=== PATIENT | female | born 1945 | race Caucasian/White ===

== ENCOUNTER → 2020-05-27 | Outpatient (CLI) | payer MEDICARE ==
[2020-05-27 10:54] LABS: Basophils % (A) 1 %; Eosinophils # (A) 0.3 k/uL (0-0.7); Eosinophils % (A) 6 %; HCT 28.7 % (34.0-46.0); HGB 9.1 gm/dL (11.4-16.0); Lymphocytes % (A) 24 %; MCH 31.6 pg (25.0-35.0); MCHC 31.7 g/dL (31.0-37.0); MCV 99.6 fL (80.0-100.0); Mean Platelet Volume 7.6; Monocytes # (A) 0.3 k/uL (0-1.0); Monocytes % (A) 8 %; Neutrophils # (A) 2.5 k/uL (1.3-7.7); Neutrophils % (A) 58 %; Platelet Count 244 k/uL (150-450); RBC 2.88 m/uL (3.80-5.40); RDW 13.1 % (11.5-15.5); WBC 4.3 k/uL (3.8-10.6)
[2020-05-27 11:04] LABS: Potassium 4.7 mmol/L (3.5-5.1)
== END | disposition home or self-care (01) ==
LOC: LABPAT 08:54
PROVIDERS: ATTEND Surgery
DX: Z01.818 Encounter for other preprocedural examination (principal); N18.9 Chronic kidney disease, unspecified
CPT/HCPCS: 36415; 80051; 82565; 84520; 85025

== ENCOUNTER → 2020-07-02 | Day surgery (SDC) | payer MEDICARE ==
[2020-06-30 09:31] VITALS: BMI 26.4
[~2020-07-02] MED LIST: DEXAMETHASONE SOD PHOSPHATE 4 MG/ML 1 ML VIAL IV ONE; DEXAMETHASONE SOD PHOSPHATE 4 MG/ML 1 ML VIAL ONE; GELATIN SPONGE,ABSORB (LARGE) 1 EACH SPONGE TOPICAL ONE; HEPARIN SODIUM,PORCINE 2,000 UNIT in SODIUM CHLORIDE 0.9% 500 ML 500 ML IRRIGATION ONE; HEPARIN SODIUM,PORCINE 5,000 UNIT/ML 1 ML VIAL ONE; HYDROmorphone 0.5 MG/0.5 ML SYRINGE IVP PRN; LACTATED RINGERS 1,000 ML IV SCH; LIDOCAINE 1% (10MG/ML) FOR IV START INTRADERMA ONE; LIDOCAINE 1% INJ 10MG/ML (20 ML MDV) SQ ONE; MIDAZOLAM 2 MG/2 ML VIAL IV ONE; MIDAZOLAM 2 MG/2 ML VIAL IV PRN; MIDAZOLAM 2 MG/2 ML VIAL ONE; ONDANSETRON 4 MG/2 ML VIAL IVP ONE; PROPOFOL 10 MG/ML 20 ML VIAL IV ONE; ROPIVACAINE 5 MG/ML 30 ML VIAL ONE; SODIUM CHLORIDE 0.9% 500 ML 500 ML IV ONE; THROMBIN (BOVINE) 5,000 UNIT VIAL MISCELLANE ONE; WATER FOR INJECTION, STERILE 10 ML VIAL IV ONE; ceFAZolin 2,000 MG in SODIUM CHLORIDE 0.9% 500 ML IRRIGATION ONE; diphenhydrAMINE 50 MG/ML 1 ML VIAL ONE; ePHEDrine SULFATE/0.9% NACL/PF 50 MG/5 ML SYRINGE IV ONE; fentaNYL (PF) 50 MCG/ML 2 ML AMP IV ONE; fentaNYL (PF) 50 MCG/ML 2 ML AMP ONE; hydrALAZINE HCL 20 MG/ML 1 ML VIAL ONE
[2020-07-02 07:33] VITALS: TEMP 98
[2020-07-02 07:52] LABS: Glucose,Whole Blood 176 mg/dL (75-99)
--- NOTE | 2020-07-02 08:37 | P.ANPRN ---
Procedure Note - Anesthesia - Nerve Block Performed Left Supraclavicular Time Out Performed: Yes (08:10) Date of Procedure: 07/02/20 Procedure Start Time: Procedure Stop Time: Location of Patient: PreOp Indication: Acute Post-Operative Pain, Requested by Surgeon (Dr Mart) Sedation Type: Sedate with meaningful contact maintained Preparation: Sterile Prep Position: Supine Catheter: None Needle Types: Pajunk (22g) Ultrasound used to visualize needle placement: Yes Ultrasound used to observe medication spread: Yes Injectate: 0.5% Ropivacaine (see comment for volume) (20cc + Decadron 4mg) Blood Aspirated: No Pain Paresthesia on Injection Noted: No Resistance on Injection: Normal Image Stored and Saved: Yes Events: Uneventful and Well Tolerated
--- NOTE | 2020-07-02 09:48 | P.OP ---
Date of Procedure: 07/02/20 Preoperative Diagnosis: Chronic kidney disease Postoperative Diagnosis: Same Procedure(s) Performed: Left upper extremity radiocephalic Larissa fistula Anesthesia: regional, local Surgeon: Keven Mart Director Of Hotel [employer]: Nora Bansal Estimated Blood Loss (ml): 5 Pathology: none sent Condition: stable Disposition: PACU Indications for Procedure: 75-year-old female with chronic kidney disease presented to the office for planning of fistula creation for possible future dialysis. She presents today for left upper extremity Larissa fistula after ultrasound demonstrated 2.5 mm vein at the wrist. Description of Procedure: After written and informed consent was obtained from the patient the patient was brought to the operative suite and laid in a supine position. The left arm was prepped and draped in the usual sterile fashion after appropriate anesthesia was performed per the anesthesiologist. Utilizing ultrasound the cephalic vein was visualized and marked and shown to be good size. A small vertical incision was then created with a 15 blade scalpel just proximal to the wrist and dissection was carried down to the radial artery which was dissected free in a circumferential manner. Proximal distal control was then obtained with vessel loops. Attention was then placed back to the cephalic vein which was located and dissected free in a circumferential manner distally to the wrist. At the wrist it was ligated with silk suture. Further dissection was carried around the vein and the vein was brought over to the radial artery. Serial dilation was then performed on the vein and good backbleeding was noted. Patient was administered 3000 units of heparin and the radial artery was clamped at the proximal and distal aspect. Utilizing 11 blade scalpel and arteriotomy was created and extended with Pott Zaldivar scissors. There was good brisk backbleeding noted from the radial artery and pulsatile blood flow visualized from the proximal aspect. The vein was then spatulated and an end-to-side anastomosis was created with a 7-0 Prolene suture. Prior to last sutures being placed the control was released from the vein revealing good backbleeding and distal control on the radial artery was released revealing good back flow. The proximal control was then released and good pulsatile blood flow was visualized in the fistula and final sutures were secured. The area was copiously irrigated with antibiotic solution. Hemostasis was assured. The vessels were then interrogated with Doppler which demonstrated good multiphasic signal distal to the anastomosis as well as positive bruit within the vein consistent with good fistula creation. Under ultrasound there was pulsatile flow noted in the cephalic vein. The incision was then closed in a multilayer fashion. The skin was cleansed and dressings were placed. Patient does procedure well and was sent to PACU for recovery. Plan - Discharge Summary Discharge Rx Participant: No New Discharge Prescriptions: No Action Cholecalciferol [Vitamin D3 (25 Mcg = 1000 Iu)] 1,000 unit PO DAILY Ascorbic Acid [Vitamin C] 500 mg PO DAILY Multivitamins, Thera [Multivitamin (formulary)] 1 tab PO DAILY Folic Acid 1 mg PO DAILY Ferrous Sulfate [Feosol] 325 mg PO BID Aspirin [Adult Low Dose Aspirin EC] 81 mg PO DAILY Simvastatin [Zocor] 20 mg PO HS Febuxostat [Uloric] 40 mg PO DAILY hydrALAZINE HCL [Apresoline] 100 mg PO TID Insulin Lispro Protamin/Lispro [humaLOG Mix 75-25 Kwikpen] 26 unit SQ 1530 Insulin Lispro Protamin/Lispro [humaLOG Mix 75-25 Kwikpen] 32 unit SQ AC- BRKFST Furosemide [Lasix] 40 mg PO HS Adalimumab [Humira Pen] 40 mg SQ Q14D cloNIDine HCL [Catapres] 0.1 mg PO TID Furosemide [Lasix] 80 mg PO DAILY Cyanocobalamin [Vitamin B-12 Injection] 1,000 mcg SQ QMONTHLY Calcitriol [Rocaltrol] 0.5 mcg PO DAILY Benazepril HCl 5 mg PO DAILY atenoloL [Atenolol] 25 mg PO BID amLODIPine BESYLATE 5 mg PO DAILY Alendronate Sodium [Fosamax] 70 mg PO FR L.acidoph,Paracasei, B.lactis [Probiotic] 2 each PO DAILY Discharge Medication List Adalimumab [Humira Pen] 40 mg SQ Q14D 06/30/20 [History] Alendronate Sodium [Fosamax] 70 mg PO FR 06/30/20 [History] Ascorbic Acid [Vitamin C] 500 mg PO DAILY 06/30/20 [History] Aspirin [Adult Low Dose Aspirin EC] 81 mg PO DAILY 06/30/20 [History] Benazepril HCl 5 mg PO DAILY 06/30/20 [History] Calcitriol [Rocaltrol] 0.5 mcg PO DAILY 06/30/20 [History] Cholecalciferol [Vitamin D3 (25 Mcg = 1000 Iu)] 1,000 unit PO DAILY 06/30/20 [History] Cyanocobalamin [Vitamin B-12 Injection] 1,000 mcg SQ QMONTHLY 06/30/20 [History] Febuxostat [Uloric] 40 mg PO DAILY 06/30/20 [History] Ferrous Sulfate [Feosol] 325 mg PO BID 06/30/20 [History] Folic Acid 1 mg PO DAILY 06/30/20 [History] Furosemide [Lasix] 40 mg PO HS 06/30/20 [History] Furosemide [Lasix] 80 mg PO DAILY 06/30/20 [History] Insulin Lispro Protamin/Lispro [humaLOG Mix 75-25 Kwikpen] 26 unit SQ 1530 06/30/20 [History] Insulin Lispro Protamin/Lispro [humaLOG Mix 75-25 Kwikpen] 32 unit SQ AC-BRKFST 06/30/20 [History] L.acidoph,Paracasei, B.lactis [Probiotic] 2 each PO DAILY 06/30/20 [History] Multivitamins, Thera [Multivitamin (formulary)] 1 tab PO DAILY 06/30/20 [History] Simvastatin [Zocor] 20 mg PO HS 06/30/20 [History] amLODIPine BESYLATE 5 mg PO DAILY 06/30/20 [History] atenoloL [Atenolol] 25 mg PO BID 06/30/20 [History] cloNIDine HCL [Catapres] 0.1 mg PO TID 06/30/20 [History] hydrALAZINE HCL [Apresoline] 100 mg PO TID 06/30/20 [History] Follow up Appointment(s)/Referral(s): Keven Mart DO [STAFF PHYSICIAN] - 2 Weeks Discharge Disposition: HOME SELF-CARE
[2020-07-02 10:12] LABS: Glucose,Whole Blood 191 mg/dL (75-99)
[2020-07-02 10:37] VITALS: BP 193/82; PULSE 77; RESP 17
== END | disposition home or self-care (01) ==
LOC: OR 06:54
PROVIDERS: ATTEND Surgery
DX: I12.9 Hypertensive chronic kidney disease with stage 1 through stage 4 chronic kidney disease, or unspecified chronic kidney disease (principal); E11.22 Type 2 diabetes mellitus with diabetic chronic kidney disease; N18.4 Chronic kidney disease, stage 4 (severe); D63.1 Anemia in chronic kidney disease; L40.50 Arthropathic psoriasis, unspecified; Z98.51 Tubal ligation status; Z98.890 Other specified postprocedural states; Z97.2 Presence of dental prosthetic device (complete) (partial); Z79.83 Long term (current) use of bisphosphonates; Z79.4 Long term (current) use of insulin; Z79.82 Long term (current) use of aspirin; Z79.899 Other long term (current) drug therapy; Z91.09 Other allergy status, other than to drugs and biological substances
CPT/HCPCS: 64415; 76942; 36830; J2250; J0360; J1200; J1644; J1100; J0690 ×2; J2405; J3010; J2795; J2704

== ENCOUNTER → 2021-03-24 | Outpatient (CLI) | payer MEDICARE ==
[2021-03-24 16:58] LABS: Potassium 4.9 mmol/L (3.5-5.1)
[2021-03-24 17:39] LABS: Anisocytosis Slight; HCT 34.3 % (34.0-46.0); Hypochromasia Slight; MCHC 32.1 g/dL (31.0-37.0); Macrocytosis Slight; Mean Platelet Volume 8.1; Platelet Count 222 k/uL (150-450); RBC 3.43 m/uL (3.80-5.40); WBC 3.5 k/uL (3.8-10.6)
[2021-03-24 18:55] LABS: Band Neutrophils % 1 %; Eosinophils # (M) 0.67 k/uL (0-0.7); Lymphocytes # (M) 0.46 k/uL (1.0-4.8); Monocytes # (M) 0.11 k/uL (0-1.0); Neutrophils % (M) 64 %; Nucleated Red Blood Cells 0 /100 WBC (0-0); Poikilocytosis (M) Present; Total Cells Counted 100
== END | disposition home or self-care (01) ==
LOC: LABPAT 15:27
PROVIDERS: ATTEND Surgery
DX: Z01.812 Encounter for preprocedural laboratory examination (principal); N18.9 Chronic kidney disease, unspecified
CPT/HCPCS: 80051; 82565; 84520; 85025

== ENCOUNTER 2021-03-25 12:31 | Day surgery (SDC) | payer MEDICARE ==
[~2021-03-25 12:31] MED LIST changes: -DEXAMETHASONE SOD PHOSPHATE 4 MG/ML 1 ML VIAL IV ONE; -DEXAMETHASONE SOD PHOSPHATE 4 MG/ML 1 ML VIAL ONE; -GELATIN SPONGE,ABSORB (LARGE) 1 EACH SPONGE TOPICAL ONE; -HEPARIN SODIUM,PORCINE 2,000 UNIT in SODIUM CHLORIDE 0.9% 500 ML 500 ML IRRIGATION ONE; -HEPARIN SODIUM,PORCINE 5,000 UNIT/ML 1 ML VIAL ONE; -HYDROmorphone 0.5 MG/0.5 ML SYRINGE IVP PRN; -LACTATED RINGERS 1,000 ML IV SCH; -LIDOCAINE 1% (10MG/ML) FOR IV START INTRADERMA ONE; -LIDOCAINE 1% INJ 10MG/ML (20 ML MDV) SQ ONE; -MIDAZOLAM 2 MG/2 ML VIAL IV ONE; -MIDAZOLAM 2 MG/2 ML VIAL IV PRN; -MIDAZOLAM 2 MG/2 ML VIAL ONE; -ONDANSETRON 4 MG/2 ML VIAL IVP ONE; -PROPOFOL 10 MG/ML 20 ML VIAL IV ONE; -ROPIVACAINE 5 MG/ML 30 ML VIAL ONE; +SODIUM CHLORIDE 0.9% 1,000 ML IV ONE; -SODIUM CHLORIDE 0.9% 500 ML 500 ML IV ONE; -THROMBIN (BOVINE) 5,000 UNIT VIAL MISCELLANE ONE; -WATER FOR INJECTION, STERILE 10 ML VIAL IV ONE; -ceFAZolin 2,000 MG in SODIUM CHLORIDE 0.9% 500 ML IRRIGATION ONE; -diphenhydrAMINE 50 MG/ML 1 ML VIAL ONE; -ePHEDrine SULFATE/0.9% NACL/PF 50 MG/5 ML SYRINGE IV ONE; -fentaNYL (PF) 50 MCG/ML 2 ML AMP IV ONE; -fentaNYL (PF) 50 MCG/ML 2 ML AMP ONE; -hydrALAZINE HCL 20 MG/ML 1 ML VIAL ONE
[2021-03-25] MEDS ORDERED: SODIUM CHLORIDE 0.9% 500 ML 500 ML IV ONE (14:27)
[2021-03-25 14:47] LABS: Glucose,Whole Blood 110 mg/dL (75-99)
[2021-03-25] MEDS ORDERED: amLODIPine 10 MG TAB PO ONE (15:00)
[2021-03-25] MEDS ORDERED: cloNIDine HCL 0.1 MG TAB PO ONE (15:15)
[2021-03-25] MEDS ORDERED: hydrALAZINE HCL 50 MG TAB PO ONE (15:15)
[2021-03-25] MEDS ORDERED: atenoloL 50 MG TAB PO ONE (15:15)
[2021-03-25 15:16] VITALS: BP 229/105; PULSE 70; RESP 16; TEMP 97.2
[2021-03-25] MEDS ORDERED: LIDOCAINE 1% INJ 10MG/ML (20 ML MDV) ONE (16:31)
[2021-03-25] MEDS ORDERED: HEPARIN SODIUM 1,000 UN/ML (10ML VL) ONE (16:31)
--- NOTE | 2021-03-25 16:37 | P.HPIHPCON ---
History of Present Illness H&P Date: 03/25/21 Belgica is a 76-year-old female who previously underwent a left upper extremity radiocephalic fistula. It has failed to mature. She currently does not require dialysis but last seen at her senior piping designer, they were concerned there was no further thrill or bruit taken here. Given these things are concerned there is issue with the fistula thrombosing. She was seen at our office with an ultrasound showing patency, but there to mature. Given these findings is recommended she undergo a fistulogram. She feels a for this. She denies any fevers, chills, nausea, vomiting or issues otherwise. Again there not currently recommending dialysis per the patient Consent for Procedure: I have explained the operation/procedure to the patient, including the risks, benefits, side effects, alternative therapies (including not receiving the proposed treatment or service), the likelihood of the patient achieving his/her goals, and potential recuperation problems for the procedure/sedation/analgesia, as well as any blood products, if indicated. I also explained to the patient the risks, benefits and side effects of the alternatives, as well as the risks related to not receiving the proposed procedure, care, treatment, or services. Past Medical History Past Medical History: Diabetes Mellitus, Hyperlipidemia, Hypertension, Renal Disease, Skin Disorder Additional Past Medical History / Comment(s): kidney disease stage V. gout ,anemia, psoriatic arthritis,heart murmur History of Any Multi-Drug Resistant Organisms: None Reported Past Surgical History: Orthopedic Surgery, Tubal Ligation Additional Past Surgical History / Comment(s): 1 oophorectomy, 1 partial oophorectomy,fx rt shoulder feng present Past Anesthesia/Blood Transfusion Reactions: Motion Sickness Smoking Status: Never smoker - Past Family History Sister(s) Family Medical History: Cancer Additional Family Medical History / Comment(s): breast cancer Medications and Allergies Home Medications Medication Instructions Recorded Confirmed Type Adalimumab [Humira Pen] 40 mg SQ Q14D 06/30/20 03/25/21 History Alendronate Sodium [Fosamax] 70 mg PO FR 06/30/20 03/25/21 History Ascorbic Acid [Vitamin C] 500 mg PO DAILY 06/30/20 03/25/21 History Aspirin [Adult Low Dose Aspirin EC] 81 mg PO DAILY 06/30/20 03/25/21 History Cholecalciferol [Vitamin D3 (25 1,000 unit PO DAILY 06/30/20 03/25/21 History Mcg = 1000 Iu)] Febuxostat [Uloric] 40 mg PO DAILY 06/30/20 03/25/21 History Ferrous Sulfate [Feosol] 325 mg PO DAILY 06/30/20 03/25/21 History Folic Acid 1 mg PO DAILY 06/30/20 03/25/21 History Furosemide [Lasix] 40 mg PO HS 06/30/20 03/25/21 History Furosemide [Lasix] 80 mg PO DAILY 06/30/20 03/25/21 History Insulin Lispro Protamin/Lispro 26 unit SQ 1530 06/30/20 03/25/21 History [humaLOG Mix 75-25 Kwikpen] Insulin Lispro Protamin/Lispro 32 unit SQ AC-BRKFST 06/30/20 03/25/21 History [humaLOG Mix 75-25 Kwikpen] Multivitamins, Thera [Multivitamin 1 tab PO DAILY 06/30/20 03/25/21 History (formulary)] Simvastatin [Zocor] 20 mg PO HS 06/30/20 03/25/21 History amLODIPine BESYLATE 10 mg PO DAILY 06/30/20 03/25/21 History atenoloL 50 mg PO BID 06/30/20 03/25/21 History calcitrioL [Rocaltrol] 0.5 mcg PO DAILY 06/30/20 03/25/21 History cloNIDine HCL [Catapres] 0.3 mg PO TID 06/30/20 03/25/21 History hydrALAZINE HCL [Apresoline] 100 mg PO TID 06/30/20 03/25/21 History Folic Acid-Vit B Complex-Vit C 0.8 mg PO DAILY 03/25/21 03/25/21 History [Nephrocaps] Furosemide [Lasix] 80 mg PO DAILY 03/25/21 03/25/21 History Pantoprazole [Protonix] 40 mg PO DAILY 03/25/21 03/25/21 History Sevelamer Carbonate 800 mg PO BID 03/25/21 03/25/21 History Allergies Allergy/AdvReac Type Severity Reaction Status Date / Time adhesive tape Allergy Itching Verified 03/25/21 14:34 Surgical - Exam Vital Signs Temp Pulse Resp BP Pulse Ox 97.2 F L 70 16 229/105 99 08/13/21 15:08 03/25/21 15:08 03/25/21 15:08 03/25/21 15:08 03/25/21 15:08 Genitals a pleasant cooperative female in no acute distress. HEENT is normal cephalic, atraumatic, extra ocular motion intact. Heart appears regular in rate and rhythm. Lungs are clear bilaterally. Abdomen is soft, nontender nondistended. Extremity show no clubbing, cyanosis or edema. The left upper extremity has a palpable radial pulse. No palpable thrill Results - Labs Abnormal Lab Results - Last 24 Hours (Table) 03/25/21 Range/Units 14:43 POC Glucose (mg/dL) 110 H (75-99) mg/dL Assessment and Plan Assessment: Non-maturing left upper extremity AV fistula Chronic kidney disease Plan: Plan for left upper extremity fistulagram, possible venoplasty
[2021-03-25] MEDS ORDERED: LIDOCAINE 1% INJ 10MG/ML (20 ML MDV) SQ ONE (16:40)
[2021-03-25] MEDS ORDERED: IOPAMIDOL-250 100ML BTL IV ONE (17:04)
--- NOTE | 2021-03-25 17:10 | P.OP ---
Date of Procedure: 03/25/21 Description of Procedure: Preoperative diagnosis: Non-maturing left upper extremity radiocephalic fistula Postoperative diagnosis: Same, multiple branches Procedure: [#1 ultrasound guided left cephalic vein access #2 fistulogram] Surgeon: Nora Bansal D.O. EBL: [Less than 10 mL] IV fluids: See records Urine output: [Not recorded] Drains: []None Complications: [None immediately apparent] Condition: [Stable to recovery] Operative indication and findings: [Belgica is a 76-year-old female in today for ev aluation of her nonfunctioning left upper extremity radiocephalic fistula. She is not currently on dialysis] Procedure in detail: [Patient was taken to the special suite and placed in supine position. The left upper extremity is prepped and draped in usual sterile fashion. A preprocedure timeout was performed, all parties are in agreement. The ultrasound was utilized and the cephalic vein was identified. The skin overlying was anesthetized 1% lidocaine plain. Using a micropuncture needle the cephalic vein was accessed. Seldinger technique was placed to place the sheath. A venogram was performed. There are multiple areas of decent size branches. Visualized portions of the anastomosis and veins showed no obvious areas of severe stenosis. Wires and catheters were removed. Pressure was held until hemostasis was adequate. The patient will need a branch ligation first to attempt any sort of maturation] Plan - Discharge Summary New Discharge Prescriptions: No Action Cholecalciferol [Vitamin D3 (25 Mcg = 1000 Iu)] 1,000 unit PO DAILY Ascorbic Acid [Vitamin C] 500 mg PO DAILY Multivitamins, Thera [Multivitamin (formulary)] 1 tab PO DAILY Folic Acid 1 mg PO DAILY Ferrous Sulfate [Feosol] 325 mg PO DAILY Aspirin [Adult Low Dose Aspirin EC] 81 mg PO DAILY Simvastatin [Zocor] 20 mg PO HS Febuxostat [Uloric] 40 mg PO DAILY hydrALAZINE HCL [Apresoline] 100 mg PO TID Insulin Lispro Protamin/Lispro [humaLOG Mix 75-25 Kwikpen] 26 unit SQ 1530 Insulin Lispro Protamin/Lispro [humaLOG Mix 75-25 Kwikpen] 32 unit SQ AC- BRKFST Furosemide [Lasix] 40 mg PO HS Adalimumab [Humira Pen] 40 mg SQ Q14D cloNIDine HCL [Catapres] 0.3 mg PO TID Furosemide [Lasix] 80 mg PO DAILY calcitrioL [Rocaltrol] 0.5 mcg PO DAILY atenoloL 50 mg PO BID amLODIPine BESYLATE 10 mg PO DAILY Alendronate Sodium [Fosamax] 70 mg PO FR Furosemide [Lasix] 80 mg PO DAILY Folic Acid-Vit B Complex-Vit C [Nephrocaps] 0.8 mg PO DAILY Pantoprazole [Protonix] 40 mg PO DAILY Sevelamer Carbonate 800 mg PO BID Discharge Medication List Adalimumab [Humira Pen] 40 mg SQ Q14D 06/30/20 [History] Alendronate Sodium [Fosamax] 70 mg PO FR 06/30/20 [History] Ascorbic Acid [Vitamin C] 500 mg PO DAILY 06/30/20 [History] Aspirin [Adult Low Dose Aspirin EC] 81 mg PO DAILY 06/30/20 [History] Cholecalciferol [Vitamin D3 (25 Mcg = 1000 Iu)] 1,000 unit PO DAILY 06/30/20 [History] Febuxostat [Uloric] 40 mg PO DAILY 06/30/20 [History] Ferrous Sulfate [Feosol] 325 mg PO DAILY 06/30/20 [History] Folic Acid 1 mg PO DAILY 06/30/20 [History] Furosemide [Lasix] 40 mg PO HS 06/30/20 [History] Furosemide [Lasix] 80 mg PO DAILY 06/30/20 [History] Insulin Lispro Protamin/Lispro [humaLOG Mix 75-25 Kwikpen] 26 unit SQ 1530 06/30/20 [History] Insulin Lispro Protamin/Lispro [humaLOG Mix 75-25 Kwikpen] 32 unit SQ AC-BRKFST 06/30/20 [History] Multivitamins, Thera [Multivitamin (formulary)] 1 tab PO DAILY 06/30/20 [History] Simvastatin [Zocor] 20 mg PO HS 06/30/20 [History] amLODIPine BESYLATE 10 mg PO DAILY 06/30/20 [History] atenoloL 50 mg PO BID 06/30/20 [History] calcitrioL [Rocaltrol] 0.5 mcg PO DAILY 06/30/20 [History] cloNIDine HCL [Catapres] 0.3 mg PO TID 06/30/20 [History] hydrALAZINE HCL [Apresoline] 100 mg PO TID 06/30/20 [History] Folic Acid-Vit B Complex-Vit C [Nephrocaps] 0.8 mg PO DAILY 03/25/21 [History] Furosemide [Lasix] 80 mg PO DAILY 03/25/21 [History] Pantoprazole [Protonix] 40 mg PO DAILY 03/25/21 [History] Sevelamer Carbonate 800 mg PO BID 03/25/21 [History]
--- NOTE | 2021-03-28 13:58 | IR ---
EXAMINATION TYPE: IR venogram upper ext LT DATE OF EXAM: 03/25/2021 COMPARISON: NONE HISTORY: Fluoroscopy time. Fluoroscopy was provided to the referring clinician.
== END 2021-03-25 17:38 | disposition home or self-care (01) ==
LOC: CATHCVL 12:31
PROVIDERS: ATTEND Surgery
DX: T82.898A Other specified complication of vascular prosthetic devices, implants and grafts, initial encounter (principal); Y83.2 Surgical operation with anastomosis, bypass or graft as the cause of abnormal reaction of the patient, or of later complication, without mention of misadventure at the time of the procedure; I12.0 Hypertensive chronic kidney disease with stage 5 chronic kidney disease or end stage renal disease; E11.22 Type 2 diabetes mellitus with diabetic chronic kidney disease; N18.5 Chronic kidney disease, stage 5; Z99.2 Dependence on renal dialysis; E78.5 Hyperlipidemia, unspecified; D63.1 Anemia in chronic kidney disease; L40.50 Arthropathic psoriasis, unspecified; Z79.899 Other long term (current) drug therapy; Z79.82 Long term (current) use of aspirin; Z79.4 Long term (current) use of insulin
CPT/HCPCS: 76937; 36901; C1769 ×2; J2001; Q9966

== ENCOUNTER → 2022-01-04 | Outpatient (CLI) | payer MEDICARE ==
--- NOTE | 2022-01-04 15:56 | US ---
LOWER EXTREMITY VENOUS INSUFFICIENCY CLINICAL HISTORY: E11.622 TYPE 2 DIABETE MELLITUS W/OTHER SKIN ULCER. pain bilateral legs, worse on t he right for 10 months. wounds bilateral lower legs SIDE PERFORMED: bilateral 1) Color flow is present and patency is documented in the following vessels. No DVT or SVT is noted . Common Femoral Vein Deep Femoral Vein Femoral Vein Popliteal Vein Proximal Calf Veins Greater Saph Vein Upper Small Saph Vein 2) There is venous reflux noted at the following venous levels: right GSV, right CFV, left EIV, lef t GSV, left CFV, left deep femoral vein,left femoral vein upper and mid, left popliteal vein mid and lower, left SSV IMPRESSION: 1. Venous Reflux is present within the right and left lower extremity discussed above.
--- NOTE | 2022-01-10 13:32 | US ---
EXAMINATION TYPE: US arterial LE single level DATE OF EXAM: 01/04/2022 2:36 PM CLINICAL HISTORY: E11.622 TYPE 2 DIABETE MELLITUS W/OTHER SKIN ULCER. History of hyperlipidemia and h ypertension. Bilateral leg wounds worse on the right for 10 months. Doppler Waveforms: Right: Biphasic Left: Monophasic Pulse Volume Recording: Ankle-Brachial Indices: Right: CNO Left: CNO Toe Brachial Indices: Right: 0.9 Left: 0.7 IMPRESSION: Abnormal phasicity with unobtainable ABIs is abnormal study. Advise follow-up.
== END | disposition home or self-care (01) ==
LOC: RADUSWWP 13:18
PROVIDERS: ATTEND Thoracic Surgery (Cardiothoracic Vascular Surgery)
DX: E11.622 Type 2 diabetes mellitus with other skin ulcer (principal); I10 Essential (primary) hypertension; E78.5 Hyperlipidemia, unspecified
CPT/HCPCS: 93922; 93970

== ENCOUNTER → 2022-12-22 | Outpatient (CLI) | payer MEDICARE ==
--- NOTE | 2022-12-22 09:23 | MR ---
EXAMINATION TYPE: MR MRCP DATE OF EXAM: 12/22/2022 COMPARISON: None. HISTORY: Pancreatic cyst. Standard multiplanar, multisequence MRI departmental protocol Multiplanar, multisequence images of the abdomen were acquired without contrast. Diffusion weighted i maging was performed. Thin and thick slice MRCP imaging is performed. FINDINGS: Liver/gallbladder/pancreas/biliary system: Liver is overall normal in size with several small simple- appearing thin-walled cysts. Gallbladder shows a single tiny dependent 4 mm gallstone axial image 18. No surrounding fluid or abnormal gallbladder wall thickening. Pancreas is normal in size with a thin walled cyst in the pancreatic body measuring 1.7 x 2.0 x 2.3 cm coronal image 12 and axial image 17. MRCP images slight prominence of the cystic duct. The common hepatic duct measures up to 8 mm which is upper limits of normal. The common bile duct measures mildly dilated at 11 mm image 45 series 701. There is no filling defect or CBD stone. There is gradual tapering towards the ampulla. The pancreat ic duct is mildly dilated up to 4 mm. There is no definitive communication with the thin-walled cyst or cystic lesion in the pancreatic body. Slightly prominent side branch in the tail has a 4 mm thin-w alled cyst coronal image 15 and MRCP series 701 image 45. Other: Lung bases are grossly clear. Spleen and both adrenal glands appear within normal limits. Ther e is cortical thinning in both kidneys with occasional subcentimeter benign-appearing thin-walled cys t. Findings consistent with products of chronic medical renal disease. No hydronephrosis seen bilater ally. There is no suspicious small and large bowel dilatation. No intra-abdominal ascites. There is S -shaped scoliosis with multilevel spurring in the thoracolumbar spine. No AAA. IMPRESSION: 1. There is 2.0 cm thin-walled cyst in the pancreatic body without direct communication to the main p ancreatic duct. Cystic neoplasm is in differential. No suspicious features identified on noncontrast MRI. Correlate clinically. 2. There is 4 mm thin-walled cyst in the pancreatic tail communicating to side branch of the main felder creatic duct consistent with tiny side branch IPMN.
== END | disposition home or self-care (01) ==
LOC: RADMRIMAIN 07:07
PROVIDERS: ATTEND Internal Medicine Gastroenterology
DX: K86.2 Cyst of pancreas (principal)
CPT/HCPCS: 74181

== ENCOUNTER 2023-05-30 05:39 | Observation (INO) | payer MEDICARE ==
[2023-05-30] MEDS ORDERED: SODIUM CHLORIDE 0.9% 1,000 ML IV STA (06:30)
[2023-05-30 07:13] LABS: HCT 35.3 % (34.0-46.0); HGB 11.7 gm/dL (11.4-16.0); MCH 33.1 pg (25.0-35.0); MCHC 33.1 g/dL (31.0-37.0); MCV 100.2 fL (80.0-100.0); Mean Platelet Volume 7.7; Platelet Count 110 k/uL (150-450); RBC 3.53 m/uL (3.80-5.40); RDW 13.9 % (11.5-15.5); WBC 2.3 k/uL (3.8-10.6)
[2023-05-30 07:30] LABS: ALT 16 U/L (4-34); AST 43 U/L (14-36); African American GFR (CKD) 23 (>60 ml/min/1.73 sqM); Albumin 3.6 g/dL (3.5-5.0); Alkaline Phosphatase 40 U/L (38-126); Anion Gap 9 mmol/L; Blood Urea Nitrogen 30 mg/dL (7-17); Calcium 9.2 mg/dL (8.4-10.2); Carbon Dioxide 29 mmol/L (22-30); Chloride 96 mmol/L (98-107); Glucose 86 mg/dL (74-99); Non-African American GFR(CKD) 20 (>60 ml/min/1.73 sqM); Sodium 134 mmol/L (137-145); Total Bilirubin 0.6 mg/dL (0.2-1.3); Total Protein 6.3 g/dL (6.3-8.2)
[2023-05-30 07:40] LABS: Partial Thromboplastin Time 25.3 sec (22.0-30.0); Prothrombin Time 10.7 sec (10.0-12.5)
[2023-05-30 07:49] LABS: Potassium 3.9 mmol/L (3.5-5.1)
[2023-05-30 08:12] LABS: Eosinophils # (M) 0.12 k/uL (0-0.7); Lymphocytes # (M) 0.55 k/uL (1.0-4.8); Metamyelocytes # (M) 0.02 k/uL (0); Metamyelocytes % 1 %; Monocytes # (M) 0.35 k/uL (0-1.0); Myelocytes # (M) 0.02 k/uL (0); Myelocytes % 1 %; Neutrophils # (M) 1.29 k/uL (1.3-7.7); Neutrophils % (M) 56 %; Nucleated Red Blood Cells 0 /100 WBC (0-0); Total Cells Counted 200
--- NOTE | 2023-05-30 08:17 | ED ---
Recheck HPI - General Chief Complaint: Recheck/Abnormal Lab/Rx Time Seen by Provider: 05/30/23 05:59 Source: patient, EMS, RN notes reviewed Mode of arrival: EMS Limitations: no limitations - History of Present Illness Initial Comments: 78-year-old female presents emergency Department with chief complaint of not feeling well. She states that she just feels weak but has no specific complaints. Patient was seen at [facility] just prior arrival here in which she had a full workup and discharge. Patient states she also has had recent stay at [facility]. She states she's also have "home health care come out today along with physical therapy she denies chest pain shortness breath headache or dizziness no focal weakness. - Related Data Home Medications Medication Instructions Recorded Confirmed Ascorbic Acid [Vitamin C] 500 mg PO DAILY 06/30/20 05/30/23 Aspirin [Adult Low Dose Aspirin EC] 81 mg PO DAILY 06/30/20 05/30/23 Febuxostat [Uloric] 40 mg PO DAILY 06/30/20 05/30/23 Ferrous Sulfate [Feosol] 325 mg PO DAILY 06/30/20 05/30/23 Multivitamins, Thera [Multivitamin 1 tab PO DAILY 06/30/20 05/30/23 (formulary)] Simvastatin [Zocor] 20 mg PO HS 06/30/20 05/30/23 amLODIPine BESYLATE 10 mg PO DAILY 06/30/20 05/30/23 hydrALAZINE HCL [Apresoline] 100 mg PO TID 06/30/20 05/30/23 Calcium Acetate [Phoslo] 1,334 mg PO TID-W/MEALS 09/21/22 05/30/23 Furosemide [Lasix] 60 mg PO TID 09/21/22 05/30/23 Insulin Degludec [Tresiba] 22 units SQ QAM 09/21/22 05/30/23 Nephro-Hilary 1 tab PO DAILY 09/21/22 05/30/23 carvediloL [Coreg] 25 mg PO BID 09/21/22 05/30/23 Cholecalciferol [Vitamin D3 (25 25 mcg PO DAILY 05/30/23 05/30/23 Mcg = 1000 Iu)] Insulin Lispro [humaLOG Kwikpen] 4 units SQ AC-TID 05/30/23 05/30/23 Insulin Lispro [humaLOG Kwikpen] See Protocol SQ AC-TID 05/30/23 05/30/23 Women's Probiotic W/ Cranberry 2 cap PO DAILY 05/30/23 05/30/23 lisinopriL [Prinivil] 10 mg PO DIRECTED 05/30/23 05/30/23 Allergies Allergy/AdvReac Type Severity Reaction Status Date / Time adhesive tape AdvReac Itching Verified 05/30/23 08:38 Review of Systems ROS Statement: Those systems with pertinent positive or pertinent negative responses have been documented in the HPI. ROS Other: All systems not noted in ROS Statement are negative. 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 gout ,anemia, psoriatic arthritis,heart murmur History of Any Multi-Drug Resistant Organisms: None Reported Past Surgical History: Orthopedic Surgery, Tubal Ligation Additional Past Surgical History / Comment(s): 1 oophorectomy, 1 partial oophorectomy,fx rt shoulder feng present, dialysis port right arm, cataracts removed jack eyes, fistula left arm Past Anesthesia/Blood Transfusion Reactions: Motion Sickness Past Psychological History: No Psychological Hx Reported Smoking Status: Never smoker - Past Family History Sister(s) Family Medical History: Cancer Additional Family Medical History / Comment(s): breast cancer General Exam General appearance: alert, in no apparent distress Head exam: Present: atraumatic, normocephalic, normal inspection Eye exam: Present: normal appearance, PERRL, EOMI. Absent: scleral icterus, conjunctival injection, periorbital swelling ENT exam: Present: normal exam, normal oropharynx, mucous membranes moist Neck exam: Present: normal inspection, full ROM. Absent: tenderness, meningismus, lymphadenopathy Respiratory exam: Present: normal lung sounds bilaterally. Absent: respiratory distress, wheezes, rales, rhonchi, stridor Cardiovascular Exam: Present: regular rate, normal rhythm, normal heart sounds. Absent: systolic murmur, diastolic murmur, rubs, gallop, clicks GI/Abdominal exam: Present: soft, normal bowel sounds. Absent: distended, tenderness, guarding, rebound, rigid Back exam: Absent: CVA tenderness (R), CVA tenderness (L) Neurological exam: Present: alert, oriented X3, CN II-XII intact, reflexes normal. Absent: motor sensory deficit Skin exam: Present: warm, dry, intact, normal color. Absent: rash Course Vital Signs 05/30/23 05/30/23 05/30/23 05:41 06:58 08:00 Temperature 99.1 F Pulse Rate 75 74 72 Respiratory 18 18 16 Rate Blood Pressure 193/66 193/66 172/68 O2 Sat by Pulse 97 97 97 Oximetry 05/30/23 05/30/23 05/30/23 09:00 10:00 12:00 Temperature Pulse Rate 68 66 66 Respiratory 16 16 16 Rate Blood Pressure 171/74 164/63 170/83 O2 Sat by Pulse 96 96 98 Oximetry 05/30/23 13:00 Temperature Pulse Rate 69 Respiratory 16 Rate Blood Pressure 163/70 O2 Sat by Pulse 98 Oximetry Medical Decision Making - Medical Decision Making Was pt. sent in by a medical professional or institution (, PA, DIRECTOR OF DIGITAL MARKETING, urgent care, hospital, or group home...) When possible be specific @ -No Did you speak to anyone other than the patient for history (EMS, parent, family, police, friend...)? What history was obtained from this source @ -No Did you review nursing and triage notes (agree or disagree)? Why? @ -I reviewed and agree with nursing and triage notes Were old charts reviewed (outside hosp., previous admission, EMS record, old EKG, old radiological studies, urgent care reports/EKG's, group home records)? Report findings @ -No old charts were reviewed Differential Diagnosis (chest pain, altered mental status, abdominal pain women, abdominal pain men, vaginal bleeding, weakness, fever, dyspnea, syncope, headache, dizziness, GI bleed, back pain, seizure, CVA, palpatations, mental health, musculoskeletal)? @ -[Differential Weakness: Hypoglycemia, shock, sepsis, hyponatremia, anemia, infection, VA, ETOH, adverse medicine reaction, overdose, stroke, this is not meant to be an all-inclusive list.s EKG interpreted by me (3pts min.). @ -As above X-rays interpreted by me (1pt min.). @ -None done CT interpreted by me (1pt min.). @ -None done U/S interpreted by me (1pt. min.). @ -None done What testing was considered but not performed or refused? (CT, X-rays, U/S, labs)? Why? @ -None What meds were considered but not given or refused? Why? @ -None Did you discuss the management of the patient with other professionals (professionals i.e. , PA, DIRECTOR OF DIGITAL MARKETING, lab, RT, psych nurse, social media manager, dehydrator tender, teacher, global chief creative officer, corrections caseworker)? Give summary @ -Dr. Rebolledo for admission secondary ongoing weakness and UTI Was smoking cessation discussed for >3mins.? @ -No Was critical care preformed (if so, how long)? @ -No Were there social determinants of health that impacted care today? How? (Homelessness, low income, unemployed, alcoholism, drug addiction, transportation, low edu. Level, literacy, decrease access to med. care, residential, rehab)? @ -No Was there de-escalation of care discussed even if they declined (Discuss DNR or withdrawal of care, Hospice)? DNR status @ -No What co-morbidities impacted this encounter? (DM, HTN, Smoking, COPD, CAD, Cancer, CVA, ARF, Chemo, Hep., AIDS, mental health diagnosis, sleep apnea, morbid obesity)? @ -Renal failure Was patient admitted / discharged? Hospital course, mention meds given and route, prescriptions, significant lab abnormalities, going to OR and other pertinent info. @ -Admitted patient has an UTI, increased weakness unable to ambulate unable to get off her couch at home. Patient be admitted for possible placement come UTI treatment Undiagnosed new problem with uncertain prognosis? @ -No Drug Therapy requiring intensive monitoring for toxicity (Heparin, Nitro, Insulin, Cardizem)? @ -No Were any procedures done? @ -No Diagnosis/symptom? @ -UTI, weakness Acute, or Chronic, or Acute on Chronic? @ -Acute Uncomplicated (without systemic symptoms) or Complicated (systemic symptoms)? @ -[complicated Side effects of treatment? @ -No Exacerbation, Progression, or Severe Exacerbation? @ -No Poses a threat to life or bodily function? How? (Chest pain, USA, VA, pneumonia, PE, COPD, DKA, ARF, appy, cholecystitis, CVA, Diverticulitis, Homicidal, Suicidal, threat to staff... and all critical care pts) @ -No - Lab Data Result diagrams: 05/30/23 06:56 05/30/23 07:05 Lab Results 05/30/23 05/30/23 05/30/23 Range/Units 06:56 07:05 07:05 WBC 2.3 L (3.8-10.6) k/uL RBC 3.53 L (3.80-5.40) m/uL Hgb 11.7 (11.4-16.0) gm/dL Hct 35.3 (34.0-46.0) % MCV 100.2 H (80.0-100.0) fL MCH 33.1 (25.0-35.0) pg MCHC 33.1 (31.0-37.0) g/dL RDW 13.9 (11.5-15.5) % Plt Count 110 L (150-450) k/uL MPV 7.7 Neutrophils % (Manual) 56 % Lymphocytes % (Manual) 24 % Monocytes % (Manual) 15 % Eosinophils % (Manual) 5 % Metamyelocytes % 1 % Myelocytes % 1 % Neutrophils # (Manual) 1.29 L (1.3-7.7) k/uL Lymphocytes # (Manual) 0.55 L (1.0-4.8) k/uL Monocytes # (Manual) 0.35 (0-1.0) k/uL Eosinophils # (Manual) 0.12 (0-0.7) k/uL Metamyelocytes # (Man) 0.02 H (0) k/uL Myelocytes # (Manual) 0.02 H (0) k/uL Nucleated RBCs 0 (0-0) /100 WBC Manual Slide Review Performed PT 10.7 (10.0-12.5) sec INR 1.0 (<1.2) APTT 25.3 (22.0-30.0) sec Sodium 134 L (137-145) mmol/L Potassium 3.9 (3.5-5.1) mmol/L Chloride 96 L (98-107) mmol/L Carbon Dioxide 29 (22-30) mmol/L Anion Gap 9 mmol/L BUN 30 H (7-17) mg/dL Creatinine 2.29 H (0.52-1.04) mg/dL Est GFR (CKD-EPI)AfAm 23 (>60 ml/min/1.73 sqM) Est GFR (CKD-EPI)NonAf 20 (>60 ml/min/1.73 sqM) Glucose 86 (74-99) mg/dL POC Glucose (mg/dL) (70-110) mg/dL POC Glu Broker Associate ID Plasma Lactic Acid [place] (0.7-2.0) mmol/L Calcium 9.2 (8.4-10.2) mg/dL Magnesium 2.0 (1.6-2.3) mg/dL Total Bilirubin 0.6 (0.2-1.3) mg/dL AST 43 H (14-36) U/L ALT 16 (4-34) U/L Alkaline Phosphatase 40 (38-126) U/L Troponin I (0.000-0.034) ng/mL Total Protein 6.3 (6.3-8.2) g/dL Albumin 3.6 (3.5-5.0) g/dL TSH 1.090 (0.465-4.680) mIU/L Urine Color Urine Appearance (Clear) Urine pH (5.0-8.0) Ur Specific [place] (1.001-1.035) Urine Protein (Negative) Urine Glucose (UA) (Negative) Urine Ketones (Negative) Urine Blood (Negative) Urine Nitrite (Negative) Urine Bilirubin (Negative) Urine Urobilinogen (<2.0) mg/dL Ur Leukocyte Esterase (Negative) Urine RBC (0-5) /hpf Urine WBC (0-5) /hpf Ur Squamous Epith Cells (0-4) /hpf Urine Bacteria (None) /hpf Influenza Type A (PCR) (Not Detectd) Influenza Type B (PCR) (Not Detectd) RSV (PCR) (Not Detectd) SARS-CoV-2 (PCR) (Not Detectd) 05/30/23 05/30/23 05/30/23 Range/Units 07:05 07:05 07:05 WBC (3.8-10.6) k/uL RBC (3.80-5.40) m/uL Hgb (11.4-16.0) gm/dL Hct (34.0-46.0) % MCV (80.0-100.0) fL MCH (25.0-35.0) pg MCHC (31.0-37.0) g/dL RDW (11.5-15.5) % Plt Count (150-450) k/uL MPV Neutrophils % (Manual) % Lymphocytes % (Manual) % Monocytes % (Manual) % Eosinophils % (Manual) % Metamyelocytes % % Myelocytes % % Neutrophils # (Manual) (1.3-7.7) k/uL Lymphocytes # (Manual) (1.0-4.8) k/uL Monocytes # (Manual) (0-1.0) k/uL Eosinophils # (Manual) (0-0.7) k/uL Metamyelocytes # (Man) (0) k/uL Myelocytes # (Manual) (0) k/uL Nucleated RBCs (0-0) /100 WBC Manual Slide Review PT (10.0-12.5) sec INR (<1.2) APTT (22.0-30.0) sec Sodium (137-145) mmol/L Potassium (3.5-5.1) mmol/L Chloride (98-107) mmol/L Carbon Dioxide (22-30) mmol/L Anion Gap mmol/L BUN (7-17) mg/dL Creatinine (0.52-1.04) mg/dL Est GFR (CKD-EPI)AfAm (>60 ml/min/1.73 sqM) Est GFR (CKD-EPI)NonAf (>60 ml/min/1.73 sqM) Glucose (74-99) mg/dL POC Glucose (mg/dL) (70-110) mg/dL POC Glu Broker Associate ID Plasma Lactic Acid [place] 0.8 (0.7-2.0) mmol/L Calcium (8.4-10.2) mg/dL Magnesium (1.6-2.3) mg/dL Total Bilirubin (0.2-1.3) mg/dL AST (14-36) U/L ALT (4-34) U/L Alkaline Phosphatase (38-126) U/L Troponin I 0.014 (0.000-0.034) ng/mL Total Protein (6.3-8.2) g/dL Albumin (3.5-5.0) g/dL TSH (0.465-4.680) mIU/L Urine Color Urine Appearance (Clear) Urine pH (5.0-8.0) Ur Specific [place] (1.001-1.035) Urine Protein (Negative) Urine Glucose (UA) (Negative) Urine Ketones (Negative) Urine Blood (Negative) Urine Nitrite (Negative) Urine Bilirubin (Negative) Urine Urobilinogen (<2.0) mg/dL Ur Leukocyte Esterase (Negative) Urine RBC (0-5) /hpf Urine WBC (0-5) /hpf Ur Squamous Epith Cells (0-4) /hpf Urine Bacteria (None) /hpf Influenza Type A (PCR) Not Detected (Not Detectd) Influenza Type B (PCR) Not Detected (Not Detectd) RSV (PCR) Not Detected (Not Detectd) SARS-CoV-2 (PCR) Not Detected (Not Detectd) 05/30/23 05/30/23 Range/Units 09:45 11:57 WBC (3.8-10.6) k/uL RBC (3.80-5.40) m/uL Hgb (11.4-16.0) gm/dL Hct (34.0-46.0) % MCV (80.0-100.0) fL MCH (25.0-35.0) pg MCHC (31.0-37.0) g/dL RDW (11.5-15.5) % Plt Count (150-450) k/uL MPV Neutrophils % (Manual) % Lymphocytes % (Manual) % Monocytes % (Manual) % Eosinophils % (Manual) % Metamyelocytes % % Myelocytes % % Neutrophils # (Manual) (1.3-7.7) k/uL Lymphocytes # (Manual) (1.0-4.8) k/uL Monocytes # (Manual) (0-1.0) k/uL Eosinophils # (Manual) (0-0.7) k/uL Metamyelocytes # (Man) (0) k/uL Myelocytes # (Manual) (0) k/uL Nucleated RBCs (0-0) /100 WBC Manual Slide Review PT (10.0-12.5) sec INR (<1.2) APTT (22.0-30.0) sec Sodium (137-145) mmol/L Potassium (3.5-5.1) mmol/L Chloride (98-107) mmol/L Carbon Dioxide (22-30) mmol/L Anion Gap mmol/L BUN (7-17) mg/dL Creatinine (0.52-1.04) mg/dL Est GFR (CKD-EPI)AfAm (>60 ml/min/1.73 sqM) Est GFR (CKD-EPI)NonAf (>60 ml/min/1.73 sqM) Glucose (74-99) mg/dL POC Glucose (mg/dL) 82 (70-110) mg/dL POC Glu Broker Associate ID November Plasma Lactic Acid [place] (0.7-2.0) mmol/L Calcium (8.4-10.2) mg/dL Magnesium (1.6-2.3) mg/dL Total Bilirubin (0.2-1.3) mg/dL AST (14-36) U/L ALT (4-34) U/L Alkaline Phosphatase (38-126) U/L Troponin I (0.000-0.034) ng/mL Total Protein (6.3-8.2) g/dL Albumin (3.5-5.0) g/dL TSH (0.465-4.680) mIU/L Urine Color Colorless Urine Appearance Cloudy H (Clear) Urine pH 7.0 (5.0-8.0) Ur Specific [place] 1.007 (1.001-1.035) Urine Protein 2+ H (Negative) Urine Glucose (UA) Negative (Negative) Urine Ketones Negative (Negative) Urine Blood Negative (Negative) Urine Nitrite Negative (Negative) Urine Bilirubin Negative (Negative) Urine Urobilinogen <2.0 (<2.0) mg/dL Ur Leukocyte Esterase Large H (Negative) Urine RBC 2 (0-5) /hpf Urine WBC >182 H (0-5) /hpf Ur Squamous Epith Cells 5 H (0-4) /hpf Urine Bacteria Moderate H (None) /hpf Influenza Type A (PCR) (Not Detectd) Influenza Type B (PCR) (Not Detectd) RSV (PCR) (Not Detectd) SARS-CoV-2 (PCR) (Not Detectd) - EKG Data -: EKG Interpreted by Me EKG Comments: EKG/6:50 sinus rhythm rate of 74 DC 173 QRS 90 QT/QTC4 424/452 Disposition Clinical Impression: Weakness, UTI (urinary tract infection), Difficulty in walking Disposition: ADMITTED IP TO THIS HOSP Condition: Fair Time of Disposition: 10:57
--- NOTE | 2023-05-30 08:23 | XR ---
EXAMINATION TYPE: XR chest 2V DATE OF EXAM: 05/30/2023 COMPARISON: NONE TECHNIQUE: PA and lateral views submitted. HISTORY: This FINDINGS: The lungs are clear and there is no pneumothorax, pleural effusion, or focal pneumonia. Heart is enl arged and no overt failure. Osseous structures demonstrate hypertrophic and degenerative changes of t he spine. Postsurgical change right shoulder bilateral AC joint arthropathy. Use osteopenia. Correlat e for COPD IMPRESSION: 1. No acute process.
[2023-05-30 10:10] LABS: Appearance,Urine Cloudy (Clear); Bacteria,Urine Moderate /hpf; Bilirubin,Urine Negative (Negative); Blood,Urine Negative (Negative); Color,Urine Colorless; Glucose,Urine (UA) Negative (Negative); Ketones,Urine Negative (Negative); Leukocyte Esterase,Urine Large (Negative); Nitrite,Urine Negative (Negative); Protein,Urine 2+ (Negative); RBC,Urine 2 /hpf (0-5); Specific Gravity,Urine 1.007 (1.001-1.035); Squamous Epithelial Cell,Urine 5 /hpf (0-4); Urobilinogen,Urine <2.0 mg/dL (<2.0); WBC,Urine >182 /hpf (0-5)
[2023-05-30] MEDS ORDERED: NALOXONE 0.4 MG/ML 1 ML VIAL IV PRN (11:13)
--- NOTE | 2023-05-30 11:27 | P.HPIM ---
History of Present Illness 78-year-old pleasant female came in with compensative generalized weakness after hemanalysis this happens to her often patient was recently discharged from the hospital and the home healthcare cannot take care of her. Patient denied any symptoms of UTI patient doesn't have any fever doesn't have a leukocytosis denied any dysuria or increased urinary urgency or frequency of super pubic pain. Patient urinates very minimal patient is more dialysis dependent. REVIEW OF SYSTEMS: CONSTITUTIONAL: No fever HEENT: No recent visual problems or hearing problems. Denied any sore throat. CARDIOVASCULAR: No chest pain, orthopnea, PND, no palpitations, no syncope. PULMONARY: No shortness of breath, no cough, no hemoptysis. GASTROINTESTINAL: No diarrhea, no nausea, no vomiting, no abdominal pain. NEUROLOGICAL: No headaches, no weakness, no numbness. HEMATOLOGICAL: Denies any bleeding or petechiae. GENITOURINARY: Denies any burning micturition, frequency, or urgency. MUSCULOSKELETAL/RHEUMATOLOGICAL: Denies any joint pain, swelling, or any muscle pain. ENDOCRINE: Denies any polyuria or polydipsia. The rest of the 14-point review of systems is negative. PHYSICAL EXAMINATION: GENERAL: The patient is alert and oriented x3, not in any acute distress. Well developed, well nourished. HEENT: Pupils are round and equally reacting to light. EOMI. No scleral icterus. No conjunctival pallor. Normocephalic, atraumatic. No pharyngeal erythema. No thyromegaly. CARDIOVASCULAR: S1 and S2 present. No murmurs, rubs, or gallops. PULMONARY: Chest is clear to auscultation, no wheezing or crackles. ABDOMEN: Soft, nontender, nondistended, normoactive bowel sounds. No palpable organomegaly. MUSCULOSKELETAL: No joint swelling or deformity. EXTREMITIES: No cyanosis, clubbing, or pedal edema. NEUROLOGICAL: Significant generalized weakness without any focal weakness SKIN: No rashes. Assessment and plan -Generalized weakness post hemodialysis which is common for her. Her symptoms are not consistent with stroke. Patient may need subacute rehabilitation placement or even long-term snf placement. Physical lipid outpatient therapy will be consulted -Abnormal urine patient only lately makes him minimal urine this is a bacteriuria highly unlikely that patient has urinary tract infection patient was given antibiotics which will be discontinued if pro-calcitonin is negative -End-stage renal disease and dialysis dependent, nephrology will be consulted Hypertension -Hyperlipidemia -Type 2 diabetes mellitus with diabetic nephropathy: Patient will be resumed on home regimen DVT prophylaxis: Subcutaneous heparin Past Medical History Past Medical History: Diabetes Mellitus, Hyperlipidemia, Hypertension, Renal Disease, Skin Disorder Additional Past Medical History / Comment(s): dialysis Lho-Nlug-Wix., cyst on brain-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 gout ,anemia, psoriatic arthritis,heart murmur History of Any Multi-Drug Resistant Organisms: None Reported Past Surgical History: Orthopedic Surgery, Tubal Ligation Additional Past Surgical History / Comment(s): 1 oophorectomy, 1 partial oophorectomy,fx rt shoulder feng present, dialysis port right arm, cataracts removed jack eyes, fistula left arm Past Anesthesia/Blood Transfusion Reactions: Motion Sickness Past Psychological History: No Psychological Hx Reported Smoking Status: Never smoker - Past Family History Sister(s) Family Medical History: Cancer Additional Family Medical History / Comment(s): breast cancer Medications and Allergies Home Medications Medication Instructions Recorded Confirmed Type Ascorbic Acid [Vitamin C] 500 mg PO DAILY 06/30/20 05/30/23 History Aspirin [Adult Low Dose Aspirin EC] 81 mg PO DAILY 06/30/20 05/30/23 History Febuxostat [Uloric] 40 mg PO DAILY 06/30/20 05/30/23 History Ferrous Sulfate [Feosol] 325 mg PO DAILY 06/30/20 05/30/23 History Multivitamins, Thera [Multivitamin 1 tab PO DAILY 06/30/20 05/30/23 History (formulary)] Simvastatin [Zocor] 20 mg PO HS 06/30/20 05/30/23 History amLODIPine BESYLATE 10 mg PO DAILY 06/30/20 05/30/23 History hydrALAZINE HCL [Apresoline] 100 mg PO TID 06/30/20 05/30/23 History Calcium Acetate [Phoslo] 1,334 mg PO TID-W/MEALS 09/21/22 05/30/23 History Furosemide [Lasix] 60 mg PO TID 09/21/22 05/30/23 History Insulin Degludec [Tresiba] 22 units SQ QAM 09/21/22 05/30/23 History Nephro-Hilary 1 tab PO DAILY 09/21/22 05/30/23 History carvediloL [Coreg] 25 mg PO BID 09/21/22 05/30/23 History Cholecalciferol [Vitamin D3 (25 25 mcg PO DAILY 05/30/23 05/30/23 History Mcg = 1000 Iu)] Insulin Lispro [humaLOG Kwikpen] 4 units SQ AC-TID 05/30/23 05/30/23 History Insulin Lispro [humaLOG Kwikpen] See Protocol SQ AC-TID 05/30/23 05/30/23 History Women's Probiotic W/ Cranberry 2 cap PO DAILY 05/30/23 05/30/23 History lisinopriL [Prinivil] 10 mg PO DIRECTED 05/30/23 05/30/23 History Allergies Allergy/AdvReac Type Severity Reaction Status Date / Time adhesive tape AdvReac Itching Verified 05/30/23 08:38 Physical Exam Vitals: Vital Signs Temp Pulse Resp BP Pulse Ox 05/30/23 09:00 68 16 171/74 96 05/30/23 08:00 72 16 172/68 97 05/30/23 06:58 74 18 193/66 97 05/30/23 05:41 99.1 F 75 18 193/66 97 Intake and Output 05/29/23 05/30/23 05/30/23 22:59 06:59 14:59 Other: Weight 68.039 kg Results CBC & Chem 7: 05/30/23 06:56 05/30/23 07:05 Labs: Abnormal Lab Results - Last 24 Hours (Table) 05/30/23 05/30/23 05/30/23 Range/Units 06:56 07:05 09:45 WBC 2.3 L (3.8-10.6) k/uL RBC 3.53 L (3.80-5.40) m/uL MCV 100.2 H (80.0-100.0) fL Plt Count 110 L (150-450) k/uL Neutrophils # (Manual) 1.29 L (1.3-7.7) k/uL Lymphocytes # (Manual) 0.55 L (1.0-4.8) k/uL Metamyelocytes # (Man) 0.02 H (0) k/uL Myelocytes # (Manual) 0.02 H (0) k/uL Sodium 134 L (137-145) mmol/L Chloride 96 L (98-107) mmol/L BUN 30 H (7-17) mg/dL Creatinine 2.29 H (0.52-1.04) mg/dL AST 43 H (14-36) U/L Urine Appearance Cloudy H (Clear) Urine Protein 2+ H (Negative) Ur Leukocyte Esterase Large H (Negative) Urine WBC >182 H (0-5) /hpf Ur Squamous Epith Cells 5 H (0-4) /hpf Urine Bacteria Moderate H (None) /hpf
[2023-05-30 12:00] LABS: Glucose,Whole Blood 82 mg/dL (70-110)
[2023-05-30] MEDS: INSULIN ASPART (NovoLOG) 100 UNIT/ML VIAL SQ SCH ×4 (12:18→17:41)
[2023-05-30] MEDS: CALCIUM ACETATE 667 MG TAB PO SCH ×2 (12:26→20:09)
--- NOTE | 2023-05-30 12:26 | P.NPCON ---
History of Present Illness - Reason for Consult end stage renal disease - History of Present Illness Reason for consultation: End-stage liver disease History of present illness: Patient is a 78-year-old female seen in renal consultation for end-stage renal disease. Patient was seen and examined in the emergency room. She is maintained on hemodialysis on Sunday schedule via left upper extremity AV fistula. Patient underwent hemodialysis and tolerated the treatment well. Patient says when she went home she couldn't get off the couch. She went to [facility] but was subsequently discharged home. Patient states this morning she can quit get off the couch and came to this facility. She is currently resting in bed. Patient states her blood pressure has been on the higher side. She denies any syncopal episodes. No vomiting or diarrhea. No chest pain or shortness of breath. No edema. Hemoglobin 11.7. Patient does have history of diabetes. She denies history of heart disease. Denies use of nonsteroidals. Vital signs are stable. General: No acute distress. HEENT: Head exam is unremarkable. LUNGS: No audible rhonchi or wheezes. HEART: Rate and Rhythm are regular. ABDOMEN: Nontender. EXTREMITITES: No edema. 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 gout ,anemia, psoriatic arthri tis,heart murmur History of Any Multi-Drug Resistant Organisms: None Reported Past Surgical History: Orthopedic Surgery, Tubal Ligation Additional Past Surgical History / Comment(s): 1 oophorectomy, 1 partial oophorectomy,fx rt shoulder feng present, dialysis port right arm, cataracts removed jack eyes, fistula left arm Past Anesthesia/Blood Transfusion Reactions: Motion Sickness Past Psychological History: No Psychological Hx Reported Smoking Status: Never smoker - Past Family History Sister(s) Family Medical History: Cancer Additional Family Medical History / Comment(s): breast cancer Medications and Allergies Home Medications Medication Instructions Recorded Confirmed Type Ascorbic Acid [Vitamin C] 500 mg PO DAILY 06/30/20 05/30/23 History Aspirin [Adult Low Dose Aspirin EC] 81 mg PO DAILY 06/30/20 05/30/23 History Febuxostat [Uloric] 40 mg PO DAILY 06/30/20 05/30/23 History Ferrous Sulfate [Feosol] 325 mg PO DAILY 06/30/20 05/30/23 History Multivitamins, Thera [Multivitamin 1 tab PO DAILY 06/30/20 05/30/23 History (formulary)] Simvastatin [Zocor] 20 mg PO HS 06/30/20 05/30/23 History amLODIPine BESYLATE 10 mg PO DAILY 06/30/20 05/30/23 History hydrALAZINE HCL [Apresoline] 100 mg PO TID 06/30/20 05/30/23 History Calcium Acetate [Phoslo] 1,334 mg PO TID-W/MEALS 09/21/22 05/30/23 History Furosemide [Lasix] 60 mg PO TID 09/21/22 05/30/23 History Insulin Degludec [Tresiba] 22 units SQ QAM 09/21/22 05/30/23 History Nephro-Hilary 1 tab PO DAILY 09/21/22 05/30/23 History carvediloL [Coreg] 25 mg PO BID 09/21/22 05/30/23 History Cholecalciferol [Vitamin D3 (25 25 mcg PO DAILY 05/30/23 05/30/23 History Mcg = 1000 Iu)] Insulin Lispro [humaLOG Kwikpen] 4 units SQ AC-TID 05/30/23 05/30/23 History Insulin Lispro [humaLOG Kwikpen] See Protocol SQ AC-TID 05/30/23 05/30/23 History Women's Probiotic W/ Cranberry 2 cap PO DAILY 05/30/23 05/30/23 History lisinopriL [Prinivil] 10 mg PO DIRECTED 05/30/23 05/30/23 History Allergies Allergy/AdvReac Type Severity Reaction Status Date / Time adhesive tape AdvReac Itching Verified 05/30/23 08:38 Physical Exam Vitals: Vital Signs Temp Pulse Resp BP Pulse Ox 05/30/23 09:00 68 16 171/74 96 05/30/23 08:00 72 16 172/68 97 05/30/23 06:58 74 18 193/66 97 05/30/23 05:41 99.1 F 75 18 193/66 97 Intake and Output 10/05/30/23 05/30/23 22:59 06:59 14:59 Other: Weight 68.039 kg Results - Lab Results Most recent lab results Calcium 9.2 mg/dL (8.4-10.2) 05/30/23 07:05 Magnesium 2.0 mg/dL (1.6-2.3) 05/30/23 07:05 05/30/23 06:56 05/30/23 07:05 Assessment and Plan Plan: Assessment: 1. End-stage renal disease maintained on hemodialysis on Sunday schedule via left upper extremity fistula. 2. Generalized weakness. 3. Hypertension with chronic kidney disease. 4. Diabetes mellitus. 5. Chronic kidney disease mineral bone disease maintained on PhosLo. Plan: Hemodialysis tomorrow been ultrafiltration. Check orthostatic vital signs. Home antihypertensive resume. Will need to be held if standing blood pressure less than 120. Possible rehab upon discharge. Thank you for the consultation. I will continue to follow the patient with you during her hospital stay.
[2023-05-30] MEDS: FUROSEMIDE 20 MG TAB PO SCH ×2 (16:26→20:10)
[2023-05-30] MEDS: hydrALAZINE HCL 50 MG TAB PO SCH ×2 (16:27→20:09)
[2023-05-30] MEDS ORDERED: DEXTROSE 50% SYRINGE 50 ML IVP PRN ×2 (17:38)
[2023-05-30 17:39] LABS: Glucose,Whole Blood 105 mg/dL (70-110)
[2023-05-30] MEDS: carvediloL 12.5 MG TAB PO SCH (17:44)
[2023-05-30] MEDS: ATORVASTATIN 10 MG TAB PO SCH (20:10)
[2023-05-30 20:46] LABS: Glucose,Whole Blood 300 mg/dL (70-110)
[2023-05-31 06:15] LABS: Glucose,Whole Blood 118 mg/dL (70-110)
[2023-05-31] MEDS: CALCIUM ACETATE 667 MG TAB PO SCH ×3 (06:34→17:40)
[2023-05-31] MEDS: carvediloL 12.5 MG TAB PO SCH ×2 (06:34→17:40)
[2023-05-31] MEDS: MULTIVITAMINS, THERA 1 EACH TAB PO SCH (08:41)
[2023-05-31] MEDS: FERROUS SULFATE 325 MG TAB PO SCH (08:41)
[2023-05-31] MEDS: lisinopriL 10 MG TAB PO SCH (08:41)
[2023-05-31] MEDS: CHOLECALCIFEROL 25 MCG (1000 IU) TABLET PO SCH (08:41)
[2023-05-31] MEDS: amLODIPine 10 MG TAB PO SCH (08:41)
[2023-05-31] MEDS: FUROSEMIDE 20 MG TAB PO SCH ×3 (08:41→20:46)
[2023-05-31] MEDS: ASCORBIC ACID 500 MG TAB PO SCH (08:41)
[2023-05-31] MEDS: ASPIRIN 81 MG PO SCH (08:41)
[2023-05-31] MEDS: hydrALAZINE HCL 50 MG TAB PO SCH ×3 (08:42→20:46)
[2023-05-31] MEDS: FOLIC ACID-VIT B COMPLEX-VIT C 1 CAP PO SCH (08:42)
[2023-05-31] MEDS: INSULIN ASPART (NovoLOG) 100 UNIT/ML VIAL SQ SCH ×7 (08:44→22:45)
[2023-05-31] MEDS: INSULIN DETEMIR (LEVEMIR) 100 UNIT/ML SYR SQ SCH (08:45)
--- NOTE | 2023-05-31 08:54 | P.PN ---
Subjective Progress Note Date: 05/31/23 Principal diagnosis: Weakness, end-stage renal disease This a 78-year-old female who presented to the emergency department with complaints of weakness. She has a history of end-stage renal disease and is on hemodialysis, a Sunday schedule. She was recently admitted to [facility]. Patient reports she was unable to get off of her couch so she came to the ER. Nephrology has been consulted. Plan is for dialysis today. We'll work with case management on best plan for patient's discharge and safety. There is concern for placement because patient does have cats at home and no one to care for them. She is seen this morning sitting up in bed. Denies any current complaints. Objective - Vital Signs Vital signs: Vital Signs Temp 98.4 F 05/31/23 07:00 Pulse 73 05/31/23 07:00 Resp 16 05/31/23 07:00 BP 218/76 05/31/23 07:00 Pulse Ox 96 05/31/23 07:00 FiO2 Intake & Output 05/30/23 05/31/23 05/31/23 18:59 06:59 18:59 Intake Total 118 Output Total 0 Balance 118 0 Weight 68.039 kg Intake: Oral 118 Output: Emesis 0 Other: # Voids 1 # Bowel Movements 1 2 - Constitutional General appearance: Present: cooperative, no acute distress - EENT Eyes: Present: PERRLA - Neck Neck: Present: normal ROM. Absent: lymphadenopathy, rigidity - Respiratory Respiratory: bilateral: CTA - Cardiovascular Rhythm: regular Heart sounds: normal: S1, S2 - Gastrointestinal General gastrointestinal: Present: soft. Absent: tenderness - Integumentary Integumentary: Present: normal, normal turgor - Musculoskeletal Musculoskeletal: Present: generalized weakness - Psychiatric Psychiatric: Present: A&O x's 3, appropriate affect, intact judgment & insight - Labs CBC & Chem 7: 05/30/23 06:56 05/30/23 07:05 Labs: Abnormal Lab Results - Last 24 Hours (Table) 05/30/23 05/30/23 05/30/23 Range/Units 07:05 09:45 20:45 POC Glucose (mg/dL) 300 H (70-110) mg/dL Procalcitonin 0.30 H (0.02-0.09) ng/mL Urine Appearance Cloudy H (Clear) Urine Protein 2+ H (Negative) Ur Leukocyte Esterase Large H (Negative) Urine WBC >182 H (0-5) /hpf Ur Squamous Epith Cells 5 H (0-4) /hpf Urine Bacteria Moderate H (None) /hpf 05/31/23 Range/Units 06:14 POC Glucose (mg/dL) 118 H (70-110) mg/dL Procalcitonin (0.02-0.09) ng/mL Urine Appearance (Clear) Urine Protein (Negative) Ur Leukocyte Esterase (Negative) Urine WBC (0-5) /hpf Ur Squamous Epith Cells (0-4) /hpf Urine Bacteria (None) /hpf Assessment and Plan (1) End stage renal disease on dialysis Current Visit: Yes Status: Acute Code(s): N18.6 - END STAGE RENAL DISEASE; Z99.2 - DEPENDENCE ON RENAL DIALYSIS SNOMED Code(s): 197133568 (2) Hypertension Current Visit: Yes Status: Acute Code(s): I10 - ESSENTIAL (PRIMARY) HYPERTENSION SNOMED Code(s): 78418753 (3) Hyperlipidemia Current Visit: Yes Status: Acute Code(s): E78.5 - HYPERLIPIDEMIA, UNSPECIFIED SNOMED Code(s): 06784333 (4) Weakness Current Visit: Yes Status: Acute Code(s): R53.1 - WEAKNESS SNOMED Code(s): 93082033 (5) Type 2 diabetes mellitus with diabetic nephropathy Current Visit: Yes Status: Acute Code(s): E11.21 - TYPE 2 DIABETES MELLITUS WITH DIABETIC NEPHROPATHY SNOMED Code(s): 37155056 Plan: Work with discharge planning to find best plan for patient at discharge. Check CBC and CMP in the morning. Patient seen and evaluated by nurse practitioner, physician in agreement with plan
[2023-05-31] MEDS ORDERED: CRANBERRY PO SCH (09:00)
[2023-05-31] MEDS ORDERED: WOMEN S PROBIOTIC PO SCH (09:00)
[2023-05-31 12:24] LABS: Glucose,Whole Blood 107 mg/dL (70-110)
--- NOTE | 2023-05-31 12:34 | P.PN ---
Subjective Patient is seen in follow-up for end-stage renal disease. She is maintained on hemodialysis on Sunday schedule. Tolerating dialysis well. Blood pressure currently in the systolic 130s. Denies chest pain or shortness of breath. No active complaints. Vital signs are stable. General: No acute distress. HEENT: Head exam is unremarkable. LUNGS: No audible rhonchi or wheezes. HEART: Rate and Rhythm are regular. ABDOMEN: Nontender. EXTREMITITES: No edema. Objective - Vital Signs Vital signs: Vital Signs Temp 98.4 F 05/31/23 07:00 Pulse 73 05/31/23 07:00 Resp 16 05/31/23 08:00 BP 163/64 05/31/23 08:30 Pulse Ox 96 05/31/23 07:00 FiO2 Intake & Output 05/30/23 05/31/23 05/31/23 18:59 06:59 18:59 Intake Total 118 Output Total 0 Balance 118 0 Weight 68.039 kg Intake: Oral 118 Output: Emesis 0 Other: Voiding Method Bedside Commode # Voids 1 # Bowel Movements 1 2 - Labs CBC & Chem 7: 05/30/23 06:56 05/30/23 07:05 Labs: Abnormal Lab Results - Last 24 Hours (Table) 05/30/23 05/30/23 05/31/23 Range/Units 07:05 20:45 06:14 POC Glucose (mg/dL) 300 H 118 H (70-110) mg/dL Procalcitonin 0.30 H (0.02-0.09) ng/mL Assessment and Plan Plan: Assessment: 1. End-stage renal disease maintained on hemodialysis on Sunday schedule via left upper extremity fistula. 2. Generalized weakness. 3. Hypertension with chronic kidney disease. Orthostatics negative. Blood pressure in the systolic 130s when seen on dialysis. 4. Diabetes mellitus. 5. Chronic kidney disease mineral bone disease maintained on PhosLo. Plan: Currently saline while undergoing hemodialysis. Next treatment on Sunday. Possible rehab upon discharge.
[2023-05-31] MEDS ORDERED: DEXTROSE 50% SYRINGE 50 ML IVP PRN ×2 (15:37)
[2023-05-31] MEDS ORDERED: ACETAMINOPHEN TAB 325 MG TAB PO PRN (16:42)
[2023-05-31 17:18] LABS: Glucose,Whole Blood 100 mg/dL (70-110)
[2023-05-31] MEDS: ATORVASTATIN 10 MG TAB PO SCH (20:46)
[2023-05-31 21:04] VITALS: RESP 16
[2023-05-31 21:25] LABS: Glucose,Whole Blood 177 mg/dL (70-110)
[2023-06-01] MEDS: INSULIN ASPART (NovoLOG) 100 UNIT/ML VIAL SQ SCH ×4 (05:49→12:55)
[2023-06-01 05:50] LABS: Glucose,Whole Blood 80 mg/dL (70-110)
[2023-06-01] MEDS: carvediloL 12.5 MG TAB PO SCH (05:50)
[2023-06-01 08:37] LABS: Glucose,Whole Blood 128 mg/dL (70-110)
[2023-06-01] MEDS: CALCIUM ACETATE 667 MG TAB PO SCH ×2 (08:50→12:51)
[2023-06-01] MEDS: hydrALAZINE HCL 50 MG TAB PO SCH ×2 (08:50→15:39)
[2023-06-01] MEDS: amLODIPine 10 MG TAB PO SCH (08:50)
[2023-06-01] MEDS: INSULIN DETEMIR (LEVEMIR) 100 UNIT/ML SYR SQ SCH (08:50)
[2023-06-01] MEDS: ASPIRIN 81 MG PO SCH (08:51)
[2023-06-01] MEDS: ASCORBIC ACID 500 MG TAB PO SCH (08:51)
[2023-06-01] MEDS: FOLIC ACID-VIT B COMPLEX-VIT C 1 CAP PO SCH (08:51)
--- NOTE | 2023-06-01 08:51 | P.PN ---
Subjective Principal diagnosis: UTI with weakness The patient is 78-year-old white female with known history of poor mobility issues with end-stage renal disease. The patient has significant issues because she cannot take care of her household properly. Appreciate PT/OT input. She is agreeable to placement for rehab. Objective - Vital Signs Vital signs: Vital Signs Temp 98.2 F 06/01/23 04:31 Pulse 69 06/01/23 04:31 Resp 16 06/01/23 04:31 BP 176/64 06/01/23 04:31 Pulse Ox 95 06/01/23 04:31 FiO2 Intake & Output 05/31/23 06/01/23 06/01/23 18:59 06:59 18:59 Intake Total 1288 Output Total 1050 Balance 238 Intake: Oral 238 Hemodialysis 1050 Output: Hemodialysis 1050 Other: Voiding Method Bedside Commode Bedside Commode # Voids 3 - Constitutional General appearance: Present: no acute distress - EENT Eyes: Absent: abnormal pupil - Neck Neck: Absent: lymphadenopathy - Respiratory Respiratory: bilateral: diminished - Cardiovascular Rhythm: regular Heart sounds: normal: S1, S2 Abnormal Heart Sounds: Absent: S3 Gallop - Gastrointestinal General gastrointestinal: Absent: tenderness - Labs CBC & Chem 7: 05/30/23 06:56 05/30/23 07:05 Labs: Abnormal Lab Results - Last 24 Hours (Table) 05/31/23 06/01/23 Range/Units 21:24 08:34 POC Glucose (mg/dL) 177 H 128 H (70-110) mg/dL Microbiology - Last 24 Hours (Table) 05/30/23 12:00 Blood Culture - Preliminary Blood 05/30/23 11:48 Blood Culture - Preliminary Blood Assessment and Plan (1) Difficulty in walking Current Visit: Yes Status: Acute Code(s): R26.2 - DIFFICULTY IN WALKING, NOT ELSEWHERE CLASSIFIED SNOMED Code(s): 809752301 (2) End stage renal disease on dialysis Current Visit: Yes Status: Acute Code(s): N18.6 - END STAGE RENAL DISEASE; Z99.2 - DEPENDENCE ON RENAL DIALYSIS SNOMED Code(s): 140608071 (3) Hyperlipidemia Current Visit: Yes Status: Acute Code(s): E78.5 - HYPERLIPIDEMIA, UNSPECIFIED SNOMED Code(s): 25983837 (4) Hypertension Current Visit: Yes Status: Acute Code(s): I10 - ESSENTIAL (PRIMARY) HYPERTENSION SNOMED Code(s): 39889344 (5) Type 2 diabetes mellitus with diabetic nephropathy Current Visit: Yes Status: Acute Code(s): E11.21 - TYPE 2 DIABETES MELLITUS WITH DIABETIC NEPHROPATHY SNOMED Code(s): 50489177 Plan: Continue current regimen or treatment. Blood sugar is stable. Check CBC and CMP in a.m. Continue dialysis. Placement pending.
[2023-06-01 08:52] LABS: HCT 33.6 % (37.2-46.3); HGB 10.8 d/dL (12.0-15.0); MCHC 32.1 d/dL (32.0-37.0); MCV 99.7 FL (80.0-97.0); NRBC Per 100 WBC 0 X 10*3/uL (0.00-0.01); Platelet Count 102 X 10*3/uL (140-440); RBC 3.37 X 10*6/uL (4.10-5.20); RDW 13.5 % (11.5-14.5); WBC 2.41 X 10*3/uL (4.50-10.00)
[2023-06-01] MEDS: FERROUS SULFATE 325 MG TAB PO SCH (08:52)
[2023-06-01] MEDS: lisinopriL 10 MG TAB PO SCH (08:52)
[2023-06-01] MEDS: CHOLECALCIFEROL 25 MCG (1000 IU) TABLET PO SCH (08:52)
[2023-06-01] MEDS: MULTIVITAMINS, THERA 1 EACH TAB PO SCH (08:52)
[2023-06-01] MEDS: FUROSEMIDE 20 MG TAB PO SCH (08:52)
[2023-06-01 09:17] LABS: ALT 12 U/L (8-44); AST 23 U/L (13-35); Albumin 3.5 d/dL (3.8-4.9); Albumin/Globulin Ratio 1.75 Ratio (1.60-3.17); Alkaline Phosphatase 40 U/L (41-126); BUN/Creat Ratio 9.82 Ratio (12.00-20.00); Blood Urea Nitrogen 27.5 mg/dL (9.0-27.0); Calcium 9.1 mg/dL (8.7-10.3); Carbon Dioxide 27.2 mmol/L (21.6-31.8); Chloride 101 mmol/L (96-109); Glucose 78 mg/dL (70-110); Potassium 3.7 mmol/L (3.5-5.5); Sodium 140 mmol/L (135-145); Total Bilirubin 0.2 mg/dL (0.3-1.2); Total Protein 5.5 d/dL (6.2-8.2)
[2023-06-01 12:08] LABS: Glucose,Whole Blood 102 mg/dL (70-110)
[2023-06-01 14:23] VITALS: BP 159/55; PULSE 80; TEMP 98.9
--- NOTE | 2023-06-01 14:57 | P.DS ---
Providers Date of admission: 05/30/23 11:58 Attending physician: Eric Coronado Consults: 05/30/23 11:15 Consult Physician Routine Consulting Provider: Augusto Reddy Consult Reason/Comments: Dialysis Do you want consulting provider notified?: Yes Primary care physician: Eric Coronado - Discharge Diagnosis(es) (1) Difficulty in walking Current Visit: Yes Status: Acute (2) End stage renal disease on dialysis Current Visit: Yes Status: Acute (3) Hyperlipidemia Current Visit: Yes Status: Acute (4) Hypertension Current Visit: Yes Status: Acute (5) Type 2 diabetes mellitus with diabetic nephropathy Current Visit: Yes Status: Acute Hospital Course: The patient was admitted for weakness and recurrent UTI with DM ESRD. SHe is stabilized with hydration but has considerable weakness and mobility challenges. Due to her living situation and safety protocols, she was evaluated by PT/OT and will be transferred to rehab facility. she is tolerating diet and has not voiding issues. Continuation of hemodialysis as an outpatient with inpt rehab will continue. Patient Condition at Discharge: Fair Plan - Discharge Summary New Discharge Prescriptions: Continue Ascorbic Acid [Vitamin C] 500 mg PO DAILY Multivitamins, Thera [Multivitamin (formulary)] 1 tab PO DAILY Ferrous Sulfate [Iron (65 MG Elemental)] 325 mg PO DAILY Aspirin [Adult Low Dose Aspirin EC] 81 mg PO DAILY Simvastatin [Zocor] 20 mg PO HS Febuxostat [Uloric] 40 mg PO DAILY hydrALAZINE HCL [Apresoline] 100 mg PO TID amLODIPine BESYLATE 10 mg PO DAILY Calcium Acetate [PhosLo] 1,334 mg PO TID-W/MEALS Furosemide [Lasix] 60 mg PO TID Women's Probiotic W/ Cranberry 2 cap PO DAILY Cholecalciferol [Vitamin D3 (25 Mcg = 1000 Iu)] 25 mcg PO DAILY Insulin Lispro [humaLOG Kwikpen] See Protocol SQ AC-TID Insulin Lispro [humaLOG Kwikpen] 4 units SQ AC-TID lisinopriL [Prinivil] 10 mg PO DIRECTED carvediloL [Coreg] 25 mg PO BID Nephro-Hilary 1 tab PO DAILY Insulin Degludec [Tresiba] 22 units SQ QAM Discharge Medication List Ascorbic Acid [Vitamin C] 500 mg PO DAILY 06/30/20 [History] Aspirin [Adult Low Dose Aspirin EC] 81 mg PO DAILY 06/30/20 [History] Febuxostat [Uloric] 40 mg PO DAILY 06/30/20 [History] Ferrous Sulfate [Iron (65 MG Elemental)] 325 mg PO DAILY 06/30/20 [History] Multivitamins, Thera [Multivitamin (formulary)] 1 tab PO DAILY 06/30/20 [History] Simvastatin [Zocor] 20 mg PO HS 06/30/20 [History] amLODIPine BESYLATE 10 mg PO DAILY 06/30/20 [History] hydrALAZINE HCL [Apresoline] 100 mg PO TID 06/30/20 [History] Calcium Acetate [PhosLo] 1,334 mg PO TID-W/MEALS 09/21/22 [History] Furosemide [Lasix] 60 mg PO TID 09/21/22 [History] Insulin Degludec [Tresiba] 22 units SQ QAM 09/21/22 [History] Nephro-Hilary 1 tab PO DAILY 09/21/22 [History] carvediloL [Coreg] 25 mg PO BID 09/21/22 [History] Cholecalciferol [Vitamin D3 (25 Mcg = 1000 Iu)] 25 mcg PO DAILY 05/30/23 [History] Insulin Lispro [humaLOG Kwikpen] 4 units SQ AC-TID 05/30/23 [History] Insulin Lispro [humaLOG Kwikpen] See Protocol SQ AC-TID 05/30/23 [History] Women's Probiotic W/ Cranberry 2 cap PO DAILY 05/30/23 [History] lisinopriL [Prinivil] 10 mg PO DIRECTED 05/30/23 [History] Follow up Appointment(s)/Referral(s): Eric Coronado MD [Primary Care Provider] - 1-2 days
--- NOTE | 2023-06-01 18:28 | P.PN ---
Subjective Patient is seen for f/u for ESRD Scheduled for HD in am No complaints today. S/p HD yesterday with UF 1.0L Objective - Vital Signs Vital signs: Vital Signs Temp 98.9 F 06/01/23 14:19 Pulse 80 06/01/23 14:19 Resp 16 06/01/23 14:19 BP 159/55 06/01/23 14:19 Pulse Ox 98 06/01/23 14:19 FiO2 Intake & Output 05/31/23 06/01/23 06/01/23 18:59 06:59 18:59 Intake Total 1288 236 Output Total 1050 Balance 238 236 Intake: Oral 238 236 Hemodialysis 1050 Output: Hemodialysis 1050 Other: Voiding Method Bedside Commode Bedside Commode Bedside Commode # Voids 3 3 # Bowel Movements 3 - Exam Vital signs are stable. General: No acute distress. HEENT: Head exam is unremarkable. LUNGS: No audible rhonchi or wheezes. HEART: Rate and Rhythm are regular. ABDOMEN: Nontender. EXTREMITITES: No edema - Labs CBC & Chem 7: 06/01/23 05:50 06/01/23 05:50 Labs: Abnormal Lab Results - Last 24 Hours (Table) 05/31/23 06/01/23 06/01/23 Range/Units 21:24 05:50 05:50 WBC 2.41 L (4.50-10.00) X 10*3/uL RBC 3.37 L (4.10-5.20) X 10*6/uL Hgb 10.8 L (12.0-15.0) d/dL Hct 33.6 L (37.2-46.3) % MCV 99.7 H (80.0-97.0) FL Plt Count 102 L (140-440) X 10*3/uL BUN 27.5 H (9.0-27.0) mg/dL Creatinine 2.8 H (0.6-1.5) mg/dL Est GFR (CKD-EPI) 17 L (>=60) BUN/Creatinine Ratio 9.82 L (12.00-20.00) Ratio POC Glucose (mg/dL) 177 H (70-110) mg/dL Total Bilirubin 0.2 L (0.3-1.2) mg/dL Alkaline Phosphatase 40 L (41-126) U/L Total Protein 5.5 L (6.2-8.2) d/dL Albumin 3.5 L (3.8-4.9) d/dL 06/01/23 Range/Units 08:34 WBC (4.50-10.00) X 10*3/uL RBC (4.10-5.20) X 10*6/uL Hgb (12.0-15.0) d/dL Hct (37.2-46.3) % MCV (80.0-97.0) FL Plt Count (140-440) X 10*3/uL BUN (9.0-27.0) mg/dL Creatinine (0.6-1.5) mg/dL Est GFR (CKD-EPI) (>=60) BUN/Creatinine Ratio (12.00-20.00) Ratio POC Glucose (mg/dL) 128 H (70-110) mg/dL Total Bilirubin (0.3-1.2) mg/dL Alkaline Phosphatase (41-126) U/L Total Protein (6.2-8.2) d/dL Albumin (3.8-4.9) d/dL Microbiology - Last 24 Hours (Table) 05/30/23 12:00 Blood Culture - Preliminary Blood 05/30/23 11:48 Blood Culture - Preliminary Blood Assessment and Plan Assessment: 1. End-stage renal disease maintained on hemodialysis on Sunday schedule via left upper extremity fistula. 2. Generalized weakness. 3. Hypertension with chronic kidney disease. 4. Diabetes mellitus. 5. Chronic kidney disease mineral bone disease maintained on PhosLo. Plan: HD in am. No UF with HD.
== END 2023-06-01 16:28 ==
LOC: EC 05:39 → 6NMEDSUR 11:58
PROVIDERS: ADMIT Family Medicine; ATTEND Family Medicine
DX: N39.0 Urinary tract infection, site not specified (principal); R26.2 Difficulty in walking, not elsewhere classified; R53.1 Weakness; I12.0 Hypertensive chronic kidney disease with stage 5 chronic kidney disease or end stage renal disease; N18.6 End stage renal disease; E11.22 Type 2 diabetes mellitus with diabetic chronic kidney disease; D63.1 Anemia in chronic kidney disease; N25.0 Renal osteodystrophy; E78.5 Hyperlipidemia, unspecified; Z20.822 Contact with and (suspected) exposure to COVID-19; Z87.440 Personal history of urinary (tract) infections; Z99.2 Dependence on renal dialysis; Z79.4 Long term (current) use of insulin; Z79.82 Long term (current) use of aspirin; Z79.899 Other long term (current) drug therapy
CPT/HCPCS: 96372 ×2; 99285; 36415; 93005; 97162; 97166; 80053 ×2; 84443; 83605; 83735; 84484; 85025; 85027; 85610; 85730; 81001; 87040; 83036 ×2; 84145; 87636; 71046; G0378 ×3; J0696; 90935

== ENCOUNTER 2023-08-28 14:37 | Observation (INO) | payer MEDICARE ==
--- NOTE | 2023-08-28 16:26 | ED ---
Recheck HPI - General Chief Complaint: Recheck/Abnormal Lab/Rx Stated Complaint: Blood loss-after dialysis Source: patient, RN notes reviewed Mode of arrival: EMS Limitations: no limitations - History of Present Illness Initial Comments: This is a pleasant female bleeding from her left dialysis fistula about an hour into dialysis and she has slight. An attempt was made to stop with direct pressure. Patient states she always dialysis. Patient has no other complaints. Bleeding is stopped at this time. no shortness of breath. No fevers. No nausea vomiting. No change in urination. No bleeding sites. No chest pain or shortness of breath. He does state that she feels weak. States she feels like her blood sugars because she is not having since this morning. - Related Data Home Medications Medication Instructions Recorded Confirmed Ascorbic Acid [Vitamin C] 500 mg PO DAILY 06/30/20 08/28/23 Aspirin [Adult Low Dose Aspirin EC] 81 mg PO DAILY 06/30/20 08/28/23 Febuxostat [Uloric] 40 mg PO DAILY 06/30/20 08/28/23 Multivitamins, Thera [Multivitamin 1 tab PO DAILY 06/30/20 08/28/23 (formulary)] Simvastatin [Zocor] 20 mg PO HS 06/30/20 08/28/23 amLODIPine BESYLATE 10 mg PO DAILY 06/30/20 08/28/23 hydrALAZINE HCL [Apresoline] 100 mg PO TID 06/30/20 08/28/23 Furosemide [Lasix] 60 mg PO TID 09/21/22 08/28/23 Insulin Degludec [Tresiba] 22 units SQ DAILY 09/21/22 08/28/23 Nephro-Hilary 1 tab PO DAILY 09/21/22 08/28/23 carvediloL [Coreg] 25 mg PO BID 09/21/22 08/28/23 Cholecalciferol [Vitamin D3 (25 25 mcg PO DAILY 05/30/23 08/28/23 Mcg = 1000 Iu)] Insulin Lispro [humaLOG Kwikpen] 4 units SQ AC-TID 05/30/23 08/28/23 Insulin Lispro [humaLOG Kwikpen] See Protocol SQ AC-TID 05/30/23 08/28/23 lisinopriL [Prinivil] 10 mg PO DAILY 05/30/23 08/28/23 Acetaminophen Tab [Tylenol] 650 mg PO Q4H PRN 08/28/23 08/28/23 L.acidoph,Paracasei, B.lactis 1 cap PO BID 08/28/23 08/28/23 [Probiotic] Allergies Allergy/AdvReac Type Severity Reaction Status Date / Time adhesive tape AdvReac Itching Verified 08/28/23 22:23 Review of Systems ROS Statement: Those systems with pertinent positive or pertinent negative responses have been documented in the HPI. ROS Other: All systems not noted in ROS Statement are negative. 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 gout ,anemia, psoriatic arthritis,heart murmur History of Any Multi-Drug Resistant Organisms: None Reported Past Surgical History: Orthopedic Surgery, Tubal Ligation Additional Past Surgical History / Comment(s): 1 oophorectomy, 1 partial oophorectomy,fx rt shoulder feng present, dialysis port right arm, cataracts removed jack eyes, fistula left arm Past Anesthesia/Blood Transfusion Reactions: Motion Sickness Past Psychological History: No Psychological Hx Reported Smoking Status: Never smoker Past Alcohol Use History: None Reported Past Drug Use History: None Reported - Past Family History Sister(s) Family Medical History: Cancer Additional Family Medical History / Comment(s): breast cancer General Exam - General Exam Comments Initial Comments: Nontoxic appearing female, vital signs stable, patient afebrile. Limitations: no limitations General appearance: alert, in no apparent distress Head exam: Present: atraumatic, normocephalic, normal inspection Eye exam: Present: normal appearance, PERRL, EOMI. Absent: scleral icterus, conjunctival injection, periorbital swelling ENT exam: Present: normal exam, mucous membranes moist Neck exam: Present: normal inspection. Absent: tenderness, meningismus, lymphadenopathy Respiratory exam: Present: normal lung sounds bilaterally. Absent: respiratory distress, wheezes, rales, rhonchi, stridor Cardiovascular Exam: Present: regular rate, normal rhythm, normal heart sounds. Absent: systolic murmur, diastolic murmur, rubs, gallop, clicks GI/Abdominal exam: Present: soft, normal bowel sounds. Absent: distended, tenderness, guarding, rebound, rigid Extremities exam: Present: normal inspection, full ROM, normal capillary refill, other (Patient has a bandage over her left arm fistula. No current bleeding. No evidence of secondary infection.). Absent: tenderness, pedal edema, joint swelling, calf tenderness Back exam: Present: normal inspection Neurological exam: Present: alert, oriented X3, CN II-XII intact, normal gait. Absent: altered, motor sensory deficit Psychiatric exam: Present: normal affect, normal mood Skin exam: Present: warm, dry, intact, normal color. Absent: rash Course Vital Signs 08/28/23 08/28/23 08/29/23 14:46 22:37 00:02 Temperature 97.7 F Pulse Rate 60 60 64 Respiratory 16 16 16 Rate Blood Pressure 124/52 116/64 141/60 O2 Sat by Pulse 100 98 98 Oximetry 08/29/23 08/29/23 01:20 04:50 Temperature 98.1 F Pulse Rate 68 67 Respiratory 14 17 Rate Blood Pressure 130/52 151/63 O2 Sat by Pulse 97 98 Oximetry - Reevaluation(s) Reevaluation #1: 08/28/23 18:57 Patient's hemoglobin essentially stable, 9.0 with a hematocrit of 26.2. Platelets are normal. Potassium 3.2. However, patient just had dialysis. We will consider minimal supplementation as the patient will be scheduled again on . Glucose was 39. Patient was given dextrose 50. Patient was rechecked, patient had no bleeding from the fistula site. Dressing dry and intact. No distress otherwise. Patient able to take fluids and food. Reevaluation #2: 08/28/23 19:34 Patient reevaluated, no distress, non-both fluids and food. Asymptomatic glucose ordered Reevaluation #3: 08/28/23 20:11 Patient reevaluated, glucose stable at 23. Patient asymptomatic. The case was discussed in detail with ED attending physician. Presentation, findings, treatment plan discussed in detail. Reevaluation #4: 08/28/23 21:39 Attempt was made to discharge this patient. However discharge, patient could not safely stand or ambulate on her own. Patient lives alone, after a long discussion with EMS as well as EMS, it was deemed that this patient was not nsafe to be discharged. Medical Decision Making - Medical Decision Making This patient presents to the emergency department after bleeding from her dialysis fistula after having dialysis. She states that he did not finish chichi lysis because she was having quite a bit of bleeding. Left arm, bleeding ceased. Visual Physical Exam Vital signs reviewed General: Well-appearing, nontoxic, no acute distress. Head: Normocephalic, atraumatic Eyes: PERRLA, EOMI ENT: Airway patent Chest: Nonlabored breathing Skin: No visual rash, normal skin tone Neuro: Alert and oriented 3 Musculoskeletal: No gross abnormalities Enrique Ornelas PA-C Was pt. sent in by a medical professional or institution? @ -Dialysis Center Did you speak to anyone other than the patient for history? @ -no Did you review nursing and triage notes? @ -agree Were old charts reviewed? @ -[Reviewed previous admissions, reviewed previous laboratory investigations] Differential Diagnosis? @ -Differential diagnosis includes but is not limited to: Bleeding AV fistula, anemia/worsening anemia. Does not appear to be consistent with systemic infectious process or other abnormality. Hemostasis was obtained prior to the patient being seen. At no point did the patient have any bleeding here in the emergency department. Dressing remained dry and intact. EKG interpreted by me (3pts min.)? @ -[none] X-rays interpreted by me (1pt min.)? @ -[none] CT interpreted by me (1pt min.)? @ -[none] U/S interpreted by me (1pt. min.)? @ -[none] What testing was considered but not performed? (CT, X-rays, U/S, labs)? Why? @ none What meds were considered but not given? Why? @ -[none] Did you discuss the management of the patient with other professionals? @ discussed with the patient's primary care physician, Dr. Coronado who accepts admission. Did you reconcile home meds? @ -[none] Was smoking cessation discussed for >3mins.? @ -[none] Was critical care preformed (if so, how long)? @ -[none] Were there social determinants of health that impacted care today? How? (Homelessness, low income, unemployed, alcoholism, drug addiction, transportation, low edu. Level, literacy, decrease access to med. care, usp, rehab)? @ -Patient lives alone, patient has poor mobility. Was there de-escalation of care discussed even if they declined? (Discuss DNR or withdrawal of care, Hospice)? @ -[Discuss DNR or withdrawal of care, Hospice?] What co-morbidities impacted this encounter? (DM, HTN, Smoking, COPD, CAD, Cancer, CVA, Hep., AIDS, mental health diagnosis, sleep apnea, morbid obesity)? @ -Hypertension, end-stage renal disease, chronic anemia Was patient admitted / discharged? @ -Patient did have a hypoglycemic episode that was essentially asymptomatic the entire time. Further directed. No distress. Vital signs stable, patient afebrile. Patient discharged, stable Undiagnosed new problem with uncertain prognosis? @ -[none] Drug Therapy requiring intensive monitoring for toxicity (Heparin, Nitro, Insulin, Cardizem)? @ -[none] Were any procedures done? @ -[none] Diagnosis/symptom? @ -Bleeding AV fistula, left arm, resolved. 2 hypoglycemia 3 hypokalemia Acute, or Chronic, or Acute on Chronic? @ -Acute Uncomplicated (without systemic symptoms) or Complicated (systemic symptoms)? @ -Complicated by the patient's comorbidities, unlikely to postventilatory bodily function. Side effects of treatment? @ -[none] Exacerbation, Progression, or Severe Exacerbation] @ -[no] Poses a threat to life or bodily function? @ -[no] Attempt was made to discharge the patient. However upon discharge patient was noted to have poor ambulation, general weakness, was unsafe to be discharged. Case was discussed in detail with the patient's primary care physician, Dr. Savi waite with septated admission of the patient. Patient will likely need rehabilitation placement. In the hospital several times over the past few months. - Lab Data Result diagrams: 08/28/23 17:59 08/28/23 21:50 Lab Results 08/28/23 08/28/23 08/28/23 Range/Units 17:55 17:59 17:59 WBC 3.6 L (3.8-10.6) k/uL RBC 2.69 L (3.80-5.40) m/uL Hgb 9.0 L (11.4-16.0) gm/dL Hct 26.2 L (34.0-46.0) % MCV 97.2 (80.0-100.0) fL MCH 33.5 (25.0-35.0) pg MCHC 34.4 (31.0-37.0) g/dL RDW 14.4 (11.5-15.5) % Plt Count 194 (150-450) k/uL MPV 8.5 Neutrophils % (Manual) 75 % Lymphocytes % (Manual) 11 % Monocytes % (Manual) 14 % Neutrophils # (Manual) 2.70 (1.3-7.7) k/uL Lymphocytes # (Manual) 0.40 L (1.0-4.8) k/uL Monocytes # (Manual) 0.50 (0-1.0) k/uL Nucleated RBCs 0 (0-0) /100 WBC Manual Slide Review Performed PT 11.0 (10.0-12.5) sec INR 1.0 (<1.2) APTT 22.9 (22.0-30.0) sec Sodium (137-145) mmol/L Potassium (3.5-5.1) mmol/L Chloride (98-107) mmol/L Carbon Dioxide (22-30) mmol/L Anion Gap mmol/L BUN (7-17) mg/dL Creatinine (0.52-1.04) mg/dL Est GFR (CKD-EPI)AfAm (>60 ml/min/1.73 sqM) Est GFR (CKD-EPI)NonAf (>60 ml/min/1.73 sqM) Glucose (74-99) mg/dL POC Glucose (mg/dL) (70-110) mg/dL POC Glu Gold Tooler ID Estimated Ave Glu mg/dL 114 mg/dL Hemoglobin A1c 5.6 (<=6.0) % Calcium (8.4-10.2) mg/dL Magnesium (1.6-2.3) mg/dL Total Bilirubin (0.2-1.3) mg/dL AST (14-36) U/L ALT (4-34) U/L Alkaline Phosphatase (38-126) U/L Total Protein (6.3-8.2) g/dL Albumin (3.5-5.0) g/dL Influenza Type A (PCR) (Not Detectd) Influenza Type B (PCR) (Not Detectd) RSV (PCR) (Not Detectd) SARS-CoV-2 (PCR) (Not Detectd) 08/28/23 08/28/23 08/28/23 Range/Units 17:59 19:30 21:12 WBC (3.8-10.6) k/uL RBC (3.80-5.40) m/uL Hgb (11.4-16.0) gm/dL Hct (34.0-46.0) % MCV (80.0-100.0) fL MCH (25.0-35.0) pg MCHC (31.0-37.0) g/dL RDW (11.5-15.5) % Plt Count (150-450) k/uL MPV Neutrophils % (Manual) % Lymphocytes % (Manual) % Monocytes % (Manual) % Neutrophils # (Manual) (1.3-7.7) k/uL Lymphocytes # (Manual) (1.0-4.8) k/uL Monocytes # (Manual) (0-1.0) k/uL Nucleated RBCs (0-0) /100 WBC Manual Slide Review PT (10.0-12.5) sec INR (<1.2) APTT (22.0-30.0) sec Sodium 136 L (137-145) mmol/L Potassium 3.2 L (3.5-5.1) mmol/L Chloride 100 (98-107) mmol/L Carbon Dioxide 34 H (22-30) mmol/L Anion Gap 2 mmol/L BUN 22 H (7-17) mg/dL Creatinine 2.46 H (0.52-1.04) mg/dL Est GFR (CKD-EPI)AfAm 21 (>60 ml/min/1.73 sqM) Est GFR (CKD-EPI)NonAf 19 (>60 ml/min/1.73 sqM) Glucose 39 L* (74-99) mg/dL POC Glucose (mg/dL) 223 H 218 H (70-110) mg/dL POC Glu Gold Tooler [place] [address] Amy [address] Glu mg/dL mg/dL Hemoglobin A1c (<=6.0) % Calcium 9.8 (8.4-10.2) mg/dL Magnesium (1.6-2.3) mg/dL Total Bilirubin 0.5 (0.2-1.3) mg/dL AST 30 (14-36) U/L ALT 13 (4-34) U/L Alkaline Phosphatase 61 (38-126) U/L Total Protein 5.6 L (6.3-8.2) g/dL Albumin 3.2 L (3.5-5.0) g/dL Influenza Type A (PCR) (Not Detectd) Influenza Type B (PCR) (Not Detectd) RSV (PCR) (Not Detectd) SARS-CoV-2 (PCR) (Not Detectd) 08/28/23 08/28/23 Range/Units 21:50 21:50 WBC (3.8-10.6) k/uL RBC (3.80-5.40) m/uL Hgb (11.4-16.0) gm/dL Hct (34.0-46.0) % MCV (80.0-100.0) fL MCH (25.0-35.0) pg MCHC (31.0-37.0) g/dL RDW (11.5-15.5) % Plt Count (150-450) k/uL MPV Neutrophils % (Manual) % Lymphocytes % (Manual) % Monocytes % (Manual) % Neutrophils # (Manual) (1.3-7.7) k/uL Lymphocytes # (Manual) (1.0-4.8) k/uL Monocytes # (Manual) (0-1.0) k/uL Nucleated RBCs (0-0) /100 WBC Manual Slide Review PT (10.0-12.5) sec INR (<1.2) APTT (22.0-30.0) sec Sodium (137-145) mmol/L Potassium (3.5-5.1) mmol/L Chloride (98-107) mmol/L Carbon Dioxide (22-30) mmol/L Anion Gap mmol/L BUN (7-17) mg/dL Creatinine (0.52-1.04) mg/dL Est GFR (CKD-EPI)AfAm (>60 ml/min/1.73 sqM) Est GFR (CKD-EPI)NonAf (>60 ml/min/1.73 sqM) Glucose 361 H (74-99) mg/dL POC Glucose (mg/dL) (70-110) mg/dL POC Glu Gold Tooler ID Estimated Ave Glu mg/dL mg/dL Hemoglobin A1c (<=6.0) % Calcium (8.4-10.2) mg/dL Magnesium 2.1 (1.6-2.3) mg/dL Total Bilirubin (0.2-1.3) mg/dL AST (14-36) U/L ALT (4-34) U/L Alkaline Phosphatase (38-126) U/L Total Protein (6.3-8.2) g/dL Albumin (3.5-5.0) g/dL Influenza Type A (PCR) Not Detected (Not Detectd) Influenza Type B (PCR) Not Detected (Not Detectd) RSV (PCR) Not Detected (Not Detectd) SARS-CoV-2 (PCR) Not Detected (Not Detectd) - EKG Data -: EKG Interpreted by Me (EKG interpreted by me independently at 2255 revealed sinus bradycardia) EKG shows normal: sinus rhythm, intervals, QRS complexes Rate: bradycardia EKG Comments: Bradycardic rate of 59, normal intervals otherwise, minimal T-wave flattening seen in V2 and V3 Disposition Clinical Impression: Hypokalemia, Encounter for wound re-check, Hypoglycemia, Chronic anemia, Bleeding Narrative: Bleeding resolved prior to the patient being seen. No bleeding seen throughout the stay here in the ER, mild hypokalemia. Patient scheduled for dialysis again on . Urge. Glucose 223. Disposition: ADMITTED IP TO THIS HOSP Condition: Stable Is patient prescribed a controlled substance at d/c from ED?: No When asked, does pt state using other controlled substances?: No Time of Disposition: 20:14
[2023-08-28 18:24] LABS: HCT 26.2 % (34.0-46.0); MCH 33.5 pg (25.0-35.0); MCHC 34.4 g/dL (31.0-37.0); MCV 97.2 fL (80.0-100.0); Mean Platelet Volume 8.5; Partial Thromboplastin Time 22.9 sec (22.0-30.0); Platelet Count 194 k/uL (150-450); RBC 2.69 m/uL (3.80-5.40); RDW 14.4 % (11.5-15.5); WBC 3.6 k/uL (3.8-10.6)
[2023-08-28 18:26] LABS: ALT 13 U/L (4-34); AST 30 U/L (14-36); African American GFR (CKD) 21 (>60 ml/min/1.73 sqM); Albumin 3.2 g/dL (3.5-5.0); Alkaline Phosphatase 61 U/L (38-126); Anion Gap 2 mmol/L; Blood Urea Nitrogen 22 mg/dL (7-17); Calcium 9.8 mg/dL (8.4-10.2); Carbon Dioxide 34 mmol/L (22-30); Chloride 100 mmol/L (98-107); Non-African American GFR(CKD) 19 (>60 ml/min/1.73 sqM); Potassium 3.2 mmol/L (3.5-5.1); Sodium 136 mmol/L (137-145); Total Bilirubin 0.5 mg/dL (0.2-1.3); Total Protein 5.6 g/dL (6.3-8.2)
[2023-08-28 18:47] LABS: Glucose 39 mg/dL (74-99)
[2023-08-28] MEDS ORDERED: DEXTROSE 50% SYRINGE 50 ML IVP STA (18:55)
[2023-08-28] MEDS ORDERED: POTASSIUM CHLORIDE ER 10 MEQ TAB.ER.PRT PO STA (18:59)
[2023-08-28 19:33] LABS: Glucose,Whole Blood 223 mg/dL (70-110)
[2023-08-28 19:44] LABS: Neutrophils % (M) 75 %; Nucleated Red Blood Cells 0 /100 WBC (0-0); Total Cells Counted 100
[2023-08-28 21:13] LABS: Glucose,Whole Blood 218 mg/dL (70-110)
[2023-08-28 22:36] LABS: Magnesium 2.1 mg/dL (1.6-2.3)
[2023-08-28] MEDS ORDERED: NALOXONE 0.4 MG/ML 1 ML VIAL IV PRN (23:30)
[2023-08-28] MEDS ORDERED: DEXTROSE 50% SYRINGE 50 ML IVP PRN ×2 (23:35)
[2023-08-29 00:06] LABS: Glucose,Whole Blood 167 mg/dL (70-110)
[2023-08-29 08:29] LABS: Glucose,Whole Blood 51 mg/dL (70-110)
[2023-08-29] MEDS ORDERED: DEXTROSE 50% SYRINGE 50 ML IVP PRN ×2 (08:30)
[2023-08-29] MEDS: ASPIRIN 81 MG PO SCH (08:44)
[2023-08-29] MEDS: LACTOBACILLUS ACIDOPHILUS/PECT 1 EACH CAPSULE PO SCH ×2 (08:44→21:43)
[2023-08-29] MEDS: lisinopriL 10 MG TAB PO SCH (08:44)
[2023-08-29] MEDS: ASCORBIC ACID 500 MG TAB PO SCH (08:44)
[2023-08-29] MEDS: FUROSEMIDE 20 MG TAB PO SCH ×3 (08:44→21:43)
[2023-08-29] MEDS: CHOLECALCIFEROL 25 MCG (1000 IU) TABLET PO SCH (08:44)
[2023-08-29] MEDS: amLODIPine 10 MG TAB PO SCH (08:44)
[2023-08-29] MEDS: carvediloL 12.5 MG TAB PO SCH ×2 (08:45→18:13)
[2023-08-29] MEDS: ACETAMINOPHEN TAB 325 MG TAB PO PRN (08:45)
[2023-08-29] MEDS: MULTIVITAMINS, THERA 1 EACH TAB PO SCH (08:45)
[2023-08-29] MEDS: allopurinoL 100 MG TAB PO SCH (08:45)
[2023-08-29 08:48] LABS: Glucose,Whole Blood 62 mg/dL (70-110)
[2023-08-29] MEDS ORDERED: INSULIN DETEMIR (LEVEMIR) 100 UNIT/ML SYR SQ SCH (09:00)
[2023-08-29 09:07] LABS: Glucose,Whole Blood 84 mg/dL (70-110)
[2023-08-29] MEDS: hydrALAZINE HCL 50 MG TAB PO SCH ×3 (11:15→21:45)
[2023-08-29] MEDS: FOLIC ACID-VIT B COMPLEX-VIT C 1 CAP PO SCH (11:16)
[2023-08-29] MEDS: INSULIN DETEMIR (LEVEMIR) 100 UNIT/ML SYR SQ SCH (11:16)
[2023-08-29] MEDS: INSULIN ASPART (NovoLOG) 100 UNIT/ML VIAL SQ SCH ×5 (11:16→21:07)
--- NOTE | 2023-08-29 11:50 | P.NPCON ---
History of Present Illness - Reason for Consult end stage renal disease - History of Present Illness Reason for consultation: End-stage renal disease History of present illness: Patient is a 78-year-old female seen in consultation for end-stage renal disease. She is maintained on hemodialysis on Sunday schedule. Patient has a AV fistula. Patient states the treatment was cut short by about an hour due to bleeding from the fistula site. Currently the fistula has a good thrill and there is no signs of bleeding. She denies fever or chills. No vomiting or diarrhea. No chest pain or shortness of breath. No dizziness or syncopal episodes. No abdominal pain. Patient does have history of diabetes. Denies history of coronary artery disease. I don't see any blood thinners on her home medication list. Vital signs are stable. General: No acute distress. HEENT: Head exam is unremarkable. LUNGS: No audible rhonchi or wheezes. HEART: Rate and Rhythm are regular. ABDOMEN: Nontender. EXTREMITITES: No edema. 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 gout ,anemia, psoriatic arthritis,heart murmur History of Any Multi-Drug Resistant Organisms: None Reported Past Surgical History: Orthopedic Surgery, Tubal Ligation Additional Past Surgical History / Comment(s): 1 oophorectomy, 1 partial oophorectomy,fx rt shoulder feng present, dialysis port right arm, cataracts removed jack eyes, fistula left arm Past Anesthesia/Blood Transfusion Reactions: Motion Sickness Past Psychological History: No Psychological Hx Reported Smoking Status: Never smoker Past Alcohol Use History: None Reported Past Drug Use History: None Reported - Past Family History Sister(s) Family Medical History: Cancer Additional Family Medical History / Comment(s): breast cancer Medications and Allergies Home Medications Medication Instructions Recorded Confirmed Type Ascorbic Acid [Vitamin C] 500 mg PO DAILY 06/30/20 08/28/23 History Aspirin [Adult Low Dose Aspirin EC] 81 mg PO DAILY 06/30/20 08/28/23 History Febuxostat [Uloric] 40 mg PO DAILY 06/30/20 08/28/23 History Multivitamins, Thera [Multivitamin 1 tab PO DAILY 06/30/20 08/28/23 History (formulary)] Simvastatin [Zocor] 20 mg PO HS 06/30/20 08/28/23 History amLODIPine BESYLATE 10 mg PO DAILY 06/30/20 08/28/23 History hydrALAZINE HCL [Apresoline] 100 mg PO TID 06/30/20 08/28/23 History Furosemide [Lasix] 60 mg PO TID 09/21/22 08/28/23 History Insulin Degludec [Tresiba] 22 units SQ DAILY 09/21/22 08/28/23 History Nephro-Hilary 1 tab PO DAILY 09/21/22 08/28/23 History carvediloL [Coreg] 25 mg PO BID 09/21/22 08/28/23 History Cholecalciferol [Vitamin D3 (25 25 mcg PO DAILY 05/30/23 08/28/23 History Mcg = 1000 Iu)] Insulin Lispro [humaLOG Kwikpen] 4 units SQ AC-TID 05/30/23 08/28/23 History Insulin Lispro [humaLOG Kwikpen] See Protocol SQ AC-TID 05/30/23 08/28/23 History lisinopriL [Prinivil] 10 mg PO DAILY 05/30/23 08/28/23 History Acetaminophen Tab [Tylenol] 650 mg PO Q4H PRN 08/28/23 08/28/23 History L.acidoph,Paracasei, B.lactis 1 cap PO BID 08/28/23 08/28/23 History [Probiotic] Allergies Allergy/AdvReac Type Severity Reaction Status Date / Time adhesive tape AdvReac Itching Verified 08/28/23 22:23 Physical Exam Vitals: Vital Signs Temp Pulse Pulse Resp BP BP Pulse Ox 08/29/23 07:30 98.2 F 65 16 174/65 97 08/29/23 04:50 98.1 F 67 17 151/63 98 08/29/23 01:20 68 14 130/52 97 08/29/23 00:02 64 16 141/60 98 08/28/23 22:37 60 16 116/64 98 08/28/23 14:46 97.7 F 60 16 124/52 100 Intake and Output 08/28/23 08/29/23 08/29/23 22:59 06:59 14:59 Intake Total 236 Balance 236 Intake: Oral 236 Results - Lab Results Most recent lab results Calcium 9.8 mg/dL (8.4-10.2) 08/28/23 17:59 Magnesium 2.1 mg/dL (1.6-2.3) 08/28/23 21:50 08/28/23 17:59 08/28/23 21:50 Assessment and Plan Plan: Assessment: 1. End-stage renal disease maintained on hemodialysis on Sunday schedule. 2. Bleeding from AV fistula site. 3. Anemia of chronic kidney disease. 4. Hypertension with chronic disease. Patient has history of orthostatic hypotension. 5. Hypokalemia. This was checked postdialysis yesterday. I will order another potassium level for today. Plan: Hemodialysis tomorrow. Consult vascular surgery to evaluate AV fistula. Check potassium level today. Check iron studies. Check phosphorus level. Thank you for the consultation. I will continue to follow the patient with you during her hospital stay.
--- NOTE | 2023-08-29 12:10 | P.HPIM ---
History of Present Illness H&P Date: 08/29/23 Chief Complaint: Weakness bleeding at the fistula site This is 78-year-old white female essentially admitted after having dialysis yesterday. She had significant bleeding at her fistula site. This was corrected with pressure but she had difficulty with ambulation. She is having difficulty with mobility and lives alone at home. She is admitted for generalized weakness and end-stage renal disease. I have discussed with her that she might need to go back to rehab. Her body actually might be weakening to the point worse her independence is threatened. 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 gout ,anemia, psoriatic arthritis,heart murmur History of Any Multi-Drug Resistant Organisms: None Reported Past Surgical History: Orthopedic Surgery, Tubal Ligation Additional Past Surgical History / Comment(s): 1 oophorectomy, 1 partial oophorectomy,fx rt shoulder feng present, dialysis port right arm, cataracts removed jack eyes, fistula left arm Past Anesthesia/Blood Transfusion Reactions: Motion Sickness Past Psychological History: No Psychological Hx Reported Smoking Status: Never smoker Past Alcohol Use History: None Reported Past Drug Use History: None Reported - Past Family History Sister(s) Family Medical History: Cancer Additional Family Medical History / Comment(s): breast cancer Medications and Allergies Home Medications Medication Instructions Recorded Confirmed Type Ascorbic Acid [Vitamin C] 500 mg PO DAILY 06/30/20 08/28/23 History Aspirin [Adult Low Dose Aspirin EC] 81 mg PO DAILY 06/30/20 08/28/23 History Febuxostat [Uloric] 40 mg PO DAILY 06/30/20 08/28/23 History Multivitamins, Thera [Multivitamin 1 tab PO DAILY 06/30/20 08/28/23 History (formulary)] Simvastatin [Zocor] 20 mg PO HS 06/30/20 08/28/23 History amLODIPine BESYLATE 10 mg PO DAILY 06/30/20 08/28/23 History hydrALAZINE HCL [Apresoline] 100 mg PO TID 06/30/20 08/28/23 History Furosemide [Lasix] 60 mg PO TID 09/21/22 08/28/23 History Insulin Degludec [Tresiba] 22 units SQ DAILY 09/21/22 08/28/23 History Nephro-Hilary 1 tab PO DAILY 09/21/22 08/28/23 History carvediloL [Coreg] 25 mg PO BID 09/21/22 08/28/23 History Cholecalciferol [Vitamin D3 (25 25 mcg PO DAILY 05/30/23 08/28/23 History Mcg = 1000 Iu)] Insulin Lispro [humaLOG Kwikpen] 4 units SQ AC-TID 05/30/23 08/28/23 History Insulin Lispro [humaLOG Kwikpen] See Protocol SQ AC-TID 05/30/23 08/28/23 H istory lisinopriL [Prinivil] 10 mg PO DAILY 05/30/23 08/28/23 History Acetaminophen Tab [Tylenol] 650 mg PO Q4H PRN 08/28/23 08/28/23 History L.acidoph,Paracasei, B.lactis 1 cap PO BID 08/28/23 08/28/23 History [Probiotic] Allergies Allergy/AdvReac Type Severity Reaction Status Date / Time adhesive tape AdvReac Itching Verified 08/28/23 22:23 Physical Exam Vitals: Vital Signs Temp Pulse Pulse Resp BP BP Pulse Ox 08/29/23 07:30 98.2 F 65 16 174/65 97 08/29/23 04:50 98.1 F 67 17 151/63 98 08/29/23 01:20 68 14 130/52 97 08/29/23 00:02 64 16 141/60 98 08/28/23 22:37 60 16 116/64 98 08/28/23 14:46 97.7 F 60 16 124/52 100 Intake and Output 08/28/23 08/29/23 08/29/23 22:59 06:59 14:59 Intake Total 236 Balance 236 Intake: Oral 236 - Constitutional General appearance: cooperative, no no acute distress - EENT ENT: no hard of hearing - Respiratory Respiratory: bilateral: diminished - Cardiovascular Rhythm: regular Heart sounds: normal: S1, S2 Abnormal Heart Sounds: no S3 Gallop - Gastrointestinal General gastrointestinal: soft, no tenderness - Musculoskeletal Musculoskeletal: generalized weakness - Psychiatric Psychiatric: A&O x's 3 Results CBC & Chem 7: 08/28/23 17:59 08/28/23 21:50 Labs: Abnormal Lab Results - Last 24 Hours (Table) 08/28/23 08/28/23 08/28/23 Range/Units 17:59 17:59 19:30 WBC 3.6 L (3.8-10.6) k/uL RBC 2.69 L (3.80-5.40) m/uL Hgb 9.0 L (11.4-16.0) gm/dL Hct 26.2 L (34.0-46.0) % Lymphocytes # (Manual) 0.40 L (1.0-4.8) k/uL Sodium 136 L (137-145) mmol/L Potassium 3.2 L (3.5-5.1) mmol/L Carbon Dioxide 34 H (22-30) mmol/L BUN 22 H (7-17) mg/dL Creatinine 2.46 H (0.52-1.04) mg/dL Glucose 39 L* (74-99) mg/dL POC Glucose (mg/dL) 223 H (70-110) mg/dL Total Protein 5.6 L (6.3-8.2) g/dL Albumin 3.2 L (3.5-5.0) g/dL 08/28/23 08/28/23 08/29/23 Range/Units 21:12 21:50 00:04 WBC (3.8-10.6) k/uL RBC (3.80-5.40) m/uL Hgb (11.4-16.0) gm/dL Hct (34.0-46.0) % Lymphocytes # (Manual) (1.0-4.8) k/uL Sodium (137-145) mmol/L Potassium (3.5-5.1) mmol/L Carbon Dioxide (22-30) mmol/L BUN (7-17) mg/dL Creatinine (0.52-1.04) mg/dL Glucose 361 H (74-99) mg/dL POC Glucose (mg/dL) 218 H 167 H (70-110) mg/dL Total Protein (6.3-8.2) g/dL Albumin (3.5-5.0) g/dL 08/29/23 08/29/23 Range/Units 08:28 08:47 WBC (3.8-10.6) k/uL RBC (3.80-5.40) m/uL Hgb (11.4-16.0) gm/dL Hct (34.0-46.0) % Lymphocytes # (Manual) (1.0-4.8) k/uL Sodium (137-145) mmol/L Potassium (3.5-5.1) mmol/L Carbon Dioxide (22-30) mmol/L BUN (7-17) mg/dL Creatinine (0.52-1.04) mg/dL Glucose (74-99) mg/dL POC Glucose (mg/dL) 51 L 62 L (70-110) mg/dL Total Protein (6.3-8.2) g/dL Albumin (3.5-5.0) g/dL Assessment and Plan (1) Chronic anemia Current Visit: Yes Status: Acute Code(s): D64.9 - ANEMIA, UNSPECIFIED SNOMED Code(s): 889997104 (2) Difficulty in walking Current Visit: No Status: Acute Code(s): R26.2 - DIFFICULTY IN WALKING, NOT ELSEWHERE CLASSIFIED SNOMED Code(s): 147754765 (3) End stage renal disease on dialysis Current Visit: No Status: Acute Code(s): N18.6 - END STAGE RENAL DISEASE; Z99.2 - DEPENDENCE ON RENAL DIALYSIS SNOMED Code(s): 368535491 (4) Type 2 diabetes mellitus with diabetic nephropathy Current Visit: No Status: Acute Code(s): E11.21 - TYPE 2 DIABETES MELLITUS WITH DIABETIC NEPHROPATHY SNOMED Code(s): 06912688 Plan: Go ahead and consult nephrology for continued dialysis. Check CBC and CMP in a.m. I am concerned again, all of her overall weakness. Reconcile home medications with sliding scale insulin. Increase by mouth intake. discharge planning?. Prognosis is guarded. Time with Patient: Greater than 30
[2023-08-29 12:33] LABS: Glucose,Whole Blood 235 mg/dL (70-110)
--- NOTE | 2023-08-29 12:54 | P.GSCN ---
History of Present Illness Consult date: 08/29/23 Reason for Consult: Bleeding fistula site Requesting physician: Eric Coronado History of present illness: This is a pleasant 78-year-old female with a history of end-stage renal disease on hemodialysis. She has seen Dr. Mart from vascular surgery. She has a left upper extremity fistula and had undergone fistulogram with balloon angioplasty back in September 2022. She gets dialysis on a Sunday, , Sunday. States that it has bled some in the past, however yesterday after her dialysis and had significant bleeding and she was sent to the emergency department for further evaluation. She does not take any anticoagulation other than daily, baby aspirin 81 mg.. Pressure was applied to the access site. When she arrived to the emergency department bleeding had stopped. She was admitted to observation with vascular surgery on consult. Patient is seen and examined today without any bleeding, no pain at the site. Hemoglobin stable for patient at 9.0. There is no redness or swelling at this site. No bleeding or drainage. Review of Systems A 14 point review systems was completed all pertinent positives and negatives as stated in the HPI. 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 gout ,anemia, psoriatic arthritis,heart murmur History of Any Multi-Drug Resistant Organisms: None Reported Past Surgical History: Orthopedic Surgery, Tubal Ligation Additional Past Surgical History / Comment(s): 1 oophorectomy, 1 partial oophorectomy,fx rt shoulder feng present, dialysis port right arm, cataracts removed jack eyes, fistula left arm Past Anesthesia/Blood Transfusion Reactions: Motion Sickness Past Psychological History: No Psychological Hx Reported Smoking Status: Never smoker Past Alcohol Use History: None Reported Past Drug Use History: None Reported - Past Family History Sister(s) Family Medical History: Cancer Additional Family Medical History / Comment(s): breast cancer Medications and Allergies Home Medications Medication Instructions Recorded Confirmed Type Ascorbic Acid [Vitamin C] 500 mg PO DAILY 06/30/20 08/28/23 History Aspirin [Adult Low Dose Aspirin EC] 81 mg PO DAILY 06/30/20 08/28/23 History Febuxostat [Uloric] 40 mg PO DAILY 06/30/20 08/28/23 History Multivitamins, Thera [Multivitamin 1 tab PO DAILY 06/30/20 08/28/23 History (formulary)] Simvastatin [Zocor] 20 mg PO HS 06/30/20 08/28/23 History amLODIPine BESYLATE 10 mg PO DAILY 06/30/20 08/28/23 History hydrALAZINE HCL [Apresoline] 100 mg PO TID 06/30/20 08/28/23 History Furosemide [Lasix] 60 mg PO TID 09/21/22 08/28/23 History Insulin Degludec [Tresiba] 22 units SQ DAILY 09/21/22 08/28/23 History Nephro-Hilary 1 tab PO DAILY 09/21/22 08/28/23 History carvediloL [Coreg] 25 mg PO BID 09/21/22 08/28/23 History Cholecalciferol [Vitamin D3 (25 25 mcg PO DAILY 05/30/23 08/28/23 History Mcg = 1000 Iu)] Insulin Lispro [humaLOG Kwikpen] 4 units SQ AC-TID 05/30/23 08/28/23 History Insulin Lispro [humaLOG Kwikpen] See Protocol SQ AC-TID 05/30/23 08/28/23 History lisinopriL [Prinivil] 10 mg PO DAILY 05/30/23 08/28/23 History Acetaminophen Tab [Tylenol] 650 mg PO Q4H PRN 08/28/23 08/28/23 History L.acidoph,Paracasei, B.lactis 1 cap PO BID 08/28/23 08/28/23 History [Probiotic] Allergies Allergy/AdvReac Type Severity Reaction Status Date / Time adhesive tape AdvReac Itching Verified 08/28/23 22:23 Surgical - Exam Vital Signs Temp Pulse Resp BP Pulse Ox 97.7 F 60 16 124/52 100 08/28/23 14:46 08/28/23 14:46 08/28/23 14:46 08/28/23 14:46 08/28/23 14:46 General appearance: The patient is alert, oriented, appears in no acute distress. HET: Head is normocephalic and atraumatic. Pupils are equal and reactive. Neck: Supple. Heart: Regular. Lungs: Equal expansion, normal respiratory effort. Abdomen: Soft, nontender, nondistended. Extremities: Normal skin color and turgor. Left upper extremity fistula with palpable thrill and audible bruit. Small scab noted, but no ulcer. No active bleeding. Neurological: No focal deficits. Results - Labs 08/28/23 17:59 08/28/23 21:50 Abnormal Lab Results - Last 24 Hours (Table) 08/28/23 08/28/23 08/28/23 Range/Units 17:59 17:59 19:30 WBC 3.6 L (3.8-10.6) k/uL RBC 2.69 L (3.80-5.40) m/uL Hgb 9.0 L (11.4-16.0) gm/dL Hct 26.2 L (34.0-46.0) % Lymphocytes # (Manual) 0.40 L (1.0-4.8) k/uL Sodium 136 L (137-145) mmol/L Potassium 3.2 L (3.5-5.1) mmol/L Carbon Dioxide 34 H (22-30) mmol/L BUN 22 H (7-17) mg/dL Creatinine 2.46 H (0.52-1.04) mg/dL Glucose 39 L* (74-99) mg/dL POC Glucose (mg/dL) 223 H (70-110) mg/dL Total Protein 5.6 L (6.3-8.2) g/dL Albumin 3.2 L (3.5-5.0) g/dL 08/28/23 08/28/23 08/29/23 Range/Units 21:12 21:50 00:04 WBC (3.8-10.6) k/uL RBC (3.80-5.40) m/uL Hgb (11.4-16.0) gm/dL Hct (34.0-46.0) % Lymphocytes # (Manual) (1.0-4.8) k/uL Sodium (137-145) mmol/L Potassium (3.5-5.1) mmol/L Carbon Dioxide (22-30) mmol/L BUN (7-17) mg/dL Creatinine (0.52-1.04) mg/dL Glucose 361 H (74-99) mg/dL POC Glucose (mg/dL) 218 H 167 H (70-110) mg/dL Total Protein (6.3-8.2) g/dL Albumin (3.5-5.0) g/dL 08/29/23 08/29/23 08/29/23 Range/Units 08:28 08:47 12:31 WBC (3.8-10.6) k/uL RBC (3.80-5.40) m/uL Hgb (11.4-16.0) gm/dL Hct (34.0-46.0) % Lymphocytes # (Manual) (1.0-4.8) k/uL Sodium (137-145) mmol/L Potassium (3.5-5.1) mmol/L Carbon Dioxide (22-30) mmol/L BUN (7-17) mg/dL Creatinine (0.52-1.04) mg/dL Glucose (74-99) mg/dL POC Glucose (mg/dL) 51 L 62 L 235 H (70-110) mg/dL Total Protein (6.3-8.2) g/dL Albumin (3.5-5.0) g/dL Diabetes panel 08/28/23 08/28/23 08/28/23 Range/Units 17:55 17:59 21:50 Sodium 136 L (137-145) mmol/L Potassium 3.2 L (3.5-5.1) mmol/L Chloride 100 (98-107) mmol/L Carbon Dioxide 34 H (22-30) mmol/L BUN 22 H (7-17) mg/dL Creatinine 2.46 H (0.52-1.04) mg/dL Glucose 39 L* 361 H (74-99) mg/dL Hemoglobin A1c 5.6 (<=6.0) % Calcium 9.8 (8.4-10.2) mg/dL AST 30 (14-36) U/L ALT 13 (4-34) U/L Alkaline Phosphatase 61 (38-126) U/L Total Protein 5.6 L (6.3-8.2) g/dL Albumin 3.2 L (3.5-5.0) g/dL Calcium panel 08/28/23 Range/Units 17:59 Calcium 9.8 (8.4-10.2) mg/dL Albumin 3.2 L (3.5-5.0) g/dL Pituitary panel 08/28/23 08/28/23 Range/Units 17:59 21:50 Sodium 136 L (137-145) mmol/L Potassium 3.2 L (3.5-5.1) mmol/L Chloride 100 (98-107) mmol/L Carbon Dioxide 34 H (22-30) mmol/L BUN 22 H (7-17) mg/dL Creatinine 2.46 H (0.52-1.04) mg/dL Glucose 39 L* 361 H (74-99) mg/dL Calcium 9.8 (8.4-10.2) mg/dL Adrenal panel 08/28/23 08/28/23 Range/Units 17:59 21:50 Sodium 136 L (137-145) mmol/L Potassium 3.2 L (3.5-5.1) mmol/L Chloride 100 (98-107) mmol/L Carbon Dioxide 34 H (22-30) mmol/L BUN 22 H (7-17) mg/dL Creatinine 2.46 H (0.52-1.04) mg/dL Glucose 39 L* 361 H (74-99) mg/dL Calcium 9.8 (8.4-10.2) mg/dL Total Bilirubin 0.5 (0.2-1.3) mg/dL AST 30 (14-36) U/L ALT 13 (4-34) U/L Alkaline Phosphatase 61 (38-126) U/L Total Protein 5.6 L (6.3-8.2) g/dL Albumin 3.2 L (3.5-5.0) g/dL Assessment and Plan Assessment: 1. Bleeding from fistula site following dialysis, now resolved 2. End-stage renal disease requiring hemodialysis 3. Chronic anemia Plan: Patient was evaluated with no active bleeding. A fistula with palpable thrill and audible bruit. There is no indication for any vascular surgical intervention. Follow-up with Dr. Mart in 1-2 weeks. May access fistula for dialysis. Thank you for this consultation, patient is clear from vascular surgery for discharge. We will sign off at this time. The impression and plan of care has been dictated as directed. Dr. Bansal I performed a history and examination of this patient, discussed the same with the dictator. I agree with the dictator's note ,documented as a scribe. Any additional findings or plans will be noted.
[2023-08-29 15:20] LABS: % Iron Saturation 46.8 (12.00-45.00); Phosphorus 3.7 mg/dL (2.4-5.1)
[2023-08-29 17:35] LABS: Glucose,Whole Blood 100 mg/dL (70-110)
[2023-08-29 20:55] LABS: Glucose,Whole Blood 150 mg/dL (70-110)
[2023-08-29] MEDS: ATORVASTATIN 10 MG TAB PO SCH (21:43)
[2023-08-30 06:05] LABS: Glucose,Whole Blood 220 mg/dL (70-110)
[2023-08-30] MEDS: carvediloL 12.5 MG TAB PO SCH ×2 (06:39→17:44)
[2023-08-30] MEDS: INSULIN ASPART (NovoLOG) 100 UNIT/ML VIAL SQ SCH ×4 (06:39→21:10)
[2023-08-30] MEDS: INSULIN DETEMIR (LEVEMIR) 100 UNIT/ML SYR SQ SCH (06:39)
--- NOTE | 2023-08-30 08:29 | P.PN ---
Subjective Progress Note Date: 08/30/23 Principal diagnosis: Bleeding fistula Patient is seen and examined today as a follow-up. She was admitted after she had dialysis and had bleeding from the fistula site that took some time to stop. Yesterday she had a short dialysis treatment without any difficulty and no bleeding following. She denies any pain at the left upper extremity. Objective - Vital Signs Vital signs: Vital Signs Temp 98 F 08/30/23 07:00 Pulse 67 08/30/23 07:00 Resp 21 08/30/23 07:00 BP 171/65 08/30/23 07:00 Pulse Ox 97 08/30/23 07:00 FiO2 Intake & Output 08/29/23 08/30/23 08/30/23 18:59 06:59 18:59 Intake Total 874 Output Total 1200 Balance -326 Weight 60.781 kg Intake: Oral 474 Hemodialysis 400 Output: Hemodialysis 1200 Other: Voiding Method Toilet Toilet # Voids 1 1 # Bowel Movements 1 - Exam General appearance: The patient is alert, oriented, appears in no acute distress. HET: Head is normocephalic and atraumatic. Pupils are equal and reactive. Neck: Supple. Abdomen: Soft, nondistended. Extremities: Normal skin color and turgor. Palpable left radial pulse. Fistula with palpable thrill, and audible bruit. No bleeding noted. No hematoma Neurological: No focal deficits. - Labs CBC & Chem 7: 08/28/23 17:59 08/29/23 12:15 Labs: Abnormal Lab Results - Last 24 Hours (Table) 08/29/23 08/29/23 08/29/23 Range/Units 08:28 08:47 12:15 POC Glucose (mg/dL) 51 L 62 L (70-110) mg/dL TIBC 203 L (228-460) UG/DL % Saturation 46.80 H (12.00-45.00) Transferrin 145.0 L (204.0-354.0) mg/dL Ferritin 1149.0 H (10.0-291.0) ng/mL 08/29/23 08/29/23 08/30/23 Range/Units 12:31 20:54 06:03 POC Glucose (mg/dL) 235 H 150 H 220 H (70-110) mg/dL TIBC (228-460) UG/DL % Saturation (12.00-45.00) Transferrin (204.0-354.0) mg/dL Ferritin (10.0-291.0) ng/mL Assessment and Plan Assessment: 1. Bleeding from fistula site following dialysis, now resolved 2. End-stage renal disease requiring hemodialysis 3. Chronic anemia Plan: Patient was evaluated with no active bleeding. A fistula with palpable thrill and audible bruit. There is no indication for any vascular surgical intervention. Follow-up with Dr. Mart in 3-4 weeks. May access fistula for dialysis. Thank you for this consultation, patient is cleared from vascular surgery for discharge. We will sign off at this time. The impression and plan of care has been dictated as directed. Dr. Bansal I performed a history and examination of this patient, discussed the same with the dictator. I agree with the dictator's note ,documented as a scribe. Any additional findings or plans will be noted.
[2023-08-30] MEDS: allopurinoL 100 MG TAB PO SCH (08:33)
[2023-08-30] MEDS: FUROSEMIDE 20 MG TAB PO SCH ×3 (08:33→21:10)
[2023-08-30] MEDS: MULTIVITAMINS, THERA 1 EACH TAB PO SCH (08:33)
[2023-08-30] MEDS: ASPIRIN 81 MG PO SCH (08:33)
[2023-08-30] MEDS: FOLIC ACID-VIT B COMPLEX-VIT C 1 CAP PO SCH (08:33)
[2023-08-30] MEDS: hydrALAZINE HCL 50 MG TAB PO SCH ×3 (08:33→21:10)
[2023-08-30] MEDS: CHOLECALCIFEROL 25 MCG (1000 IU) TABLET PO SCH (08:33)
[2023-08-30] MEDS: ASCORBIC ACID 500 MG TAB PO SCH (08:34)
[2023-08-30] MEDS: LACTOBACILLUS ACIDOPHILUS/PECT 1 EACH CAPSULE PO SCH ×2 (08:34→21:10)
[2023-08-30] MEDS: amLODIPine 10 MG TAB PO SCH (08:34)
[2023-08-30] MEDS: lisinopriL 10 MG TAB PO SCH (08:34)
--- NOTE | 2023-08-30 08:40 | P.DS ---
Providers Date of admission: 08/28/23 23:20 Attending physician: Eric Coronado Consults: 08/29/23 08:30 Consult Physician Routine Consulting Provider: Augusto Reddy Consult Reason/Comments: dialysis, renal failure Do you want consulting provider notified?: Yes 08/29/23 09:36 Consult Physician Urgent Consulting Provider: Keven Mart Consult Reason/Comments: bleeding fistula access site Do you want consulting provider notified?: Yes Primary care physician: Eric Coronado - Discharge Diagnosis(es) (1) Chronic anemia Current Visit: Yes Status: Acute (2) Difficulty in walking Current Visit: No Status: Acute (3) End stage renal disease on dialysis Current Visit: No Status: Acute (4) Type 2 diabetes mellitus with diabetic nephropathy Current Visit: No Status: Acute Hospital Course: This is a 78-year-old female who was admitted after having bleeding at fistula site during dialysis. While in the ER patient was also found to have some weakness and difficulty with ambulation. She does live alone at home. She was seen and evaluated by vascular surgery who has cleared her. She will be getting dialysis today. She reports she is feeling better today. She may be discharged home after dialysis today if cleared by nephrology. Patient seen and evaluated by nurse practitioner, physician in agreement with plan Patient Condition at Discharge: Stable Plan - Discharge Summary New Discharge Prescriptions: Continue Ascorbic Acid [Vitamin C] 500 mg PO DAILY Multivitamins, Thera [Multivitamin (formulary)] 1 tab PO DAILY Aspirin [Adult Low Dose Aspirin EC] 81 mg PO DAILY Simvastatin [Zocor] 20 mg PO HS Febuxostat [Uloric] 40 mg PO DAILY hydrALAZINE HCL [Apresoline] 100 mg PO TID amLODIPine BESYLATE 10 mg PO DAILY Furosemide [Lasix] 60 mg PO TID Cholecalciferol [Vitamin D3 (25 Mcg = 1000 Iu)] 25 mcg PO DAILY Insulin Lispro [humaLOG Kwikpen] See Protocol SQ AC-TID Insulin Lispro [humaLOG Kwikpen] 4 units SQ AC-TID lisinopriL [Prinivil] 10 mg PO DAILY L.acidoph,Paracasei, B.lactis [Probiotic] 1 cap PO BID Acetaminophen Tab [Tylenol] 650 mg PO Q4H PRN PRN Reason: Fever And/ Or Pain carvediloL [Coreg] 25 mg PO BID Nephro-Hilary 1 tab PO DAILY Insulin Degludec [Tresiba] 22 units SQ DAILY Discharge Medication List Ascorbic Acid [Vitamin C] 500 mg PO DAILY 06/30/20 [History] Aspirin [Adult Low Dose Aspirin EC] 81 mg PO DAILY 06/30/20 [History] Febuxostat [Uloric] 40 mg PO DAILY 06/30/20 [History] Multivitamins, Thera [Multivitamin (formulary)] 1 tab PO DAILY 06/30/20 [History] Simvastatin [Zocor] 20 mg PO HS 06/30/20 [History] amLODIPine BESYLATE 10 mg PO DAILY 06/30/20 [History] hydrALAZINE HCL [Apresoline] 100 mg PO TID 06/30/20 [History] Furosemide [Lasix] 60 mg PO TID 09/21/22 [History] Insulin Degludec [Tresiba] 22 units SQ DAILY 09/21/22 [History] Nephro-Hilary 1 tab PO DAILY 09/21/22 [History] carvediloL [Coreg] 25 mg PO BID 09/21/22 [History] Cholecalciferol [Vitamin D3 (25 Mcg = 1000 Iu)] 25 mcg PO DAILY 05/30/23 [History] Insulin Lispro [humaLOG Kwikpen] 4 units SQ AC-TID 05/30/23 [History] Insulin Lispro [humaLOG Kwikpen] See Protocol SQ AC-TID 05/30/23 [History] lisinopriL [Prinivil] 10 mg PO DAILY 05/30/23 [History] Acetaminophen Tab [Tylenol] 650 mg PO Q4H PRN 08/28/23 [History] L.acidoph,Paracasei, B.lactis [Probiotic] 1 cap PO BID 08/28/23 [History] Follow up Appointment(s)/Referral(s): Eric Coronado MD [Primary Care Provider] - 1 Week Patient Instructions/Handouts: Hypokalemia (ED), Hypoglycemia in a Person with Diabetes (ED) Activity/Diet/Wound Care/Special Instructions: The bandage in place and try not to manipulate the wound until next dialysis on . Continue home medications as directed by your prescribing physician. Follow-up with your regular physician as directed. Return to the ER immediately if any symptoms worsen, new symptoms arise, or any other problems develop. Discharge Disposition: HOME SELF-CARE
[2023-08-30 09:14] LABS: HCT 24.3 % (37.2-46.3); HGB 7.8 g/dL (12.0-15.0); MCH 32.2 pg (27.0-32.0); MCHC 32.1 g/dL (32.0-37.0); MCV 100.4 FL (80.0-97.0); Mean Platelet Volume 10.4 FL (9.5-12.2); NRBC Per 100 WBC 0 X 10*3/uL (0.00-0.01); Platelet Count 163 X 10*3/uL (140-440); RBC 2.42 X 10*6/uL (4.10-5.20); RDW 13.7 % (11.5-14.5); WBC 2.83 X 10*3/uL (4.50-10.00)
[2023-08-30 09:46] LABS: ALT 11 U/L (8-44); AST 23 U/L (13-35); Albumin 3.2 g/dL (3.8-4.9); Albumin/Globulin Ratio 1.78 Ratio (1.60-3.17); Alkaline Phosphatase 50 U/L (41-126); BUN/Creat Ratio 7.61 Ratio (12.00-20.00); Blood Urea Nitrogen 21.3 mg/dL (9.0-27.0); Calcium 9.4 mg/dL (8.7-10.3); Carbon Dioxide 27.7 mmol/L (21.6-31.8); Chloride 99 mmol/L (96-109); Globulin 1.8 g/dL (1.6-3.3); Glucose 113 mg/dL (70-110); Potassium 3.6 mmol/L (3.5-5.5); Sodium 136 mmol/L (135-145); Total Bilirubin 0.3 mg/dL (0.3-1.2)
[2023-08-30] MEDS: ACETAMINOPHEN TAB 325 MG TAB PO PRN (10:42)
[2023-08-30 12:22] LABS: Glucose,Whole Blood 121 mg/dL (70-110)
--- NOTE | 2023-08-30 13:13 | P.PN ---
Subjective Patient is seen in follow-up for end-stage renal disease. She is making on hemodialysis on Sunday schedule. Scheduled for dialysis today. No problems with dialysis yesterday. No bleeding from the access. Vital signs are stable. General: No acute distress. HEENT: Head exam is unremarkable. LUNGS: No audible rhonchi or wheezes. HEART: Rate and Rhythm are regular. ABDOMEN: Nontender. EXTREMITITES: No edema. Objective - Vital Signs Vital signs: Vital Signs Temp 98 F 08/30/23 07:00 Pulse 67 08/30/23 07:00 Resp 21 08/30/23 07:00 BP 171/65 08/30/23 07:00 Pulse Ox 97 08/30/23 07:00 FiO2 Intake & Output 08/29/23 08/30/23 08/30/23 18:59 06:59 18:59 Intake Total 874 118 Output Total 1200 Balance -326 118 Weight 60.781 kg Intake: Oral 474 118 Hemodialysis 400 Output: Hemodialysis 1200 Other: Voiding Method Toilet Toilet # Voids 1 1 1 # Bowel Movements 1 1 - Labs CBC & Chem 7: 08/30/23 05:16 08/30/23 05:16 Labs: Abnormal Lab Results - Last 24 Hours (Table) 08/29/23 08/29/23 08/30/23 Range/Units 12:15 20:54 05:16 WBC 2.83 L (4.50-10.00) X 10*3/uL RBC 2.42 L (4.10-5.20) X 10*6/uL Hgb 7.8 L (12.0-15.0) g/dL Hct 24.3 L (37.2-46.3) % MCV 100.4 H (80.0-97.0) FL MCH 32.2 H (27.0-32.0) pg Creatinine (0.6-1.5) mg/dL Est GFR (CKD-EPI) (>=60) BUN/Creatinine Ratio (12.00-20.00) Ratio Glucose (70-110) mg/dL POC Glucose (mg/dL) 150 H (70-110) mg/dL TIBC 203 L (228-460) UG/DL % Saturation 46.80 H (12.00-45.00) Transferrin 145.0 L (204.0-354.0) mg/dL Ferritin 1149.0 H (10.0-291.0) ng/mL Total Protein (6.2-8.2) g/dL Albumin (3.8-4.9) g/dL 08/30/23 08/30/23 08/30/23 Range/Units 05:16 06:03 12:21 WBC (4.50-10.00) X 10*3/uL RBC (4.10-5.20) X 10*6/uL Hgb (12.0-15.0) g/dL Hct (37.2-46.3) % MCV (80.0-97.0) FL MCH (27.0-32.0) pg Creatinine 2.8 H (0.6-1.5) mg/dL Est GFR (CKD-EPI) 17 L (>=60) BUN/Creatinine Ratio 7.61 L (12.00-20.00) Ratio Glucose 113 H (70-110) mg/dL POC Glucose (mg/dL) 220 H 121 H (70-110) mg/dL TIBC (228-460) UG/DL % Saturation (12.00-45.00) Transferrin (204.0-354.0) mg/dL Ferritin (10.0-291.0) ng/mL Total Protein 5.0 L (6.2-8.2) g/dL Albumin 3.2 L (3.8-4.9) g/dL Assessment and Plan Plan: Assessment: 1. End-stage renal disease maintained on hemodialysis on Sunday schedule. 2. Bleeding from AV fistula site. Seems to have resolved. 3. Anemia of chronic kidney disease. Iron replete. 4. Hypertension with chronic disease. Patient has history of orthostatic hypotension. 5. Hypokalemia. Replaced. Better. Plan: Hemodialysis today. Add Ced. Phosphorus level 3.7 dated 08/29/2023.
[2023-08-30] MEDS ORDERED: DARBEPOETIN ALFA 40 MCG/0.4 ML SYRINGE SQ SCH (15:00)
[2023-08-30 16:41] LABS: Hepatitis B Surface AB- Quant 3.5 mIU/mL; Hepatitis B Surface Antigen Nonreactive
[2023-08-30 17:19] LABS: Glucose,Whole Blood 121 mg/dL (70-110)
[2023-08-30 20:49] LABS: Glucose,Whole Blood 209 mg/dL (70-110)
[2023-08-30] MEDS: ATORVASTATIN 10 MG TAB PO SCH (21:10)
[2023-08-31 05:55] LABS: Glucose,Whole Blood 122 mg/dL (70-110)
[2023-08-31] MEDS: INSULIN ASPART (NovoLOG) 100 UNIT/ML VIAL SQ SCH (06:08)
[2023-08-31] MEDS: carvediloL 12.5 MG TAB PO SCH (06:18)
[2023-08-31] MEDS: INSULIN DETEMIR (LEVEMIR) 100 UNIT/ML SYR SQ SCH (06:18)
[2023-08-31 08:01] VITALS: BP 163/64; PULSE 68; RESP 17; TEMP 98.1
[2023-08-31] MEDS: ASCORBIC ACID 500 MG TAB PO SCH (09:30)
[2023-08-31] MEDS: FUROSEMIDE 20 MG TAB PO SCH (09:30)
[2023-08-31] MEDS: ASPIRIN 81 MG PO SCH (09:30)
[2023-08-31] MEDS: amLODIPine 10 MG TAB PO SCH (09:30)
[2023-08-31] MEDS: LACTOBACILLUS ACIDOPHILUS/PECT 1 EACH CAPSULE PO SCH (09:30)
[2023-08-31] MEDS: lisinopriL 10 MG TAB PO SCH (09:30)
[2023-08-31] MEDS: CHOLECALCIFEROL 25 MCG (1000 IU) TABLET PO SCH (09:30)
[2023-08-31] MEDS: MULTIVITAMINS, THERA 1 EACH TAB PO SCH (09:30)
[2023-08-31] MEDS: FOLIC ACID-VIT B COMPLEX-VIT C 1 CAP PO SCH (09:31)
[2023-08-31] MEDS: hydrALAZINE HCL 50 MG TAB PO SCH (09:31)
[2023-08-31] MEDS: allopurinoL 100 MG TAB PO SCH (09:32)
--- NOTE | 2023-08-31 12:25 | P.PN ---
Subjective Patient is seen in follow-up for end-stage renal disease. She is making on hemodialysis on Sunday schedule. No problems with dialysis yesterday. No active complaints. Vital signs are stable. General: No acute distress. HEENT: Head exam is unremarkable. LUNGS: No audible rhonchi or wheezes. HEART: Rate and Rhythm are regular. ABDOMEN: Nontender. EXTREMITITES: No edema. Objective - Vital Signs Vital signs: Vital Signs Temp 98.1 F 08/31/23 07:25 Pulse 68 08/31/23 07:25 Resp 17 08/31/23 07:25 BP 163/64 08/31/23 07:25 Pulse Ox 98 08/31/23 07:25 FiO2 Intake & Output 08/30/23 08/31/23 08/31/23 18:59 06:59 18:59 Intake Total 754 590 Output Total 1999 Balance -1246 590 Intake: Oral 354 590 Hemodialysis 400 Output: Hemodialysis 1999 Other: Voiding Method Toilet Toilet Bedside Commode Bedside Commode # Voids 1 1 # Bowel Movements 1 - Labs CBC & Chem 7: 08/30/23 05:16 08/30/23 05:16 Labs: Abnormal Lab Results - Last 24 Hours (Table) 08/30/23 08/30/23 08/31/23 Range/Units 17:18 20:47 05:53 POC Glucose (mg/dL) 121 H 209 H 122 H (70-110) mg/dL Assessment and Plan Plan: Assessment: 1. End-stage renal disease maintained on hemodialysis on Sunday schedule. 2. Bleeding from AV fistula site. Seems to have resolved. 3. Anemia of chronic kidney disease. Iron replete. On Aranesp. 4. Hypertension with chronic disease. Patient has history of orthostatic hypotension. 5. Hypokalemia. Replaced. Better. Plan: Hemodialysis tomorrow. Phosphorus level 3.7 dated 08/29/2023. Possible discharge home today.
== END 2023-08-31 11:00 ==
LOC: EC 14:37 → 6NMEDSUR 23:20
PROVIDERS: ADMIT Family Medicine; ATTEND Family Medicine
DX: T82.838A Hemorrhage due to vascular prosthetic devices, implants and grafts, initial encounter (principal); Y82.8 Other medical devices associated with adverse incidents; Y83.2 Surgical operation with anastomosis, bypass or graft as the cause of abnormal reaction of the patient, or of later complication, without mention of misadventure at the time of the procedure; I12.0 Hypertensive chronic kidney disease with stage 5 chronic kidney disease or end stage renal disease; N18.6 End stage renal disease; E11.22 Type 2 diabetes mellitus with diabetic chronic kidney disease; E11.649 Type 2 diabetes mellitus with hypoglycemia without coma; D63.1 Anemia in chronic kidney disease; E87.6 Hypokalemia; E78.5 Hyperlipidemia, unspecified; R26.2 Difficulty in walking, not elsewhere classified; R53.1 Weakness; Z20.822 Contact with and (suspected) exposure to COVID-19; Z99.2 Dependence on renal dialysis; Z79.4 Long term (current) use of insulin; Z79.82 Long term (current) use of aspirin; Z79.899 Other long term (current) drug therapy
CPT/HCPCS: 96372 ×3; 99285; 36415; 93005; 97162; 97166; 80053 ×2; 82728; 83540; 83550; 83735; 84100; 84132; 82947; 85025; 85027; 85610; 85730; 86706; 87340; 83036 ×2; 87636; G0378 ×4; J0881; 90935

== ENCOUNTER 2023-10-01 01:26 | Observation (INO) | payer MEDICARE ==
--- NOTE | 2023-10-01 01:40 | ED ---
General Adult HPI - General Chief complaint: Back Pain/Injury Stated complaint: back pain,fall Time Seen by Provider: 10/01/23 01:28 Source: patient, EMS Mode of arrival: EMS - History of Present Illness Initial comments: Dictation was produced using [employer] dictation software. please excuse any grammatical, word or spelling errors. Chief Complaint: 78-year-old female presents emergency department with tailbone pain History of Present Illness: Patient 78-year-old female presents with tailbone pain she does not take anticoagulation medications. Patient states she lost her balance trying to catch some apples that fell out of her ureter. She fell landing on her bottom. She complains of tailbone pain. She called EMS and was brought to the emergency department. Patient denies any numbness ting or paresthesias to the lower extremities. She states that she has significant pain over her sacral area. Denies any head trauma. No neck pain or headache. No loss of consciousness. The ROS documented in this emergency department record has been reviewed and confirmed by me. Those systems with pertinent positive or negative responses have been documented in the HPI. All other systems are other negative and/or noncontributory. - Related Data Home Medications Medication Instructions Recorded Confirmed Ascorbic Acid [Vitamin C] 500 mg PO DAILY 06/30/20 08/28/23 Aspirin [Adult Low Dose Aspirin EC] 81 mg PO DAILY 06/30/20 08/28/23 Febuxostat [Uloric] 40 mg PO DAILY 06/30/20 08/28/23 Multivitamins, Thera [Multivitamin 1 tab PO DAILY 06/30/20 08/28/23 (formulary)] Simvastatin [Zocor] 20 mg PO HS 06/30/20 08/28/23 amLODIPine BESYLATE 10 mg PO DAILY 06/30/20 08/28/23 hydrALAZINE HCL [Apresoline] 100 mg PO TID 06/30/20 08/28/23 Furosemide [Lasix] 60 mg PO TID 09/21/22 08/28/23 Insulin Degludec [Tresiba] 22 units SQ DAILY 09/21/22 08/28/23 Nephro-Hilary 1 tab PO DAILY 09/21/22 08/28/23 carvediloL [Coreg] 25 mg PO BID 09/21/22 08/28/23 Cholecalciferol [Vitamin D3 (25 25 mcg PO DAILY 05/30/23 08/28/23 Mcg = 1000 Iu)] Insulin Lispro [humaLOG Kwikpen] 4 units SQ AC-TID 05/30/23 08/28/23 Insulin Lispro [humaLOG Kwikpen] See Protocol SQ AC-TID 05/30/23 08/28/23 lisinopriL [Prinivil] 10 mg PO DAILY 05/30/23 08/28/23 Acetaminophen Tab [Tylenol] 650 mg PO Q4H PRN 08/28/23 08/28/23 L.acidoph,Paracasei, B.lactis 1 cap PO BID 08/28/23 08/28/23 [Probiotic] Previous Rx's Medication Instructions Recorded Darbepoetin Matthew [Aranesp] 40 mcg SQ Q7D #4 each 08/31/23 Allergies Allergy/AdvReac Type Severity Reaction Status Date / Time adhesive tape AdvReac Itching Verified 08/28/23 22:23 Review of Systems ROS Statement: Those systems with pertinent positive or pertinent negative responses have been documented in the HPI. ROS Other: All systems not noted in ROS Statement are negative. Past Medical History Past Medical History: Diabetes Mellitus, Dialysis, Hyperlipidemia, Hypertension, Renal Disease, Skin Disorder Additional Past Medical History / Comment(s): dialysis [id number]-[id number]., cyst on brain-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 gout ,anemia, psoriatic ar thritis,heart murmur History of Any Multi-Drug Resistant Organisms: None Reported Past Surgical History: Orthopedic Surgery, Tubal Ligation Additional Past Surgical History / Comment(s): 1 oophorectomy, 1 partial oophorectomy,fx rt shoulder feng present, dialysis port right arm, cataracts removed jack eyes, fistula left arm Past Anesthesia/Blood Transfusion Reactions: Motion Sickness Past Psychological History: No Psychological Hx Reported Smoking Status: Never smoker Past Alcohol Use History: None Reported Past Drug Use History: None Reported - Past Family History Sister(s) Family Medical History: Cancer Additional Family Medical History / Comment(s): breast cancer General Exam - General Exam Comments Initial Comments: PHYSICAL EXAM: General Impression: Alert and oriented x3, acute distress secondary to pain HEENT: Normocephalic atraumatic, extra-ocular movements intact, pupils equal and reactive to light bilaterally, mucous membranes moist. Cardiovascular: Heart regular rate and rhythm Chest: Able to complete full sentences, no retractions, no tachypnea Abdomen: abdomen soft, non-tender, non-distended, no organomegaly Musculoskeletal: Pulses present and equal in all extremities, no peripheral edema, palpatory tenderness over the lower sacrum Motor: no focal deficits noted Neurological: CN II-XII grossly intact, no focal motor or sensory deficits noted Skin: Intact with no visualized rashes Psych: Normal affect and mood Course Vital Signs 10/01/23 10/01/23 10/01/23 01:26 01:48 02:16 Temperature 98.0 F Pulse Rate 74 77 70 Respiratory 19 17 17 Rate Blood Pressure 183/73 166/64 150/60 O2 Sat by Pulse 99 99 94 L Oximetry 10/01/23 03:05 Temperature Pulse Rate 69 Respiratory 17 Rate Blood Pressure 145/56 O2 Sat by Pulse 93 L Oximetry Medical Decision Making - Medical Decision Making Was pt. sent in by a medical professional or institution (, PA, [employer], urgent care, hospital, or [place] health care facility...) When possible be specific @ -No Did you speak to anyone other than the patient for history (EMS, parent, family, police, friend...)? What history was obtained from this source @ -No Did you review nursing and triage notes (agree or disagree)? Why? @ -I reviewed and agree with nursing and triage notes Were old charts reviewed (outside hosp., previous admission, EMS record, old EKG, old radiological studies, urgent care reports/EKG's, [place] health care facility records)? Report findings @ -No old charts were reviewed Differential Diagnosis (chest pain, altered mental status, abdominal pain women, abdominal pain men, vaginal bleeding, musculoskeletal, weakness, fever, dyspnea, syncope, headache, dizziness, GI bleed, back pain, seizure, CVA, palpatations, mental health)? @ -Not applicable EKG interpreted by me (3pts min.). @ -My EKG interpretation: Ventricular rate 73, sinus rhythm,. 189, QRS 85, QTc 434. No IA prolongation, no QTC prolongation, no ST or T-wave changes noted. Overall, this EKG is unremarkable X-rays interpreted by me (1pt min.). @ -None done CT interpreted by me (1pt min.). @ -CT scan of the pelvis shows S4 sacral and coccyx fracture U/S interpreted by me (1pt. min.). @ -None done What testing was considered but not performed or refused? (CT, X-rays, U/S, labs)? Why? @ -None What meds were considered but not given or refused? Why? @ -None Did you discuss the management of the patient with other professionals (professionals i.e. [employer], PA, [employer]GER, lab, RT, psych nurse, social problems specialist, criminal lawyer, teacher, medical officer psychiatry, medical case manager)? Give summary @ -Case discussed with hospitalist for admission for pain control Was smoking cessation discussed for >3mins.? @ -No Was critical care preformed (if so, how long)? @ -No Were there social determinants of health that impacted care today? How? (Homelessness, low income, unemployed, alcoholism, drug addiction, transportation, low edu. Level, literacy, decrease access to med. care, assisted, rehab)? @ -No Was there de-escalation of care discussed even if they declined (Discuss DNR or withdrawal of care, Hospice)? DNR status @ -No What co-morbidities impacted this encounter? (DM, HTN, Smoking, COPD, CAD, Cancer, CVA, ARF, Chemo, Hep., AIDS, mental health diagnosis, sleep apnea, morbid obesity)? @ -None Was patient admitted / discharged? Hospital course, mention meds given and route, prescriptions, significant lab abnormalities, going to OR and other pertinent info. @ -78-year-old female presents to the emergency department with tailbone pain after mechanical fall. Vital signs stable. Patient no acute distress secondary to pain. Patient has reproducible tailbone pain with palpation. CT shows sacral fracture. Disposition options were discussed. Patient significantly tender having difficulty ambulating. She would prefer hospital observation admission for pain control orthopedic surgery consult. Undiagnosed new problem with uncertain prognosis? @ -No Drug Therapy requiring intensive monitoring for toxicity (Heparin, Nitro, Insulin, Cardizem)? @ -No Were any procedures done? @ -No Diagnosis/symptom? Acute, or Chronic, or Acute on Chronic? Uncomplicated (without systemic symptoms) or Complicated (systemic symptoms)? @ -Sacral fracture Side effects of treatment? @ -No Exacerbation, Progression, or Severe Exacerbation? @ -No Poses a threat to life or bodily function? How? (Chest pain, USA, OR, pneumonia, PE, COPD, DKA, ARF, appy, cholecystitis, CVA, Diverticulitis, Homicidal, Suicidal, threat to staff... and all critical care pts) @ -yes Disposition Clinical Impression: Sacral fracture Disposition: ADMITTED IP TO THIS HOSP Condition: Fair Referrals: Eric Coronado MD [Primary Care Provider] - 1-2 days Decision Time: 03:22
[2023-10-01] MEDS: MORPHINE SULFATE 4 MG/ML SYRINGE IV STA (01:50)
--- NOTE | 2023-10-01 02:23 | CT ---
EXAM: CT Pelvis Without Intravenous Contrast CLINICAL HISTORY: ITS.REASON CT Reason: pelvic pain after fall TECHNIQUE: Axial computed tomography images of the pelvis without intravenous contrast. CTDI is 7.8 mGy and DLP is 346.9 mGy-cm. This CT exam was performed using one or more of the following dose reduction techniques: automated exposure control, adjustment of the mA and/or kV according to patient size, and/or use of iterative reconstruction technique. COMPARISON: No relevant prior studies available. FINDINGS: Age indeterminate anterior cortical deformity at S4 and coccyx seen on the sagittal image. Series 204 image 65 and 68. Consider MRI of the pelvis for better characterization. Right buttock soft tissue swelling IMPRESSION: Age indeterminate anterior cortical deformity at S4 and coccyx seen on the sagittal image. Consider MRI of the pelvis for better characterization. Right buttock soft tissue swelling
[2023-10-01] MEDS ORDERED: NALOXONE 0.4 MG/ML 1 ML VIAL IV PRN (03:17)
[2023-10-01] MEDS: SODIUM CHLORIDE 0.9% 1,000 ML IV SCH (03:29)
[2023-10-01 03:48] LABS: HCT 32.4 % (34.0-46.0); HGB 10.9 gm/dL (11.4-16.0); MCH 32.9 pg (25.0-35.0); MCHC 33.6 g/dL (31.0-37.0); MCV 97.9 fL (80.0-100.0); Platelet Count 182 k/uL (150-450); RBC 3.31 m/uL (3.80-5.40); RDW 14.5 % (11.5-15.5); WBC 4.6 k/uL (3.8-10.6)
[2023-10-01 03:58] LABS: African American GFR (CKD) 12 (>60 ml/min/1.73 sqM); Anion Gap 4 mmol/L; Blood Urea Nitrogen 58 mg/dL (7-17); Calcium 9.9 mg/dL (8.4-10.2); Carbon Dioxide 32 mmol/L (22-30); Chloride 103 mmol/L (98-107); Glucose 81 mg/dL (74-99); Non-African American GFR(CKD) 10 (>60 ml/min/1.73 sqM); Potassium 3.8 mmol/L (3.5-5.1); Sodium 139 mmol/L (137-145)
[2023-10-01 04:08] LABS: Eosinophils # (M) 0.37 k/uL (0-0.7); Lymphocytes # (M) 1.01 k/uL (1.0-4.8); Neutrophils # (M) 2.62 k/uL (1.3-7.7); Neutrophils % (M) 57 %; Nucleated Red Blood Cells 0 /100 WBC (0-0); Total Cells Counted 100
[2023-10-01] MEDS ORDERED: DOCUSATE 100 MG CAP PO PRN (08:12)
[2023-10-01 08:25] LABS: Glucose,Whole Blood 106 mg/dL (70-110)
--- NOTE | 2023-10-01 08:26 | P.HPIM ---
History of Present Illness H&P Date: 10/01/23 Chief Complaint: fall This is a 78-year-old female who was brought into the emergency department via EMS with complaints of tailbone pain. Patient reports she lost her balance trying to catch some apples that were falling off of the counter and she landed on her bottom. Ever since fall she has had tailbone pain. She denies any numbness or tingling to the lower extremities. Reports significant pain over the sacral area. Denies any loss of consciousness. CT of the pelvis shows age- indeterminate anterior cortical deformity at S4 and coccyx along with right buttock soft tissue swelling. The patient does live alone at home. She is currently on dialysis Sunday. Further medical history as noted below. Review of Systems Constitutional: Denies chills, Denies fever Cardiovascular: Denies chest pain, Denies dyspnea on exertion Respiratory: Denies cough, Denies dyspnea Gastrointestinal: Denies abdominal pain, Denies nausea, Denies vomiting Musculoskeletal: Reports as per HPI, Reports limitation of motion, Reports low back pain, Denies arm numbness/tingling, Denies leg numbness/tingling Neurological: Reports weakness, Denies headaches Past Medical History Past Medical History: Diabetes Mellitus, Dialysis, Hyperlipidemia, Hypertension, Renal Disease, Skin Disorder Additional Past Medical History / Comment(s): dialysis [id number]-Krmo-[id number]., cyst on brain-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 gout ,anemia, psoriatic arthritis,heart murmur History of Any Multi-Drug Resistant Organisms: None Reported Past Surgical History: Orthopedic Surgery, Tubal Ligation Additional Past Surgical History / Comment(s): 1 oophorectomy, 1 partial oophorectomy,fx rt shoulder feng present, dialysis port right arm, cataracts removed jack eyes, fistula left arm Past Anesthesia/Blood Transfusion Reactions: Motion Sickness Past Psychological History: No Psychological Hx Reported Smoking Status: Never smoker Past Alcohol Use History: None Reported Past Drug Use History: None Reported - Past Family History Sister(s) Family Medical History: Cancer Additional Family Medical History / Comment(s): breast cancer Medications and Allergies Home Medications Medication Instructions Recorded Confirmed Type Ascorbic Acid [Vitamin C] 500 mg PO DAILY 06/30/20 10/01/23 History Aspirin [Adult Low Dose Aspirin EC] 81 mg PO DAILY 06/30/20 10/01/23 History Febuxostat [Uloric] 40 mg PO DAILY 06/30/20 10/01/23 History Multivitamins, Thera [Multivitamin 1 tab PO DAILY 06/30/20 10/01/23 History (formulary)] Simvastatin [Zocor] 20 mg PO HS 06/30/20 10/01/23 History amLODIPine BESYLATE 10 mg PO DAILY 06/30/20 10/01/23 History hydrALAZINE HCL [Apresoline] 100 mg PO TID 06/30/20 10/01/23 History Furosemide [Lasix] 60 mg PO TID 09/21/22 10/01/23 History Insulin Degludec [Tresiba] 22 units SQ DAILY 09/21/22 10/01/23 History Nephro-Hilary 1 tab PO DAILY 09/21/22 10/01/23 History carvediloL [Coreg] 25 mg PO BID 09/21/22 10/01/23 History Cholecalciferol [Vitamin D3 (25 25 mcg PO DAILY 05/30/23 10/01/23 History Mcg = 1000 Iu)] Insulin Lispro [humaLOG Kwikpen] 4 units SQ AC-TID 05/30/23 10/01/23 History Insulin Lispro [humaLOG Kwikpen] See Protocol SQ AC-TID 05/30/23 10/01/23 History lisinopriL [Prinivil] 10 mg PO DAILY 05/30/23 10/01/23 History Acetaminophen Tab [Tylenol] 650 mg PO Q4H PRN 08/28/23 10/01/23 History L.acidoph,Paracasei, B.lactis 1 cap PO BID 08/28/23 10/01/23 History [Probiotic] Darbepoetin Matthew [Aranesp] 40 mcg SQ Q7D #4 each 08/31/23 10/01/23 Rx HYDROcodone/APAP 5-325MG [[place] 1 tab PO TID PRN 10/01/23 10/01/23 History 5-325] Allergies Allergy/AdvReac Type Severity Reaction Status Date / Time adhesive tape Allergy Itching Verified 10/01/23 07:41 levofloxacin [From Levaquin] Allergy Unknown Verified 10/01/23 07:41 Physical Exam Vitals: Vital Signs Temp Pulse Resp BP Pulse Ox 10/01/23 06:00 64 17 141/54 98 10/01/23 05:00 65 17 126/52 98 10/01/23 03:05 69 17 145/56 93 L 10/01/23 02:16 70 17 150/60 94 L 10/01/23 01:48 77 17 166/64 99 10/01/23 01:26 98.0 F 74 19 183/73 99 Intake and Output 09/30/23 10/01/23 10/01/23 22:59 06:59 14:59 Other: Weight 58.967 kg - Constitutional General appearance: cooperative, no acute distress - EENT Eyes: PERRLA - Neck Neck: no lymphadenopathy, normal ROM, no rigidity - Respiratory Respiratory: bilateral: diminished - Cardiovascular Rhythm: regular Heart sounds: normal: S1, S2 - Gastrointestinal General gastrointestinal: soft, no tenderness - Integumentary Integumentary: normal, normal turgor - Musculoskeletal tenderness over sacral area Musculoskeletal: generalized weakness - Psychiatric Psychiatric: A&O x's 3 Results CBC & Chem 7: 10/01/23 03:35 10/01/23 03:35 Labs: Abnormal Lab Results - Last 24 Hours (Table) 10/01/23 10/01/23 Range/Units 03:35 03:35 RBC 3.31 L (3.80-5.40) m/uL Hgb 10.9 L (11.4-16.0) gm/dL Hct 32.4 L (34.0-46.0) % Carbon Dioxide 32 H (22-30) mmol/L BUN 58 H (7-17) mg/dL Creatinine 3.97 H (0.52-1.04) mg/dL Assessment and Plan (1) Sacral fracture Current Visit: Yes Status: Acute Code(s): S32.10XA - UNSP FRACTURE OF SACRUM, INIT ENCNTR FOR CLOSED FRACTURE SNOMED Code(s): 432724767 (2) End stage renal disease on dialysis Current Visit: No Status: Acute Code(s): N18.6 - END STAGE RENAL DISEASE; Z99.2 - DEPENDENCE ON RENAL DIALYSIS SNOMED Code(s): 787264743 (3) Hyperlipidemia Current Visit: No Status: Acute Code(s): E78.5 - HYPERLIPIDEMIA, UNSPECIFIED SNOMED Code(s): 61132968 (4) Hypertension Current Visit: No Status: Acute Code(s): I10 - ESSENTIAL (PRIMARY) HYPERTENSION SNOMED Code(s): 91802248 (5) Type 2 diabetes mellitus with diabetic nephropathy Current Visit: No Status: Acute Code(s): E11.21 - TYPE 2 DIABETES MELLITUS WITH DIABETIC NEPHROPATHY SNOMED Code(s): 51324043 (6) Weakness Current Visit: No Status: Acute Code(s): R53.1 - WEAKNESS SNOMED Code(s): 06811675 Plan: Will reorder home medications. Order Accu-Cheks and sliding scale insulin. Consult nephrology for dialysis. Work with discharge planning for possible placement at discharge. Await recommendations from orthopedics. Patient seen and evaluated by nurse practitioner, physician in agreement with leon whiteside
[2023-10-01] MEDS: HYDROcodone/APAP 5-325MG 1 EACH TAB PO PRN (08:57)
[2023-10-01] MEDS: FUROSEMIDE 20 MG TAB PO SCH (08:59)
[2023-10-01] MEDS: CHOLECALCIFEROL 25 MCG (1000 IU) TABLET PO SCH (09:00)
[2023-10-01] MEDS: LACTOBACILLUS ACIDOPHILUS/PECT 1 EACH CAPSULE PO SCH (09:00)
[2023-10-01] MEDS: MULTIVITAMINS, THERA 1 EACH TAB PO SCH (09:00)
[2023-10-01] MEDS: carvediloL 12.5 MG TAB PO SCH (09:00)
[2023-10-01] MEDS: hydrALAZINE HCL 50 MG TAB PO SCH (09:00)
[2023-10-01] MEDS: amLODIPine 10 MG TAB PO SCH (09:00)
[2023-10-01] MEDS: allopurinoL 100 MG TAB PO SCH (09:01)
[2023-10-01] MEDS: ASPIRIN 81 MG PO SCH (09:01)
[2023-10-01] MEDS: ASCORBIC ACID 500 MG TAB PO SCH (09:01)
[2023-10-01] MEDS: lisinopriL 10 MG TAB PO SCH (09:01)
[2023-10-01] MEDS: FOLIC ACID-VIT B COMPLEX-VIT C 1 CAP PO SCH (09:01)
[2023-10-01] MEDS: INSULIN DETEMIR (LEVEMIR) 100 UNIT/ML SYR SQ SCH (09:09)
--- NOTE | 2023-10-01 09:16 | P.CNOR ---
History of Present Illness - [facility] Consult date: 10/01/23 Consult reason: fracture (Sacral fracture) History of present illness: This is a 78-year-old female brought to the emergency department last night by EMS after a fall in her kitchen. The patient states that she was putting a bag of apples back and her friends which was quite heavy when she fell directly onto her buttock. She had immediate and severe pain. She called for an ambulance. She states that she was able to move her extremities but had severe pain in her low back. She is complaining of no numbness or tingling. She is complaining of no bowel or bladder dysfunction at this time. Past Medical History Past Medical History: Diabetes Mellitus, Dialysis, Hyperlipidemia, Hypertension, Renal Disease, Skin Disorder Additional Past Medical History / Comment(s): dialysis Sop-Fliv-Mzq., cyst on brain-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 gout ,anemia, psoriatic arthritis,heart murmur History of Any Multi-Drug Resistant Organisms: None Reported Past Surgical History: Orthopedic Surgery, Tubal Ligation Additional Past Surgical History / Comment(s): 1 oophorectomy, 1 partial oophorectomy,fx rt shoulder feng present, dialysis port right arm, cataracts removed jack eyes, fistula left arm Past Anesthesia/Blood Transfusion Reactions: Motion Sickness Past Psychological History: No Psychological Hx Reported Smoking Status: Never smoker Past Alcohol Use History: None Reported Past Drug Use History: None Reported - Past Family History Sister(s) Family Medical History: Cancer Additional Family Medical History / Comment(s): breast cancer Medications and Allergies Home Medications Medication Instructions Recorded Confirmed Type Ascorbic Acid [Vitamin C] 500 mg PO DAILY 06/30/20 10/01/23 History Aspirin [Adult Low Dose Aspirin EC] 81 mg PO DAILY 06/30/20 10/01/23 History Febuxostat [Uloric] 40 mg PO DAILY 06/30/20 10/01/23 History Multivitamins, Thera [Multivitamin 1 tab PO DAILY 06/30/20 10/01/23 History (formulary)] Simvastatin [Zocor] 20 mg PO HS 06/30/20 10/01/23 History amLODIPine BESYLATE 10 mg PO DAILY 06/30/20 10/01/23 History hydrALAZINE HCL [Apresoline] 100 mg PO TID 06/30/20 10/01/23 History Furosemide [Lasix] 60 mg PO TID 09/21/22 10/01/23 History Insulin Degludec [Tresiba] 22 units SQ DAILY 09/21/22 10/01/23 History Nephro-Hilary 1 tab PO DAILY 09/21/22 10/01/23 History carvediloL [Coreg] 25 mg PO BID 09/21/22 10/01/23 History Cholecalciferol [Vitamin D3 (25 25 mcg PO DAILY 05/30/23 10/01/23 History Mcg = 1000 Iu)] Insulin Lispro [humaLOG Kwikpen] 4 units SQ AC-TID 05/30/23 10/01/23 History Insulin Lispro [humaLOG Kwikpen] See Protocol SQ AC-TID 05/30/23 10/01/23 History lisinopriL [Prinivil] 10 mg PO DAILY 05/30/23 10/01/23 History Acetaminophen Tab [Tylenol] 650 mg PO Q4H PRN 08/28/23 10/01/23 History L.acidoph,Paracasei, B.lactis 1 cap PO BID 08/28/23 10/01/23 History [Probiotic] Darbepoetin Matthew [Aranesp] 40 mcg SQ Q7D #4 each 08/31/23 10/01/23 Rx HYDROcodone/APAP 5-325MG [[place] 1 tab PO TID PRN 10/01/23 10/01/23 History 5-325] Allergies Allergy/AdvReac Type Severity Reaction Status Date / Time adhesive tape Allergy Itching Verified 10/01/23 07:41 levofloxacin [From Levaquin] Allergy Unknown Verified 10/01/23 07:41 Physical Examination This is a pleasant 78-year-old female in no acute distress. She is alert and oriented 3. Exam of the thoracic and lumbar spine reveal no obvious deformity. She is nontender over the thoracic and lumbar spinous processes or paraspinal musculature. There is tenderness to palpation about the sacral and coccyx region. Examination lower extremities reveals full foot ankle motion without difficulty or pain. She is able to raise each leg off the bed independently. She is able to flex at the hips and knees without difficulty. No hip irritability with internal/external rotation. Neurovascular status to the lower extremities is intact. Exam of the upper and lower extremities is unremarkable. Results CT scan of the pelvis reveals mild degenerative changes to the lower lumbar and sacral spine. There is a cortical irregularity at S4 consistent with a nondisplaced fracture. There is soft tissue swelling noted in the buttock. No other acute fractures noted. - Labs Labs: Abnormal Lab Results - Last 24 Hours (Table) 10/01/23 10/01/23 Range/Units 03:35 03:35 RBC 3.31 L (3.80-5.40) m/uL Hgb 10.9 L (11.4-16.0) gm/dL Hct 32.4 L (34.0-46.0) % Carbon Dioxide 32 H (22-30) mmol/L BUN 58 H (7-17) mg/dL Creatinine 3.97 H (0.52-1.04) mg/dL H & H 10/01/23 Range/Units 03:35 Hgb 10.9 L (11.4-16.0) gm/dL Hct 32.4 L (34.0-46.0) % Result Diagrams: 10/01/23 03:35 10/01/23 03:35 Assessment and Plan (1) Sacral fracture Current Visit: Yes Status: Acute Code(s): S32.10XA - UNSP FRACTURE OF SACRUM, INIT ENCNTR FOR CLOSED FRACTURE SNOMED Code(s): 952413931 (2) Weakness Current Visit: No Status: Acute Code(s): R53.1 - WEAKNESS SNOMED Code(s): 87204717 Plan: The clinical and radiographic findings are discussed with patient. There is no surgical indication for this type of fracture. She may be up with physical therapy as tolerated. I do recommend using a walker for ambulation. I also suggested she obtain a Gelfoam question or donut ring cushion for sitting. She is to follow-up in 3 weeks for reevaluation and x-ray.
[2023-10-01 11:50] LABS: Glucose,Whole Blood 243 mg/dL (70-110)
[2023-10-01] MEDS: INSULIN ASPART (NovoLOG) 100 UNIT/ML VIAL SQ SCH ×2 (11:57)
[2023-10-01] MEDS: MORPHINE SULFATE 4 MG/ML SYRINGE IV PRN (12:28)
--- NOTE | 2023-10-01 14:09 | P.NPCON ---
History of Present Illness - Reason for Consult end stage renal disease - History of Present Illness Patient is a 78-year-old female with end-stage renal disease maintained on hemodialysis on a Sunday schedule. She is admitted to the hospital after a fall in the kitchen yesterday. No complaints of dizziness or lightheadedness. No chest pains or shortness of breath. Patient was trying to grab a few apples that were falling off the counter and she subsequently fell and landed on her tailbone. Sacral fracture noted on x-ray. Patient has been evaluated by orthopedic with no plans for surgery at this time. No significant complaints Pain is controlled. Review of Systems Assessment HPI Past Medical History Past Medical History: Diabetes Mellitus, Dialysis, Hyperlipidemia, Hypertension, Renal Disease, Skin Disorder Additional Past Medical History / Comment(s): dialysis [facility]-Tnl., cyst on brain-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 gout ,anemia, psoriatic arthritis,heart murmur History of Any Multi-Drug Resistant Organisms: None Reported Past Surgical History: Orthopedic Surgery, Tubal Ligation Additional Past Surgical History / Comment(s): 1 oophorectomy, 1 partial oophorectomy,fx rt shoulder feng present, dialysis port right arm, cataracts removed jack eyes, fistula left arm Past Anesthesia/Blood Transfusion Reactions: Motion Sickness Past Psychological History: No Psychological Hx Reported Smoking Status: Never smoker Past Alcohol Use History: None Reported Past Drug Use History: None Reported - Past Family History Sister(s) Family Medical History: Cancer Additional Family Medical History / Comment(s): breast cancer Medications and Allergies Home Medications Medication Instructions Recorded Confirmed Type Ascorbic Acid [Vitamin C] 500 mg PO DAILY 06/30/20 10/01/23 History Aspirin [Adult Low Dose Aspirin EC] 81 mg PO DAILY 06/30/20 10/01/23 History Febuxostat [Uloric] 40 mg PO DAILY 06/30/20 10/01/23 History Multivitamins, Thera [Multivitamin 1 tab PO DAILY 06/30/20 10/01/23 History (formulary)] Simvastatin [Zocor] 20 mg PO HS 06/30/20 10/01/23 History amLODIPine BESYLATE 10 mg PO DAILY 06/30/20 10/01/23 History hydrALAZINE HCL [Apresoline] 100 mg PO TID 06/30/20 10/01/23 History Furosemide [Lasix] 60 mg PO TID 09/21/22 10/01/23 History Insulin Degludec [Tresiba] 22 units SQ DAILY 09/21/22 10/01/23 History Nephro-Hilary 1 tab PO DAILY 09/21/22 10/01/23 History carvediloL [Coreg] 25 mg PO BID 09/21/22 10/01/23 History Cholecalciferol [Vitamin D3 (25 25 mcg PO DAILY 05/30/23 10/01/23 History Mcg = 1000 Iu)] Insulin Lispro [humaLOG Kwikpen] 4 units SQ AC-TID 05/30/23 10/01/23 History Insulin Lispro [humaLOG Kwikpen] See Protocol SQ AC-TID 05/30/23 10/01/23 History lisinopriL [Prinivil] 10 mg PO DAILY 05/30/23 10/01/23 History Acetaminophen Tab [Tylenol] 650 mg PO Q4H PRN 08/28/23 10/01/23 History L.acidoph,Paracasei, B.lactis 1 cap PO BID 08/28/23 10/01/23 History [Probiotic] Darbepoetin Matthew [Aranesp] 40 mcg SQ Q7D #4 each 08/31/23 10/01/23 Rx HYDROcodone/APAP 5-325MG [Mills 1 tab PO TID PRN 10/01/23 10/01/23 History 5-325] Allergies Allergy/AdvReac Type Severity Reaction Status Date / Time adhesive tape Allergy Itching Verified 10/01/23 07:41 levofloxacin [From Levaquin] Allergy Unknown Verified 10/01/23 07:41 Physical Exam Vitals: Vital Signs Temp Pulse Resp BP Pulse Ox 10/01/23 12:00 70 16 151/62 96 10/01/23 10:00 65 16 103/46 96 10/01/23 08:50 72 16 180/88 10/01/23 06:00 64 17 141/54 98 10/01/23 05:00 65 17 126/52 98 10/01/23 03:05 69 17 145/56 93 L 10/01/23 02:16 70 17 150/60 94 L 10/01/23 01:48 77 17 166/64 99 10/01/23 01:26 98.0 F 74 19 183/73 99 Intake and Output 09/30/23 10/01/23 10/01/23 22:59 06:59 14:59 Other: Weight 58.967 kg Patient is awake, comfortable. No acute distress Alert oriented 3 Examination of the heart S1 and S2 Examination of the lungs bilateral breath sounds are heard Abdomen is soft nontender Examination of lower extremities shows no significant edema Results - Lab Results Most recent lab results Calcium 9.9 mg/dL (8.4-10.2) 10/01/23 03:35 10/01/23 03:35 10/01/23 03:35 Assessment and Plan Assessment: 1. End-stage renal disease maintained on hemodialysis on a Sunday schedule. 2. Status post fall with sacral fracture and no plans for surgical intervention. 3. CK D mineral bone disorder 4. Hypertension with CK D stage IV if Plan: Hemodialysis in am check phosphorus level. Continue current antihypertensive regimen.
[2023-10-01 16:57] LABS: Glucose,Whole Blood 102 mg/dL (70-110)
[2023-10-01] MEDS: ATORVASTATIN 10 MG TAB PO SCH (21:41)
[2023-10-01 21:43] LABS: Glucose,Whole Blood 52 mg/dL (70-110)
[2023-10-01 22:13] LABS: Glucose,Whole Blood 60 mg/dL (70-110)
[2023-10-01 22:42] LABS: Glucose,Whole Blood 87 mg/dL (70-110)
[2023-10-02 03:24] LABS: Glucose,Whole Blood 143 mg/dL (70-110)
[2023-10-02 07:05] LABS: Glucose,Whole Blood 194 mg/dL (70-110)
--- NOTE | 2023-10-02 08:28 | P.PN ---
Subjective Progress Note Date: 10/02/23 Principal diagnosis: sacral fracture This is a 78-year-old female who was brought into the emergency department via EMS with complaints of tailbone pain. Patient reports she lost her balance trying to catch some apples that were falling off of the counter and she landed on her bottom. Ever since fall she has had tailbone pain. She denies any numbness or tingling to the lower extremities. Reports significant pain over the sacral area. Denies any loss of consciousness. CT of the pelvis shows age- indeterminate anterior cortical deformity at S4 and coccyx along with right buttock soft tissue swelling. The patient does live alone at home. She is currently on dialysis Saturdays. 10/02/2023 Patient seen and evaluated laying in bed this morning. She was evaluated by orthopedics yesterday who is not recommending any surgical workup. They would like to follow-up with her in 3 weeks. Patient is scheduled to have hemodialysis today. She is still fairly weak and complaining of sacral pain. Will need to work with discharge planning for possible placement at discharge. Objective - Vital Signs Vital signs: Vital Signs Temp 98.4 F 10/02/23 02:00 Pulse 71 10/02/23 02:00 Resp 16 10/02/23 02:00 BP 120/60 10/02/23 02:00 Pulse Ox 98 10/02/23 02:00 FiO2 Intake & Output 10/01/23 10/02/23 10/02/23 18:59 06:59 18:59 Weight 58.967 kg Other: Voiding Method Toilet # Voids 2 # Bowel Movements 2 - Constitutional General appearance: Present: cooperative, no acute distress - EENT Eyes: Present: PERRLA - Neck Neck: Present: normal ROM. Absent: lymphadenopathy, rigidity - Respiratory Respiratory: bilateral: diminished - Cardiovascular Rhythm: regular Heart sounds: normal: S1, S2 - Gastrointestinal General gastrointestinal: Present: soft. Absent: tenderness - Integumentary Integumentary: Present: normal, normal turgor - Musculoskeletal Musculoskeletal Comment(s): Tenderness over sacral area Musculoskeletal: Present: generalized weakness - Psychiatric Psychiatric: Present: A&O x's 3 - Labs CBC & Chem 7: 10/01/23 03:35 10/01/23 03:35 Labs: Abnormal Lab Results - Last 24 Hours (Table) 10/01/23 10/01/23 10/01/23 Range/Units 11:49 21:41 22:12 POC Glucose (mg/dL) 243 H 52 L 60 L (70-110) mg/dL 10/02/23 10/02/23 Range/Units 03:22 07:03 POC Glucose (mg/dL) 143 H 194 H (70-110) mg/dL Assessment and Plan (1) Sacral fracture Current Visit: Yes Status: Acute Code(s): S32.10XA - UNSP FRACTURE OF SACRUM, INIT ENCNTR FOR CLOSED FRACTURE SNOMED Code(s): 934651527 (2) End stage renal disease on dialysis Current Visit: No Status: Acute Code(s): N18.6 - END STAGE RENAL DISEASE; Z99.2 - DEPENDENCE ON RENAL DIALYSIS SNOMED Code(s): 060274551 (3) Hyperlipidemia Current Visit: No Status: Acute Code(s): E78.5 - HYPERLIPIDEMIA, UNSPECIFIED SNOMED Code(s): 43619782 (4) Hypertension Current Visit: No Status: Acute Code(s): I10 - ESSENTIAL (PRIMARY) HYPERTENSION SNOMED Code(s): 38616278 (5) Type 2 diabetes mellitus with diabetic nephropathy Current Visit: No Status: Acute Code(s): E11.21 - TYPE 2 DIABETES MELLITUS WITH DIABETIC NEPHROPATHY SNOMED Code(s): 03719908 (6) Weakness Current Visit: No Status: Acute Code(s): R53.1 - WEAKNESS SNOMED Code(s): 56065758 Plan: Hemodialysis today. Check CBC and CMP in the morning. Work with case management for placement. Patient seen and evaluated by nurse practitioner, physician in agreement with plan
[2023-10-02 08:48] LABS: ALT 112 U/L (8-44); AST 149 U/L (13-35); Albumin 3.5 g/dL (3.8-4.9); Albumin/Globulin Ratio 1.75 Ratio (1.60-3.17); Alkaline Phosphatase 66 U/L (41-126); BUN/Creat Ratio 12.85 Ratio (12.00-20.00); Blood Urea Nitrogen 68.1 mg/dL (9.0-27.0); Calcium 9.6 mg/dL (8.7-10.3); Carbon Dioxide 25.6 mmol/L (21.6-31.8); Chloride 101 mmol/L (96-109); Glucose 179 mg/dL (70-110); Potassium 4.7 mmol/L (3.5-5.5); Sodium 142 mmol/L (135-145); Total Bilirubin 0.3 mg/dL (0.3-1.2); Total Protein 5.5 g/dL (6.2-8.2)
[2023-10-02 08:52] LABS: HCT 31.2 % (37.2-46.3); HGB 9.9 g/dL (12.0-15.0); MCH 32.1 pg (27.0-32.0); MCHC 31.7 g/dL (32.0-37.0); MCV 101.3 FL (80.0-97.0); Mean Platelet Volume 9.9 FL (9.5-12.2); NRBC Per 100 WBC 0 X 10*3/uL (0.00-0.01); Platelet Count 180 X 10*3/uL (140-440); RBC 3.08 X 10*6/uL (4.10-5.20); RDW 14.3 % (11.5-14.5); WBC 5.04 X 10*3/uL (4.50-10.00)
[2023-10-02] MEDS ORDERED: DARBEPOETIN ALFA 40 MCG/0.4 ML SYRINGE SQ SCH (09:00)
[2023-10-02 11:57] LABS: Glucose,Whole Blood 129 mg/dL (70-110)
[2023-10-02 16:42] LABS: Glucose,Whole Blood 192 mg/dL (70-110)
[2023-10-02 17:09] LABS: Hepatitis B Surface AB- Quant 3.5 mIU/mL; Hepatitis B Surface Antigen Nonreactive
--- NOTE | 2023-10-02 17:45 | P.PN ---
Subjective Patient is seen for follow-up for end-stage renal disease. She is currently seen on hemodialysis. Blood pressure had dropped and UF is currently off. Patient will be given 500 cc of fluid back. No significant complaints except for back pain from sacral fracture. Objective - Vital Signs Vital signs: Vital Signs Temp 98.5 F 10/02/23 12:46 Pulse 73 10/02/23 12:46 Resp 16 10/02/23 12:46 BP 171/66 10/02/23 12:46 Pulse Ox 98 10/02/23 12:46 FiO2 Intake & Output 10/01/23 10/02/23 10/02/23 18:59 06:59 18:59 Intake Total 950 Output Total 0 Balance 950 Weight 58.967 kg Intake: Hemodialysis 950 Output: Hemodialysis 0 Other: Voiding Method Toilet # Voids 2 # Bowel Movements 2 - Exam Patient is awake, comfortable. No acute distress Alert oriented 3 Examination of the heart S1 and S2 Examination of the lungs bilateral breath sounds are heard Abdomen is soft nontender Examination of lower extremities shows no significant edema - Labs CBC & Chem 7: 10/02/23 04:41 10/02/23 04:41 Labs: Abnormal Lab Results - Last 24 Hours (Table) 10/01/23 10/01/23 10/02/23 Range/Units 21:41 22:12 03:22 RBC (4.10-5.20) X 10*6/uL Hgb (12.0-15.0) g/dL Hct (37.2-46.3) % MCV (80.0-97.0) FL MCH (27.0-32.0) pg MCHC (32.0-37.0) g/dL Anion Gap (4.00-12.00) mmol/L BUN (9.0-27.0) mg/dL Creatinine (0.6-1.5) mg/dL Est GFR (CKD-EPI) (>=60) Glucose (70-110) mg/dL POC Glucose (mg/dL) 52 L 60 L 143 H (70-110) mg/dL AST (13-35) U/L ALT (8-44) U/L Total Protein (6.2-8.2) g/dL Albumin (3.8-4.9) g/dL 10/02/23 10/02/23 10/02/23 Range/Units 04:41 04:41 07:03 RBC 3.08 L (4.10-5.20) X 10*6/uL Hgb 9.9 L (12.0-15.0) g/dL Hct 31.2 L (37.2-46.3) % MCV 101.3 H (80.0-97.0) FL MCH 32.1 H (27.0-32.0) pg MCHC 31.7 L (32.0-37.0) g/dL Anion Gap 15.40 H (4.00-12.00) mmol/L BUN 68.1 H (9.0-27.0) mg/dL Creatinine 5.3 H (0.6-1.5) mg/dL Est GFR (CKD-EPI) 8 L (>=60) Glucose 179 H (70-110) mg/dL POC Glucose (mg/dL) 194 H (70-110) mg/dL AST 149 H (13-35) U/L ALT 112 H (8-44) U/L Total Protein 5.5 L (6.2-8.2) g/dL Albumin 3.5 L (3.8-4.9) g/dL 10/02/23 10/02/23 Range/Units 11:55 16:41 RBC (4.10-5.20) X 10*6/uL Hgb (12.0-15.0) g/dL Hct (37.2-46.3) % MCV (80.0-97.0) FL MCH (27.0-32.0) pg MCHC (32.0-37.0) g/dL Anion Gap (4.00-12.00) mmol/L BUN (9.0-27.0) mg/dL Creatinine (0.6-1.5) mg/dL Est GFR (CKD-EPI) (>=60) Glucose (70-110) mg/dL POC Glucose (mg/dL) 129 H 192 H (70-110) mg/dL AST (13-35) U/L ALT (8-44) U/L Total Protein (6.2-8.2) g/dL Albumin (3.8-4.9) g/dL Assessment and Plan Assessment: 1. End-stage renal disease maintained on hemodialysis on a Sunday schedule. 2. Status post fall with sacral fracture and no plans for surgical intervention. 3. CK D mineral bone disorder 4. Hypertension with CK D stage V Plan: Hemodialysis today with no significant UF. Continue current antihypertensive regimen.
[2023-10-02 20:13] LABS: Glucose,Whole Blood 61 mg/dL (70-110)
[2023-10-02 21:02] LABS: Glucose,Whole Blood 111 mg/dL (70-110)
[2023-10-03 07:06] LABS: Glucose,Whole Blood 102 mg/dL (70-110)
[2023-10-03 07:46] LABS: ALT 97 U/L (4-34); AST 109 U/L (14-36); African American GFR (CKD) 9 (>60 ml/min/1.73 sqM); Albumin 3.1 g/dL (3.5-5.0); Albumin/Globulin Ratio 1.3; Alkaline Phosphatase 91 U/L (38-126); Anion Gap 9 mmol/L; Blood Urea Nitrogen 61 mg/dL (7-17); Calcium 9.4 mg/dL (8.4-10.2); Carbon Dioxide 22 mmol/L (22-30); Chloride 104 mmol/L (98-107); Globulin 2.4 g/dL; Glucose 92 mg/dL (74-99); Non-African American GFR(CKD) 8 (>60 ml/min/1.73 sqM); Phosphorus 6.5 mg/dL (2.5-4.5); Potassium 4.7 mmol/L (3.5-5.1); Sodium 135 mmol/L (137-145); Total Bilirubin 0.6 mg/dL (0.2-1.3); Total Protein 5.5 g/dL (6.3-8.2)
[2023-10-03 10:56] LABS: HCT 31.4 % (37.2-46.3); HGB 10.1 g/dL (12.0-15.0); MCH 32.7 pg (27.0-32.0); MCHC 32.2 g/dL (32.0-37.0); MCV 101.6 FL (80.0-97.0); Mean Platelet Volume 10.2 FL (9.5-12.2); NRBC Per 100 WBC 0 X 10*3/uL (0.00-0.01); Platelet Count 146 X 10*3/uL (140-440); RBC 3.09 X 10*6/uL (4.10-5.20); RDW 14.5 % (11.5-14.5); WBC 4.35 X 10*3/uL (4.50-10.00)
--- NOTE | 2023-10-03 11:56 | P.PN ---
Subjective Progress Note Date: 10/03/23 Principal diagnosis: Sacral fracture The patient is a 78-year-old white female essentially admitted for placement related to sacral fracture end-stage renal disease. The patient pain control is nominal but she is unable to sit properly for an extended period of time due to the fracture. No voiding difficulty stated. Objective - Vital Signs Vital signs: Vital Signs Temp 98.3 F 10/03/23 07:44 Pulse 73 10/03/23 07:44 Resp 14 10/03/23 07:44 BP 182/71 10/03/23 07:44 Pulse Ox 95 10/03/23 07:44 FiO2 Intake & Output 10/02/23 10/03/23 10/03/23 18:59 06:59 18:59 Intake Total 950 Output Total 0 Balance 950 Intake: Hemodialysis 950 Output: Hemodialysis 0 Other: Voiding Method Toilet Toilet # Voids 1 4 1 # Bowel Movements 1 4 - Constitutional General appearance: Present: average body habitus, cooperative, no acute distress - EENT Eyes: Absent: abnormal pupil - Neck Neck: Absent: lymphadenopathy - Respiratory Respiratory: bilateral: diminished - Cardiovascular Rhythm: regular Heart sounds: normal: S1, S2 Abnormal Heart Sounds: Absent: S3 Gallop - Gastrointestinal General gastrointestinal: Present: soft. Absent: tenderness - Integumentary Integumentary: Absent: cellulitis - Psychiatric Psychiatric: Present: A&O x's 3 - Labs CBC & Chem 7: 10/03/23 07:18 10/03/23 07:18 Labs: Abnormal Lab Results - Last 24 Hours (Table) 10/02/23 10/02/23 10/02/23 Range/Units 11:55 16:41 20:11 WBC (4.50-10.00) X 10*3/uL RBC (4.10-5.20) X 10*6/uL Hgb (12.0-15.0) g/dL Hct (37.2-46.3) % MCV (80.0-97.0) FL MCH (27.0-32.0) pg Sodium (137-145) mmol/L BUN (7-17) mg/dL Creatinine (0.52-1.04) mg/dL POC Glucose (mg/dL) 129 H 192 H 61 L (70-110) mg/dL Phosphorus (2.5-4.5) mg/dL AST (14-36) U/L ALT (4-34) U/L Total Protein (6.3-8.2) g/dL Albumin (3.5-5.0) g/dL 10/02/23 10/03/23 10/03/23 Range/Units 21:00 07:18 07:18 WBC 4.35 L (4.50-10.00) X 10*3/uL RBC 3.09 L (4.10-5.20) X 10*6/uL Hgb 10.1 L (12.0-15.0) g/dL Hct 31.4 L (37.2-46.3) % MCV 101.6 H (80.0-97.0) FL MCH 32.7 H (27.0-32.0) pg Sodium 135 L (137-145) mmol/L BUN 61 H (7-17) mg/dL Creatinine 4.82 H (0.52-1.04) mg/dL POC Glucose (mg/dL) 111 H (70-110) mg/dL Phosphorus 6.5 H (2.5-4.5) mg/dL AST 109 H (14-36) U/L ALT 97 H (4-34) U/L Total Protein 5.5 L (6.3-8.2) g/dL Albumin 3.1 L (3.5-5.0) g/dL Assessment and Plan (1) Sacral fracture Current Visit: Yes Status: Acute Code(s): S32.10XA - UNSP FRACTURE OF SACRUM, INIT ENCNTR FOR CLOSED FRACTURE SNOMED Code(s): 007925304 (2) Chronic anemia Current Visit: No Status: Acute Code(s): D64.9 - ANEMIA, UNSPECIFIED SNOMED Code(s): 659265647 (3) Difficulty in walking Current Visit: No Status: Acute Code(s): R26.2 - DIFFICULTY IN WALKING, NOT ELSEWHERE CLASSIFIED SNOMED Code(s): 173447513 (4) End stage renal disease on dialysis Current Visit: No Status: Acute Code(s): N18.6 - END STAGE RENAL DISEASE; Z99.2 - DEPENDENCE ON RENAL DIALYSIS SNOMED Code(s): 876488976 (5) Hyperlipidemia Current Visit: No Status: Acute Code(s): E78.5 - HYPERLIPIDEMIA, UNSPECIFIED SNOMED Code(s): 17307104 (6) Hypertension Current Visit: No Status: Acute Code(s): I10 - ESSENTIAL (PRIMARY) HYPERTENSION SNOMED Code(s): 27610725 (7) Type 2 diabetes mellitus with diabetic nephropathy Current Visit: No Status: Acute Code(s): E11.21 - TYPE 2 DIABETES MELLITUS WITH DIABETIC NEPHROPATHY SNOMED Code(s): 43457518 Plan: Continue current regiment of treatment. Discharge planning for ECF. Anticipate discharge in a.m. after dialysis once placement is ascertained. Pain control otherwise. See orders otherwise
[2023-10-03 12:08] LABS: Glucose,Whole Blood 180 mg/dL (70-110)
[2023-10-03 17:07] LABS: Glucose,Whole Blood 75 mg/dL (70-110)
--- NOTE | 2023-10-03 17:40 | P.PN ---
Subjective Patient is seen for follow-up for end-stage renal disease. No significant complaints except for back pain from sacral fracture. Objective - Vital Signs Vital signs: Vital Signs Temp 98.6 F 10/03/23 11:55 Pulse 71 10/03/23 11:55 Resp 16 10/03/23 11:55 BP 141/62 10/03/23 11:55 Pulse Ox 97 10/03/23 11:55 FiO2 Intake & Output 10/02/23 10/03/23 10/03/23 18:59 06:59 18:59 Intake Total 950 Output Total 0 Balance 950 Intake: Hemodialysis 950 Output: Hemodialysis 0 Other: Voiding Method Toilet Toilet # Voids 1 4 1 # Bowel Movements 1 4 - Exam Patient is awake, comfortable. No acute distress Alert oriented 3 Examination of the heart S1 and S2 Examination of the lungs bilateral breath sounds are heard Abdomen is soft nontender Examination of lower extremities shows no significant edema - Labs CBC & Chem 7: 10/03/23 07:18 10/03/23 07:18 Labs: Abnormal Lab Results - Last 24 Hours (Table) 10/02/23 10/02/23 10/03/23 Range/Units 20:11 21:00 07:18 WBC (4.50-10.00) X 10*3/uL RBC (4.10-5.20) X 10*6/uL Hgb (12.0-15.0) g/dL Hct (37.2-46.3) % MCV (80.0-97.0) FL MCH (27.0-32.0) pg Sodium 135 L (137-145) mmol/L BUN 61 H (7-17) mg/dL Creatinine 4.82 H (0.52-1.04) mg/dL POC Glucose (mg/dL) 61 L 111 H (70-110) mg/dL Phosphorus 6.5 H (2.5-4.5) mg/dL AST 109 H (14-36) U/L ALT 97 H (4-34) U/L Total Protein 5.5 L (6.3-8.2) g/dL Albumin 3.1 L (3.5-5.0) g/dL 10/03/23 10/03/23 Range/Units 07:18 12:07 WBC 4.35 L (4.50-10.00) X 10*3/uL RBC 3.09 L (4.10-5.20) X 10*6/uL Hgb 10.1 L (12.0-15.0) g/dL Hct 31.4 L (37.2-46.3) % MCV 101.6 H (80.0-97.0) FL MCH 32.7 H (27.0-32.0) pg Sodium (137-145) mmol/L BUN (7-17) mg/dL Creatinine (0.52-1.04) mg/dL POC Glucose (mg/dL) 180 H (70-110) mg/dL Phosphorus (2.5-4.5) mg/dL AST (14-36) U/L ALT (4-34) U/L Total Protein (6.3-8.2) g/dL Albumin (3.5-5.0) g/dL Assessment and Plan Assessment: 1. End-stage renal disease maintained on hemodialysis on a Sunday schedule. 2. Status post fall with sacral fracture and no plans for surgical intervention. 3. CK D mineral bone disorder 4. Hypertension with CK D stage V Plan: Hemodialysis in a.m. Continue current antihypertensive regimen.
[2023-10-03 20:01] LABS: Glucose,Whole Blood 127 mg/dL (70-110)
[2023-10-04 07:16] LABS: Glucose,Whole Blood 121 mg/dL (70-110)
--- NOTE | 2023-10-04 08:36 | P.DS ---
Providers Date of admission: 10/01/23 03:17 Attending physician: Eric Coronado Consults: 10/01/23 03:17 Consult Physician Routine Consulting Provider: Craig Shankar Consult Reason/Comments: sacrum fracture Do you want consulting provider notified?: Yes 10/01/23 08:03 Consult Physician Routine Consulting Provider: Margaux Jorge Consult Reason/Comments: known dialysis patient Do you want consulting provider notified?: Yes Primary care physician: Eric Coronado - Discharge Diagnosis(es) (1) Sacral fracture Current Visit: Yes Status: Acute (2) End stage renal disease on dialysis Current Visit: No Status: Acute (3) Hyperlipidemia Current Visit: No Status: Acute (4) Hypertension Current Visit: No Status: Acute (5) Type 2 diabetes mellitus with diabetic nephropathy Current Visit: No Status: Acute (6) Weakness Current Visit: No Status: Acute Hospital Course: This is a 78-year-old female who was brought into the emergency department via EMS with complaints of tailbone pain. Patient reports she lost her balance trying to catch some apples that were falling off of the counter and she landed on her bottom resulting in tailbone pain. CT of the pelvis shows age-indeterm inate anterior cortical deformity at S4 and coccyx along with right buttock soft tissue swelling. She was seen and evaluated by orthopedics who are recommending conservative treatment and follow-up with them in 3 weeks. Patient does live alone at home and it would be unsafe for her to go home, so she will be going to [facility] for rehab. She is also on hemodialysis, a Sunday [facility]. Patient will have dialysis today and then she may be discharged to [facility]. She reports sacral pain is greatly improved. Will send her with a prescription for Deloit for pain. Patient seen and evaluated by nurse practitioner, physician in agreement with plan. Patient Condition at Discharge: Fair Plan - Discharge Summary Discharge Rx Participant: No New Discharge Prescriptions: New HYDROcodone/APAP 10-325MG [Deloit 10-325] 1 tab PO Q4HR PRN 30 Days #120 tab PRN Reason: Pain Continue Ascorbic Acid [Vitamin C] 500 mg PO DAILY Multivitamins, Thera [Multivitamin (formulary)] 1 tab PO DAILY Aspirin [Adult Low Dose Aspirin EC] 81 mg PO DAILY Simvastatin [Zocor] 20 mg PO HS Febuxostat [Uloric] 40 mg PO DAILY hydrALAZINE HCL [Apresoline] 100 mg PO TID amLODIPine BESYLATE 10 mg PO DAILY Furosemide [Lasix] 60 mg PO TID Cholecalciferol [Vitamin D3 (25 Mcg = 1000 Iu)] 25 mcg PO DAILY Insulin Lispro [humaLOG Kwikpen] See Protocol SQ AC-TID Insulin Lispro [humaLOG Kwikpen] 4 units SQ AC-TID lisinopriL [Prinivil] 10 mg PO DAILY L.acidoph,Paracasei, B.lactis [Probiotic] 1 cap PO BID Acetaminophen Tab [Tylenol] 650 mg PO Q4H PRN PRN Reason: Fever And/ Or Pain carvediloL [Coreg] 25 mg PO BID Nephro-Hilary 1 tab PO DAILY Insulin Degludec [Tresiba] 22 units SQ DAILY Darbepoetin Matthew [Aranesp] 40 mcg SQ Q7D #4 each Discontinued HYDROcodone/APAP 5-325MG [Deloit 5-325] 1 tab PO TID PRN PRN Reason: Pain Discharge Medication List Ascorbic Acid [Vitamin C] 500 mg PO DAILY 06/30/20 [History] Aspirin [Adult Low Dose Aspirin EC] 81 mg PO DAILY 06/30/20 [History] Febuxostat [Uloric] 40 mg PO DAILY 06/30/20 [History] Multivitamins, Thera [Multivitamin (formulary)] 1 tab PO DAILY 06/30/20 [History] Simvastatin [Zocor] 20 mg PO HS 06/30/20 [History] amLODIPine BESYLATE 10 mg PO DAILY 06/30/20 [History] hydrALAZINE HCL [Apresoline] 100 mg PO TID 06/30/20 [History] Furosemide [Lasix] 60 mg PO TID 09/21/22 [History] Insulin Degludec [Tresiba] 22 units SQ DAILY 09/21/22 [History] Nephro-Hilary 1 tab PO DAILY 09/21/22 [History] carvediloL [Coreg] 25 mg PO BID 09/21/22 [History] Cholecalciferol [Vitamin D3 (25 Mcg = 1000 Iu)] 25 mcg PO DAILY 05/30/23 [H istory] Insulin Lispro [humaLOG Kwikpen] 4 units SQ AC-TID 05/30/23 [History] Insulin Lispro [humaLOG Kwikpen] See Protocol SQ AC-TID 05/30/23 [History] lisinopriL [Prinivil] 10 mg PO DAILY 05/30/23 [History] Acetaminophen Tab [Tylenol] 650 mg PO Q4H PRN 08/28/23 [History] L.acidoph,Paracasei, B.lactis [Probiotic] 1 cap PO BID 08/28/23 [History] Darbepoetin Matthew [Aranesp] 40 mcg SQ Q7D #4 each 08/31/23 [Rx] HYDROcodone/APAP 10-325MG [Deloit 10-325] 1 tab PO Q4HR PRN 30 Days #120 tab 10/04/23 [Rx] Follow up Appointment(s)/Referral(s): Carolyn Perdomo DO [Doctor of Osteopathic Medicine] - 3 Weeks Eric Coronado MD [Primary Care Provider] - 1-2 days Activity/Diet/Wound Care/Special Instructions: May bear wt as tolerated with walker. Recommend gel cushion or donut ring cushion for sitting. Follow up with Dr Perdomo 3 weeks. Discharge Disposition: TRANSFER TO SNF/ECF
[2023-10-04 09:38] LABS: HCT 31.1 % (34.0-46.0); HGB 10.3 gm/dL (11.4-16.0); MCH 32.9 pg (25.0-35.0); MCHC 33.1 g/dL (31.0-37.0); MCV 99.4 fL (80.0-100.0); Macrocytosis Slight; Mean Platelet Volume 8.3; Platelet Count 151 k/uL (150-450); RBC 3.13 m/uL (3.80-5.40); RDW 14.9 % (11.5-15.5); WBC 3.3 k/uL (3.8-10.6)
[2023-10-04 11:36] LABS: Glucose,Whole Blood 96 mg/dL (70-110)
[2023-10-04 11:53] LABS: Glucose,Whole Blood 137 mg/dL (70-110)
[2023-10-04 12:43] VITALS: TEMP 98
[2023-10-04 13:47] VITALS: BP 161/67; PULSE 73; RESP 18
[2023-10-04] MEDS: ALPRAZolam 0.5 MG TAB PO PRN (15:28)
--- NOTE | 2023-10-04 18:15 | P.PN ---
Subjective Patient is seen for follow-up for end-stage renal disease. No significant complaints except for back pain from sacral fracture. Patient is seen on hemodialysis. Tolerating treatment well. Plans to discharge to [facility] today. Objective - Vital Signs Vital signs: Vital Signs Temp 98.0 F 10/04/23 13:24 Pulse 73 10/04/23 13:24 Resp 18 10/04/23 13:24 BP 161/67 10/04/23 13:24 Pulse Ox 98 10/04/23 11:31 FiO2 Intake & Output 10/03/23 10/04/23 10/04/23 18:59 06:59 18:59 Intake Total 250 400 Output Total 900 Balance 250 -500 Intake: Oral 250 Hemodialysis 400 Output: Hemodialysis 900 Other: Voiding Method Toilet Toilet Toilet # Voids 1 1 - Exam Patient is awake, comfortable. No acute distress Alert oriented 3 Patient appears euvolemic Abdomen is soft nontender Examination of lower extremities shows no significant edema - Labs CBC & Chem 7: 10/04/23 09:01 10/03/23 07:18 Labs: Abnormal Lab Results - Last 24 Hours (Table) 10/03/23 10/04/23 10/04/23 Range/Units 19:59 02:08 07:10 WBC (3.8-10.6) k/uL RBC (3.80-5.40) m/uL Hgb (11.4-16.0) gm/dL Hct (34.0-46.0) % POC Glucose (mg/dL) 127 H 137 H 121 H (70-110) mg/dL 10/04/23 Range/Units 09:01 WBC 3.3 L (3.8-10.6) k/uL RBC 3.13 L (3.80-5.40) m/uL Hgb 10.3 L (11.4-16.0) gm/dL Hct 31.1 L (34.0-46.0) % POC Glucose (mg/dL) (70-110) mg/dL Assessment and Plan Assessment: 1. End-stage renal disease maintained on hemodialysis on a Sunday schedule. 2. Status post fall with sacral fracture and no plans for surgical intervention. 3. CK D mineral bone disorder 4. Hypertension with CK D stage V Plan: Maintain hemodialysis on Sunday schedule. Patient can be Discharged postdialysis today. Continue current antihypertensive regimen.
== END 2023-10-04 16:20 ==
LOC: EC 01:26 → 6NMEDSUR 03:17 → 5NMEDONC 21:26
PROVIDERS: ADMIT Family Medicine; ATTEND Family Medicine
DX: S32.10XA Unspecified fracture of sacrum, initial encounter for closed fracture (principal); W19.XXXA Unspecified fall, initial encounter; R53.1 Weakness; R26.2 Difficulty in walking, not elsewhere classified; E78.5 Hyperlipidemia, unspecified; E11.22 Type 2 diabetes mellitus with diabetic chronic kidney disease; I12.0 Hypertensive chronic kidney disease with stage 5 chronic kidney disease or end stage renal disease; N18.6 End stage renal disease; D63.1 Anemia in chronic kidney disease; N25.0 Renal osteodystrophy; Z99.2 Dependence on renal dialysis; Z79.82 Long term (current) use of aspirin; Z79.899 Other long term (current) drug therapy; Z79.4 Long term (current) use of insulin
CPT/HCPCS: 96376 ×3; 96374; 99284; 36415; 93005; 97530; 97162; 97166; 80053 ×2; 80048; 84100; 85025; 85027 ×3; 86706; 87340; 72192; G0378 ×5; J2270 ×3; 90935

== ENCOUNTER 2023-10-05 05:10 | Observation (INO) | payer MEDICARE ==
[2023-10-05 05:15] LABS: Glucose,Whole Blood 44 mg/dL (70-110)
--- NOTE | 2023-10-05 05:17 | ED ---
Altered Mental Status HPI - General Chief Complaint: Altered Mental Status Stated Complaint: Hypoglycemia Time Seen by Provider: 10/05/23 05:12 Source: EMS, RN notes reviewed, old records reviewed Mode of arrival: EMS Limitations: altered mental status, physical limitation - History of Present Illness Initial Comments: This is a 78-year-old female who is unable to provide any history, here for altered mental status and unresponsiveness, patient is unresponsive found to be unresponsive with low blood sugar but patient remains difficult to communicate here in the ER and does seem to be in distress MD Complaint: altered mental status, confusion, decreased responsiveness, weakness -: hour(s) Severity: severe Consistency of Symptoms: getting worse Context: history of similar presentation Associated Symptoms: malaise Treatments Prior to Arrival: IV fluid, oxygen - Related Data Home Medications Medication Instructions Recorded Confirmed Ascorbic Acid [Vitamin C] 500 mg PO DAILY 06/30/20 10/05/23 Aspirin [Adult Low Dose Aspirin EC] 81 mg PO DAILY 06/30/20 10/05/23 Febuxostat [Uloric] 40 mg PO DAILY 06/30/20 10/05/23 Multivitamins, Thera [Multivitamin 1 tab PO DAILY 06/30/20 10/05/23 (formulary)] Simvastatin [Zocor] 20 mg PO HS 06/30/20 10/05/23 amLODIPine BESYLATE 10 mg PO DAILY 06/30/20 10/05/23 hydrALAZINE HCL [Apresoline] 100 mg PO TID 06/30/20 10/05/23 Furosemide [Lasix] 60 mg PO TID@0800,1200,1700 09/21/22 10/05/23 Insulin Degludec [Tresiba] 22 units SQ DAILY 09/21/22 10/05/23 Nephro-Hilary 1 tab PO DAILY 09/21/22 10/05/23 carvediloL [Coreg] 25 mg PO BID 09/21/22 10/05/23 Cholecalciferol [Vitamin D3 (25 25 mcg PO DAILY 05/30/23 10/05/23 Mcg = 1000 Iu)] Insulin Lispro [humaLOG Kwikpen] 4 units SQ AC-TID 05/30/23 10/05/23 Insulin Lispro [humaLOG Kwikpen] See Protocol SQ AC-TID 05/30/23 10/05/23 lisinopriL [Prinivil] 10 mg PO DAILY 05/30/23 10/05/23 Acetaminophen Tab [Tylenol] 650 mg PO Q4H PRN 08/28/23 10/05/23 L.acidoph,Paracasei, B.lactis 1 cap PO BID@0800,1700 08/28/23 10/05/23 [Probiotic] Darbepoetin Matthew [Aranesp] 40 mcg SQ TU 10/05/23 10/05/23 Magnesium Hydroxide [Milk of 7,200 mg PO DAILY PRN 10/05/23 10/05/23 Magnesia Concentrate] Na Phos,M-B/Na Phos,Di-Ba [Fleet 133 ml RECTAL DAILY PRN 10/05/23 10/05/23 Adult] bisacodyL [Dulcolax] 10 mg RECTAL DAILY PRN 10/05/23 10/05/23 Previous Rx's Medication Instructions Recorded HYDROcodone/APAP 10-325MG [[place] 1 tab PO Q4HR PRN 30 Days #120 tab 10/04/23 10-325] Allergies Allergy/AdvReac Type Severity Reaction Status Date / Time adhesive tape Allergy Itching Verified 10/10/23 11:35 levofloxacin [From Levaquin] Allergy Unknown Verified 10/10/23 11:35 Review of Systems ROS Statement: Those systems with pertinent positive or pertinent negative responses have been documented in the HPI. ROS Other: All systems not noted in ROS Statement are negative. 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 gout ,anemia, psoriatic arthritis,heart murmur History of Any Multi-Drug Resistant Organisms: None Reported Past Surgical History: Orthopedic Surgery, Tubal Ligation Additional Past Surgical History / Comment(s): 1 oophorectomy, 1 partial oophorectomy,fx rt shoulder feng present, cataracts removed jack eyes, fistula left arm Past Anesthesia/Blood Transfusion Reactions: Motion Sickness Past Psychological History: No Psychological Hx Reported Smoking Status: Never smoker Past Alcohol Use History: None Reported Past Drug Use History: None Reported - Past Family History Sister(s) Family Medical History: Cancer Additional Family Medical History / Comment(s): breast cancer General Exam Limitations: altered mental status, physical limitation General appearance: alert, lethargic, obtunded, in distress, obese Head exam: Present: atraumatic, normocephalic, normal inspection Eye exam: Present: normal appearance, PERRL, EOMI. Absent: scleral icterus, conjunctival injection, periorbital swelling ENT exam: Present: normal exam, mucous membranes moist Neck exam: Present: normal inspection. Absent: tenderness, meningismus, lymphadenopathy Respiratory exam: Present: normal lung sounds bilaterally. Absent: respiratory distress, wheezes, rales, rhonchi, stridor Cardiovascular Exam: Present: regular rate, normal rhythm, normal heart sounds. Absent: systolic murmur, diastolic murmur, rubs, gallop, clicks GI/Abdominal exam: Present: soft, normal bowel sounds. Absent: distended, tenderness, guarding, rebound, rigid Extremities exam: Present: normal inspection, full ROM, normal capillary refill. Absent: tenderness, pedal edema, joint swelling, calf tenderness Back exam: Present: normal inspection Neurological exam: Present: alert, oriented X3, CN II-XII intact Psychiatric exam: Present: normal affect, normal mood Skin exam: Present: warm, dry, intact, normal color. Absent: rash Course Vital Signs 10/05/23 10/05/23 10/05/23 05:11 05:33 06:00 Temperature 97.6 F Pulse Rate 58 L 60 60 Respiratory 14 18 11 L Rate Blood Pressure 152/59 147/60 160/56 O2 Sat by Pulse 95 92 L 96 Oximetry 10/05/23 10/05/23 10/05/23 07:00 08:00 09:00 Temperature Pulse Rate 74 63 64 Respiratory 14 18 18 Rate Blood Pressure 154/58 136/57 123/61 O2 Sat by Pulse 98 95 95 Oximetry 10/05/23 10:03 Temperature Pulse Rate 70 Respiratory 18 Rate Blood Pressure 129/56 O2 Sat by Pulse 98 Oximetry - Reevaluation(s) Reevaluation #1: 10/05/23 06:47 Medical records reviewed Reevaluation #2: 10/05/23 06:47 Patient symptoms are improving Reevaluation #3: 10/05/23 06:47 Patient informed of results questions answered Reevaluation #4: Was pt. sent in by a medical professional or institution (Dr., PA, DIMENSION MILL WORKER, urgent care, hospital, or snf...) When possible be specific @ -no Did you speak to anyone other than the patient for history (EMS, parent, family, police, friend...)? What history was obtained from this source @ -no Did you review nursing and triage notes (agree or disagree)? Why? @ -agree Are old charts reviewed (outside hosp., previous admission, EMS record, old EKG, old radiological studies, urgent care reports/EKG's, snf records)? Report findings @ -yes Differential Diagnosis (chest pain, altered mental status, abdominal pain women, abdominal pain men, vaginal bleeding, weakness, fever, dyspnea, syncope, headache, dizziness, GI bleed, back pain, seizure, CVA, palpatations, mental health, musculoskeletal)? @ -prior EKG interpreted by me (3pts min.). @ -yes X-rays interpreted by me (1pt min.). @ -no CT interpreted by me (1pt min.). @ -Yes positive for choledocholithiasis U/S interpreted by me (1pt. min.). @ -no What testing was considered but not performed or refused? (CT, X-rays, U/S, labs)? Why? @ -none What meds were considered but not given or refused? Why? @ -none Did you discuss the management of the patient with other professionals (cheli whitfield i.eKEIRA Gautam Dr., DIMENS[employer] MILL WORKER, lab, RT, psych nurse, social media project manager, manager retirement, teacher, airplane first officer, manager case management)? Give summary @ -no Was smoking cessation discussed for >3mins.? @ -no Was critical care preformed (if so, how long)? @ -yes31 Were there social determinants of health that impacted care today? How? (Homelessness, low income, unemployed, alcoholism, drug addiction, transportation, low edu. Level, literacy, decrease access to med. care, prison, rehab)? @ -none Was there de-escalation of care discussed even if they declined (Discuss DNR or withdrawal of care, Hospice)? DNR status @ -no What co-morbidities impacted this encounter? (DM, HTN, Smoking, COPD, CAD, Cancer, CVA, ARF, Chemo, Hep., AIDS, mental health diagnosis, sleep apnea, morbid obesity)? @ -none Was patient admitted / discharged? Hospital course, mention meds given and route, prescriptions, significant lab abnormalities, going to OR and other pertinent info. @ - 78 female to the ED co urinary retention, ams, will be admitted for monitoring of low blood sugar, patient has recurrent low blood sugar as well as significant urinary retention unsure of cause, patient does have findings consistent with choledocholithiasis on CT scan. Remains altered here in the ER Admitted Undiagnosed new problem with uncertain prognosis? @ -no Drug Therapy requiring intensive monitoring for toxicity (Heparin, Nitro, Insulin, Cardizem)? @ -no Were any procedures done? @ -no Diagnosis/symptom? @ -Acute kidney failure on chronic hemodialysis. Choledocholithiasis, weakness altered mental status and recurrent hypoglycemia Acute, or Chronic, or Acute on Chronic? @ -Acute Uncomplicated (without systemic symptoms) or Complicated (systemic symptoms)? @ -Complicated Side effects of treatment? @ -no Exacerbation, Progression, or Severe Exacerbation? @ -exacerbation Poses a threat to life or bodily function? How? (Chest pain, USA, OR, pneumonia, PE, COPD, DKA, ARF, appy, cholecystitis, CVA, Diverticulitis, Homicidal, S uicidal, threat to staff... and all critical care pts) @ -yes with extremes of age and multiple organ dysfunction Reevaluation #5: Differential Altered Mental Status: Hypoglycemia, DKA, hypercapnia, ETOH, overdose, CO poisoning, trauma, myxedema coma, HTN encephalopathy, infection, encephalitis, psychosis, intercranial hemorrhage, hepatic encephalopathy, meningitis, CVA, this is not meant to be an all-inclusive list - Consultations Consultation #1: Spoke with Dr. Coronado who agrees to admit this patient Medical Decision Making - Medical Decision Making 78 female to the ED co urinary retention, ams, will be admitted for monitoring of low blood sugar, patient has recurrent low blood sugar as well as significant urinary retention unsure of cause, patient does have findings consistent with choledocholithiasis on CT scan. Remains altered here in the ER patient is acute on chronic renal failure - Lab Data Result diagrams: 10/12/23 07:10 10/12/23 07:10 Lab Results 10/05/23 10/05/23 10/05/23 Range/Units 05:13 05:35 06:01 PT 10.4 (10.0-12.5) sec INR 0.9 (<1.2) APTT 24.0 (22.0-30.0) sec Sodium (137-145) mmol/L Potassium (3.5-5.1) mmol/L Chloride (98-107) mmol/L Carbon Dioxide (22-30) mmol/L Anion Gap mmol/L BUN (7-17) mg/dL Creatinine (0.52-1.04) mg/dL Est GFR (CKD-EPI)AfAm (>60 ml/min/1.73 sqM) Est GFR (CKD-EPI)NonAf (>60 ml/min/1.73 sqM) Glucose (74-99) mg/dL POC Glucose (mg/dL) 44 L 168 H (70-110) mg/dL POC Glu Office Manager Executive Assistant Varsha Call Mara Plasma Lactic Acid [place] (0.7-2.0) mmol/L Calcium (8.4-10.2) mg/dL Magnesium (1.6-2.3) mg/dL Total Bilirubin (0.2-1.3) mg/dL AST (14-36) U/L ALT (4-34) U/L Alkaline Phosphatase (38-126) U/L Total Protein (6.3-8.2) g/dL Albumin (3.5-5.0) g/dL Amylase (30-110) U/L Lipase (23-300) U/L 10/05/23 10/05/23 Range/Units 06:01 06:01 PT (10.0-12.5) sec INR (<1.2) APTT (22.0-30.0) sec Sodium 134 L (137-145) mmol/L Potassium 4.1 (3.5-5.1) mmol/L Chloride 99 (98-107) mmol/L Carbon Dioxide 24 (22-30) mmol/L Anion Gap 11 mmol/L BUN 38 H (7-17) mg/dL Creatinine 3.27 H (0.52-1.04) mg/dL Est GFR (CKD-EPI)AfAm 15 (>60 ml/min/1.73 sqM) Est GFR (CKD-EPI)NonAf 13 (>60 ml/min/1.73 sqM) Glucose 123 H (74-99) mg/dL POC Glucose (mg/dL) (70-110) mg/dL POC Glu Office Manager Executive Assistant ID Plasma Lactic Acid [place] 0.7 (0.7-2.0) mmol/L Calcium 9.4 (8.4-10.2) mg/dL Magnesium 1.8 (1.6-2.3) mg/dL Total Bilirubin 0.7 (0.2-1.3) mg/dL AST 57 H (14-36) U/L ALT 55 H (4-34) U/L Alkaline Phosphatase 69 (38-126) U/L Total Protein 5.8 L (6.3-8.2) g/dL Albumin 3.3 L (3.5-5.0) g/dL Amylase 106 (30-110) U/L Lipase 413 H (23-300) U/L - Radiology Data Radiology results: report reviewed (CT abdomen pelvis n positive for choledocholithiasis), image reviewed Critical Care Time Critical Care Time: Yes Total Critical Care Time: 31 Disposition Clinical Impression: Weakness, UTI (urinary tract infection), Hypoglycemia, Altered mental status, Delirium due to general medical condition, Choledocholithiasis, End-stage renal disease on hemodialysis, Urinary retention, Renal failure Disposition: ADMITTED IP TO THIS HOSP Condition: Serious Is patient prescribed a controlled substance at d/c from ED?: No Time of Disposition: 06:40
[2023-10-05] MEDS: DEXTROSE 50% SYRINGE 50 ML IVP STA (05:19)
[2023-10-05 05:37] LABS: Glucose,Whole Blood 168 mg/dL (70-110)
[2023-10-05] MEDS: SODIUM CHLORIDE 0.9% 1,000 ML IV STA (05:42)
[2023-10-05 06:33] LABS: INR 0.9 (<1.2); Prothrombin Time 10.4 sec (10.0-12.5)
[2023-10-05 06:43] LABS: ALT 55 U/L (4-34); AST 57 U/L (14-36); African American GFR (CKD) 15 (>60 ml/min/1.73 sqM); Albumin 3.3 g/dL (3.5-5.0); Alkaline Phosphatase 69 U/L (38-126); Amylase 106 U/L (30-110); Anion Gap 11 mmol/L; Blood Urea Nitrogen 38 mg/dL (7-17); Calcium 9.4 mg/dL (8.4-10.2); Carbon Dioxide 24 mmol/L (22-30); Chloride 99 mmol/L (98-107); Glucose 123 mg/dL (74-99); Lipase 413 U/L (23-300); Magnesium 1.8 mg/dL (1.6-2.3); Non-African American GFR(CKD) 13 (>60 ml/min/1.73 sqM); Potassium 4.1 mmol/L (3.5-5.1); Sodium 134 mmol/L (137-145); Total Bilirubin 0.7 mg/dL (0.2-1.3); Total Protein 5.8 g/dL (6.3-8.2)
[2023-10-05] MEDS ORDERED: NALOXONE 0.4 MG/ML 1 ML VIAL IV PRN (06:43)
[2023-10-05] MEDS ORDERED: ONDANSETRON 4 MG/2 ML VIAL IVP PRN (06:43)
[2023-10-05 06:51] LABS: Glucose,Whole Blood 105 mg/dL (70-110)
--- NOTE | 2023-10-05 08:06 | CT ---
EXAMINATION TYPE: CT abdomen pelvis wo con DATE OF EXAM: 10/05/2023 COMPARISON: CT pelvis 10/01/2023 HISTORY: 78-year-old female Abdominal pain CT DLP: 476.9 mGycm. Automated exposure control for dose reduction was used. TECHNIQUE: Contiguous axial scanning of the abdomen and pelvis without IV contrast. Coronal and sagit dariela reconstructions performed. FINDINGS: There is mild generalized anasarca changes. Mild cardiomegaly with mitral annular calcifications, no pericardial effusion. Patchy opacity dependently in the lungs probably atelectasis. Tiny hiatal hernia. Liver shows a 9 mm cyst in the caudate lobe. Additional views scattered hepatic hypodensities measuri ng up to 6 mm likely tiny cysts in Gallbladder is hydropic at 4.8 cm wide. No cecilio surrounding inflammation seen. Bile duct dilated up to 1.3 cm with intrahepatic biliary ductal dilatation as well and a 9 mm filling defect in the distal bile duct. Adrenal glands, spleen and kidneys show no gross abnormality. There appear to be some collateral vessels/varices in the left upper quadrant Slightly distended appearance to the left renal vein. Consider ultrasound/Doppler assessment to rule out any internal thrombus expanding the vessel. Axial image 31. No dilated small bowel, free fluid, or free air. No mesenteric or retroperitoneal adenopathy. There is moderate stool in the right side of the abdomen. No pericolonic inflammatory change seen. Ap pendix not clearly identified. Extensive arterial calcifications within the abdominal aorta and also the visceral arteries. Bladder collapsed by Bansal catheter in place. Multiple lymph nodes. Uterus and left ovary are visuali zed. Right ovary obscured by adjacent clustered bowel loops. No abnormal fluid collection in the pelv is or pelvic lymphadenopathy. Prominent degenerative changes throughout the visualized spine. IMPRESSION: 1. A 9 mm stone in the distal bile duct with moderate biliary ductal dilatation. Gallbladder hydrops probably relates to biliary obstruction. Correlate with alkaline phosphatase and bilirubin levels. 2. Distended appearance to the left renal vein may be normal variation. Consider ultrasound/Doppler assessment to rule out any renal vein thrombosis. 3. Mild cardiomegaly and mild anasarca changes. Correlate for some third spacing. 4. Tiny hiatal hernia.
[2023-10-05] MEDS ORDERED: DEXTROSE 50% SYRINGE 50 ML IVP PRN ×2 (08:23)
--- NOTE | 2023-10-05 08:28 | P.HPIM ---
History of Present Illness H&P Date: 10/05/23 Chief Complaint: altered mental status This is a history and physical a 78-year-old white female who was recently discharged yesterday to go back to [facility] after having sacral fracture. She had developed urinary retention and was readmitted secondary to altered mental status and hypoglycemia. We will hold insulin for now and placed on scale. The patient has also developed what seems to be little bit of pancreatitis. Will follow this closely. Pain control will be continued from previous discharge. The patient is still having some disorientation. No fever or chills. No significant nausea, vomiting or diarrhea stated. 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 gout ,anemia, psoriatic arthritis,heart murmur History of Any Multi-Drug Resistant Organisms: None Reported Past Surgical History: Orthopedic Surgery, Tubal Ligation Additional Past Surgical History / Comment(s): 1 oophorectomy, 1 partial oophorectomy,fx rt shoulder feng present, cataracts removed jack eyes, fistula left arm Past Anesthesia/Blood Transfusion Reactions: Motion Sickness Past Psychological History: No Psychological Hx Reported Smoking Status: Never smoker Past Alcohol Use History: None Reported Past Drug Use History: None Reported - Past Family History Sister(s) Family Medical History: Cancer Additional Family Medical History / Comment(s): breast cancer Medications and Allergies Home Medications Medication Instructions Recorded Confirmed Type Ascorbic Acid [Vitamin C] 500 mg PO DAILY 06/30/20 10/01/23 History Aspirin [Adult Low Dose Aspirin EC] 81 mg PO DAILY 06/30/20 10/01/23 History Febuxostat [Uloric] 40 mg PO DAILY 06/30/20 10/01/23 History Multivitamins, Thera [Multivitamin 1 tab PO DAILY 06/30/20 10/01/23 History (formulary)] Simvastatin [Zocor] 20 mg PO HS 06/30/20 10/01/23 History amLODIPine BESYLATE 10 mg PO DAILY 06/30/20 10/01/23 History hydrALAZINE HCL [Apresoline] 100 mg PO TID 06/30/20 10/01/23 History Furosemide [Lasix] 60 mg PO TID 09/21/22 10/01/23 History Insulin Degludec [Tresiba] 22 units SQ DAILY 09/21/22 10/01/23 History Nephro-Hilary 1 tab PO DAILY 09/21/22 10/01/23 History carvediloL [Coreg] 25 mg PO BID 09/21/22 10/01/23 History Cholecalciferol [Vitamin D3 (25 25 mcg PO DAILY 05/30/23 10/01/23 History Mcg = 1000 Iu)] Insulin Lispro [humaLOG Kwikpen] 4 units SQ AC-TID 05/30/23 10/01/23 History Insulin Lispro [humaLOG Kwikpen] See Protocol SQ AC-TID 05/30/23 10/01/23 History lisinopriL [Prinivil] 10 mg PO DAILY 05/30/23 10/01/23 History Acetaminophen Tab [Tylenol] 650 mg PO Q4H PRN 08/28/23 10/01/23 History L.acidoph,Paracasei, B.lactis 1 cap PO BID 08/28/23 10/01/23 History [Probiotic] Darbepoetin Matthew [Aranesp] 40 mcg SQ Q7D #4 each 08/31/23 10/01/23 Rx HYDROcodone/APAP 10-325MG [[place] 1 tab PO Q4HR PRN 30 Days #120 tab 10/04/23 Rx 10-325] Allergies Allergy/AdvReac Type Severity Reaction Status Date / Time adhesive tape Allergy Itching Verified 10/01/23 07:41 levofloxacin [From Levaquin] Allergy Unknown Verified 10/01/23 07:41 Physical Exam Vitals: Vital Signs Temp Pulse Resp BP Pulse Ox 10/05/23 07:00 74 14 154/58 98 10/05/23 06:00 60 11 L 160/56 96 10/05/23 05:33 60 18 147/60 92 L 10/05/23 05:11 97.6 F 58 L 14 152/59 95 Intake and Output 10/04/23 10/05/23 10/05/23 22:59 06:59 14:59 Output Total 1200 Balance -1200 Output: Urine 1200 Uretheral (Bansal) 1200 Other: Weight 68.039 kg - Constitutional General appearance: average body habitus, no no acute distress - Neck Neck: no lymphadenopathy - Respiratory Respiratory: bilateral: diminished - Cardiovascular Rhythm: regular Heart sounds: normal: S1, S2 Abnormal Heart Sounds: no S3 Gallop - Gastrointestinal General gastrointestinal: soft, no tenderness - Integumentary Integumentary: no cellulitis Results CBC & Chem 7: 10/05/23 06:01 Labs: Abnormal Lab Results - Last 24 Hours (Table) 10/05/23 10/05/23 10/05/23 Range/Units 05:13 05:35 06:01 Sodium 134 L (137-145) mmol/L BUN 38 H (7-17) mg/dL Creatinine 3.27 H (0.52-1.04) mg/dL Glucose 123 H (74-99) mg/dL POC Glucose (mg/dL) 44 L 168 H (70-110) mg/dL AST 57 H (14-36) U/L ALT 55 H (4-34) U/L Total Protein 5.8 L (6.3-8.2) g/dL Albumin 3.3 L (3.5-5.0) g/dL Lipase 413 H (23-300) U/L Assessment and Plan (1) Altered mental status Current Visit: Yes Status: Acute Code(s): R41.82 - ALTERED MENTAL STATUS, UNSPECIFIED SNOMED Code(s): 750622746 (2) Delirium due to general medical condition Current Visit: Yes Status: Acute Code(s): F05 - DELIRIUM DUE TO KNOWN PHYSIOLOGICAL CONDITION SNOMED Code(s): 3997500 (3) Hypoglycemia Current Visit: Yes Status: Acute Code(s): E16.2 - HYPOGLYCEMIA, UNSPECIFIED SNOMED Code(s): 360397041 (4) UTI (urinary tract infection) Current Visit: Yes Status: Acute Code(s): N39.0 - URINARY TRACT INFECTION, SITE NOT SPECIFIED SNOMED Code(s): 26719422 (5) Weakness Current Visit: Yes Status: Acute Code(s): R53.1 - WEAKNESS SNOMED Code(s): 74956280 (6) End stage renal disease on dialysis Current Visit: No Status: Acute Code(s): N18.6 - END STAGE RENAL DISEASE; Z99.2 - DEPENDENCE ON RENAL DIALYSIS SNOMED Code(s): 666983344 (7) Hyperlipidemia Current Visit: No Status: Acute Code(s): E78.5 - HYPERLIPIDEMIA, UNSPECIFIED SNOMED Code(s): 45857306 (8) Sacral fracture Current Visit: No Status: Acute Code(s): S32.10XA - UNSP FRACTURE OF SACRUM, INIT ENCNTR FOR CLOSED FRACTURE SNOMED Code(s): 777528320 (9) Type 2 diabetes mellitus with diabetic nephropathy Current Visit: No Status: Acute Code(s): E11.21 - TYPE 2 DIABETES MELLITUS WITH DIABETIC NEPHROPATHY SNOMED Code(s): 75147488 Plan: Follow-up for input and output related to urinary retention elements. Consult nephrology. Follow enzymes for pancreatitis. Reconcile home medications. Poor prognosis for trying to get her back home immediately given her overall general debility and and weakness. Check CBC and CMP in AM. Time with Patient: Greater than 30
[2023-10-05] MEDS ORDERED: INSULIN DETEMIR (LEVEMIR) 100 UNIT/ML SYR SQ SCH (09:00)
[2023-10-05 09:04] LABS: Glucose,Whole Blood 97 mg/dL (70-110)
[2023-10-05 09:12] LABS: HCT 31.6 % (34.0-46.0); HGB 10.7 gm/dL (11.4-16.0); MCH 33.4 pg (25.0-35.0); MCHC 33.8 g/dL (31.0-37.0); MCV 98.7 fL (80.0-100.0); Macrocytosis Slight; Mean Platelet Volume 7.5; Platelet Count 147 k/uL (150-450); RDW 14.5 % (11.5-15.5); WBC 3.5 k/uL (3.8-10.6)
[2023-10-05 09:40] LABS: Eosinophils # (M) 0.04 k/uL (0-0.7); Lymphocytes # (M) 0.42 k/uL (1.0-4.8); Monocytes # (M) 0.25 k/uL (0-1.0); Neutrophils % (M) 80 %; Nucleated Red Blood Cells 0 /100 WBC (0-0); Total Cells Counted 100
[2023-10-05] MEDS: allopurinoL 100 MG TAB PO SCH (10:05)
[2023-10-05] MEDS: ASCORBIC ACID 500 MG TAB PO SCH (10:05)
[2023-10-05] MEDS: CHOLECALCIFEROL 25 MCG (1000 IU) TABLET PO SCH (10:05)
[2023-10-05] MEDS: FUROSEMIDE 20 MG TAB PO SCH (10:05)
[2023-10-05] MEDS: hydrALAZINE HCL 50 MG TAB PO SCH (10:06)
[2023-10-05] MEDS: ASPIRIN 81 MG PO SCH (10:06)
[2023-10-05] MEDS: MULTIVITAMINS, THERA 1 EACH TAB PO SCH (10:06)
[2023-10-05] MEDS: LACTOBACILLUS ACIDOPHILUS/PECT 1 EACH CAPSULE PO SCH (10:06)
[2023-10-05] MEDS: amLODIPine 10 MG TAB PO SCH (10:07)
[2023-10-05] MEDS: FOLIC ACID-VIT B COMPLEX-VIT C 1 CAP PO SCH (10:07)
[2023-10-05] MEDS: lisinopriL 10 MG TAB PO SCH (10:07)
[2023-10-05] MEDS: SODIUM CHLORIDE 0.9% 1,000 ML IV SCH (10:09)
[2023-10-05] MEDS: carvediloL 12.5 MG TAB PO SCH (10:10)
[2023-10-05 11:03] LABS: Glucose,Whole Blood 137 mg/dL (70-110)
[2023-10-05] MEDS: DEXTROSE 5%-0.9% NACL 1,000 ML IV SCH (11:04)
--- NOTE | 2023-10-05 11:19 | P.NPCON ---
History of Present Illness - Reason for Consult end stage renal disease - History of Present Illness Patient is a 78-year-old female with end-stage renal disease maintained on hemodialysis on a Sunday schedule. She was just discharged yesterday after hospitalization post fall with sacral fracture. Patient is readmitted today with hypoglycemia and significant urine retention. Apparently 1.2 L of urine was obtained on Bansal catheter placement. Lipase is also elevated at 413. Patient denies any nausea or vomiting. She states that she tolerated oral intake yesterday prior to discharge. No fever noted. Review of Systems As per HPI. Past Medical History Past Medical History: Diabetes Mellitus, Dialysis, Hyperlipidemia, Hypertension, Renal Disease, Skin Disorder Additional Past Medical History / Comment(s): dialysis [facility]., cyst on brain-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 gout ,anemia, psoriatic arthritis,heart murmur History of Any Multi-Drug Resistant Organisms: None Reported Past Surgical History: Orthopedic Surgery, Tubal Ligation Additional Past Surgical History / Comment(s): 1 oophorectomy, 1 partial oophorectomy,fx rt shoulder feng present, cataracts removed jack eyes, fistula left arm Past Anesthesia/Blood Transfusion Reactions: Motion Sickness Past Psychological History: No Psychological Hx Reported Smoking Status: Never smoker Past Alcohol Use History: None Reported Past Drug Use History: None Reported - Past Family History Sister(s) Family Medical History: Cancer Additional Family Medical History / Comment(s): breast cancer Medications and Allergies Home Medications Medication Instructions Recorded Confirmed Type Ascorbic Acid [Vitamin C] 500 mg PO DAILY 06/30/20 10/05/23 History Aspirin [Adult Low Dose Aspirin EC] 81 mg PO DAILY 06/30/20 10/05/23 History Febuxostat [Uloric] 40 mg PO DAILY 06/30/20 10/05/23 History Multivitamins, Thera [Multivitamin 1 tab PO DAILY 06/30/20 10/05/23 History (formulary)] Simvastatin [Zocor] 20 mg PO HS 06/30/20 10/05/23 History amLODIPine BESYLATE 10 mg PO DAILY 06/30/20 10/05/23 History hydrALAZINE HCL [Apresoline] 100 mg PO TID 06/30/20 10/05/23 History Furosemide [Lasix] 60 mg PO TID@0800,1200,1700 09/21/22 10/05/23 History Insulin Degludec [Tresiba] 22 units SQ DAILY 09/21/22 10/05/23 History Nephro-Hilary 1 tab PO DAILY 09/21/22 10/05/23 History carvediloL [Coreg] 25 mg PO BID 09/21/22 10/05/23 History Cholecalciferol [Vitamin D3 (25 25 mcg PO DAILY 05/30/23 10/05/23 History Mcg = 1000 Iu)] Insulin Lispro [humaLOG Kwikpen] 4 units SQ AC-TID 05/30/23 10/05/23 History Insulin Lispro [humaLOG Kwikpen] See Protocol SQ AC-TID 05/30/23 10/05/23 History lisinopriL [Prinivil] 10 mg PO DAILY 05/30/23 10/05/23 History Acetaminophen Tab [Tylenol] 650 mg PO Q4H PRN 08/28/23 10/05/23 History L.acidoph,Paracasei, B.lactis 1 cap PO BID@0800,1700 08/28/23 10/05/23 History [Probiotic] HYDROcodone/APAP 10-325MG [[place] 1 tab PO Q4HR PRN 30 Days #120 tab 10/04/23 10/05/23 Rx 10-325] Darbepoetin Matthew [Aranesp] 40 mcg SQ TU 10/05/23 10/05/23 History Magnesium Hydroxide [Milk of 7,200 mg PO DAILY PRN 10/05/23 10/05/23 History Magnesia Concentrate] Na Phos,M-B/Na Phos,Di-Ba [Fleet 133 ml RECTAL DAILY PRN 10/05/23 10/05/23 History Adult] bisacodyL [Dulcolax] 10 mg RECTAL DAILY PRN 10/05/23 10/05/23 History Allergies Allergy/AdvReac Type Severity Reaction Status Date / Time adhesive tape Allergy Itching Verified 10/01/23 07:41 levofloxacin [From Levaquin] Allergy Unknown Verified 10/01/23 07:41 Physical Exam Vitals: Vital Signs Temp Pulse Pulse Resp BP BP Pulse Ox 10/05/23 10:46 97.6 F 73 18 172/57 96 10/05/23 10:03 70 18 129/56 98 10/05/23 07:00 74 14 154/58 98 10/05/23 06:00 60 11 L 160/56 96 10/05/23 05:33 60 18 147/60 92 L 10/05/23 05:11 97.6 F 58 L 14 152/59 95 Intake and Output 10/04/23 10/05/23 10/05/23 22:59 06:59 14:59 Output Total 1200 Balance -1200 Output: Urine 1200 Uretheral (Bansal) 1200 Other: Weight 68.039 kg Patient is awake, comfortable, no acute distress Examination of the heart S1 and S2 Examination of the lungs bilateral breath sounds are heard Abdomen is soft nontender Examination lower extremity shows no edema. TEAMCENTER CONSULTANT exam grossly intact Results - Lab Results Most recent lab results Calcium 9.4 mg/dL (8.4-10.2) 10/05/23 06:01 Magnesium 1.8 mg/dL (1.6-2.3) 10/05/23 06:01 10/05/23 09:02 10/05/23 06:01 Assessment and Plan Assessment: 1. End-stage renal disease on hemodialysis on a Sunday schedule 2. Urine retention currently with indwelling Bansal catheter. 1200 cc of urine was obtained on Bansal catheter placement 3. Possible pancreatitis 4. Status post fall with sacral fracture with conservative management. 5. Hypertension with CKD stage V Plan: Hemodialysis in a.m. Continue with Bansal catheter Decrease IV fluids and changed to D5.9 as blood sugar was 97 this morning. Once blood sugar stabilizes IV fluids can be discontinued. Blood pressure is borderline therefore I will hold her a.m. doses of antihypertensive medications. Thank you for the consultation. We will continue to follow the patient with you during her hospitalization.
[2023-10-05] MEDS: INSULIN ASPART (NovoLOG) 100 UNIT/ML VIAL SQ SCH (14:28)
[2023-10-05 16:41] LABS: Glucose,Whole Blood 243 mg/dL (70-110)
[2023-10-05 20:39] LABS: Glucose,Whole Blood 190 mg/dL (70-110)
[2023-10-05] MEDS: ATORVASTATIN 10 MG TAB PO SCH (21:44)
[2023-10-05] MEDS: polyethylene glycoL 3350 17 GM POWD.PACK PO PRN (22:05)
[2023-10-06 06:00] LABS: Glucose,Whole Blood 187 mg/dL (70-110)
[2023-10-06] MEDS ORDERED: INSULIN DETEMIR (LEVEMIR) 100 UNIT/ML SYR SQ SCH (07:00)
[2023-10-06] MEDS: INSULIN ASPART (NovoLOG) 100 UNIT/ML VIAL SQ SCH (07:50)
[2023-10-06] MEDS ORDERED: DARBEPOETIN ALFA 40 MCG/0.4 ML SYRINGE SQ SCH (09:00)
[2023-10-06 10:04] LABS: Basophils # (A) 0.02 X 10*3/uL (0.00-0.10); Basophils % (A) 0.7 %; Eosinophils # (A) 0.15 X 10*3/uL (0.04-0.35); Eosinophils % (A) 5.2 %; HCT 28.7 % (37.2-46.3); HGB 9.3 g/dL (12.0-15.0); Lymphocytes # (A) 0.55 X 10*3/uL (0.90-5.00); Lymphocytes % (A) 18.9 %; MCH 32.7 pg (27.0-32.0); MCHC 32.4 g/dL (32.0-37.0); MCV 101.1 FL (80.0-97.0); Monocytes # (A) 0.65 X 10*3/uL (0.20-1.00); Monocytes % (A) 22.3 %; NRBC Per 100 WBC 0 X 10*3/uL (0.00-0.01); Neutrophils # (A) 1.52 X 10*3/uL (1.80-7.70); Neutrophils % (A) 52.2 %; Platelet Count 138 X 10*3/uL (140-440); RBC 2.84 X 10*6/uL (4.10-5.20); RDW 14.6 % (11.5-14.5); WBC 2.91 X 10*3/uL (4.50-10.00)
[2023-10-06 10:27] LABS: Amylase 95 U/L (23-121); Lipase 111 U/L (14-63); Magnesium 1.7 mg/dL (1.5-2.4)
--- NOTE | 2023-10-06 10:45 | P.PN ---
Subjective Patient is seen for follow-up for end-stage renal disease. She was readmitted with urine retention and hypoglycemia. Bansal catheter was removed yesterday. A bladder scan will be repeated today. Patient states she has been voiding. Blood sugar has stabilized, in fact it is high Objective - Vital Signs Vital signs: Vital Signs Temp 98.5 F 10/06/23 07:35 Pulse 63 10/06/23 07:35 Resp 18 10/06/23 07:35 BP 147/61 10/06/23 07:35 Pulse Ox 100 10/06/23 07:35 FiO2 Intake & Output 10/05/23 10/06/23 10/06/23 18:59 06:59 18:59 Intake Total 600 Output Total 200 410 Balance -200 190 Weight 68.039 kg Intake: Intake, IV Titration 600 Amount Dextrose 5%-0.9% NaCl 1, 600 000 ml @ 50 mls/hr IV . Q20H [facility] Rx#:[id number] Output: Urine 200 410 Uretheral (Bansal) 100 410 Other: Voiding Method Indwelling Catheter Bedside Commode Bedside Commode Diaper Diaper # Voids 0 - Exam Patient is awake, comfortable, no acute distress Examination of the heart S1 and S2 Examination of the lungs bilateral breath sounds are heard Abdomen is soft nontender Examination lower extremity shows no edema. CARBIDE GRINDER exam grossly intact - Labs CBC & Chem 7: 10/06/23 05:44 10/05/23 06:01 Labs: Abnormal Lab Results - Last 24 Hours (Table) 10/05/23 10/05/23 10/05/23 Range/Units 11:02 16:40 20:38 WBC (4.50-10.00) X 10*3/uL RBC (4.10-5.20) X 10*6/uL Hgb (12.0-15.0) g/dL Hct (37.2-46.3) % MCV (80.0-97.0) FL MCH (27.0-32.0) pg RDW (11.5-14.5) % Plt Count (140-440) X 10*3/uL Neutrophils # (1.80-7.70) X 10*3/uL Lymphocytes # (0.90-5.00) X 10*3/uL POC Glucose (mg/dL) 137 H 243 H 190 H (70-110) mg/dL Phosphorus (2.4-5.1) mg/dL Lipase (14-63) U/L 10/06/23 10/06/23 10/06/23 Range/Units 05:44 05:44 05:59 WBC 2.91 L (4.50-10.00) X 10*3/uL RBC 2.84 L (4.10-5.20) X 10*6/uL Hgb 9.3 L (12.0-15.0) g/dL Hct 28.7 L (37.2-46.3) % MCV 101.1 H (80.0-97.0) FL MCH 32.7 H (27.0-32.0) pg RDW 14.6 H (11.5-14.5) % Plt Count 138 L (140-440) X 10*3/uL Neutrophils # 1.52 L (1.80-7.70) X 10*3/uL Lymphocytes # 0.55 L (0.90-5.00) X 10*3/uL POC Glucose (mg/dL) 187 H (70-110) mg/dL Phosphorus 7.0 H (2.4-5.1) mg/dL Lipase 111 H (14-63) U/L Assessment and Plan Assessment: 1. End-stage renal disease on hemodialysis on a Sunday schedule 2. Urine retention, status post indwelling Bansal catheter. 1200 cc of urine was obtained on Bansal catheter placement. Bansal catheter was removed yesterday. A postvoid bladder scan will be performed t 3. Possible pancreatitis 4. Status post fall with sacral fracture with conservative management. 5. Hypertension with CKD stage V Plan: DC IV fluids Hemodialysis today Repeat postvoid bladder scan.
[2023-10-06 11:31] LABS: Glucose,Whole Blood 181 mg/dL (70-110)
[2023-10-06 11:37] LABS: ALT 48 U/L (8-44); AST 39 U/L (13-35); Albumin 3.1 g/dL (3.8-4.9); Albumin/Globulin Ratio 1.63 Ratio (1.60-3.17); Alkaline Phosphatase 71 U/L (41-126); BUN/Creat Ratio 11.18 Ratio (12.00-20.00); Blood Urea Nitrogen 49.2 mg/dL (9.0-27.0); Calcium 9.1 mg/dL (8.7-10.3); Carbon Dioxide 25.5 mmol/L (21.6-31.8); Chloride 98 mmol/L (96-109); Globulin 1.9 g/dL (1.6-3.3); Glucose 178 mg/dL (70-110); Potassium 4.6 mmol/L (3.5-5.5); Sodium 137 mmol/L (135-145); Total Bilirubin 0.3 mg/dL (0.3-1.2)
[2023-10-06] MEDS: INSULIN DETEMIR (LEVEMIR) 100 UNIT/ML SYR SQ SCH (12:58)
[2023-10-06] MEDS: ACETAMINOPHEN TAB 325 MG TAB PO PRN (16:38)
[2023-10-06 16:46] LABS: Glucose,Whole Blood 182 mg/dL (70-110)
[2023-10-06] MEDS: DARBEPOETIN ALFA 40 MCG/0.4 ML SYRINGE SQ SCH (17:03)
[2023-10-06] MEDS ORDERED: DARBEPOETIN ESRD ONE (17:04)
--- NOTE | 2023-10-06 19:55 | P.PN ---
Subjective Is a pleasant 78 years old female who was recently discharged from the hospital few days ago for sacral fracture, at that time evaluated by orthopedic team and physical therapy then plan for her to go to subacute rehab however she was sent back because of altered mental status secondary to hypoglycemia with a glucose was 50, 44 on admission. Also on admission patient had abdominal pain and CT of the abdomen and pelvis was concerning for biliary stone as well as dilated left kidney veins suspicious for renal vein thrombosis. Because of this patient was admitted to the hospital. Most likely patient will require more than 2 nights of hospitalization Nephrology team following closely for hemodialysis for end-stage renal disease. Long-acting insulin Tresiba 22 units was held and continued on short acting insulin 4 units with meal. We adjusted dose to Levemir 5 units daily and NovoLog 3 units with meals, currently her sugars controlled around 180. Her abdominal pain improving but not resolved. We will order ultrasound of the liver to rule out gallbladder disease versus biliary disease as showing 9 mm stone in the distal bile duct with rotation and hydropic gallbladder. Also will consult surgery team. Patient has mild transaminitis as well She has evidence also of dilated left renal veins suspicious for renal vein thrombosis, therefore renal Doppler is ordered on the left side Other than that her mentation is improved back to baseline with improvement of her sugar She denies any other new complaint Objective - Vital Signs Vital signs: Vital Signs Temp 98.4 F 10/06/23 14:00 Pulse 67 10/06/23 14:00 Resp 17 10/06/23 14:00 BP 181/66 10/06/23 14:00 Pulse Ox 98 10/06/23 14:00 FiO2 Intake & Output 10/05/23 10/06/23 10/06/23 18:59 06:59 18:59 Intake Total 600 Output Total 200 410 Balance -200 190 Weight 68.039 kg Intake: Intake, IV Titration 600 Amount Dextrose 5%-0.9% NaCl 1, 600 000 ml @ 50 mls/hr IV . Q20H [facility] Rx#:[id number] Output: Urine 200 410 Uretheral (Bansal) 100 410 Other: Voiding Method Indwelling Catheter Bedside Commode Bedside Commode Diaper Diaper # Voids 0 - Exam GENERAL: The patient is alert and oriented x3, not in any acute distress. Well developed, well nourished. HEENT: Pupils are round and equally reacting to light. EOMI. No scleral icterus. No conjunctival pallor. Normocephalic, atraumatic. No pharyngeal erythema. No thyromegaly. CARDIOVASCULAR: S1 and S2 present. No murmurs, rubs, or gallops. PULMONARY: Chest is clear to auscultation, no wheezing , no crackles. ABDOMEN: Soft, nontender, nondistended, normoactive bowel sounds. No palpable organomegaly. MUSCULOSKELETAL: No joint swelling or deformity. EXTREMITIES: No cyanosis, clubbing, or pedal edema. NEUROLOGICAL: Gross neurological examination did not reveal any focal deficits. SKIN: No rashes. no petechiae. - Labs CBC & Chem 7: 10/06/23 05:44 10/06/23 05:44 Labs: Abnormal Lab Results - Last 24 Hours (Table) 10/05/23 10/05/23 10/06/23 Range/Units 16:40 20:38 05:44 WBC 2.91 L (4.50-10.00) X 10*3/uL RBC 2.84 L (4.10-5.20) X 10*6/uL Hgb 9.3 L (12.0-15.0) g/dL Hct 28.7 L (37.2-46.3) % MCV 101.1 H (80.0-97.0) FL MCH 32.7 H (27.0-32.0) pg RDW 14.6 H (11.5-14.5) % Plt Count 138 L (140-440) X 10*3/uL Neutrophils # 1.52 L (1.80-7.70) X 10*3/uL Lymphocytes # 0.55 L (0.90-5.00) X 10*3/uL Anion Gap (4.00-12.00) mmol/L BUN (9.0-27.0) mg/dL Creatinine (0.6-1.5) mg/dL Est GFR (CKD-EPI) (>=60) BUN/Creatinine Ratio (12.00-20.00) Ratio Glucose (70-110) mg/dL POC Glucose (mg/dL) 243 H 190 H (70-110) mg/dL Phosphorus (2.4-5.1) mg/dL AST (13-35) U/L ALT (8-44) U/L Total Protein (6.2-8.2) g/dL Albumin (3.8-4.9) g/dL Lipase (14-63) U/L 10/06/23 10/06/23 10/06/23 Range/Units 05:44 05:59 11:29 WBC (4.50-10.00) X 10*3/uL RBC (4.10-5.20) X 10*6/uL Hgb (12.0-15.0) g/dL Hct (37.2-46.3) % MCV (80.0-97.0) FL MCH (27.0-32.0) pg RDW (11.5-14.5) % Plt Count (140-440) X 10*3/uL Neutrophils # (1.80-7.70) X 10*3/uL Lymphocytes # (0.90-5.00) X 10*3/uL Anion Gap 13.50 H (4.00-12.00) mmol/L BUN 49.2 H (9.0-27.0) mg/dL Creatinine 4.4 H (0.6-1.5) mg/dL Est GFR (CKD-EPI) 10 L (>=60) BUN/Creatinine Ratio 11.18 L (12.00-20.00) Ratio Glucose 178 H (70-110) mg/dL POC Glucose (mg/dL) 187 H 181 H (70-110) mg/dL Phosphorus 7.0 H (2.4-5.1) mg/dL AST 39 H (13-35) U/L ALT 48 H (8-44) U/L Total Protein 5.0 L (6.2-8.2) g/dL Albumin 3.1 L (3.8-4.9) g/dL Lipase 111 H (14-63) U/L Assessment and Plan Assessment: Metabolic encephalopathy secondary to hypoglycemia improved to baseline Diabetes mellitus with hyperglycemia improved Hydropic gallbladder, rule out cholecystitis. Also with 9 mm distal biliary stone with biliary dilatation Dilated left renal vein, rule out renal vein thrombosis Acute kidney injury on chronic kidney disease stage III, end-stage renal disease on hemodialysis Abnormal lipase, mild, clinically does not behave like pancreatitis Mild cardiomegaly with anasarca most likely secondary to above Recent history of sacral by orthopedic team and recommended conservative management require rehab upon discharge patient agrees to rehab upon discharge Plan: Insulin to Levemir 5 units and NovoLog 3 units with meal Continue with hemodialysis per nephrology on the case Check ultrasound of the liver disease for her gallbladder/biliary disease Check venous Doppler to rule out renal vein thrombosis Labs and medication were reviewed.. Continue same treatment. Continue with symptomatic treatment. Resume home medication. Monitor labs and vitals. DVT and GI prophylaxis. Further recommendations as per clinical course of the patient DVT prophylaxis: Subcutaneous heparin GI Prophylaxis: Pepcid PT/OT: Subacute rehab Prognosis is guarded
[2023-10-06] MEDS: HEPARIN SODIUM,PORCINE 5,000 UNIT/ML 1 ML VIAL SQ SCH (20:07)
[2023-10-06] MEDS: FAMOTIDINE 20 MG/2 ML VIAL IV SCH (20:07)
[2023-10-06 21:08] LABS: Glucose,Whole Blood 215 mg/dL (70-110)
[2023-10-07 05:58] LABS: Glucose,Whole Blood 107 mg/dL (70-110)
[2023-10-07 08:14] LABS: ALT 42 U/L (4-34); AST 45 U/L (14-36); African American GFR (CKD) 16 (>60 ml/min/1.73 sqM); Albumin/Globulin Ratio 1.3; Alkaline Phosphatase 71 U/L (38-126); Anion Gap 8 mmol/L; Bilirubin,Unconjugated 0.2 mg/dL (0.0-1.1); Blood Urea Nitrogen 34 mg/dL (7-17); Calcium 9.4 mg/dL (8.4-10.2); Carbon Dioxide 25 mmol/L (22-30); Chloride 104 mmol/L (98-107); Globulin 2.4 g/dL; Glucose 104 mg/dL (74-99); Non-African American GFR(CKD) 14 (>60 ml/min/1.73 sqM); Potassium 4.1 mmol/L (3.5-5.1); Sodium 137 mmol/L (137-145); Total Bilirubin 0.6 mg/dL (0.2-1.3); Total Protein 5.4 g/dL (6.3-8.2)
[2023-10-07 08:28] LABS: HGB 9.8 gm/dL (11.4-16.0); MCH 33.2 pg (25.0-35.0); MCHC 33.7 g/dL (31.0-37.0); MCV 98.5 fL (80.0-100.0); Platelet Count 143 k/uL (150-450); RBC 2.94 m/uL (3.80-5.40); RDW 14.5 % (11.5-15.5); WBC 2.6 k/uL (3.8-10.6)
[2023-10-07] MEDS: FAMOTIDINE 20 MG TAB PO SCH (08:33)
[2023-10-07] MEDS: MORPHINE SULFATE 4 MG/ML SYRINGE IV PRN (08:42)
[2023-10-07 10:20] LABS: Basophils # (M) 0.03 k/uL (0-0.2); Lymphocytes # (M) 0.62 k/uL (1.0-4.8); Metamyelocytes # (M) 0.03 k/uL (0); Metamyelocytes % 1 %; Monocytes # (M) 0.39 k/uL (0-1.0); Neutrophils # (M) 1.48 k/uL (1.3-7.7); Neutrophils % (M) 57 %; Nucleated Red Blood Cells 0 /100 WBC (0-0); RBC Morphology Normal; Total Cells Counted 200
--- NOTE | 2023-10-07 10:38 | US ---
EXAMINATION TYPE: US abdomen complete DATE OF EXAM: 10/07/2023 COMPARISON: CT 10/05/2013 without contrast. MR MRCP 12/22/2022. CLINICAL INDICATION: Female, 78 years old with history of r/u cholecysitis vs biliary stone, r/u lt r enal v thrombosis; TECHNIQUE: Multiple sonographic images of the abdomen are obtained. Exam done portable. FINDINGS: EXAM MEASUREMENTS: Liver Length: 15.2 cm Gallbladder Wall: 0.3 cm CBD: 1.5 cm Spleen: 11.4 cm Right Kidney: 8.9 x 5.4 x 4.7 cm Left Kidney: 10.1 x 4.1 x 4.6 cm Pancreas: duct seen measuring 0.4cm--seems stable from MRI; 2.4 x 1.9 x 1.9cm circumscribed cyst kofi t appears to be within body of pancreas--seems stable from MRI Liver: multiple small cysts seen, similar to MRI Gallbladder: Hydropic, 10.9 cm in length. No definite shadowing gallstone demonstrated. Evidence for sonographic Herr's sign: no CBD: dilated, no stone seen within visualized portions of duct Spleen: visualized portions wnl, limited by overlying bowel gas . Vascular flow demonstrated in the splenic hilum. Right Kidney: cortical thinning , no evidence of mass or hydronephrosis Left Kidney: cortical thinning, no evidence of mass or hydronephrosis. A 0.6cm echogenic shadowing f ocus midpole, 1.3cm cyst superior pole, color flow seen within distended portion of left renal vein Upper IVC: wnl Abd Aorta: atherosclerotic changes. Proximally 1.8 cm, mid 1.6 cm, distal 1.7 cm. Left renal vein: Demonstrates normal venous waveforms and color flow, particularly in the distended p ortion as was identified on CT. IMPRESSION: 1. Bilateral renal cortical thinning and increased echogenicity suggesting chronic medical renal dis ease. 2. A 0.6 cm calculus in the mid pole left kidney. No hydronephrosis. 3. Small cyst superior pole left kidney. 4. Left renal vein shows no evidence of thrombosis. There is normal waveform and color flow seen, in cluding the distended portion. 5. Mildly dilated pancreatic duct and circumscribed cystic lesion in the pancreatic body, similar to prior MRI. 6. Dilated CBD with no clear evidence of stone in the visualized portions of the duct. 7. Hydropic appearing gallbladder, without evidence of significant pericholecystic fluid. No sonogra phic Herr's sign was elicited. 8. Circumscribed cystic lesion in the body of the pancreas and mild pancreatic ductal dilatation, se em stable compared to prior MRI. RECOMMENDATION: MRI/MRCP may be of benefit for follow-up evaluation, as clinically indicated.
[2023-10-07 11:19] LABS: Glucose,Whole Blood 108 mg/dL (70-110)
--- NOTE | 2023-10-07 11:30 | P.PN ---
Subjective Patient is seen for follow-up for end-stage renal disease. She was readmitted with urine retention and hypoglycemia. Blood sugars have improved. Bansal catheter was removed yesterday but replaced due to continued urine retention. Tolerated hemodialysis well yesterday. Objective - Vital Signs Vital signs: Vital Signs Temp 98.2 F 10/07/23 07:35 Pulse 70 10/07/23 07:35 Resp 18 10/07/23 07:35 BP 194/63 10/07/23 07:35 Pulse Ox 95 10/07/23 07:35 FiO2 Intake & Output 10/06/23 10/07/23 10/07/23 18:59 06:59 18:59 Intake Total 500 Output Total 1875 300 Balance -1375 -300 Intake: Hemodialysis 500 Output: Urine 375 300 Hemodialysis 1500 Other: Voiding Method Bedside Commode Indwelling Catheter Diaper - Exam Patient is awake, comfortable, no acute distress Examination of the heart S1 and S2 Examination of the lungs bilateral breath sounds are heard Abdomen is soft nontender Examination lower extremity shows no edema. BIOINFORMATICS RESEARCH TECHNICIAN exam grossly intact - Labs CBC & Chem 7: 10/07/23 06:38 10/07/23 06:38 Labs: Abnormal Lab Results - Last 24 Hours (Table) 10/06/23 10/06/23 10/06/23 Range/Units 05:44 11:29 16:44 WBC (3.8-10.6) k/uL RBC (3.80-5.40) m/uL Hgb (11.4-16.0) gm/dL Hct (34.0-46.0) % Plt Count (150-450) k/uL Lymphocytes # (Manual) (1.0-4.8) k/uL Metamyelocytes # (Man) (0) k/uL Anion Gap 13.50 H (4.00-12.00) mmol/L BUN 49.2 H (9.0-27.0) mg/dL Creatinine 4.4 H (0.6-1.5) mg/dL Est GFR (CKD-EPI) 10 L (>=60) BUN/Creatinine Ratio 11.18 L (12.00-20.00) Ratio Glucose 178 H (70-110) mg/dL POC Glucose (mg/dL) 181 H 182 H (70-110) mg/dL AST 39 H (13-35) U/L ALT 48 H (8-44) U/L Total Protein 5.0 L (6.2-8.2) g/dL Albumin 3.1 L (3.8-4.9) g/dL 10/06/23 10/07/23 10/07/23 Range/Units 21:06 06:38 06:38 WBC 2.6 L (3.8-10.6) k/uL RBC 2.94 L (3.80-5.40) m/uL Hgb 9.8 L (11.4-16.0) gm/dL Hct 29.0 L (34.0-46.0) % Plt Count 143 L (150-450) k/uL Lymphocytes # (Manual) 0.62 L (1.0-4.8) k/uL Metamyelocytes # (Man) 0.03 H (0) k/uL Anion Gap (4.00-12.00) mmol/L BUN 34 H (9.0-27.0) mg/dL Creatinine 3.05 H (0.6-1.5) mg/dL Est GFR (CKD-EPI) (>=60) BUN/Creatinine Ratio (12.00-20.00) Ratio Glucose 104 H (70-110) mg/dL POC Glucose (mg/dL) 215 H (70-110) mg/dL AST 45 H (13-35) U/L ALT 42 H (8-44) U/L Total Protein 5.4 L (6.2-8.2) g/dL Albumin 3.0 L (3.8-4.9) g/dL Assessment and Plan Assessment: 1. End-stage renal disease on hemodialysis on a Sunday schedule 2. Urine retention, status post indwelling Bansal catheter. Bansal catheter was removed but reinserted due to continued urine retention. 3. Possible pancreatitis, tolerating oral intake 4. Status post fall with sacral fracture with conservative management. 5. Hypertension with CKD stage V Plan: Continue with Bansal catheter Hemodialysis on a Sunday schedule.
--- NOTE | 2023-10-07 12:34 | P.GSCN ---
History of Present Illness Consult date: 10/07/23 History of present illness: Patient seen and evaluated. She is just finished tolerating her meatloaf and corn. She reports chronic back pain including having a feng in her right shoulder. She comes in with kidney failure on dialysis. She also sees Dr. Live for cardiology and has pre-existing heart murmur. Clinical labs demonstrate elevated LFTs. CT of the abdomen pelvis independently reviewed demonstrates hydropic gallbladder with presence of gallstones. On exam, right upper quadrant is swollen full and increased heat. Ultrasound demonstrated mildly thickened gallbladder wall. In the clinical setting, findings consistent with cholecystitis. Recommend cardiac risk assessment. Also may benefit from HIDA scan to confirm cholecystitis due to high risk nature and end-stage renal disease. 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 gout ,anemia, psoriatic arthritis,heart murmur History of Any Multi-Drug Resistant Organisms: None Reported Past Surgical History: Orthopedic Surgery, Tubal Ligation Additional Past Surgical History / Comment(s): 1 oophorectomy, 1 partial oophorectomy,fx rt shoulder feng present, cataracts removed jack eyes, fistula left arm Past Anesthesia/Blood Transfusion Reactions: Motion Sickness Past Psychological History: No Psychological Hx Reported Smoking Status: Never smoker Past Alcohol Use History: None Reported Past Drug Use History: None Reported - Past Family History Sister(s) Family Medical History: Cancer Additional Family Medical History / Comment(s): breast cancer Medications and Allergies Home Medications Medication Instructions Recorded Confirmed Type Ascorbic Acid [Vitamin C] 500 mg PO DAILY 06/30/20 10/05/23 History Aspirin [Adult Low Dose Aspirin EC] 81 mg PO DAILY 06/30/20 10/05/23 History Febuxostat [Uloric] 40 mg PO DAILY 06/30/20 10/05/23 History Multivitamins, Thera [Multivitamin 1 tab PO DAILY 06/30/20 10/05/23 History (formulary)] Simvastatin [Zocor] 20 mg PO HS 06/30/20 10/05/23 History amLODIPine BESYLATE 10 mg PO DAILY 06/30/20 10/05/23 History hydrALAZINE HCL [Apresoline] 100 mg PO TID 06/30/20 10/05/23 History Furosemide [Lasix] 60 mg PO TID@0800,1200,1700 09/21/22 10/05/23 History Insulin Degludec [Tresiba] 22 units SQ DAILY 09/21/22 10/05/23 History Nephro-Hilary 1 tab PO DAILY 09/21/22 10/05/23 History carvediloL [Coreg] 25 mg PO BID 09/21/22 10/05/23 History Cholecalciferol [Vitamin D3 (25 25 mcg PO DAILY 05/30/23 10/05/23 History Mcg = 1000 Iu)] Insulin Lispro [humaLOG Kwikpen] 4 units SQ AC-TID 05/30/23 10/05/23 History Insulin Lispro [humaLOG Kwikpen] See Protocol SQ AC-TID 05/30/23 10/05/23 History lisinopriL [Prinivil] 10 mg PO DAILY 05/30/23 10/05/23 History Acetaminophen Tab [Tylenol] 650 mg PO Q4H PRN 08/28/23 10/05/23 History L.acidoph,Paracasei, B.lactis 1 cap PO BID@0800,1700 08/28/23 10/05/23 History [Probiotic] HYDROcodone/APAP 10-325MG [[place] 1 tab PO Q4HR PRN 30 Days #120 tab 10/04/23 10/05/23 Rx 10-325] Darbepoetin Matthew [Aranesp] 40 mcg SQ TU 10/05/23 10/05/23 History Magnesium Hydroxide [Milk of 7,200 mg PO DAILY PRN 10/05/23 10/05/23 History Magnesia Concentrate] Na Phos,M-B/Na Phos,Di-Ba [Fleet 133 ml RECTAL DAILY PRN 10/05/23 10/05/23 History Adult] bisacodyL [Dulcolax] 10 mg RECTAL DAILY PRN 10/05/23 10/05/23 History Allergies Allergy/AdvReac Type Severity Reaction Status Date / Time adhesive tape Allergy Itching Verified 10/01/23 07:41 levofloxacin [From Levaquin] Allergy Unknown Verified 10/01/23 07:41 Surgical - Exam Vital Signs Temp Pulse Resp BP Pulse Ox 97.6 F 58 L 14 152/59 95 10/05/23 05:11 10/05/23 05:11 10/05/23 05:11 10/05/23 05:11 10/05/23 05:11 Results - Labs 10/07/23 06:38 10/07/23 06:38 Abnormal Lab Results - Last 24 Hours (Table) 10/06/23 10/06/23 10/07/23 Range/Units 16:44 21:06 06:38 WBC 2.6 L (3.8-10.6) k/uL RBC 2.94 L (3.80-5.40) m/uL Hgb 9.8 L (11.4-16.0) gm/dL Hct 29.0 L (34.0-46.0) % Plt Count 143 L (150-450) k/uL Lymphocytes # (Manual) 0.62 L (1.0-4.8) k/uL Metamyelocytes # (Man) 0.03 H (0) k/uL BUN (7-17) mg/dL Creatinine (0.52-1.04) mg/dL Glucose (74-99) mg/dL POC Glucose (mg/dL) 182 H 215 H (70-110) mg/dL AST (14-36) U/L ALT (4-34) U/L Total Protein (6.3-8.2) g/dL Albumin (3.5-5.0) g/dL 10/07/23 Range/Units 06:38 WBC (3.8-10.6) k/uL RBC (3.80-5.40) m/uL Hgb (11.4-16.0) gm/dL Hct (34.0-46.0) % Plt Count (150-450) k/uL Lymphocytes # (Manual) (1.0-4.8) k/uL Metamyelocytes # (Man) (0) k/uL BUN 34 H (7-17) mg/dL Creatinine 3.05 H (0.52-1.04) mg/dL Glucose 104 H (74-99) mg/dL POC Glucose (mg/dL) (70-110) mg/dL AST 45 H (14-36) U/L ALT 42 H (4-34) U/L Total Protein 5.4 L (6.3-8.2) g/dL Albumin 3.0 L (3.5-5.0) g/dL Diabetes panel 10/07/23 Range/Units 06:38 Sodium 137 (137-145) mmol/L Potassium 4.1 (3.5-5.1) mmol/L Chloride 104 (98-107) mmol/L Carbon Dioxide 25 (22-30) mmol/L BUN 34 H (7-17) mg/dL Creatinine 3.05 H (0.52-1.04) mg/dL Glucose 104 H (74-99) mg/dL Calcium 9.4 (8.4-10.2) mg/dL AST 45 H (14-36) U/L ALT 42 H (4-34) U/L Alkaline Phosphatase 71 (38-126) U/L Total Protein 5.4 L (6.3-8.2) g/dL Albumin 3.0 L (3.5-5.0) g/dL Calcium panel 10/07/23 Range/Units 06:38 Calcium 9.4 (8.4-10.2) mg/dL Albumin 3.0 L (3.5-5.0) g/dL Pituitary panel 10/07/23 Range/Units 06:38 Sodium 137 (137-145) mmol/L Potassium 4.1 (3.5-5.1) mmol/L Chloride 104 (98-107) mmol/L Carbon Dioxide 25 (22-30) mmol/L BUN 34 H (7-17) mg/dL Creatinine 3.05 H (0.52-1.04) mg/dL Glucose 104 H (74-99) mg/dL Calcium 9.4 (8.4-10.2) mg/dL Adrenal panel 10/07/23 Range/Units 06:38 Sodium 137 (137-145) mmol/L Potassium 4.1 (3.5-5.1) mmol/L Chloride 104 (98-107) mmol/L Carbon Dioxide 25 (22-30) mmol/L BUN 34 H (7-17) mg/dL Creatinine 3.05 H (0.52-1.04) mg/dL Glucose 104 H (74-99) mg/dL Calcium 9.4 (8.4-10.2) mg/dL Total Bilirubin 0.6 (0.2-1.3) mg/dL AST 45 H (14-36) U/L ALT 42 H (4-34) U/L Alkaline Phosphatase 71 (38-126) U/L Total Protein 5.4 L (6.3-8.2) g/dL Albumin 3.0 L (3.5-5.0) g/dL
--- NOTE | 2023-10-07 13:35 | P.PN ---
Subjective Progress Note Date: 10/07/23 78 years old female who was recently discharged from the hospital few days ago for sacral fracture, at that time evaluated by orthopedic team and physical therapy then plan for her to go to subacute rehab however she was sent back because of altered mental status secondary to hypoglycemia with a glucose was 50, 44 on admission. Also on admission patient had abdominal pain and CT of the abdomen and pelvis was concerning for biliary stone as well as dilated left kidney veins suspicious for renal vein thrombosis. Because of this patient was admitted to the hospital. Most likely patient will require more than 2 nights of hospitalization Nephrology team following closely for hemodialysis for end-stage renal disease. Long-acting insulin Tresiba 22 units was held and continued on short acting insulin 4 units with meal. We adjusted dose to Levemir 5 units daily and NovoLog 3 units with meals, currently her sugars controlled around 180. Her abdominal pain improving but not resolved. We will order ultrasound of the liver to rule out gallbladder disease versus biliary disease as showing 9 mm stone in the distal bile duct with rotation and hydropic gallbladder. Also will consult surgery team. Patient has mild transaminitis as well She has evidence also of dilated left renal veins suspicious for renal vein thrombosis, therefore renal Doppler is ordered on the left side Other than that her mentation is improved back to baseline with improvement of her sugar She denies any other new complaint 10/07/23: Patient seen and evaluated bedside. Ultrasound liver does show dilated CBD with no clear evidence of stone. However MRI recommended will order MRCP. Circumcised lesion in the body of pancreas noted mild pancreatic duct dilatation. 0.6 cm calculus midpole left kidney noted no hydronephrosis left renal vein shows no evidence of thrombosis. Liver profile reviewed bilirubin normal AST 45 ALT 42 patient denies abdominal discomfort PHYSICAL EXAMINATION: GENERAL: The patient is alert and oriented x3, chronic ill appearance HEENT: Pupils are round and equally reacting to light. EOMI. CARDIOVASCULAR: S1 and S2 present. No murmurs, rubs, or gallops. PULMONARY: Chest is clear to auscultation, no wheezing or crackles. ABDOMEN: Soft, nontender, nondistended, normoactive bowel sounds. No palpable organomegaly. MUSCULOSKELETAL: No joint swelling or deformity. EXTREMITIES: No cyanosis, clubbing, or pedal edema. NEUROLOGICAL: Gross neurological examination did not reveal any focal deficits. SKIN: No rashes. 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 Mild cardiomegaly with anasarca * In regards to encephalopathy mentation has improved patient alert and oriented x 3, continue to monitor renal profile * In regards to diabetes mellitus, blood glucose ranging between 100-200, monitor for hypoglycemia, continue Levemir and NovoLog * 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 MRCP ordered, HIDA scan ordered by surgery * In regards to acute renal failure on chronic kidney disease nephrology following * Follow-up on CBC and basic metabolic panel Objective - Vital Signs Vital signs: Vital Signs Temp 98.2 F 10/07/23 07:35 Pulse 70 10/07/23 07:35 Resp 18 10/07/23 07:35 BP 194/63 10/07/23 07:35 Pulse Ox 95 10/07/23 07:35 FiO2 Intake & Output 10/06/23 10/07/23 10/07/23 18:59 06:59 18:59 Intake Total 500 Output Total 1875 300 Balance -1375 -300 Intake: Hemodialysis 500 Output: Urine 375 300 Hemodialysis 1500 Other: Voiding Method Bedside Commode Indwelling Catheter Diaper - Labs CBC & Chem 7: 10/07/23 06:38 10/07/23 06:38 Labs: Abnormal Lab Results - Last 24 Hours (Table) 10/06/23 10/06/23 10/07/23 Range/Units 16:44 21:06 06:38 WBC 2.6 L (3.8-10.6) k/uL RBC 2.94 L (3.80-5.40) m/uL Hgb 9.8 L (11.4-16.0) gm/dL Hct 29.0 L (34.0-46.0) % Plt Count 143 L (150-450) k/uL Lymphocytes # (Manual) 0.62 L (1.0-4.8) k/uL Metamyelocytes # (Man) 0.03 H (0) k/uL BUN (7-17) mg/dL Creatinine (0.52-1.04) mg/dL Glucose (74-99) mg/dL POC Glucose (mg/dL) 182 H 215 H (70-110) mg/dL AST (14-36) U/L ALT (4-34) U/L Total Protein (6.3-8.2) g/dL Albumin (3.5-5.0) g/dL 10/07/23 Range/Units 06:38 WBC (3.8-10.6) k/uL RBC (3.80-5.40) m/uL Hgb (11.4-16.0) gm/dL Hct (34.0-46.0) % Plt Count (150-450) k/uL Lymphocytes # (Manual) (1.0-4.8) k/uL Metamyelocytes # (Man) (0) k/uL BUN 34 H (7-17) mg/dL Creatinine 3.05 H (0.52-1.04) mg/dL Glucose 104 H (74-99) mg/dL POC Glucose (mg/dL) (70-110) mg/dL AST 45 H (14-36) U/L ALT 42 H (4-34) U/L Total Protein 5.4 L (6.3-8.2) g/dL Albumin 3.0 L (3.5-5.0) g/dL
[2023-10-07 16:32] LABS: Glucose,Whole Blood 167 mg/dL (70-110)
[2023-10-07] MEDS: TAMSULOSIN 0.4 MG CAP.ER.24H PO SCH (19:04)
[2023-10-07 20:24] LABS: Glucose,Whole Blood 149 mg/dL (70-110)
[2023-10-08 06:03] LABS: Glucose,Whole Blood 131 mg/dL (70-110)
[2023-10-08 08:21] LABS: HCT 28.4 % (37.2-46.3); HGB 9.2 g/dL (12.0-15.0); MCHC 32.4 g/dL (32.0-37.0); MCV 101.8 FL (80.0-97.0); Mean Platelet Volume 10.4 FL (9.5-12.2); NRBC Per 100 WBC 0 X 10*3/uL (0.00-0.01); Platelet Count 141 X 10*3/uL (140-440); RBC 2.79 X 10*6/uL (4.10-5.20); RDW 14.5 % (11.5-14.5); WBC 2.98 X 10*3/uL (4.50-10.00)
[2023-10-08 08:28] LABS: ALT 30 U/L (8-44); AST 28 U/L (13-35); Albumin 3.3 g/dL (3.8-4.9); Albumin/Globulin Ratio 1.65 Ratio (1.60-3.17); Alkaline Phosphatase 63 U/L (41-126); BUN/Creat Ratio 9.21 Ratio (12.00-20.00); Blood Urea Nitrogen 43.3 mg/dL (9.0-27.0); Calcium 9.6 mg/dL (8.7-10.3); Carbon Dioxide 27.8 mmol/L (21.6-31.8); Chloride 101 mmol/L (96-109); Glucose 124 mg/dL (70-110); Potassium 5.1 mmol/L (3.5-5.5); Sodium 141 mmol/L (135-145); Total Bilirubin 0.3 mg/dL (0.3-1.2); Total Protein 5.3 g/dL (6.2-8.2)
--- NOTE | 2023-10-08 08:38 | P.PN ---
Subjective Progress Note Date: 10/08/23 Principal diagnosis: ams,hpoglycemia This is a 78-year-old female who was recently discharged from the hospital last week for sacral fracture. She was discharged to [facility] and sent back to the ER for hypoglycemia and altered mental status. Patient's blood sugar was 44 on admission. Patient's blood sugars have stabilized. Insulin has been adjusted. She remains on a [facility] hemod[facility] schedule. Patient also has some urinary retention this admission and currently has a sánchez catheter. She is currently being evaluated for possible cholecysitis and an MRCP has been ordered. Patient is seen and evaluated laying in bed this morning with no complaints. Objective - Vital Signs Vital signs: Vital Signs Temp 97.8 F 10/08/23 07:30 Pulse 74 10/08/23 07:30 Resp 18 10/08/23 07:30 BP 174/62 10/08/23 07:30 Pulse Ox 99 10/08/23 07:30 FiO2 Intake & Output 10/07/23 10/08/23 10/08/23 18:59 06:59 18:59 Output Total 400 600 Balance -400 -600 Output: Urine 400 600 - Constitutional General appearance: Present: cooperative, no acute distress - EENT Eyes: Present: PERRLA - Neck Neck: Present: normal ROM. Absent: lymphadenopathy, rigidity - Respiratory Respiratory: bilateral: CTA - Cardiovascular Rhythm: regular Heart sounds: normal: S1, S2 - Gastrointestinal General gastrointestinal: Present: soft. Absent: tenderness - Integumentary Integumentary: Present: normal, normal turgor - Musculoskeletal Musculoskeletal: Present: generalized weakness - Psychiatric Psychiatric: Present: A&O x's 3 - Labs CBC & Chem 7: 10/08/23 06:16 10/08/23 06:16 Labs: Abnormal Lab Results - Last 24 Hours (Table) 10/07/23 10/07/23 10/07/23 Range/Units 06:38 16:30 20:23 WBC 2.6 L (3.8-10.6) k/uL RBC 2.94 L (3.80-5.40) m/uL Hgb 9.8 L (11.4-16.0) gm/dL Hct 29.0 L (34.0-46.0) % MCV (80.0-97.0) FL MCH (27.0-32.0) pg Plt Count 143 L (150-450) k/uL Lymphocytes # (Manual) 0.62 L (1.0-4.8) k/uL Metamyelocytes # (Man) 0.03 H (0) k/uL Anion Gap (4.00-12.00) mmol/L BUN (9.0-27.0) mg/dL Creatinine (0.6-1.5) mg/dL Est GFR (CKD-EPI) (>=60) BUN/Creatinine Ratio (12.00-20.00) Ratio Glucose (70-110) mg/dL POC Glucose (mg/dL) 167 H 149 H (70-110) mg/dL Total Protein (6.2-8.2) g/dL Albumin (3.8-4.9) g/dL 10/08/23 10/08/23 10/08/23 Range/Units 06:02 06:16 06:16 WBC 2.98 L (3.8-10.6) k/uL RBC 2.79 L (3.80-5.40) m/uL Hgb 9.2 L (11.4-16.0) gm/dL Hct 28.4 L (34.0-46.0) % MCV 101.8 H (80.0-97.0) FL MCH 33.0 H (27.0-32.0) pg Plt Count (150-450) k/uL Lymphocytes # (Manual) (1.0-4.8) k/uL Metamyelocytes # (Man) (0) k/uL Anion Gap 12.20 H (4.00-12.00) mmol/L BUN 43.3 H (9.0-27.0) mg/dL Creatinine 4.7 H (0.6-1.5) mg/dL Est GFR (CKD-EPI) 9 L (>=60) BUN/Creatinine Ratio 9.21 L (12.00-20.00) Ratio Glucose 124 H (70-110) mg/dL POC Glucose (mg/dL) 131 H (70-110) mg/dL Total Protein 5.3 L (6.2-8.2) g/dL Albumin 3.3 L (3.8-4.9) g/dL Assessment and Plan (1) Altered mental status Current Visit: Yes Status: Acute Code(s): R41.82 - ALTERED MENTAL STATUS, UNSPECIFIED SNOMED Code(s): 082878359 (2) Delirium due to general medical condition Current Visit: Yes Status: Acute Code(s): F05 - DELIRIUM DUE TO KNOWN PHYSIOLOGICAL CONDITION SNOMED Code(s): 3080614 (3) Hypoglycemia Current Visit: Yes Status: Acute Code(s): E16.2 - HYPOGLYCEMIA, UNSPECIFIED SNOMED Code(s): 911573194 (4) Weakness Current Visit: Yes Status: Acute Code(s): R53.1 - WEAKNESS SNOMED Code(s): 83168218 (5) End stage renal disease on dialysis Current Visit: No Status: Acute Code(s): N18.6 - END STAGE RENAL DISEASE; Z99.2 - DEPENDENCE ON RENAL DIALYSIS SNOMED Code(s): 773014484 (6) Hyperlipidemia Current Visit: No Status: Acute Code(s): E78.5 - HYPERLIPIDEMIA, UNSPECIFIED SNOMED Code(s): 23171346 (7) Sacral fracture Current Visit: No Status: Acute Code(s): S32.10XA - UNSP FRACTURE OF SACRUM, INIT ENCNTR FOR CLOSED FRACTURE SNOMED Code(s): 890321738 (8) Type 2 diabetes mellitus with diabetic nephropathy Current Visit: No Status: Acute Code(s): E11.21 - TYPE 2 DIABETES MELLITUS WITH DIABETIC NEPHROPATHY SNOMED Code(s): 76862473 Plan: Await results of MRCP Check CBC and CMP in the morning. Patient seen and evaluated by nurse practitioner, physician in agreement with plan
--- NOTE | 2023-10-08 10:09 | CA ---
Transthoracic Echo Report Name: Belgica Velásquez Age: 78 Gender: F : 1945 Exam Date: 10/08/2023 09:06 Exam Location: [facility] Ht (in): 65 Wt (lb): 150 Ordering Physician: Berna Sky Attending/Referring Phys: [id number], [facility] Teri Carrillo RCS Procedure CPT: Indications: LV function Cardiac Hx: Technical Quality: Good Contrast 1: Total Dose (mL): Contrast 2: Total Dose (mL): MEASUREMENTS (Male / Female) Normal Values 2D ECHO LV Diastolic Diameter PLAX 5.3 cm 4.2 - 5.9 / 3.9 - 5.3 cm LV Systolic Diameter PLAX 3.2 cm IVS Diastolic Thickness 0.9 cm 0.6 - 1.0 / 0.6 - 0.9 cm LVPW Diastolic Thickness 1.1 cm 0.6 - 1.0 / 0.6 - 0.9 cm LV Relative Wall Thickness 0.4 RV Internal Dim ED PLAX 2.5 cm LVOT Diameter 2.1 cm Aortic Root Diameter 2.4 cm LV Diastolic Volume MOD BP 115.0 cm??? 67 - 155 / 56 - 104 cm??? LV Systolic Volume MOD BP 29.5 cm??? 22 - 58 / 19 - 49 cm??? LV Ejection Fraction MOD BP 74.3 % >= 55 % LV Cardiac Index MOD BP 3560.0 cm???/min???m??? LV Diastolic Volume MOD 4C 113.7 cm??? LV Systolic Volume MOD 4C 26.9 cm??? LV Ejection Fraction MOD 4C 76.4 % LV Cardiac Index MOD 4C 3618.2 cm???/min???m??? LV Diastolic Length 4C 8.9 cm LV Systolic Length 4C 6.7 cm LV Diastolic Volume MOD 2C 108.6 cm??? LV Systolic Volume MOD 2C 30.6 cm??? LV Ejection Fraction MOD 2C 71.8 % LV Cardiac Index MOD 2C 3247.3 cm???/min???m??? LV Diastolic Length 2C 8.3 cm LV Systolic Length 2C 7.1 cm LA Volume 63.1 cm??? 18 - 58 / 22 - 52 cm??? LA Volume Index 35.5 cm???/m??? 16 - 28 cm???/m??? Ascending Aorta Diameter 2.8 cm DOPPLER AV Peak Velocity 196.7 cm/s AV Peak Gradient 15.5 mmHg AV Mean Velocity 127.3 cm/s AV Mean Gradient 7.3 mmHg AV Velocity Time Integral 44.4 cm LVOT Peak Velocity 128.4 cm/s LVOT Peak Gradient 6.6 mmHg LVOT Velocity Time Integral 29.5 cm LVOT Stroke Volume 100.1 cm??? LVOT Stroke Volume Index 57.2 ml/m??? LVOT Cardiac Index 4168.8 cm???/min???m??? AV Area Cont Eq vti 2.3 cm??? AV Area Cont Eq pk 2.2 cm??? MV Peak Velocity 149.4 cm/s MV Peak Gradient 8.9 mmHg MV Mean Velocity 105.7 cm/s MV Mean Gradient 4.9 mmHg MV Velocity Time Integral 44.4 cm Mitral E Point Velocity 131.9 cm/s Mitral A Point Velocity 125.4 cm/s Mitral E to A Ratio 1.1 MV Deceleration Time 331.0 ms MV E' Velocity 5.6 cm/s Mitral E to MV E' Ratio 23.4 PV Peak Velocity 120.6 cm/s PV Peak Gradient 5.8 mmHg FINDINGS Left Ventricle Left ventricular ejection fraction is estimated at 65-70 %.. Mildly increased left ventricular diastolic volume. Left ventricular cavity size at the upper limits of normal. No obvious regional wall motion abnormalities. Right Ventricle Normal right ventricular size and function. Unable to determine right ventricular systolic pressure. Right Atrium Normal right atrial size. Left Atrium Moderately increased left atrial volume. Mildly increased left atrial area. Mitral Valve Mitral valve thickened. Mitral annular calcification. Trace mitral regurgitation. Mild mitral stenosis. Aortic Valve Trileaflet aortic valve. No aortic valve stenosis or regurgitation. Tricuspid Valve Structurally normal tricuspid valve. No tricuspid stenosis, regurgitation or prolapse. Pulmonic Valve Structurally normal pulmonic valve. No pulmonic stenosis. No pulmonic regurgitation. Pericardium No pericardial effusion. Aorta Normal size aortic root and proximal ascending aorta. CONCLUSIONS normal lv function Mild mitral stenosis Aortic sclerosis without any stenosis Previewed by: Dr. Russell Dupree MD (Electronically Signed) Final Date: 08 October 2023 10:09
[2023-10-08] MEDS: cloNIDine HCL 0.2 MG TAB PO SCH (10:14)
--- NOTE | 2023-10-08 10:14 | P.CRDCN ---
History of Present Illness History of present illness: HISTORY OF PRESENT ILLNESS: This is a 78-year-old female with a past medical history significant for hypertension, hyperlipidemia, diabetes, and end-stage renal disease on hemodialysis. Patient follows in the office with Dr. Live. We have been asked to see the patient in consultation for cardiac risk assessment. Patient examined at the bedside. Patient was initially brought to the hospital secondary to altered mental status. Patient is being followed by general surgery for possi ble cholecystitis. She is scheduled to undergo HIDA scan today. There is no definite surgery planned at this time. Patient currently denies any chest pain or pressure. She denies any shortness of breath. She reports mild abdominal pain this morning. Blood pressure is elevated this morning with a systolic range between [id number]. DIAGNOSTICS: - EKG reveals sinus mechanism with no signs of acute ischemia. -CT abdomen pelvis: 9 mm stone in the distal bile duct with moderate biliary ductal dilation. Gallbladder hydrops probably relates to biliary obstruction. Distended appearance of the left renal vein may be normal variation. Consider ultrasound/Doppler assessment to rule out any renal vein thrombosis. Mild cardiomegaly and mild anasarca changes. Tiny hiatal hernia. -Abdominal ultrasound bilateral renal cortical thinning and increased echogenicity suggesting chronic medical renal disease. 0.6 mm calculus in the midpole left kidney. No hydronephrosis. Small cyst superior pole left kidney. Left renal vein shows no evidence of thrombosis. Mildly dilated pancreatic duct and circumscribed cystic lesion in the pancreatic body similar to prior MRI. Dilated common bile duct with no clear evidence of stone in the visualized portion of the duct. Hydropic appearing gallbladder without evidence of significant pericholecystic fluid. - Laboratory data: WBC 2.98. Hemoglobin 9.4. Platelet count 141. Sodium 141. Potassium 5.1. BUN 43. Creatinine 4.7. - Current home cardiac medications include lisinopril 10 mg daily, hydralazine 100 mg 3 times daily, carvedilol 25 mg twice a day, amlodipine 10 mg daily, simvastatin 20 mg at night, Lasix 60 mg twice a day, aspirin 81 mg daily. REVIEW OF SYSTEMS: At the time of my exam: CONSTITUTIONAL: Denies fever or chills. HEENT: Denies blurred vision, vision changes, or eye pain. Denies hemoptysis CARDIOVASCULAR: Denies chest pain. Denies orthopnea. Denies PND. Denies palpitations RESPIRATORY: Denies shortness of breath. GASTROINTESTINAL: Denies abdominal pain. Denies nausea or vomiting. HEMATOLOGIC: Denies bleeding disorders. GENITOURINARY: Denies any blood in urine. SKIN: Denies pruitis. Denies rash. PHYSICAL EXAM: VITAL SIGNS: Reviewed. GENERAL: Well-developed in no acute distress. HEENT: Head is normocephalic. Pupils are equal, round. Sclerae anicteric. Mucous membranes of the mouth are moist. Neck supple. No JVD or thyromegaly LUNGS: Respirations even and unlabored. Lungs essentially clear to auscultation bilaterally. HEART: Regular rate and rhythm. S1 and S2 heard. Systolic murmur noted ABDOMEN: Soft. Nondistended. Nontender. EXTREMITIES: Normal range of motion. No clubbing or cyanosis. Peripheral pulses intact. No lower extremity edema NEUROLOGIC: Awake and alert. Oriented x 3. ASSESSMENT: Altered mental status Abdominal pain Hydropic gallbladder with cholelithiasis, possible cholecystitis End-stage renal disease on hemodialysis Systolic murmur Hypertension, uncontrolled Hyperlipidemia Diabetes PLAN: Obtain 2D echo to assess cardiac structure and function Resume home cardiac medications Patient with uncontrolled blood pressures during hospitalization. Add Catapres 0.2 mg 3 times a day. Continue to monitor blood pressure General surgery following. Patient scheduled for HIDA scan today. If surgical intervention is warranted, there are no absolute contraindications for patient to proceed from a cardiac standpoint Further recommendations pending patient course Nurse practitioner note has been reviewed by physician. Signing provider agrees with the documented findings, assessment, and plan of care documented by BACON DE RINDER as a scribe. 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 gout ,anemia, psoriatic arthritis,heart murmur History of Any Multi-Drug Resistant Organisms: None Reported Past Surgical History: Orthopedic Surgery, Tubal Ligation Additional Past Surgical History / Comment(s): 1 oophorectomy, 1 partial oophorectomy,fx rt shoulder feng present, cataracts removed jack eyes, fistula left arm Past Anesthesia/Blood Transfusion Reactions: Motion Sickness Past Psychological History: No Psychological Hx Reported Smoking Status: Never smoker Past Alcohol Use History: None Reported Past Drug Use History: None Reported - Past Family History Sister(s) Family Medical History: Cancer Additional Family Medical History / Comment(s): breast cancer Medications and Allergies Home Medications Medication Instructions Recorded Confirmed Type Ascorbic Acid [Vitamin C] 500 mg PO DAILY 06/30/20 10/05/23 History Aspirin [Adult Low Dose Aspirin EC] 81 mg PO DAILY 06/30/20 10/05/23 History Febuxostat [Uloric] 40 mg PO DAILY 06/30/20 10/05/23 History Multivitamins, Thera [Multivitamin 1 tab PO DAILY 06/30/20 10/05/23 History (formulary)] Simvastatin [Zocor] 20 mg PO HS 06/30/20 10/05/23 History amLODIPine BESYLATE 10 mg PO DAILY 06/30/20 10/05/23 History hydrALAZINE HCL [Apresoline] 100 mg PO TID 06/30/20 10/05/23 History Furosemide [Lasix] 60 mg PO TID@0800,1200,1700 09/21/22 10/05/23 History Insulin Degludec [Tresiba] 22 units SQ DAILY 09/21/22 10/05/23 History Nephro-Hilary 1 tab PO DAILY 09/21/22 10/05/23 History carvediloL [Coreg] 25 mg PO BID 09/21/22 10/05/23 History Cholecalciferol [Vitamin D3 (25 25 mcg PO DAILY 05/30/23 10/05/23 History Mcg = 1000 Iu)] Insulin Lispro [humaLOG Kwikpen] 4 units SQ AC-TID 05/30/23 10/05/23 History Insulin Lispro [humaLOG Kwikpen] See Protocol SQ AC-TID 05/30/23 10/05/23 History lisinopriL [Prinivil] 10 mg PO DAILY 05/30/23 10/05/23 History Acetaminophen Tab [Tylenol] 650 mg PO Q4H PRN 08/28/23 10/05/23 History L.acidoph,Paracasei, B.lactis 1 cap PO BID@0800,1700 08/28/23 10/05/23 History [Probiotic] HYDROcodone/APAP 10-325MG [Hodgen 1 tab PO Q4HR PRN 30 Days #120 tab 10/04/23 10/05/23 Rx 10-325] Darbepoetin Matthew [Aranesp] 40 mcg SQ TU 10/05/23 10/05/23 History Magnesium Hydroxide [Milk of 7,200 mg PO DAILY PRN 10/05/23 10/05/23 History Magnesia Concentrate] Na Phos,M-B/Na Phos,Di-Ba [Fleet 133 ml RECTAL DAILY PRN 10/05/23 10/05/23 History Adult] bisacodyL [Dulcolax] 10 mg RECTAL DAILY PRN 10/05/23 10/05/23 History Allergies Allergy/AdvReac Type Severity Reaction Status Date / Time adhesive tape Allergy Itching Verified 10/01/23 07:41 levofloxacin [From Levaquin] Allergy Unknown Verified 10/01/23 07:41 Physical Exam Vitals: Vital Signs Temp Pulse Resp BP Pulse Ox 10/08/23 07:30 97.8 F 74 18 174/62 99 10/08/23 01:35 98.6 F 75 16 159/68 98 10/07/23 19:20 98.7 F 69 17 155/70 98 10/07/23 14:00 97.8 F 65 16 123/54 97 Intake and Output 10/07/23 10/08/23 10/08/23 22:59 06:59 14:59 Output Total 400 600 Balance -400 -600 Output: Urine 400 600 Results 10/08/23 06:16 10/08/23 06:16 Cardiac Enzymes 10/07/23 Range/Units 06:38 AST 45 H (14-36) U/L CBC 10/07/23 Range/Units 06:38 WBC 2.6 L (3.8-10.6) k/uL RBC 2.94 L (3.80-5.40) m/uL Hgb 9.8 L (11.4-16.0) gm/dL Hct 29.0 L (34.0-46.0) % Plt Count 143 L (150-450) k/uL Comprehensive Metabolic Panel 10/07/23 Range/Units 06:38 Sodium 137 (137-145) mmol/L Potassium 4.1 (3.5-5.1) mmol/L Chloride 104 (98-107) mmol/L Carbon Dioxide 25 (22-30) mmol/L BUN 34 H (7-17) mg/dL Creatinine 3.05 H (0.52-1.04) mg/dL Glucose 104 H (74-99) mg/dL Calcium 9.4 (8.4-10.2) mg/dL Unconjugated Bilirubin 0.2 (0.0-1.1) mg/dL AST 45 H (14-36) U/L ALT 42 H (4-34) U/L Alkaline Phosphatase 71 (38-126) U/L Total Protein 5.4 L (6.3-8.2) g/dL Albumin 3.0 L (3.5-5.0) g/dL Current Medications Generic Name Dose Route Start Last Admin Trade Name Freq PRN Reason Stop Dose Admin Acetaminophen 650 mg 10/05/23 08:20 10/06/23 23:44 Acetaminophen Tab 325 Mg Tab PO 650 mg Q4H PRN Administration Fever and/ or Pain Allopurinol 200 mg 10/05/23 09:00 10/07/23 08:32 Allopurinol 100 Mg Tab PO 200 mg DAILY SIM Administration Amlodipine Besylate 10 mg 10/05/23 09:00 10/07/23 08:33 Amlodipine 10 Mg Tab PO 10 mg DAILY SIM Administration Ascorbic Acid 500 mg 10/05/23 09:00 10/07/23 08:33 Ascorbic Acid 500 Mg Tab PO 500 mg DAILY SIM Administration Aspirin 81 mg 10/05/23 09:00 10/07/23 08:32 Aspirin 81 Mg PO 81 mg DAILY SIM Administration Atorvastatin Calcium 10 mg 10/05/23 21:00 10/07/23 20:12 Atorvastatin 10 Mg Tab PO 10 mg HS SIM Administration Carvedilol 25 mg 10/05/23 09:00 10/07/23 20:12 Carvedilol 12.5 Mg Tab PO 25 mg BID SIM Administration Cholecalciferol 25 mcg 10/05/23 09:00 10/07/23 08:32 Cholecalciferol 25 Mcg (1000 Iu) Tablet PO 25 mcg DAILY SIM Administration Darbepoetin Matthew 40 mcg 10/06/23 12:00 10/06/23 17:03 Darbepoetin Matthew 40 Mcg/0.4 Ml Syringe SQ 40 mcg Q7D SIM Administration Dextrose/Water 50 ml 10/05/23 08:23 Dextrose 50% Syringe 50 Ml IVP PER PROTOCOL PRN Hypoglycemia Protocol Dextrose/Water 25 ml 10/05/23 08:23 Dextrose 50% Syringe 50 Ml IVP PER PROTOCOL PRN Hypoglycemia Protocol Famotidine 10 mg 10/07/23 09:00 10/07/23 20:12 Famotidine 20 Mg Tab PO 10 mg BID SIM Administration Furosemide 60 mg 10/05/23 09:00 10/07/23 17:25 Furosemide 20 Mg Tab PO 60 mg AC-TID SIM Administration Heparin Sodium (Porcine) 5,000 unit 10/06/23 21:00 10/07/23 20:12 Heparin Sodium,Porcine 5,000 Unit/Ml 1 Ml Vial SQ 5,000 unit Q12HR SIM Administration Hydralazine HCl 100 mg 10/05/23 09:00 10/07/23 21:57 Hydralazine Hcl 50 Mg Tab PO 100 mg TID SIM Administration Insulin Aspart 3 unit 10/06/23 07:30 10/08/23 07:31 Insulin Aspart (Novolog) 100 Unit/Ml Vial SQ Not Given AC-TID SIM Insulin Detemir 5 unit 10/06/23 10:00 10/08/23 07:31 Insulin Detemir (Levemir) 100 Unit/Ml Syr SQ Not Given DAILY@0700 SIM Lactobacillus Acidophilus 1 each 10/05/23 09:00 10/07/23 20:12 Lactobacillus Acidophilus/Pect 1 Each Capsule PO 1 each BID SIM Administration Lisinopril 10 mg 10/05/23 09:00 10/07/23 08:33 Lisinopril 10 Mg Tab PO 10 mg DAILY SIM Administration Morphine Sulfate 4 mg 10/05/23 06:43 10/07/23 08:42 Morphine Sulfate 4 Mg/Ml Syringe IV 4 mg Q4HR PRN Administration Severe Pain (Scale 7 to 10) Multivit/Ca Carb/B Cmplx/FA/Prenat 1 each 10/05/23 09:00 10/07/23 10:09 Folic Acid-Vit B Complex-Vit C 1 Cap PO 1 each DAILY SIM Administration Multivitamins 1 each 10/05/23 09:00 10/07/23 08:32 Multivitamins, Thera 1 Each Tab PO 1 each DAILY SIM Administration Naloxone HCl 0.2 mg 10/05/23 06:43 Naloxone 0.4 Mg/Ml 1 Ml Vial IV Q2M PRN Opioid Reversal Ondansetron HCl 4 mg 10/05/23 06:43 Ondansetron 4 Mg/2 Ml Vial IVP Q8HR PRN Nausea And Vomiting Polyethylene Glycol 17 gm 10/05/23 21:52 10/06/23 20:20 Polyethylene Glycol 3350 17 Gm Powd.Pack PO 17 gm DAILY PRN Administration Constipation Tamsulosin HCl 0.4 mg 10/07/23 18:30 10/07/23 19:04 Tamsulosin 0.4 Mg Cap.Er.24h PO 0.4 mg PC-SUPPER SIM Administration Intake and Output 10/07/23 10/08/23 10/08/23 22:59 06:59 14:59 Output Total 400 600 Balance -400 -600 Output: Urine 400 600 10/07/23 06:38 10/07/23 06:38
--- NOTE | 2023-10-08 10:52 | P.PN ---
Subjective Patient is seen in follow-up for end-stage renal disease. She is maintained on hemodialysis on Sunday schedule. Resting in bed. Has Bansal catheter. No active complaints. Vital signs are stable. General: No acute distress. HEENT: Head exam is unremarkable. LUNGS: No acute distress. HEART: Rate and Rhythm are regular. ABDOMEN: Nontender. EXTREMITITES: No edema. Objective - Vital Signs Vital signs: Vital Signs Temp 97.8 F 10/08/23 07:30 Pulse 65 10/08/23 09:29 Resp 18 10/08/23 10:41 BP 182/56 10/08/23 10:16 Pulse Ox 99 10/08/23 07:30 FiO2 Intake & Output 10/07/23 10/08/23 10/08/23 18:59 06:59 18:59 Output Total 400 600 Balance -400 -600 Output: Urine 400 600 Other: Voiding Method Indwelling Catheter - Labs CBC & Chem 7: 10/08/23 06:16 10/08/23 06:16 Labs: Abnormal Lab Results - Last 24 Hours (Table) 10/07/23 10/07/23 10/08/23 Range/Units 16:30 20:23 06:02 WBC (4.50-10.00) X 10*3/uL RBC (4.10-5.20) X 10*6/uL Hgb (12.0-15.0) g/dL Hct (37.2-46.3) % MCV (80.0-97.0) FL MCH (27.0-32.0) pg Anion Gap (4.00-12.00) mmol/L BUN (9.0-27.0) mg/dL Creatinine (0.6-1.5) mg/dL Est GFR (CKD-EPI) (>=60) BUN/Creatinine Ratio (12.00-20.00) Ratio Glucose (70-110) mg/dL POC Glucose (mg/dL) 167 H 149 H 131 H (70-110) mg/dL Total Protein (6.2-8.2) g/dL Albumin (3.8-4.9) g/dL 10/08/23 10/08/23 Range/Units 06:16 06:16 WBC 2.98 L (4.50-10.00) X 10*3/uL RBC 2.79 L (4.10-5.20) X 10*6/uL Hgb 9.2 L (12.0-15.0) g/dL Hct 28.4 L (37.2-46.3) % MCV 101.8 H (80.0-97.0) FL MCH 33.0 H (27.0-32.0) pg Anion Gap 12.20 H (4.00-12.00) mmol/L BUN 43.3 H (9.0-27.0) mg/dL Creatinine 4.7 H (0.6-1.5) mg/dL Est GFR (CKD-EPI) 9 L (>=60) BUN/Creatinine Ratio 9.21 L (12.00-20.00) Ratio Glucose 124 H (70-110) mg/dL POC Glucose (mg/dL) (70-110) mg/dL Total Protein 5.3 L (6.2-8.2) g/dL Albumin 3.3 L (3.8-4.9) g/dL Assessment and Plan Plan: Assessment: 1. End-stage renal disease maintained on hemodialysis on Sunday schedule via left upper extremity AV fistula. 2. Urinary retention status post Bansal catheter placement. 3. Hypertension with chronic kidney disease. Has history of orthostatic hypotension. 4. Possible cholecystitis. MRCP pending. 5. Anemia of chronic kidney disease maintained on Aranesp. Plan: Hemodialysis tomorrow.
--- NOTE | 2023-10-08 14:49 | NM ---
EXAMINATION TYPE: NM hepatobiliary w CCK DATE OF EXAM: 10/08/2023 COMPARISON: CT 10/05/2023 CLINICAL INDICATION: Female, 78 years old with history of cholecystitis, hydrops gallbladder; TECHNIQUE: After the intravenous administration of 4.8 mCi Tc 99m Mebrofenin hepatobiliary scintigrap hy is performed. Immediate images post injection. FINDINGS: There is satisfactory initial accumulation of tracer by the liver. The gallbladder is visualized wit hin 46 minutes. The small bowel activity becomes evident after CCK administration. At 70 minutes CC K was administered, patient was injected with 1.4 mcg of Kinevac, and gallbladder ejection fraction i s calculated at 59 %, in the normal range IMPRESSION: 1. No scintigraphic evidence for acute/chronic cholecystitis or biliary dyskinesia. 2. Small bowel activity delayed until CCK administration.
--- NOTE | 2023-10-08 15:06 | P.PN ---
Subjective Progress Note Date: 10/08/23 CHIEF COMPLAINT: Hypoglycemia HISTORY OF PRESENT ILLNESS: Hydropic gallbladder with gallstones on CT. Mildly elevated LFTs. Gallbladder ultrasound thickened gallbladder wall. Patient had HIDA scan completed results pending. Patient seen by cardiology service and have cleared her for surgery. Patient's LFTs have normalized. WBC 2.98 MRCP pending patient currently denies any abdominal pain. Denies any nausea or vomiting. She was getting echocardiogram this morning. HIDA scan shows no evidence for acute/chronic cholecystitis or biliary dyskinesia. Imaging findings and physical exam findings discussed with Dr. Stiles PHYSICAL EXAM: VITAL SIGNS: Reviewed GENERAL: Well-developed in no acute distress. HEENT: No sclera icterus. Extraocular movements grossly intact. Moist buccal mucosa. Head is atraumatic, normocephalic. Hears conversational speech. No nasal drainage. NECK: Supple without lymphadenopathy. CHEST: Non-labored respirations and equal bilateral excursions. CARDIOVASCULAR: Palpable 2+ radial pulses. ABDOMEN: Soft. Nondistended. Nontender. MUSCULOSKELETAL: No clubbing or cyanosis. NEUROLOGIC: No focal or lateralizing signs. Cranial nerves II through XII khalida ssly intact. PSYCH: Appropriate affect. Alert and oriented to person, place and time. SKIN: Well perfused. Good skin turgor. ASSESSMENT: 1. Acute cholecystitis 2. Hydropic gallbladder with gallstones, thickened gallbladder wall on ultrasound 3. History of end-stage renal disease on hemodialysis PLAN: -Patient scheduled for Robotic cholecystectomy on , 10/11/[address] Stiles -Low-fat diet -Start IV antibiotics Physician Cardiac Nurse note has been reviewed by physician. Signing provider agrees with the documented findings, assessment, and plan of care. Objective - Vital Signs Vital signs: Vital Signs Temp 97.8 F 10/08/23 07:30 Pulse 65 10/08/23 09:29 Resp 18 10/08/23 10:41 BP 182/56 10/08/23 10:16 Pulse Ox 99 10/08/23 07:30 FiO2 Intake & Output 10/07/23 10/08/23 10/08/23 18:59 06:59 18:59 Output Total 400 600 Balance -400 -600 Output: Urine 400 600 Other: Voiding Method Indwelling Catheter - Labs CBC & Chem 7: 10/08/23 06:16 10/08/23 06:16 Labs: Abnormal Lab Results - Last 24 Hours (Table) 10/07/23 10/07/23 10/08/23 Range/Units 16:30 20:23 06:02 WBC (4.50-10.00) X 10*3/uL RBC (4.10-5.20) X 10*6/uL Hgb (12.0-15.0) g/dL Hct (37.2-46.3) % MCV (80.0-97.0) FL MCH (27.0-32.0) pg Anion Gap (4.00-12.00) mmol/L BUN (9.0-27.0) mg/dL Creatinine (0.6-1.5) mg/dL Est GFR (CKD-EPI) (>=60) BUN/Creatinine Ratio (12.00-20.00) Ratio Glucose (70-110) mg/dL POC Glucose (mg/dL) 167 H 149 H 131 H (70-110) mg/dL Total Protein (6.2-8.2) g/dL Albumin (3.8-4.9) g/dL 10/08/23 10/08/23 Range/Units 06:16 06:16 WBC 2.98 L (4.50-10.00) X 10*3/uL RBC 2.79 L (4.10-5.20) X 10*6/uL Hgb 9.2 L (12.0-15.0) g/dL Hct 28.4 L (37.2-46.3) % MCV 101.8 H (80.0-97.0) FL MCH 33.0 H (27.0-32.0) pg Anion Gap 12.20 H (4.00-12.00) mmol/L BUN 43.3 H (9.0-27.0) mg/dL Creatinine 4.7 H (0.6-1.5) mg/dL Est GFR (CKD-EPI) 9 L (>=60) BUN/Creatinine Ratio 9.21 L (12.00-20.00) Ratio Glucose 124 H (70-110) mg/dL POC Glucose (mg/dL) (70-110) mg/dL Total Protein 5.3 L (6.2-8.2) g/dL Albumin 3.3 L (3.8-4.9) g/dL
[2023-10-08 16:49] LABS: Glucose,Whole Blood 158 mg/dL (70-110)
[2023-10-08] MEDS: PIPERACILLIN-TAZOBACTAM 3.375 GM in SODIUM CHLORIDE 0.9% 100 ML IVPB SCH (16:57)
[2023-10-08 20:31] LABS: Glucose,Whole Blood 215 mg/dL (70-110)
[2023-10-09 05:57] LABS: Glucose,Whole Blood 153 mg/dL (70-110)
--- NOTE | 2023-10-09 08:28 | P.PN ---
Subjective Progress Note Date: 10/09/23 Principal diagnosis: ams,hpoglycemia This is a 78-year-old female who was recently discharged from the hospital last week for sacral fracture. She was discharged to [facility] and sent back to the ER for hypoglycemia and altered mental status. Patient's blood sugar was 44 on admission. Patient's blood sugars have stabilized. Insulin has been adjusted. She remains on a //[facility] hemod[facility] schedule. Patient also has some urinary retention this admission and currently has a sánchez catheter. She is currently being evaluated for possible cholecysitis and an MRCP has been ordered. Patient is seen and evaluated laying in bed this morning with no complaints. 10/09/2023 Patient seen and evaluated laying in bed this morning. Plan is for MRCP this morning. Dr. Stiles is planning a robotic cholecystectomy for . Patient due for dialysis today. She does report pain is little worse today in sacral area, but prior has not been taking pain medication often. She did take a dose of morphine last night and pain improved significantly. She has been cleared by cardiology for surgery. Objective - Vital Signs Vital signs: Vital Signs Temp 99.5 F 10/09/23 07:00 Pulse 74 10/09/23 07:00 Resp 18 10/09/23 07:00 BP 171/67 10/09/23 07:00 Pulse Ox 96 10/09/23 07:00 FiO2 Intake & Output 10/08/23 10/09/23 10/09/23 18:59 06:59 18:59 Intake Total 250 Output Total 675 400 Balance -425 -400 Intake: Oral 250 Output: Urine 675 400 Other: Voiding Method Indwelling Catheter # Bowel Movements 1 - Constitutional General appearance: Present: cooperative, no acute distress - EENT Eyes: Present: PERRLA - Neck Neck: Present: normal ROM. Absent: lymphadenopathy, rigidity - Respiratory Respiratory: bilateral: CTA - Cardiovascular Rhythm: regular Heart sounds: normal: S1, S2 - Gastrointestinal General gastrointestinal: Present: soft. Absent: tenderness - Musculoskeletal Musculoskeletal: Present: generalized weakness - Psychiatric Psychiatric: Present: A&O x's 3 - Labs CBC & Chem 7: 10/08/23 06:16 10/08/23 06:16 Labs: Abnormal Lab Results - Last 24 Hours (Table) 10/08/23 10/08/23 10/08/23 Range/Units 06:16 16:47 20:29 Anion Gap 12.20 H (4.00-12.00) mmol/L BUN 43.3 H (9.0-27.0) mg/dL Creatinine 4.7 H (0.6-1.5) mg/dL Est GFR (CKD-EPI) 9 L (>=60) BUN/Creatinine Ratio 9.21 L (12.00-20.00) Ratio Glucose 124 H (70-110) mg/dL POC Glucose (mg/dL) 158 H 215 H (70-110) mg/dL Total Protein 5.3 L (6.2-8.2) g/dL Albumin 3.3 L (3.8-4.9) g/dL 10/09/23 Range/Units 05:54 Anion Gap (4.00-12.00) mmol/L BUN (9.0-27.0) mg/dL Creatinine (0.6-1.5) mg/dL Est GFR (CKD-EPI) (>=60) BUN/Creatinine Ratio (12.00-20.00) Ratio Glucose (70-110) mg/dL POC Glucose (mg/dL) 153 H (70-110) mg/dL Total Protein (6.2-8.2) g/dL Albumin (3.8-4.9) g/dL Assessment and Plan (1) Altered mental status Current Visit: Yes Status: Acute Code(s): R41.82 - ALTERED MENTAL STATUS, UNSPECIFIED SNOMED Code(s): 422938901 (2) Delirium due to general medical condition Current Visit: Yes Status: Acute Code(s): F05 - DELIRIUM DUE TO KNOWN PHYSIOLOGICAL CONDITION SNOMED Code(s): 6403976 (3) Hypoglycemia Current Visit: Yes Status: Acute Code(s): E16.2 - HYPOGLYCEMIA, UNSPECIFIED SNOMED Code(s): 044722144 (4) Weakness Current Visit: Yes Status: Acute Code(s): R53.1 - WEAKNESS SNOMED Code(s): 75543183 (5) End stage renal disease on dialysis Current Visit: No Status: Acute Code(s): N18.6 - END STAGE RENAL DISEASE; Z99.2 - DEPENDENCE ON RENAL DIALYSIS SNOMED Code(s): 480280854 (6) Hyperlipidemia Current Visit: No Status: Acute Code(s): E78.5 - HYPERLIPIDEMIA, UNSPECIFIED SNOMED Code(s): 37894737 (7) Sacral fracture Current Visit: No Status: Acute Code(s): S32.10XA - UNSP FRACTURE OF SACRUM, INIT ENCNTR FOR CLOSED FRACTURE SNOMED Code(s): 242380863 (8) Type 2 diabetes mellitus with diabetic nephropathy Current Visit: No Status: Acute Code(s): E11.21 - TYPE 2 DIABETES MELLITUS WITH DIABETIC NEPHROPATHY SNOMED Code(s): 51822351 (9) Acute cholecystitis Current Visit: Yes Status: Acute Code(s): K81.0 - ACUTE CHOLECYSTITIS SNOMED Code(s): 12559773 Plan: Check CBC and CMP in the morning. Continue pain management for sacral fracture. Patient seen and evaluated by nurse practitioner, physician in agreement with plan
[2023-10-09] MEDS: PIPERACILLIN-TAZOBACTAM 3.375 GM in SODIUM CHLORIDE 0.9% 100 ML IVPB SCH (08:58)
[2023-10-09 09:04] LABS: HCT 29.1 % (34.0-46.0); HGB 9.5 gm/dL (11.4-16.0); MCH 32.9 pg (25.0-35.0); MCHC 32.8 g/dL (31.0-37.0); MCV 100.4 fL (80.0-100.0); Macrocytosis Slight; Mean Platelet Volume 8.7; Platelet Count 152 k/uL (150-450); RDW 14.7 % (11.5-15.5); WBC 2.8 k/uL (3.8-10.6)
[2023-10-09 09:13] LABS: ALT 25 U/L (4-34); AST 31 U/L (14-36); African American GFR (CKD) 8 (>60 ml/min/1.73 sqM); Albumin/Globulin Ratio 1.4; Alkaline Phosphatase 62 U/L (38-126); Anion Gap 9 mmol/L; Blood Urea Nitrogen 57 mg/dL (7-17); Calcium 9.4 mg/dL (8.4-10.2); Carbon Dioxide 25 mmol/L (22-30); Chloride 105 mmol/L (98-107); Globulin 2.2 g/dL; Glucose 130 mg/dL (74-99); Non-African American GFR(CKD) 7 (>60 ml/min/1.73 sqM); Potassium 5.6 mmol/L (3.5-5.1); Sodium 139 mmol/L (137-145); Total Bilirubin 0.6 mg/dL (0.2-1.3); Total Protein 5.2 g/dL (6.3-8.2)
--- NOTE | 2023-10-09 11:01 | P.PN ---
Subjective Patient is seen in follow-up for end-stage renal disease. She is maintained on hemodialysis on Sunday schedule. Resting in bed. Has Bansal catheter. No active complaints. Vital signs are stable. General: No acute distress. HEENT: Head exam is unremarkable. LUNGS: No acute distress. HEART: Rate and Rhythm are regular. ABDOMEN: Mild tenderness to touch. EXTREMITITES: No edema. Objective - Vital Signs Vital signs: Vital Signs Temp 99.5 F 10/09/23 07:00 Pulse 74 10/09/23 07:00 Resp 18 10/09/23 07:00 BP 171/67 10/09/23 07:00 Pulse Ox 96 10/09/23 07:00 FiO2 Intake & Output 10/08/23 10/09/23 10/09/23 18:59 06:59 18:59 Intake Total 250 Output Total 675 400 Balance -425 -400 Intake: Oral 250 Output: Urine 675 400 Other: Voiding Method Indwelling Catheter Indwelling Catheter # Bowel Movements 1 - Labs CBC & Chem 7: 10/09/23 07:46 10/09/23 07:46 Labs: Abnormal Lab Results - Last 24 Hours (Table) 10/08/23 10/08/23 10/09/23 Range/Units 16:47 20:29 05:54 WBC (3.8-10.6) k/uL RBC (3.80-5.40) m/uL Hgb (11.4-16.0) gm/dL Hct (34.0-46.0) % MCV (80.0-100.0) fL Potassium (3.5-5.1) mmol/L BUN (7-17) mg/dL Creatinine (0.52-1.04) mg/dL Glucose (74-99) mg/dL POC Glucose (mg/dL) 158 H 215 H 153 H (70-110) mg/dL Total Protein (6.3-8.2) g/dL Albumin (3.5-5.0) g/dL 10/09/23 10/09/23 Range/Units 07:46 07:46 WBC 2.8 L (3.8-10.6) k/uL RBC 2.90 L (3.80-5.40) m/uL Hgb 9.5 L (11.4-16.0) gm/dL Hct 29.1 L (34.0-46.0) % MCV 100.4 H (80.0-100.0) fL Potassium 5.6 H (3.5-5.1) mmol/L BUN 57 H (7-17) mg/dL Creatinine 5.61 H (0.52-1.04) mg/dL Glucose 130 H (74-99) mg/dL POC Glucose (mg/dL) (70-110) mg/dL Total Protein 5.2 L (6.3-8.2) g/dL Albumin 3.0 L (3.5-5.0) g/dL Assessment and Plan Plan: Assessment: 1. End-stage renal disease maintained on hemodialysis on Sunday schedule via left upper extremity AV fistula. 2. Urinary retention status post Bansal catheter placement. On Flomax. 3. Hypertension with chronic kidney disease. Has history of orthostatic hypotension. 4. Acute cholecystitis. MRCP pending. Surgery following. Scheduled for robotic cholecystectomy October 11, 2023. 5. Anemia of chronic kidney disease maintained on Aranesp. 6. Mild hyperkalemia secondary to chronic kidney disease and lisinopril. Expect improvement postdialysis. Plan: Hemodialysis today.
--- NOTE | 2023-10-09 11:35 | P.PN ---
Subjective HISTORY OF PRESENT ILLNESS: This is a 78-year-old female with a past medical history significant for hypertension, hyperlipidemia, diabetes, and end-stage renal disease on hemodialysis. Patient follows in the office with Dr. Live. We have been asked to see the patient in consultation for cardiac risk assessment. Patient examined at the bedside. Patient was initially brought to the hospital secondary to altered mental status. Patient is being followed by general surgery for possible cholecystitis. She is scheduled to undergo HIDA scan today. There is no definite surgery planned at this time. Patient currently denies any chest pain or pressure. She denies any shortness of breath. She reports mild abdominal pain this morning. Blood pressure is elevated this morning with a systolic range between [id number]. DIAGNOSTICS: - EKG reveals sinus mechanism with no signs of acute ischemia. -CT abdomen pelvis: 9 mm stone in the distal bile duct with moderate biliary ductal dilation. Gallbladder hydrops probably relates to biliary obstruction. Distended appearance of the left renal vein may be normal variation. Consider ultrasound/Doppler assessment to rule out any renal vein thrombosis. Mild cardiomegaly and mild anasarca changes. Tiny hiatal hernia. -Abdominal ultrasound bilateral renal cortical thinning and increased echo genicity suggesting chronic medical renal disease. 0.6 mm calculus in the midpole left kidney. No hydronephrosis. Small cyst superior pole left kidney. Left renal vein shows no evidence of thrombosis. Mildly dilated pancreatic duct and circumscribed cystic lesion in the pancreatic body similar to prior MRI. Dilated common bile duct with no clear evidence of stone in the visualized portion of the duct. Hydropic appearing gallbladder without evidence of significant pericholecystic fluid. - Laboratory data: WBC 2.98. Hemoglobin 9.4. Platelet count 141. Sodium 141. Potassium 5.1. BUN 43. Creatinine 4.7. - Current home cardiac medications include lisinopril 10 mg daily, hydralazine 1 00 mg 3 times daily, carvedilol 25 mg twice a day, amlodipine 10 mg daily, simvastatin 20 mg at night, Lasix 60 mg twice a day, aspirin 81 mg daily. 10/09/2023 Patient examined this morning at the bedside. Patient denies chest pain or pressure. She denies shortness of breath. Echocardiogram completed revealing ejection fraction 65 to 70%, no obvious regional wall motion abnormalities, trace MR, mild MS. blood pressures improved from yesterday although still remains elevated. PHYSICAL EXAM: VITAL SIGNS: Reviewed. GENERAL: Well-developed in no acute distress. HEENT: Head is normocephalic. Pupils are equal, round. Sclerae anicteric. Mucous membranes of the mouth are moist. Neck supple. No JVD or thyromegaly LUNGS: Respirations even and unlabored. Lungs essentially clear to auscultation bilaterally. HEART: Regular rate and rhythm. S1 and S2 heard. Systolic murmur noted ABDOMEN: Soft. Nondistended. Nontender. EXTREMITIES: Normal range of motion. No clubbing or cyanosis. Peripheral pulses intact. No lower extremity edema NEUROLOGIC: Awake and alert. Oriented x 3. ASSESSMENT: Altered mental status Abdominal pain Hydropic gallbladder with cholelithiasis, possible cholecystitis End-stage renal disease on hemodialysis Systolic murmur Hypertension, uncontrolled Hyperlipidemia Diabetes PLAN: Continue current cardiac medications Increase Catapres to 0.3 mg 3 times daily for optimal blood pressure control Patient tentatively scheduled for cholecystectomy on 10/11/[address] Stiles There are no absolute contraindications for patient to proceed with surgery from a cardiac standpoint Further recommendations pending patient course Nurse practitioner note has been reviewed by physician. Signing provider agrees with the documented findings, assessment, and plan of care documented by CROWN PRESSER as a scribe. Objective - Vital Signs Vital signs: Vital Signs Temp 99.5 F 10/09/23 07:00 Pulse 74 10/09/23 07:00 Resp 18 10/09/23 07:00 BP 171/67 10/09/23 07:00 Pulse Ox 96 10/09/23 07:00 FiO2 Intake & Output 10/08/23 10/09/23 10/09/23 18:59 06:59 18:59 Intake Total 250 Output Total 675 400 Balance -425 -400 Intake: Oral 250 Output: Urine 675 400 Other: Voiding Method Indwelling Catheter Indwelling Catheter # Bowel Movements 1 - Labs CBC & Chem 7: 10/09/23 07:46 10/09/23 07:46 Labs: Abnormal Lab Results - Last 24 Hours (Table) 10/08/23 10/08/23 10/09/23 Range/Units 16:47 20:29 05:54 WBC (3.8-10.6) k/uL RBC (3.80-5.40) m/uL Hgb (11.4-16.0) gm/dL Hct (34.0-46.0) % MCV (80.0-100.0) fL Potassium (3.5-5.1) mmol/L BUN (7-17) mg/dL Creatinine (0.52-1.04) mg/dL Glucose (74-99) mg/dL POC Glucose (mg/dL) 158 H 215 H 153 H (70-110) mg/dL Total Protein (6.3-8.2) g/dL Albumin (3.5-5.0) g/dL 10/09/23 10/09/23 Range/Units 07:46 07:46 WBC 2.8 L (3.8-10.6) k/uL RBC 2.90 L (3.80-5.40) m/uL Hgb 9.5 L (11.4-16.0) gm/dL Hct 29.1 L (34.0-46.0) % MCV 100.4 H (80.0-100.0) fL Potassium 5.6 H (3.5-5.1) mmol/L BUN 57 H (7-17) mg/dL Creatinine 5.61 H (0.52-1.04) mg/dL Glucose 130 H (74-99) mg/dL POC Glucose (mg/dL) (70-110) mg/dL Total Protein 5.2 L (6.3-8.2) g/dL Albumin 3.0 L (3.5-5.0) g/dL
[2023-10-09 11:52] LABS: Glucose,Whole Blood 171 mg/dL (70-110)
--- NOTE | 2023-10-09 13:38 | P.PN ---
Subjective Progress Note Date: 10/09/23 CHIEF COMPLAINT: Hypoglycemia HISTORY OF PRESENT ILLNESS: Hydropic gallbladder with gallstones on CT. Mildly elevated LFTs. Gallbladder ultrasound thickened gallbladder wall. Patient seen by cardiology service and have cleared her for surgery. Patient's LFTs have normalized. HIDA scan shows no evidence for acute/chronic cholecystitis or biliary dyskinesia. Patient does reports epigastric abdominal pain. She is scheduled for MRCP today. She did have some nausea during the evening this has resolved. Afebrile. WC 2.8 Hgb 9.5 platelets 152 sodium is 139 potassium is 5.6 creatinine 5.61 patient cleared by cardiology for surgery. Patient scheduled for hemodialysis today PHYSICAL EXAM: VITAL SIGNS: Reviewed GENERAL: Well-developed in no acute distress. HEENT: No sclera icterus. Extraocular movements grossly intact. Moist buccal mucosa. Head is atraumatic, normocephalic. Hears conversational speech. No nasal drainage. NECK: Supple without lymphadenopathy. CHEST: Non-labored respirations and equal bilateral excursions. CARDIOVASCULAR: Palpable 2+ radial pulses. ABDOMEN: Soft. Nondistended. Epigastric tenderness MUSCULOSKELETAL: No clubbing or cyanosis. NEUROLOGIC: No focal or lateralizing signs. Cranial nerves II through XII grossly intact. PSYCH: Appropriate affect. Alert and oriented to person, place and time. SKIN: Well perfused. Good skin turgor. ASSESSMENT: 1. Acute cholecystitis 2. Hydropic gallbladder with gallstones, thickened gallbladder wall on ultrasound 3. History of end-stage renal disease on hemodialysis PLAN: -Patient scheduled for Robotic cholecystectomy tomorrow, 10/10/[address] Stiles -Continue IV antibiotics -N.p.o. after midnight -Low-fat diet -Nephrology to correct hyperkalemia Physician Home Energy Consultant Supervisor note has been reviewed by physician. Signing provider agrees with the documented findings, assessment, and plan of care. Objective - Vital Signs Vital signs: Vital Signs Temp 99.5 F 10/09/23 07:00 Pulse 74 10/09/23 07:00 Resp 18 10/09/23 07:00 BP 171/67 10/09/23 07:00 Pulse Ox 96 10/09/23 07:00 FiO2 Intake & Output 10/08/23 10/09/23 10/09/23 18:59 06:59 18:59 Intake Total 250 Output Total 675 400 Balance -425 -400 Intake: Oral 250 Output: Urine 675 400 Other: Voiding Method Indwelling Catheter Indwelling Catheter # Bowel Movements 1 - Labs CBC & Chem 7: 10/09/23 07:46 10/09/23 07:46 Labs: Abnormal Lab Results - Last 24 Hours (Table) 10/08/23 10/08/23 10/09/23 Range/Units 16:47 20:29 05:54 WBC (3.8-10.6) k/uL RBC (3.80-5.40) m/uL Hgb (11.4-16.0) gm/dL Hct (34.0-46.0) % MCV (80.0-100.0) fL Potassium (3.5-5.1) mmol/L BUN (7-17) mg/dL Creatinine (0.52-1.04) mg/dL Glucose (74-99) mg/dL POC Glucose (mg/dL) 158 H 215 H 153 H (70-110) mg/dL Total Protein (6.3-8.2) g/dL Albumin (3.5-5.0) g/dL 10/09/23 10/09/23 10/09/23 Range/Units 07:46 07:46 11:49 WBC 2.8 L (3.8-10.6) k/uL RBC 2.90 L (3.80-5.40) m/uL Hgb 9.5 L (11.4-16.0) gm/dL Hct 29.1 L (34.0-46.0) % MCV 100.4 H (80.0-100.0) fL Potassium 5.6 H (3.5-5.1) mmol/L BUN 57 H (7-17) mg/dL Creatinine 5.61 H (0.52-1.04) mg/dL Glucose 130 H (74-99) mg/dL POC Glucose (mg/dL) 171 H (70-110) mg/dL Total Protein 5.2 L (6.3-8.2) g/dL Albumin 3.0 L (3.5-5.0) g/dL
[2023-10-09] MEDS: cloNIDine HCL 0.1 MG TAB PO SCH (15:30)
[2023-10-09 16:43] LABS: Glucose,Whole Blood 161 mg/dL (70-110)
[2023-10-09 20:58] LABS: Glucose,Whole Blood 214 mg/dL (70-110)
[2023-10-10 05:53] LABS: Glucose,Whole Blood 150 mg/dL (70-110)
[2023-10-10 06:38] LABS: ALT 22 U/L (4-34); AST 30 U/L (14-36); African American GFR (CKD) 13 (>60 ml/min/1.73 sqM); Albumin 2.9 g/dL (3.5-5.0); Albumin/Globulin Ratio 1.2; Alkaline Phosphatase 61 U/L (38-126); Anion Gap 6 mmol/L; Blood Urea Nitrogen 36 mg/dL (7-17); Calcium 8.8 mg/dL (8.4-10.2); Carbon Dioxide 27 mmol/L (22-30); Chloride 103 mmol/L (98-107); Globulin 2.4 g/dL; Glucose 125 mg/dL (74-99); Non-African American GFR(CKD) 11 (>60 ml/min/1.73 sqM); Potassium 4.6 mmol/L (3.5-5.1); Sodium 136 mmol/L (137-145); Total Bilirubin 0.6 mg/dL (0.2-1.3); Total Protein 5.3 g/dL (6.3-8.2)
[2023-10-10 08:01] LABS: HCT 32.1 % (34.0-46.0); HGB 9.8 gm/dL (11.4-16.0); Hypochromasia Marked; MCH 32.9 pg (25.0-35.0); MCHC 30.4 g/dL (31.0-37.0); Macrocytosis Marked; Mean Platelet Volume 8.7; Platelet Count 146 k/uL (150-450); RBC 2.96 m/uL (3.80-5.40); RDW 14.6 % (11.5-15.5); WBC 2.3 k/uL (3.8-10.6)
--- NOTE | 2023-10-10 08:23 | P.PN ---
Subjective Progress Note Date: 10/10/23 Principal diagnosis: ESRD acute cholecystitis pancreatitis This 78-year-old patient with diabetic nephropathy and end-stage renal disease with dialysis who was readmitted secondary to altered mental status workup did show acute cholecystitis she has had MRCP and is scheduled for cholecystectomy today due to thickening of the wall gallbladder wall. Otherwise stabilized except for intermittent hypertension. Blood pressure has been labile which is not new for her. No fever or chills. No significant nausea, vomiting or diarrhea Objective - Vital Signs Vital signs: Vital Signs Temp 98.3 F 10/10/23 07:10 Pulse 62 10/10/23 07:10 Resp 18 10/10/23 07:10 BP 164/63 10/10/23 07:10 Pulse Ox 96 10/10/23 07:10 FiO2 Intake & Output 10/09/23 10/10/23 10/10/23 18:59 06:59 18:59 Intake Total 500 Output Total 1920 Balance -1420 Intake: Hemodialysis 500 Output: Urine 420 Hemodialysis 1500 Other: Voiding Method Indwelling Catheter Indwelling Catheter - Constitutional General appearance: Present: average body habitus, cooperative, no acute distress - EENT Eyes: Present: PERRLA. Absent: abnormal pupil - Neck Neck: Absent: lymphadenopathy - Respiratory Respiratory: bilateral: diminished - Cardiovascular Rhythm: regular Heart sounds: normal: S1, S2 Abnormal Heart Sounds: Absent: S3 Gallop - Gastrointestinal General gastrointestinal: Present: soft. Absent: tenderness - Neurologic Neurologic: Present: CNII-XII intact - Psychiatric Psychiatric: Present: A&O x's 3, appropriate affect, intact judgment & insight - Labs CBC & Chem 7: 10/10/23 05:44 10/10/23 05:44 Labs: Abnormal Lab Results - Last 24 Hours (Table) 10/09/23 10/09/23 10/09/23 Range/Units 07:46 07:46 11:49 WBC 2.8 L (3.8-10.6) k/uL RBC 2.90 L (3.80-5.40) m/uL Hgb 9.5 L (11.4-16.0) gm/dL Hct 29.1 L (34.0-46.0) % MCV 100.4 H (80.0-100.0) fL MCHC (31.0-37.0) g/dL Plt Count (150-450) k/uL Macrocytosis Sodium (137-145) mmol/L Potassium 5.6 H (3.5-5.1) mmol/L BUN 57 H (7-17) mg/dL Creatinine 5.61 H (0.52-1.04) mg/dL Glucose 130 H (74-99) mg/dL POC Glucose (mg/dL) 171 H (70-110) mg/dL Total Protein 5.2 L (6.3-8.2) g/dL Albumin 3.0 L (3.5-5.0) g/dL 10/09/23 10/09/23 10/10/23 Range/Units 16:42 20:54 05:44 WBC 2.3 L (3.8-10.6) k/uL RBC 2.96 L (3.80-5.40) m/uL Hgb 9.8 L (11.4-16.0) gm/dL Hct 32.1 L (34.0-46.0) % MCV 108.4 H D (80.0-100.0) fL MCHC 30.4 L (31.0-37.0) g/dL Plt Count 146 L (150-450) k/uL Macrocytosis Marked A Sodium (137-145) mmol/L Potassium (3.5-5.1) mmol/L BUN (7-17) mg/dL Creatinine (0.52-1.04) mg/dL Glucose (74-99) mg/dL POC Glucose (mg/dL) 161 H 214 H (70-110) mg/dL Total Protein (6.3-8.2) g/dL Albumin (3.5-5.0) g/dL 10/10/23 10/10/23 Range/Units 05:44 05:51 WBC (3.8-10.6) k/uL RBC (3.80-5.40) m/uL Hgb (11.4-16.0) gm/dL Hct (34.0-46.0) % MCV (80.0-100.0) fL MCHC (31.0-37.0) g/dL Plt Count (150-450) k/uL Macrocytosis Sodium 136 L (137-145) mmol/L Potassium (3.5-5.1) mmol/L BUN 36 H (7-17) mg/dL Creatinine 3.70 H (0.52-1.04) mg/dL Glucose 125 H (74-99) mg/dL POC Glucose (mg/dL) 150 H (70-110) mg/dL Total Protein 5.3 L (6.3-8.2) g/dL Albumin 2.9 L (3.5-5.0) g/dL Assessment and Plan (1) Altered mental status Current Visit: Yes Status: Acute Code(s): R41.82 - ALTERED MENTAL STATUS, UNSPECIFIED SNOMED Code(s): 573753251 (2) Delirium due to general medical condition Current Visit: Yes Status: Acute Code(s): F05 - DELIRIUM DUE TO KNOWN PHYSIOLOGICAL CONDITION SNOMED Code(s): 1071147 (3) Hypoglycemia Current Visit: Yes Status: Acute Code(s): E16.2 - HYPOGLYCEMIA, UNSPECIFIED SNOMED Code(s): 397300185 (4) UTI (urinary tract infection) Current Visit: Yes Status: Acute Code(s): N39.0 - URINARY TRACT INFECTION, SITE NOT SPECIFIED SNOMED Code(s): 79389927 (5) Weakness Current Visit: Yes Status: Acute Code(s): R53.1 - WEAKNESS SNOMED Code(s): 96307306 (6) End stage renal disease on dialysis Current Visit: No Status: Acute Code(s): N18.6 - END STAGE RENAL DISEASE; Z99.2 - DEPENDENCE ON RENAL DIALYSIS SNOMED Code(s): 195877161 (7) Hyperlipidemia Current Visit: No Status: Acute Code(s): E78.5 - HYPERLIPIDEMIA, UNSPECIFIED SNOMED Code(s): 31251386 (8) Sacral fracture Current Visit: No Status: Acute Code(s): S32.10XA - UNSP FRACTURE OF SACRUM, INIT ENCNTR FOR CLOSED FRACTURE SNOMED Code(s): 726362314 (9) Type 2 diabetes mellitus with diabetic nephropathy Current Visit: No Status: Acute Code(s): E11.21 - TYPE 2 DIABETES MELLITUS WITH DIABETIC NEPHROPATHY SNOMED Code(s): 81507110 Plan: Follow-up for input and output related to urinary retention elements. Continue with Bansal catheter at this time. Follow enzymes for pancreatitis. Reconcile home medications. Poor prognosis for trying to get her back home immediately given her overall general debility and and weakness. Check CBC and CMP in AM. Appreciate multiple consultants input. Await cholecystectomy today.
[2023-10-10 08:27] LABS: Eosinophils # (M) 0.12 k/uL (0-0.7); Lymphocytes # (M) 0.64 k/uL (1.0-4.8); Monocytes # (M) 0.21 k/uL (0-1.0); Neutrophils # (M) 1.33 k/uL (1.3-7.7); Neutrophils % (M) 58 %; Nucleated Red Blood Cells 0 /100 WBC (0-0); Total Cells Counted 100
--- NOTE | 2023-10-10 08:52 | P.PN ---
Subjective HISTORY OF PRESENT ILLNESS: This is a 78-year-old female with a past medical history significant for hypertension, hyperlipidemia, diabetes, and end-stage renal disease on hemodialysis. Patient follows in the office with Dr. Live. We have been asked to see the patient in consultation for cardiac risk assessment. Patient examined at the bedside. Patient was initially brought to the hospital secondary to altered mental status. Patient is being followed by general surgery for possible cholecystitis. She is scheduled to undergo HIDA scan today. There is no definite surgery planned at this time. Patient currently denies any chest pain or pressure. She denies any shortness of breath. She reports mild abdominal pain this morning. Blood pressure is elevated this morning with a systolic range between 790421. DIAGNOSTICS: - EKG reveals sinus mechanism with no signs of acute ischemia. -CT abdomen pelvis: 9 mm stone in the distal bile duct with moderate biliary ductal dilation. Gallbladder hydrops probably relates to biliary obstruction. Distended appearance of the left renal vein may be normal variation. Consider ultrasound/Doppler assessment to rule out any renal vein thrombosis. Mild cardiomegaly and mild anasarca changes. Tiny hiatal hernia. -Abdominal ultrasound bilateral renal cortical thinning and increased echo genicity suggesting chronic medical renal disease. 0.6 mm calculus in the midpole left kidney. No hydronephrosis. Small cyst superior pole left kidney. Left renal vein shows no evidence of thrombosis. Mildly dilated pancreatic duct and circumscribed cystic lesion in the pancreatic body similar to prior MRI. Dilated common bile duct with no clear evidence of stone in the visualized portion of the duct. Hydropic appearing gallbladder without evidence of significant pericholecystic fluid. - Laboratory data: WBC 2.98. Hemoglobin 9.4. Platelet count 141. Sodium 141. Potassium 5.1. BUN 43. Creatinine 4.7. - Current home cardiac medications include lisinopril 10 mg daily, hydralazine 1 00 mg 3 times daily, carvedilol 25 mg twice a day, amlodipine 10 mg daily, simvastatin 20 mg at night, Lasix 60 mg twice a day, aspirin 81 mg daily. 10/09/2023 Patient examined this morning at the bedside. Patient denies chest pain or pressure. She denies shortness of breath. Echocardiogram completed revealing ejection fraction 65 to 70%, no obvious regional wall motion abnormalities, trace MR, mild MS. blood pressures improved from yesterday although still remains elevated. 10/10/2023 Patient examined this morning at the bedside. Patient denies any chest pain or pressure. She denies any shortness of breath. Denies any abdominal pain. Blood pressure this morning 164/63 before administration of medications. PHYSICAL EXAM: VITAL SIGNS: Reviewed. GENERAL: Well-developed in no acute distress. HEENT: Head is normocephalic. Pupils are equal, round. Sclerae anicteric. Mucous membranes of the mouth are moist. Neck supple. No JVD or thyromegaly LUNGS: Respirations even and unlabored. Lungs essentially clear to auscultation bilaterally. HEART: Regular rate and rhythm. S1 and S2 heard. Systolic murmur noted ABDOMEN: Soft. Nondistended. Nontender. EXTREMITIES: Normal range of motion. No clubbing or cyanosis. Peripheral pulses intact. No lower extremity edema NEUROLOGIC: Awake and alert. Oriented x 3. ASSESSMENT: Altered mental status Abdominal pain Hydropic gallbladder with cholelithiasis, possible cholecystitis End-stage renal disease on hemodialysis Systolic murmur Hypertension, uncontrolled Hyperlipidemia Diabetes PLAN: Continue current cardiac medications Patient scheduled for robotic cholecystectomy today with Dr. Stiles There are no absolute contraindications for patient to proceed with surgery from a cardiac standpoint Further recommendations pending patient course Nurse practitioner note has been reviewed by physician. Signing provider agrees with the documented findings, assessment, and plan of care documented by PBX WIRE CHIEF as a scribe. Objective - Vital Signs Vital signs: Vital Signs Temp 98.3 F 10/10/23 07:10 Pulse 62 10/10/23 07:10 Resp 18 10/10/23 07:10 BP 164/63 10/10/23 07:10 Pulse Ox 96 10/10/23 07:10 FiO2 Intake & Output 10/09/23 10/10/23 10/10/23 18:59 06:59 18:59 Intake Total 500 Output Total 1920 Balance -1420 Intake: Hemodialysis 500 Output: Urine 420 Hemodialysis 1500 Other: Voiding Method Indwelling Catheter Indwelling Catheter - Labs CBC & Chem 7: 10/10/23 05:44 10/10/23 05:44 Labs: Abnormal Lab Results - Last 24 Hours (Table) 10/09/23 10/09/23 10/09/23 Range/Units 07:46 07:46 11:49 WBC 2.8 L (3.8-10.6) k/uL RBC 2.90 L (3.80-5.40) m/uL Hgb 9.5 L (11.4-16.0) gm/dL Hct 29.1 L (34.0-46.0) % MCV 100.4 H (80.0-100.0) fL MCHC (31.0-37.0) g/dL Plt Count (150-450) k/uL Lymphocytes # (Manual) (1.0-4.8) k/uL Macrocytosis Sodium (137-145) mmol/L Potassium 5.6 H (3.5-5.1) mmol/L BUN 57 H (7-17) mg/dL Creatinine 5.61 H (0.52-1.04) mg/dL Glucose 130 H (74-99) mg/dL POC Glucose (mg/dL) 171 H (70-110) mg/dL Total Protein 5.2 L (6.3-8.2) g/dL Albumin 3.0 L (3.5-5.0) g/dL 10/09/23 10/09/23 10/10/23 Range/Units 16:42 20:54 05:44 WBC 2.3 L (3.8-10.6) k/uL RBC 2.96 L (3.80-5.40) m/uL Hgb 9.8 L (11.4-16.0) gm/dL Hct 32.1 L (34.0-46.0) % MCV 108.4 H D (80.0-100.0) fL MCHC 30.4 L (31.0-37.0) g/dL Plt Count 146 L (150-450) k/uL Lymphocytes # (Manual) 0.64 L (1.0-4.8) k/uL Macrocytosis Marked A Sodium (137-145) mmol/L Potassium (3.5-5.1) mmol/L BUN (7-17) mg/dL Creatinine (0.52-1.04) mg/dL Glucose (74-99) mg/dL POC Glucose (mg/dL) 161 H 214 H (70-110) mg/dL Total Protein (6.3-8.2) g/dL Albumin (3.5-5.0) g/dL 10/10/23 10/10/23 Range/Units 05:44 05:51 WBC (3.8-10.6) k/uL RBC (3.80-5.40) m/uL Hgb (11.4-16.0) gm/dL Hct (34.0-46.0) % MCV (80.0-100.0) fL MCHC (31.0-37.0) g/dL Plt Count (150-450) k/uL Lymphocytes # (Manual) (1.0-4.8) k/uL Macrocytosis Sodium 136 L (137-145) mmol/L Potassium (3.5-5.1) mmol/L BUN 36 H (7-17) mg/dL Creatinine 3.70 H (0.52-1.04) mg/dL Glucose 125 H (74-99) mg/dL POC Glucose (mg/dL) 150 H (70-110) mg/dL Total Protein 5.3 L (6.3-8.2) g/dL Albumin 2.9 L (3.5-5.0) g/dL
--- NOTE | 2023-10-10 09:27 | MR ---
EXAMINATION TYPE: MR MRCP DATE OF EXAM: 10/09/2023 12:45 PM CLINICAL INDICATION:Female, 78 years old with history of Abnormal US, Follow up pancreatic cyst COMPARISON: 12/22/2022. 10/08/2023, 10/05/2023 TECHNIQUE: Multi planar, T2-weighted imaging with and without fat saturation and chemical shift imag ing was performed of the abdomen. Then, heavily T2 weighted imaging (half-Fourier acquisition single- shot turbo spin-echo) was utilized in order to study the biliary system. Maximum intensity projectio n images were reconstructed from the original data of the biliary tree. 3D images were created on a [employer] work station. No Gadolinium given. FINDINGS: Lower Thorax: No evidence for acute process. MRCP: * The intrahepatic ducts mildly dilated centrally. * The common bile duct at the level of the pancreatic head measures 12.5 mm in size. * The common hepatic duct measures 10 mm in size in demonstrate multiple low T2 signal stones presen t. * The pancreatic duct is normal. * The gallbladder demonstrates layering low T2 signal probable gallstone not significantly changed in s ize. Abdomen: Liver: Scattered high T2 signal probable cysts. Pancreas: Stable pancreatic body cyst measuring 21 x 25 mm when taking into account Spleen: Unremarkable. Adrenal glands: Unremarkable. Kidneys: No evidence for obstructive uropathy. High T2 signal and intermediate to high T2 signal prob able cysts cysts and proteinaceous cyst. Stomach and Bowel: Unremarkable as visualized. Peritoneum: No evidence of pneumoperitoneum or free fluid. Vasculature: Unremarkable. No aortic aneurysm. Musculoskeletal: The osseous structures appear intact. Multilevel degeneration changes throughout the spine with levoscoliosis apex L3. Lymph Nodes: No gross evidence for lymphadenopathy. Abdominal wall: Unremarkable. IMPRESSION: 1. New choledocholithiasis. There is upstream dilation of the biliary system. 2. Stable pancreatic body cyst. 3. Stable suspected gallstone laying dependently in the gallbladder lumen.
--- NOTE | 2023-10-10 10:44 | P.PN ---
Subjective Patient is seen in follow-up for end-stage renal disease. She is maintained on hemodialysis on Sunday schedule. Resting in bed. Has Bansal catheter. No active complaints. No problems with dialysis yesterday. Vital signs are stable. General: No acute distress. HEENT: Head exam is unremarkable. LUNGS: No acute distress. HEART: Rate and Rhythm are regular. ABDOMEN: Mild tenderness to touch. EXTREMITITES: No edema. Objective - Vital Signs Vital signs: Vital Signs Temp 98.3 F 10/10/23 07:10 Pulse 62 10/10/23 07:10 Resp 18 10/10/23 07:10 BP 164/63 10/10/23 07:10 Pulse Ox 96 10/10/23 07:10 FiO2 Intake & Output 10/09/23 10/10/23 10/10/23 18:59 06:59 18:59 Intake Total 500 Output Total 1920 Balance -1420 Intake: Hemodialysis 500 Output: Urine 420 Hemodialysis 1500 Other: Voiding Method Indwelling Catheter Indwelling Catheter Indwelling Catheter - Labs CBC & Chem 7: 10/10/23 05:44 10/10/23 05:44 Labs: Abnormal Lab Results - Last 24 Hours (Table) 10/09/23 10/09/23 10/09/23 Range/Units 11:49 16:42 20:54 WBC (3.8-10.6) k/uL RBC (3.80-5.40) m/uL Hgb (11.4-16.0) gm/dL Hct (34.0-46.0) % MCV (80.0-100.0) fL MCHC (31.0-37.0) g/dL Plt Count (150-450) k/uL Lymphocytes # (Manual) (1.0-4.8) k/uL Macrocytosis Sodium (137-145) mmol/L BUN (7-17) mg/dL Creatinine (0.52-1.04) mg/dL Glucose (74-99) mg/dL POC Glucose (mg/dL) 171 H 161 H 214 H (70-110) mg/dL Total Protein (6.3-8.2) g/dL Albumin (3.5-5.0) g/dL 10/10/23 10/10/23 10/10/23 Range/Units 05:44 05:44 05:51 WBC 2.3 L (3.8-10.6) k/uL RBC 2.96 L (3.80-5.40) m/uL Hgb 9.8 L (11.4-16.0) gm/dL Hct 32.1 L (34.0-46.0) % MCV 108.4 H D (80.0-100.0) fL MCHC 30.4 L (31.0-37.0) g/dL Plt Count 146 L (150-450) k/uL Lymphocytes # (Manual) 0.64 L (1.0-4.8) k/uL Macrocytosis Marked A Sodium 136 L (137-145) mmol/L BUN 36 H (7-17) mg/dL Creatinine 3.70 H (0.52-1.04) mg/dL Glucose 125 H (74-99) mg/dL POC Glucose (mg/dL) 150 H (70-110) mg/dL Total Protein 5.3 L (6.3-8.2) g/dL Albumin 2.9 L (3.5-5.0) g/dL Assessment and Plan Plan: Assessment: 1. End-stage renal disease maintained on hemodialysis on Sunday schedule via left upper extremity AV fistula. 2. Urinary retention status post Bansal catheter placement. On Flomax. 3. Hypertension with chronic kidney disease. Has history of orthostatic hypotension. 4. Acute cholecystitis. Choledocholithiasis noted on MRCP. Surgery following. Scheduled for robotic cholecystectomy this admission. 5. Anemia of chronic kidney disease maintained on Aranesp. 6. Mild hyperkalemia secondary to chronic kidney disease and lisinopril. Improved postdialysis. Plan: Hemodialysis tomorrow. Preserved ejection fraction noted on echocardiogram.
[2023-10-10] MEDS ORDERED: HYDROmorphone 0.5 MG/0.5 ML SYRINGE IVP PRN (10:49)
[2023-10-10] MEDS: SODIUM CHLORIDE 0.9% 500 ML 500 ML IV ONE ×2 (10:55→13:00)
[2023-10-10 11:02] LABS: Glucose,Whole Blood 164 mg/dL (70-110)
[2023-10-10] MEDS: ONDANSETRON 4 MG/2 ML VIAL IVP ONE ×2 (11:08→16:53)
[2023-10-10] MEDS: HEPARIN SODIUM,PORCINE 5,000 UNIT/ML 1 ML VIAL SQ ONE (11:17)
[2023-10-10] MEDS ORDERED: SUCCINYLCHOLINE CHLORIDE 200 MG/10 ML VIAL IV ONE (12:00)
[2023-10-10] MEDS ORDERED: HYDROmorphone (PF) 1 MG/ML ONE (12:00)
[2023-10-10] MEDS ORDERED: fentaNYL (PF) 50 MCG/ML 2 ML AMP ONE (12:00)
[2023-10-10] MEDS ORDERED: LABETALOL 5 MG/ML VIAL MDV ONE (12:00)
[2023-10-10] MEDS ORDERED: ETOMIDATE 2 MG/ML 10 ML VIAL ONE (12:00)
[2023-10-10] MEDS ORDERED: LIDOCAINE 1% INJ 10MG/ML (20 ML MDV) ONE (12:00)
[2023-10-10] MEDS ORDERED: ePHEDrine 50 MG/ML 1 ML VIAL ONE (12:00)
[2023-10-10] MEDS ORDERED: ROCURONIUM 10 MG/ML (5 ML VIAL) IV ONE (12:00)
[2023-10-10] MEDS ORDERED: SUGAMMADEX SODIUM 200 MG/2 ML SDV IV ONE (12:00)
[2023-10-10] MEDS ORDERED: MIDAZOLAM 2 MG/2 ML VIAL ONE (12:00)
[2023-10-10] MEDS: LIDOCAINE 1%/EPI 1:200,000 MPF 10 ML VIAL SQ ONE ×2 (12:18→12:21)
[2023-10-10 13:41] LABS: Glucose,Whole Blood 201 mg/dL (70-110)
[2023-10-10] MEDS ORDERED: HYDROmorphone 1 MG/ML 1 ML SYRINGE IVP PRN (13:42)
[2023-10-10 16:23] LABS: Glucose,Whole Blood 175 mg/dL (70-110)
[2023-10-10] MEDS: LACTATED RINGERS 1,000 ML IV SCH (16:53)
[2023-10-10] MEDS: DEXAMETHASONE SOD PHOSPHATE 4 MG/ML 1 ML VIAL IV ONE (16:53)
[2023-10-10] MEDS: INDOCYANINE GREEN 25 MG VIAL IV STA (16:54)
[2023-10-10 20:45] LABS: Glucose,Whole Blood 140 mg/dL (70-110)
[2023-10-10 22:35] LABS: MCV 108.4 fL (80.0-100.0)
[2023-10-11 05:35] LABS: Glucose,Whole Blood 188 mg/dL (70-110)
[2023-10-11 08:11] LABS: Glucose,Whole Blood 152 mg/dL (70-110)
--- NOTE | 2023-10-11 08:39 | P.PN ---
Subjective Progress Note Date: 10/11/23 Principal diagnosis: ams,hpoglycemia This is a 78-year-old female who was recently discharged from the hospital last week for sacral fracture. She was discharged to [facility] and sent back to the ER for hypoglycemia and altered mental status. Patient's blood sugar was 44 on admission. Patient's blood sugars have stabilized. Insulin has been adjusted. She remains on a //[facility] hemodialysis schedule. Patient also has some urinary retention this admission and currently has a sánchez catheter. She is currently being evaluated for possible cholecysitis and an MRCP has been ordered. Patient is seen and evaluated laying in bed this morning with no complaints. 10/09/2023 Patient seen and evaluated laying in bed this morning. Plan is for MRCP this morning. Dr. Stiles is planning a robotic cholecystectomy for . Patient due for dialysis today. She does report pain is little worse today in sacral area, but prior has not been taking pain medication often. She did take a dose of morphine last night and pain improved significantly. She has been cleared by cardiology for surgery. 10/11/2023 Patient seen and evaluated sitting up in bed this morning. She reports she is feeling well. She underwent a robotic cholecystectomy yesterday with Dr. Stiles. She will have hemodialysis today. Will trial removal of Sánchez catheter today. Labs from today are not back at time of dictation. Objective - Vital Signs Vital signs: Vital Signs Temp 98.4 F 10/11/23 07:55 Pulse 68 10/11/23 07:55 Resp 13 10/11/23 07:55 BP 161/58 10/11/23 07:55 Pulse Ox 99 10/11/23 07:55 FiO2 Intake & Output 10/10/23 10/11/23 10/11/23 18:59 06:59 18:59 Intake Total 600 700 Output Total 310 300 Balance 290 400 Intake: IV 600 Intake, IV Titration 100 Amount Piperacillin-Tazobactam 3 100 .375 gm In Sodium Chloride 0.9% 100 ml @ 25 mls/hr IVPB Q12HR [facility] Rx #:[id number] Oral 600 Output: Urine 300 300 Estimated Blood Loss 10 Other: Voiding Method Indwelling Catheter Indwelling Catheter - Constitutional General appearance: Present: cooperative, no acute distress - EENT Eyes: Present: PERRLA - Neck Neck: Present: normal ROM. Absent: lymphadenopathy, rigidity - Respiratory Respiratory: bilateral: diminished - Cardiovascular Rhythm: regular Heart sounds: normal: S1, S2 - Gastrointestinal General gastrointestinal: Present: soft. Absent: tenderness - Integumentary Integumentary: Present: pale - Psychiatric Psychiatric: Present: A&O x's 3 - Labs CBC & Chem 7: 10/10/23 05:44 10/10/23 05:44 Labs: Abnormal Lab Results - Last 24 Hours (Table) 10/10/23 10/10/23 10/10/23 Range/Units 05:44 10:57 13:39 MCV 108.4 H D (80.0-100.0) fL POC Glucose (mg/dL) 164 H 201 H (70-110) mg/dL 10/10/23 10/10/23 10/11/23 Range/Units 16:22 20:43 05:32 MCV (80.0-100.0) fL POC Glucose (mg/dL) 175 H 140 H 188 H (70-110) mg/dL 10/11/23 Range/Units 08:10 MCV (80.0-100.0) fL POC Glucose (mg/dL) 152 H (70-110) mg/dL Assessment and Plan (1) Altered mental status Current Visit: Yes Status: Acute Code(s): R41.82 - ALTERED MENTAL STATUS, UNSPECIFIED SNOMED Code(s): 128658350 (2) Delirium due to general medical condition Current Visit: Yes Status: Acute Code(s): F05 - DELIRIUM DUE TO KNOWN PHYSIOLOGICAL CONDITION SNOMED Code(s): 9355787 (3) Hypoglycemia Current Visit: Yes Status: Acute Code(s): E16.2 - HYPOGLYCEMIA, UNSPECIFIED SNOMED Code(s): 850609178 (4) Weakness Current Visit: Yes Status: Acute Code(s): R53.1 - WEAKNESS SNOMED Code(s): 58155546 (5) End stage renal disease on dialysis Current Visit: No Status: Acute Code(s): N18.6 - END STAGE RENAL DISEASE; Z99.2 - DEPENDENCE ON RENAL DIALYSIS SNOMED Code(s): 770734873 (6) Hyperlipidemia Current Visit: No Status: Acute Code(s): E78.5 - HYPERLIPIDEMIA, UNSPECIFIED SNOMED Code(s): 30710586 (7) Sacral fracture Current Visit: No Status: Acute Code(s): S32.10XA - UNSP FRACTURE OF SACRUM, INIT ENCNTR FOR CLOSED FRACTURE SNOMED Code(s): 825264747 (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 Discontinue Sánchez catheter Patient seen and evaluated by nurse practitioner, physician in agreement with plan
[2023-10-11 08:52] LABS: MCH 32.1 pg (27.0-32.0); MCHC 32.1 g/dL (32.0-37.0); Mean Platelet Volume 10.4 FL (9.5-12.2); NRBC Per 100 WBC 0 X 10*3/uL (0.00-0.01); Platelet Count 166 X 10*3/uL (140-440); RDW 14.5 % (11.5-14.5); WBC 4.28 X 10*3/uL (4.50-10.00)
--- NOTE | 2023-10-11 09:04 | P.PN ---
Subjective HISTORY OF PRESENT ILLNESS: This is a 78-year-old female with a past medical history significant for hypertension, hyperlipidemia, diabetes, and end-stage renal disease on hemodialysis. Patient follows in the office with Dr. Live. We have been asked to see the patient in consultation for cardiac risk assessment. Patient examined at the bedside. Patient was initially brought to the hospital secondary to altered mental status. Patient is being followed by general surgery for possible cholecystitis. She is scheduled to undergo HIDA scan today. There is no definite surgery planned at this time. Patient currently denies any chest pain or pressure. She denies any shortness of breath. She reports mild abdominal pain this morning. Blood pressure is elevated this morning with a systolic range between 140396. DIAGNOSTICS: - EKG reveals sinus mechanism with no signs of acute ischemia. -CT abdomen pelvis: 9 mm stone in the distal bile duct with moderate biliary ductal dilation. Gallbladder hydrops probably relates to biliary obstruction. Distended appearance of the left renal vein may be normal variation. Consider ultrasound/Doppler assessment to rule out any renal vein thrombosis. Mild cardiomegaly and mild anasarca changes. Tiny hiatal hernia. -Abdominal ultrasound bilateral renal cortical thinning and increased echo genicity suggesting chronic medical renal disease. 0.6 mm calculus in the midpole left kidney. No hydronephrosis. Small cyst superior pole left kidney. Left renal vein shows no evidence of thrombosis. Mildly dilated pancreatic duct and circumscribed cystic lesion in the pancreatic body similar to prior MRI. Dilated common bile duct with no clear evidence of stone in the visualized portion of the duct. Hydropic appearing gallbladder without evidence of significant pericholecystic fluid. - Laboratory data: WBC 2.98. Hemoglobin 9.4. Platelet count 141. Sodium 141. Potassium 5.1. BUN 43. Creatinine 4.7. - Current home cardiac medications include lisinopril 10 mg daily, hydralazine 1 00 mg 3 times daily, carvedilol 25 mg twice a day, amlodipine 10 mg daily, simvastatin 20 mg at night, Lasix 60 mg twice a day, aspirin 81 mg daily. 10/09/2023 Patient examined this morning at the bedside. Patient denies chest pain or pressure. She denies shortness of breath. Echocardiogram completed revealing ejection fraction 65 to 70%, no obvious regional wall motion abnormalities, trace MR, mild MS. blood pressures improved from yesterday although still remains elevated. 10/10/2023 Patient examined this morning at the bedside. Patient denies any chest pain or pressure. She denies any shortness of breath. Denies any abdominal pain. Blood pressure this morning 164/63 before administration of medications. 10/11/2023 Patient examined this morning at the bedside. Patient is status p ostcholecystectomy with Dr. Robles. Postop day #1. Patient currently denies any chest pain or pressure. She denies any shortness of breath. Patient's blood pressure remains elevated this morning with a reading of 161/58. PHYSICAL EXAM: VITAL SIGNS: Reviewed. GENERAL: Well-developed in no acute distress. HEENT: Head is normocephalic. Pupils are equal, round. Sclerae anicteric. Mucous membranes of the mouth are moist. Neck supple. No JVD or thyromegaly LUNGS: Respirations even and unlabored. Lungs essentially clear to auscultation bilaterally. HEART: Regular rate and rhythm. S1 and S2 heard. Systolic murmur noted ABDOMEN: Soft. Nondistended. Nontender. EXTREMITIES: Normal range of motion. No clubbing or cyanosis. Peripheral pulses intact. No lower extremity edema NEUROLOGIC: Awake and alert. Oriented x 3. ASSESSMENT: Altered mental status Abdominal pain Hydropic gallbladder with cholelithiasis, acute cholecystitis, status postcholecystectomy Choledocholithiasis End-stage renal disease on hemodialysis Systolic murmur Hypertension, uncontrolled Hyperlipidemia Diabetes PLAN: Continue current cardiac medications Increase lisinopril to 20 mg daily for optimal blood pressure control GI has been consulted for possible ERCP for choledocholithiasis. Await evaluation Further recommendations pending patient course Nurse practitioner note has been reviewed by physician. Signing provider agrees with the documented findings, assessment, and plan of care documented by MOBILE NURSE as a scribe. Objective - Vital Signs Vital signs: Vital Signs Temp 98.4 F 10/11/23 07:55 Pulse 68 10/11/23 08:07 Resp 13 10/11/23 08:07 BP 161/58 10/11/23 07:55 Pulse Ox 99 10/11/23 07:55 FiO2 Intake & Output 10/10/23 10/11/23 10/11/23 18:59 06:59 18:59 Intake Total 600 700 Output Total 310 300 Balance 290 400 Intake: IV 600 Intake, IV Titration 100 Amount Piperacillin-Tazobactam 3 100 .375 gm In Sodium Chloride 0.9% 100 ml @ 25 mls/hr IVPB Q12HR [facility] Rx #:[id number] Oral 600 Output: Urine 300 300 Estimated Blood Loss 10 Other: Voiding Method Indwelling Catheter Indwelling Catheter Indwelling Catheter - Labs CBC & Chem 7: 10/11/23 04:51 10/10/23 05:44 Labs: Abnormal Lab Results - Last 24 Hours (Table) 10/10/23 10/10/23 10/10/23 Range/Units 05:44 10:57 13:39 WBC (4.50-10.00) X 10*3/uL RBC (4.10-5.20) X 10*6/uL Hgb (12.0-15.0) g/dL Hct (37.2-46.3) % MCV 108.4 H D (80.0-100.0) fL MCH (27.0-32.0) pg POC Glucose (mg/dL) 164 H 201 H (70-110) mg/dL 10/10/23 10/10/23 10/11/23 Range/Units 16:22 20:43 04:51 WBC 4.28 L (4.50-10.00) X 10*3/uL RBC 2.80 L (4.10-5.20) X 10*6/uL Hgb 9.0 L (12.0-15.0) g/dL Hct 28.0 L (37.2-46.3) % MCV 100.0 H (80.0-100.0) fL MCH 32.1 H (27.0-32.0) pg POC Glucose (mg/dL) 175 H 140 H (70-110) mg/dL 10/11/23 10/11/23 Range/Units 05:32 08:10 WBC (4.50-10.00) X 10*3/uL RBC (4.10-5.20) X 10*6/uL Hgb (12.0-15.0) g/dL Hct (37.2-46.3) % MCV (80.0-100.0) fL MCH (27.0-32.0) pg POC Glucose (mg/dL) 188 H 152 H (70-110) mg/dL
[2023-10-11 09:10] LABS: ALT 33 U/L (8-44); AST 46 U/L (13-35); Albumin 3.3 g/dL (3.8-4.9); Albumin/Globulin Ratio 1.65 Ratio (1.60-3.17); Alkaline Phosphatase 54 U/L (41-126); BUN/Creat Ratio 8.78 Ratio (12.00-20.00); Calcium 8.9 mg/dL (8.7-10.3); Carbon Dioxide 23.2 mmol/L (21.6-31.8); Chloride 99 mmol/L (96-109); Glucose 175 mg/dL (70-110); Potassium 5.1 mmol/L (3.5-5.5); Sodium 136 mmol/L (135-145); Total Bilirubin 0.4 mg/dL (0.3-1.2); Total Protein 5.3 g/dL (6.2-8.2)
[2023-10-11 10:43] LABS: ALT 30 U/L (4-34); AST 53 U/L (14-36); African American GFR (CKD) 10 (>60 ml/min/1.73 sqM); Albumin 2.7 g/dL (3.5-5.0); Albumin/Globulin Ratio 1.1; Alkaline Phosphatase 54 U/L (38-126); Anion Gap 8 mmol/L; Blood Urea Nitrogen 48 mg/dL (7-17); Calcium 8.5 mg/dL (8.4-10.2); Carbon Dioxide 25 mmol/L (22-30); Chloride 100 mmol/L (98-107); Globulin 2.4 g/dL; Glucose 123 mg/dL (74-99); Non-African American GFR(CKD) 9 (>60 ml/min/1.73 sqM); Potassium 4.8 mmol/L (3.5-5.1); Sodium 133 mmol/L (137-145); Total Bilirubin 0.6 mg/dL (0.2-1.3); Total Protein 5.1 g/dL (6.3-8.2)
--- NOTE | 2023-10-11 10:45 | P.PN ---
Subjective Patient is seen in follow-up for end-stage renal disease. She is maintained on hemodialysis on Sunday schedule. Resting in bed. Has Bansal catheter. No active complaints. Scheduled for dialysis today. Vital signs are stable. General: No acute distress. HEENT: Head exam is unremarkable. LUNGS: No acute distress. HEART: Rate and Rhythm are regular. ABDOMEN: Mild tenderness to touch. EXTREMITITES: No edema. Objective - Vital Signs Vital signs: Vital Signs Temp 98.4 F 10/11/23 07:55 Pulse 68 10/11/23 08:07 Resp 13 10/11/23 08:07 BP 161/58 10/11/23 07:55 Pulse Ox 99 10/11/23 07:55 FiO2 Intake & Output 10/10/23 10/11/23 10/11/23 18:59 06:59 18:59 Intake Total 600 700 Output Total 310 300 Balance 290 400 Intake: IV 600 Intake, IV Titration 100 Amount Piperacillin-Tazobactam 3 100 .375 gm In Sodium Chloride 0.9% 100 ml @ 25 mls/hr IVPB Q12HR [facility] Rx #:[id number] Oral 600 Output: Urine 300 300 Estimated Blood Loss 10 Other: Voiding Method Indwelling Catheter Indwelling Catheter Indwelling Catheter - Labs CBC & Chem 7: 10/11/23 04:51 10/11/23 09:56 Labs: Abnormal Lab Results - Last 24 Hours (Table) 10/10/23 10/10/23 10/10/23 Range/Units 05:44 10:57 13:39 WBC (4.50-10.00) X 10*3/uL RBC (4.10-5.20) X 10*6/uL Hgb (12.0-15.0) g/dL Hct (37.2-46.3) % MCV 108.4 H D (80.0-100.0) fL MCH (27.0-32.0) pg Sodium (137-145) mmol/L Anion Gap (4.00-12.00) mmol/L BUN (9.0-27.0) mg/dL Creatinine (0.6-1.5) mg/dL Est GFR (CKD-EPI) (>=60) BUN/Creatinine Ratio (12.00-20.00) Ratio Glucose (70-110) mg/dL POC Glucose (mg/dL) 164 H 201 H (70-110) mg/dL AST (13-35) U/L Total Protein (6.2-8.2) g/dL Albumin (3.8-4.9) g/dL 10/10/23 10/10/23 10/11/23 Range/Units 16:22 20:43 04:47 WBC (4.50-10.00) X 10*3/uL RBC (4.10-5.20) X 10*6/uL Hgb (12.0-15.0) g/dL Hct (37.2-46.3) % MCV (80.0-100.0) fL MCH (27.0-32.0) pg Sodium (137-145) mmol/L Anion Gap 13.80 H (4.00-12.00) mmol/L BUN 43.0 H (9.0-27.0) mg/dL Creatinine 4.9 H (0.6-1.5) mg/dL Est GFR (CKD-EPI) 9 L (>=60) BUN/Creatinine Ratio 8.78 L (12.00-20.00) Ratio Glucose 175 H (70-110) mg/dL POC Glucose (mg/dL) 175 H 140 H (70-110) mg/dL AST 46 H (13-35) U/L Total Protein 5.3 L (6.2-8.2) g/dL Albumin 3.3 L (3.8-4.9) g/dL 10/11/23 10/11/23 10/11/23 Range/Units 04:51 05:32 08:10 WBC 4.28 L (4.50-10.00) X 10*3/uL RBC 2.80 L (4.10-5.20) X 10*6/uL Hgb 9.0 L (12.0-15.0) g/dL Hct 28.0 L (37.2-46.3) % MCV 100.0 H (80.0-100.0) fL MCH 32.1 H (27.0-32.0) pg Sodium (137-145) mmol/L Anion Gap (4.00-12.00) mmol/L BUN (9.0-27.0) mg/dL Creatinine (0.6-1.5) mg/dL Est GFR (CKD-EPI) (>=60) BUN/Creatinine Ratio (12.00-20.00) Ratio Glucose (70-110) mg/dL POC Glucose (mg/dL) 188 H 152 H (70-110) mg/dL AST (13-35) U/L Total Protein (6.2-8.2) g/dL Albumin (3.8-4.9) g/dL 10/11/23 Range/Units 09:56 WBC (4.50-10.00) X 10*3/uL RBC (4.10-5.20) X 10*6/uL Hgb (12.0-15.0) g/dL Hct (37.2-46.3) % MCV (80.0-100.0) fL MCH (27.0-32.0) pg Sodium 133 L (137-145) mmol/L Anion Gap (4.00-12.00) mmol/L BUN 48 H (9.0-27.0) mg/dL Creatinine 4.67 H (0.6-1.5) mg/dL Est GFR (CKD-EPI) (>=60) BUN/Creatinine Ratio (12.00-20.00) Ratio Glucose 123 H (70-110) mg/dL POC Glucose (mg/dL) (70-110) mg/dL AST 53 H (13-35) U/L Total Protein 5.1 L (6.2-8.2) g/dL Albumin 2.7 L (3.8-4.9) g/dL Assessment and Plan Plan: Assessment: 1. End-stage renal disease maintained on hemodialysis on Sunday schedule via left upper extremity AV fistula. 2. Urinary retention status post Bansal catheter placement. On Flomax. 3. Hypertension with chronic kidney disease. Has history of orthostatic h ypotension. 4. Acute cholecystitis. Choledocholithiasis noted on MRCP. Surgery following. Underwent robotic cholecystectomy October 10, 2023. 5. Anemia of chronic kidney disease maintained on Aranesp. 6. Mild hyperkalemia secondary to chronic kidney disease and lisinopril. Improved postdialysis. Plan: Hemodialysis today. Trial of void today. Preserved ejection fraction noted on echocardiogram.
[2023-10-11] MEDS: lisinopriL 20 MG TAB PO SCH (11:41)
[2023-10-11 11:42] LABS: Glucose,Whole Blood 134 mg/dL (70-110)
--- NOTE | 2023-10-11 13:42 | P.PN ---
Subjective Progress Note Date: 10/11/23 CHIEF COMPLAINT: Hypoglycemia HISTORY OF PRESENT ILLNESS: Patient postop day #1 status post robotic assisted laparoscopic cholecystectomy. Patient reports her pain is controlled. Denies any nausea or vomiting. She does report pain with movement and along the left side. She is having flatus. MRCP did not show evidence of choledocholithiasis. She has been evaluated by GI service for possible ERCP. Afebrile. Total bili 0.6 AST up from 46-53 ALT 30 alk phos 54 PHYSICAL EXAM: VITAL SIGNS: Reviewed GENERAL: Well-developed in no acute distress. HEENT: No sclera icterus. Extraocular movements grossly intact. Moist buccal mucosa. Head is atraumatic, normocephalic. Hears conversational speech. No nasal drainage. NECK: Supple without lymphadenopathy. CHEST: Non-labored respirations and equal bilateral excursions. CARDIOVASCULAR: Palpable 2+ radial pulses. ABDOMEN: Soft. Nondistended. Incision sites clean dry and intact MUSCULOSKELETAL: No clubbing or cyanosis. NEUROLOGIC: No focal or lateralizing signs. Cranial nerves II through XII grossly intact. PSYCH: confused. easily angered SKIN: Well perfused. Good skin turgor. ASSESSMENT: 1. Acute cholecystitis 2. Choledocholithiasis 3. Hydropic gallbladder with gallstones, thickened gallbladder wall on ultrasound 4. History of end-stage renal disease on hemodialysis PLAN: -GI service on consult for possible ERCP regarding choledocholithiasis -Continue low-fat diet -Encourage patient to increase activity level -Continue antibiotics -Tylenol scheduled ordered for pain control Physician Gas Producer note has been reviewed by physician. Signing provider agrees with the documented findings, assessment, and plan of care. Objective - Vital Signs Vital signs: Vital Signs Temp 98.4 F 10/11/23 07:55 Pulse 68 10/11/23 08:07 Resp 13 10/11/23 08:07 BP 161/58 10/11/23 07:55 Pulse Ox 99 10/11/23 07:55 FiO2 Intake & Output 10/10/23 10/11/23 10/11/23 18:59 06:59 18:59 Intake Total 600 700 Output Total 310 300 Balance 290 400 Intake: IV 600 Intake, IV Titration 100 Amount Piperacillin-Tazobactam 3 100 .375 gm In Sodium Chloride 0.9% 100 ml @ 25 mls/hr IVPB Q12HR [facility] Rx #:[id number] Oral 600 Output: Urine 300 300 Estimated Blood Loss 10 Other: Voiding Method Indwelling Catheter Indwelling Catheter Indwelling Catheter - Labs CBC & Chem 7: 10/11/23 04:51 10/11/23 09:56 Labs: Abnormal Lab Results - Last 24 Hours (Table) 10/10/23 10/10/23 10/10/23 Range/Units 05:44 13:39 16:22 WBC (4.50-10.00) X 10*3/uL RBC (4.10-5.20) X 10*6/uL Hgb (12.0-15.0) g/dL Hct (37.2-46.3) % MCV 108.4 H D (80.0-100.0) fL MCH (27.0-32.0) pg Sodium (137-145) mmol/L Anion Gap (4.00-12.00) mmol/L BUN (9.0-27.0) mg/dL Creatinine (0.6-1.5) mg/dL Est GFR (CKD-EPI) (>=60) BUN/Creatinine Ratio (12.00-20.00) Ratio Glucose (70-110) mg/dL POC Glucose (mg/dL) 201 H 175 H (70-110) mg/dL AST (13-35) U/L Total Protein (6.2-8.2) g/dL Albumin (3.8-4.9) g/dL 10/10/23 10/11/23 10/11/23 Range/Units 20:43 04:47 04:51 WBC 4.28 L (4.50-10.00) X 10*3/uL RBC 2.80 L (4.10-5.20) X 10*6/uL Hgb 9.0 L (12.0-15.0) g/dL Hct 28.0 L (37.2-46.3) % MCV 100.0 H (80.0-100.0) fL MCH 32.1 H (27.0-32.0) pg Sodium (137-145) mmol/L Anion Gap 13.80 H (4.00-12.00) mmol/L BUN 43.0 H (9.0-27.0) mg/dL Creatinine 4.9 H (0.6-1.5) mg/dL Est GFR (CKD-EPI) 9 L (>=60) BUN/Creatinine Ratio 8.78 L (12.00-20.00) Ratio Glucose 175 H (70-110) mg/dL POC Glucose (mg/dL) 140 H (70-110) mg/dL AST 46 H (13-35) U/L Total Protein 5.3 L (6.2-8.2) g/dL Albumin 3.3 L (3.8-4.9) g/dL 10/11/23 10/11/23 10/11/23 Range/Units 05:32 08:10 09:56 WBC (4.50-10.00) X 10*3/uL RBC (4.10-5.20) X 10*6/uL Hgb (12.0-15.0) g/dL Hct (37.2-46.3) % MCV (80.0-100.0) fL MCH (27.0-32.0) pg Sodium 133 L (137-145) mmol/L Anion Gap (4.00-12.00) mmol/L BUN 48 H (9.0-27.0) mg/dL Creatinine 4.67 H (0.6-1.5) mg/dL Est GFR (CKD-EPI) (>=60) BUN/Creatinine Ratio (12.00-20.00) Ratio Glucose 123 H (70-110) mg/dL POC Glucose (mg/dL) 188 H 152 H (70-110) mg/dL AST 53 H (13-35) U/L Total Protein 5.1 L (6.2-8.2) g/dL Albumin 2.7 L (3.8-4.9) g/dL 10/11/23 Range/Units 11:41 WBC (4.50-10.00) X 10*3/uL RBC (4.10-5.20) X 10*6/uL Hgb (12.0-15.0) g/dL Hct (37.2-46.3) % MCV (80.0-100.0) fL MCH (27.0-32.0) pg Sodium (137-145) mmol/L Anion Gap (4.00-12.00) mmol/L BUN (9.0-27.0) mg/dL Creatinine (0.6-1.5) mg/dL Est GFR (CKD-EPI) (>=60) BUN/Creatinine Ratio (12.00-20.00) Ratio Glucose (70-110) mg/dL POC Glucose (mg/dL) 134 H (70-110) mg/dL AST (13-35) U/L Total Protein (6.2-8.2) g/dL Albumin (3.8-4.9) g/dL
--- NOTE | 2023-10-11 14:40 | P.CONS ---
History of Present Illness - Reason for Consult Consult date: 10/11/23 Choledocholithiasis Requesting physician: Nicole Stiles - Chief Complaint Confusion, unresponsiveness - History of Present Illness This Is a pleasant 78-year-old female with a past medical history including hypertension, hyperlipidemia, diabetes, and end-stage renal disease on hemodialysis. Patient came in 3 days ago with altered mental status changes and confusion. Apparently patient had mildly elevated lipase as well as LFTs on admission and had a CT of the abdomen and pelvis which reported a 9 mm stone in the distal bile duct with moderate biliary ductal dilation. Gallbladder hydrops. General surgery was consulted. Patient underwent HIDA scan which rep orted no scientific evidence for acute/chronic cholecystitis or biliary dyskinesia. She also underwent MRCP 2 days ago that reported common hepatic duct T2 signal stones present. Yesterday she underwent laparoscopic cholecystectomy. We were consulted for concerns for choledocholithiasis Patient states she has surgical pain, she has no pain in the epigastric or right upper quadrant. She denies any nausea or vomiting. Total bilirubin 0.6 AST 53 ALT 30 alkaline phosphatase 54. Review of Systems REVIEW OF SYSTEMS: CARDIOPULMONARY: No chest pain or shortness of breath. Gastrointestinal: Patient only reports surgical abdominal pain. No nausea or vomiting. No hematemesis, coffee-ground emesis. No rectal bleeding, or melena. GENITOURINARY: No dysuria or hematuria. MUSCULOSKELETAL: Reports normal range of motion. Back pain. SKIN: No rashes. No jaundice. ENDOCRINE: No chills, fevers. No excessive weight gain or loss. No polydipsia or polyuria. PSYCHIATRIC: Unremarkable. NEUROLOGY: No change in mental status. Denies dizziness, headache. ENT: Vision unremarkable. CONSTITUTIONAL: No recent weight loss. No fever, chills, night sweats. Past Medical History Past Medical History: Diabetes Mellitus, Dialysis, Hyperlipidemia, Hypertension, Renal Disease, Skin Disorder Additional Past Medical History / Comment(s): dialysis Y[facility]og-Sos., cyst on brain-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 gout ,anemia, psoriatic arthritis,heart murmur History of Any Multi-Drug Resistant Organisms: None Reported Past Surgical History: Orthopedic Surgery, Tubal Ligation Additional Past Surgical History / Comment(s): 1 oophorectomy, 1 partial oophorectomy,fx rt shoulder feng present, cataracts removed jack eyes, fistula le ft arm Past Anesthesia/Blood Transfusion Reactions: Motion Sickness Past Psychological History: No Psychological Hx Reported Smoking Status: Never smoker Past Alcohol Use History: None Reported Past Drug Use History: None Reported - Past Family History Sister(s) Family Medical History: Cancer Additional Family Medical History / Comment(s): breast cancer Medications and Allergies Home Medications Medication Instructions Recorded Confirmed Type Ascorbic Acid [Vitamin C] 500 mg PO DAILY 06/30/20 10/05/23 History Aspirin [Adult Low Dose Aspirin EC] 81 mg PO DAILY 06/30/20 10/05/23 History Febuxostat [Uloric] 40 mg PO DAILY 06/30/20 10/05/23 History Multivitamins, Thera [Multivitamin 1 tab PO DAILY 06/30/20 10/05/23 History (formulary)] Simvastatin [Zocor] 20 mg PO HS 06/30/20 10/05/23 History amLODIPine BESYLATE 10 mg PO DAILY 06/30/20 10/05/23 History hydrALAZINE HCL [Apresoline] 100 mg PO TID 06/30/20 10/05/23 History Furosemide [Lasix] 60 mg PO TID@0800,1200,1700 09/21/22 10/05/23 History Insulin Degludec [Tresiba] 22 units SQ DAILY 09/21/22 10/05/23 History Nephro-Hilary 1 tab PO DAILY 09/21/22 10/05/23 History carvediloL [Coreg] 25 mg PO BID 09/21/22 10/05/23 History Cholecalciferol [Vitamin D3 (25 25 mcg PO DAILY 05/30/23 10/05/23 History Mcg = 1000 Iu)] Insulin Lispro [humaLOG Kwikpen] 4 units SQ AC-TID 05/30/23 10/05/23 History Insulin Lispro [humaLOG Kwikpen] See Protocol SQ AC-TID 05/30/23 10/05/23 History lisinopriL [Prinivil] 10 mg PO DAILY 05/30/23 10/05/23 History Acetaminophen Tab [Tylenol] 650 mg PO Q4H PRN 08/28/23 10/05/23 History L.acidoph,Paracasei, B.lactis 1 cap PO BID@0800,1700 08/28/23 10/05/23 History [Probiotic] HYDROcodone/APAP 10-325MG [[place] 1 tab PO Q4HR PRN 30 Days #120 tab 10/04/23 10/05/23 Rx 10-325] Darbepoetin Matthew [Aranesp] 40 mcg SQ TU 10/05/23 10/05/23 History Magnesium Hydroxide [Milk of 7,200 mg PO DAILY PRN 10/05/23 10/05/23 History Magnesia Concentrate] Na Phos,M-B/Na Phos,Di-Ba [Fleet 133 ml RECTAL DAILY PRN 10/05/23 10/05/23 History Adult] bisacodyL [Dulcolax] 10 mg RECTAL DAILY PRN 10/05/23 10/05/23 History Allergies Allergy/AdvReac Type Severity Reaction Status Date / Time adhesive tape Allergy Itching Verified 10/10/23 11:35 levofloxacin [From Levaquin] Allergy Unknown Verified 10/10/23 11:35 Physical Exam Vitals: Vital Signs Temp Pulse Pulse Resp BP Pulse Ox 10/11/23 08:07 68 13 10/11/23 07:55 98.4 F 68 13 161/58 99 10/11/23 03:03 99.5 F 166/60 10/11/23 01:32 100.9 F H 86 17 173/56 91 L 10/10/23 19:20 98.2 F 64 18 155/60 96 10/10/23 16:30 65 159/68 10/10/23 16:15 61 157/60 10/10/23 16:00 63 154/59 10/10/23 15:45 61 154/57 10/10/23 15:30 62 152/53 10/10/23 15:15 63 151/55 10/10/23 15:00 65 149/54 10/10/23 14:45 66 154/62 10/10/23 14:32 98.4 F 70 19 160/53 93 L 10/10/23 14:09 71 16 140/58 96 10/10/23 13:54 72 16 149/61 93 L 10/10/23 13:39 75 16 156/57 93 L 10/10/23 13:24 97.7 F 76 16 168/67 96 Intake and Output 10/10/23 10/11/23 10/11/23 22:59 06:59 14:59 Intake Total 700 Output Total 300 Balance 400 Intake: Intake, IV Titration 100 Amount Piperacillin-Tazobactam 3 100 .375 gm In Sodium Chloride 0.9% 100 ml @ 25 mls/hr IVPB Q12HR [facility] Rx #:[id number] Oral 600 Output: Urine 300 Other: Voiding Method Indwelling Catheter Indwelling Catheter General appearance: The patient is alert, oriented, appears in no acute distress. HET: Head is normocephalic and atraumatic. Conjunctiva pink. Sclera anicteric. Neck: Supple without lymphadenopathy. Trachea midline. Heart: Regular. Lungs: Equal expansion, normal respiratory effort. Abdomen: Soft, no right upper quadrant or epigastric tenderness, surgical tenderness near incisions. Incisions well-approximated. Nondistended. Skin: No rashes. No jaundice. Extremities: Normal skin color and turgor. No pedal edema. Neurological: No focal deficits. Alert and oriented x3. Results CBC & Chem 7: 10/11/23 04:51 10/11/23 09:56 Labs: Abnormal Lab Results - Last 24 Hours (Table) 10/10/23 10/10/23 10/10/23 Range/Units 05:44 13:39 16:22 WBC (4.50-10.00) X 10*3/uL RBC (4.10-5.20) X 10*6/uL Hgb (12.0-15.0) g/dL Hct (37.2-46.3) % MCV 108.4 H D (80.0-100.0) fL MCH (27.0-32.0) pg Sodium (137-145) mmol/L Anion Gap (4.00-12.00) mmol/L BUN (9.0-27.0) mg/dL Creatinine (0.6-1.5) mg/dL Est GFR (CKD-EPI) (>=60) BUN/Creatinine Ratio (12.00-20.00) Ratio Glucose (70-110) mg/dL POC Glucose (mg/dL) 201 H 175 H (70-110) mg/dL AST (13-35) U/L Total Protein (6.2-8.2) g/dL Albumin (3.8-4.9) g/dL 02/10/11/23 10/11/23 Range/Units 20:43 04:47 04:51 WBC 4.28 L (4.50-10.00) X 10*3/uL RBC 2.80 L (4.10-5.20) X 10*6/uL Hgb 9.0 L (12.0-15.0) g/dL Hct 28.0 L (37.2-46.3) % MCV 100.0 H (80.0-100.0) fL MCH 32.1 H (27.0-32.0) pg Sodium (137-145) mmol/L Anion Gap 13.80 H (4.00-12.00) mmol/L BUN 43.0 H (9.0-27.0) mg/dL Creatinine 4.9 H (0.6-1.5) mg/dL Est GFR (CKD-EPI) 9 L (>=60) BUN/Creatinine Ratio 8.78 L (12.00-20.00) Ratio Glucose 175 H (70-110) mg/dL POC Glucose (mg/dL) 140 H (70-110) mg/dL AST 46 H (13-35) U/L Total Protein 5.3 L (6.2-8.2) g/dL Albumin 3.3 L (3.8-4.9) g/dL 10/11/23 10/11/23 10/11/23 Range/Units 05:32 08:10 09:56 WBC (4.50-10.00) X 10*3/uL RBC (4.10-5.20) X 10*6/uL Hgb (12.0-15.0) g/dL Hct (37.2-46.3) % MCV (80.0-100.0) fL MCH (27.0-32.0) pg Sodium 133 L (137-145) mmol/L Anion Gap (4.00-12.00) mmol/L BUN 48 H (9.0-27.0) mg/dL Creatinine 4.67 H (0.6-1.5) mg/dL Est GFR (CKD-EPI) (>=60) BUN/Creatinine Ratio (12.00-20.00) Ratio Glucose 123 H (70-110) mg/dL POC Glucose (mg/dL) 188 H 152 H (70-110) mg/dL AST 53 H (13-35) U/L Total Protein 5.1 L (6.2-8.2) g/dL Albumin 2.7 L (3.8-4.9) g/dL 10/11/23 Range/Units 11:41 WBC (4.50-10.00) X 10*3/uL RBC (4.10-5.20) X 10*6/uL Hgb (12.0-15.0) g/dL Hct (37.2-46.3) % MCV (80.0-100.0) fL MCH (27.0-32.0) pg Sodium (137-145) mmol/L Anion Gap (4.00-12.00) mmol/L BUN (9.0-27.0) mg/dL Creatinine (0.6-1.5) mg/dL Est GFR (CKD-EPI) (>=60) BUN/Creatinine Ratio (12.00-20.00) Ratio Glucose (70-110) mg/dL POC Glucose (mg/dL) 134 H (70-110) mg/dL AST (13-35) U/L Total Protein (6.2-8.2) g/dL Albumin (3.8-4.9) g/dL Comments: MRCP reports no choledocholithiasis. There is upstream dilation of the biliary system. Stable pancreatic body cyst. Stable suspected gallstone laying dependently in the gallbladder lumen. CT reports no choledocholithiasis. There is upstream dilation of the biliary system. Stable pancreatic body cyst. Stable suspected gallstone layering dependently in the gallbladder lumen. abdomen pelvis without contrast reports 9 mm stone in the distal bile duct with moderate biliary ductal dilation. Gallbladder hydrops probably relates to biliary obstruction. Correlate with alkaline phosphatase and bilirubin levels. Distended appearance of the left renal vein may be normal variation. Consider ultrasound Doppler assessment to rule out any renal vein thrombosis. Mild cardiomegaly and mild anasarca changes. Correlate for some third spacing. Tiny hiatal hernia Abdominal ultrasound reports bilateral renal cortical thinning and increased echogenicity suggesting chronic medical renal disease. 0.6 cm calculus in the midpole of the left kidney. No hydronephrosis. Small cyst superior pole left kidney. Left renal vein shows no evidence of thrombosis. Normal waveform and color flow seen. Including distended portion. Mildly dilated pancreatic duct and circumscribed cystic lesion in the pancreatic body similar to prior MRI. Dilated CBD with no clear evidence of stone in the visualized portion of the duct. Hydropic appearing gallbladder without evidence of significant pe richolecystic fluid. No sonographic Herr sign was elicited. Circumscribed cystic lesion in the body of the pancreas and mild pancreatic duct dilation seems stable compared to prior MRI. Assessment and Plan (1) Choledocholithiasis Narrative/Plan: 78-year-old female with multiple comorbidities presented with altered mental status and confusion was found to be hypoglycemic. She had some elevated LFTs and mildly elevated lipase on admission. She had imaging done reporting CBD dilation. She had further imaging including abdominal ultrasound which showed pancreatic duct dilation, CBD dilation. As well as MRCP again showing choledoch olithiasis. She underwent cholecystectomy yesterday. Gastroenterology seeing patient for documented choledocholithiasis on MRCP, although liver enzymes are not consistent with a cholestatic pattern will investigate further. Plan for ERCP tomorrow. Current Visit: Yes Status: Acute Code(s): K80.50 - CALCULUS OF BILE DUCT W/O CHOLANGITIS OR CHOLECYST W/O OBST SNOMED Code(s): 898845338 (2) End-stage renal disease on hemodialysis Current Visit: Yes Status: Acute Code(s): N18.6 - END STAGE RENAL DISEASE; Z99.2 - DEPENDENCE ON RENAL DIALYSIS SNOMED Code(s): 962379726 (3) Altered mental status Current Visit: Yes Status: Acute Code(s): R41.82 - ALTERED MENTAL STATUS, UNSPECIFIED SNOMED Code(s): 054850304 (4) Hypoglycemia Current Visit: Yes Status: Acute Code(s): E16.2 - HYPOGLYCEMIA, UNSPECIFIED SNOMED Code(s): 472162466 Plan: 1. Continue symptomatic and supportive care 2. Continue IV antibiotics 3. N.p.o. after midnight 4. Hold aspirin and heparin 10/12/2023 5. Give indomethacin as ordered 1 hour prior to procedure 6. Plan for ERCP tomorrow. Thank you for this consultation, we will continue to follow. Dr. Matthias Dupree I agree with the dictator's note, documented as a scribe by Essie Jimenez.
[2023-10-11 15:11] LABS: Prothrombin Time 10.7 sec (10.0-12.5)
[2023-10-11 17:06] LABS: Glucose,Whole Blood 93 mg/dL (70-110)
[2023-10-11] MEDS: ACETAMINOPHEN TAB 500 MG TAB PO SCH (17:14)
[2023-10-11 20:15] LABS: Glucose,Whole Blood 209 mg/dL (70-110)
[2023-10-12 02:16] LABS: Glucose,Whole Blood 156 mg/dL (70-110)
[2023-10-12 06:06] LABS: Glucose,Whole Blood 173 mg/dL (70-110)
--- NOTE | 2023-10-12 08:18 | P.PN ---
Subjective Principal diagnosis: ESRD acute cholecystitis pancreatitis This is a 81-year-old white patient with diabetic nephropathy and end-stage renal disease with dialysis who was admitted secondary to altered mental status. Elevation of lipase was noted and she was known to have cholecystitis. She is now postop day #2 for cholecystitis and she has element of choledocholithiasis. ERCP is scheduled for today. Objective - Vital Signs Vital signs: Vital Signs Temp 98.1 F 10/12/23 08:00 Pulse 74 10/12/23 08:00 Resp 15 10/12/23 08:00 BP 96/54 10/12/23 08:00 Pulse Ox 96 10/12/23 08:00 FiO2 Intake & Output 10/11/23 10/12/23 10/12/23 18:59 06:59 18:59 Intake Total 500 100 Output Total 300 525 Balance 200 -425 Intake: Intake, IV Titration 100 Amount Piperacillin-Tazobactam 3 100 .375 gm In Sodium Chloride 0.9% 100 ml @ 25 mls/hr IVPB Q12HR [facility] Rx #:[id number] Hemodialysis 500 Output: Urine 200 525 Uretheral (Bansal) 525 Hemodialysis 100 Other: Voiding Method Indwelling Catheter Indwelling Catheter - Constitutional General appearance: Present: average body habitus - EENT Eyes: Absent: abnormal pupil - Neck Neck: Absent: lymphadenopathy - Respiratory Respiratory: bilateral: CTA - Cardiovascular Rhythm: regular - Gastrointestinal General gastrointestinal: Absent: tenderness - Neurologic Neurologic: Present: CNII-XII intact - Labs CBC & Chem 7: 10/11/23 04:51 10/11/23 09:56 Labs: Abnormal Lab Results - Last 24 Hours (Table) 10/11/23 10/11/23 10/11/23 Range/Units 04:47 04:51 08:10 WBC 4.28 L (4.50-10.00) X 10*3/uL RBC 2.80 L (4.10-5.20) X 10*6/uL Hgb 9.0 L (12.0-15.0) g/dL Hct 28.0 L (37.2-46.3) % MCV 100.0 H (80.0-97.0) FL MCH 32.1 H (27.0-32.0) pg Sodium (137-145) mmol/L Anion Gap 13.80 H (4.00-12.00) mmol/L BUN 43.0 H (9.0-27.0) mg/dL Creatinine 4.9 H (0.6-1.5) mg/dL Est GFR (CKD-EPI) 9 L (>=60) BUN/Creatinine Ratio 8.78 L (12.00-20.00) Ratio Glucose 175 H (70-110) mg/dL POC Glucose (mg/dL) 152 H (70-110) mg/dL AST 46 H (13-35) U/L Total Protein 5.3 L (6.2-8.2) g/dL Albumin 3.3 L (3.8-4.9) g/dL 10/11/23 10/11/23 10/11/23 Range/Units 09:56 11:41 20:13 WBC (4.50-10.00) X 10*3/uL RBC (4.10-5.20) X 10*6/uL Hgb (12.0-15.0) g/dL Hct (37.2-46.3) % MCV (80.0-97.0) FL MCH (27.0-32.0) pg Sodium 133 L (137-145) mmol/L Anion Gap (4.00-12.00) mmol/L BUN 48 H (9.0-27.0) mg/dL Creatinine 4.67 H (0.6-1.5) mg/dL Est GFR (CKD-EPI) (>=60) BUN/Creatinine Ratio (12.00-20.00) Ratio Glucose 123 H (70-110) mg/dL POC Glucose (mg/dL) 134 H 209 H (70-110) mg/dL AST 53 H (13-35) U/L Total Protein 5.1 L (6.2-8.2) g/dL Albumin 2.7 L (3.8-4.9) g/dL 10/12/23 10/12/23 Range/Units 02:14 06:05 WBC (4.50-10.00) X 10*3/uL RBC (4.10-5.20) X 10*6/uL Hgb (12.0-15.0) g/dL Hct (37.2-46.3) % MCV (80.0-97.0) FL MCH (27.0-32.0) pg Sodium (137-145) mmol/L Anion Gap (4.00-12.00) mmol/L BUN (9.0-27.0) mg/dL Creatinine (0.6-1.5) mg/dL Est GFR (CKD-EPI) (>=60) BUN/Creatinine Ratio (12.00-20.00) Ratio Glucose (70-110) mg/dL POC Glucose (mg/dL) 156 H 173 H (70-110) mg/dL AST (13-35) U/L Total Protein (6.2-8.2) g/dL Albumin (3.8-4.9) g/dL Assessment and Plan (1) Altered mental status Current Visit: Yes Status: Acute Code(s): R41.82 - ALTERED MENTAL STATUS, UNSPECIFIED SNOMED Code(s): 630748053 (2) Delirium due to general medical condition Current Visit: Yes Status: Acute Code(s): F05 - DELIRIUM DUE TO KNOWN PHYSIOLOGICAL CONDITION SNOMED Code(s): 3770870 (3) Hypoglycemia Current Visit: Yes Status: Acute Code(s): E16.2 - HYPOGLYCEMIA, UNSPECIFIED SNOMED Code(s): 802208462 (4) UTI (urinary tract infection) Current Visit: Yes Status: Acute Code(s): N39.0 - URINARY TRACT INFECTION, SITE NOT SPECIFIED SNOMED Code(s): 14320995 (5) Weakness Current Visit: Yes Status: Acute Code(s): R53.1 - WEAKNESS SNOMED Code(s): 23621490 (6) End stage renal disease on dialysis Current Visit: No Status: Acute Code(s): N18.6 - END STAGE RENAL DISEASE; Z99.2 - DEPENDENCE ON RENAL DIALYSIS SNOMED Code(s): 955382373 (7) Hyperlipidemia Current Visit: No Status: Acute Code(s): E78.5 - HYPERLIPIDEMIA, UNSPECIFIED SNOMED Code(s): 30101804 (8) Sacral fracture Current Visit: No Status: Acute Code(s): S32.10XA - UNSP FRACTURE OF SACRUM, INIT ENCNTR FOR CLOSED FRACTURE SNOMED Code(s): 105032427 (9) Type 2 diabetes mellitus with diabetic nephropathy Current Visit: No Status: Acute Code(s): E11.21 - TYPE 2 DIABETES MELLITUS WITH DIABETIC NEPHROPATHY SNOMED Code(s): 75772134 Plan: Await ERCP for stone issues. History of diabetic nephropathy with ESRD. Sacral fracture. Continue current regimen of treatment for pain control. Will continue to follow. Check CBC and CMP in a.m. Time with Patient: Greater than 30
[2023-10-12] MEDS: INDOMETHACIN 100 MG SUPPOSITORY RECTAL ONE (08:37)
[2023-10-12] MEDS ORDERED: LIDOCAINE 2% (PF) 20 MG/ML 5 ML VIAL ONE (09:47)
[2023-10-12] MEDS ORDERED: PROPOFOL 10 MG/ML 20 ML VIAL IV ONE (09:47)
[2023-10-12] MEDS: IV FLUID CONTINUATION 400 ML IV ONE (09:47)
[2023-10-12] MEDS: IOPAMIDOL-300 50ML BTL MISCELLANE ONE (10:20)
--- NOTE | 2023-10-12 10:21 | P.PN ---
Subjective Patient is seen in follow-up for end-stage renal disease. She is maintained on hemodialysis on Sunday schedule. Resting in bed. Has Bansal catheter. No active complaints. No problems with dialysis yesterday. Scheduled for ERCP today. Vital signs are stable. General: No acute distress. HEENT: Head exam is unremarkable. LUNGS: No acute distress. HEART: Rate and Rhythm are regular. ABDOMEN: Mild tenderness to touch. EXTREMITITES: No edema. Objective - Vital Signs Vital signs: Vital Signs Temp 98.1 F 10/12/23 08:00 Pulse 74 10/12/23 08:00 Resp 15 10/12/23 08:00 BP 160/60 10/12/23 08:00 Pulse Ox 96 10/12/23 08:00 FiO2 Intake & Output 10/11/23 10/12/23 10/12/23 18:59 06:59 18:59 Intake Total 500 100 Output Total 300 525 Balance 200 -425 Intake: Intake, IV Titration 100 Amount Piperacillin-Tazobactam 3 100 .375 gm In Sodium Chloride 0.9% 100 ml @ 25 mls/hr IVPB Q12HR [facility] Rx #:[id number] Hemodialysis 500 Output: Urine 200 525 Uretheral (Bansal) 525 Hemodialysis 100 Other: Voiding Method Indwelling Catheter Indwelling Catheter - Labs CBC & Chem 7: 10/11/23 04:51 10/11/23 09:56 Labs: Abnormal Lab Results - Last 24 Hours (Table) 10/11/23 10/11/23 10/11/23 Range/Units 09:56 11:41 20:13 Sodium 133 L (137-145) mmol/L BUN 48 H (7-17) mg/dL Creatinine 4.67 H (0.52-1.04) mg/dL Glucose 123 H (74-99) mg/dL POC Glucose (mg/dL) 134 H 209 H (70-110) mg/dL AST 53 H (14-36) U/L Total Protein 5.1 L (6.3-8.2) g/dL Albumin 2.7 L (3.5-5.0) g/dL 10/12/23 10/12/23 Range/Units 02:14 06:05 Sodium (137-145) mmol/L BUN (7-17) mg/dL Creatinine (0.52-1.04) mg/dL Glucose (74-99) mg/dL POC Glucose (mg/dL) 156 H 173 H (70-110) mg/dL AST (14-36) U/L Total Protein (6.3-8.2) g/dL Albumin (3.5-5.0) g/dL Assessment and Plan Plan: Assessment: 1. End-stage renal disease maintained on hemodialysis on Sunday schedule via left upper extremity AV fistula. 2. Urinary retention status post Bansal catheter placement. On Flomax. 3. Hypertension with chronic kidney disease. Has history of orthostatic hypotension. 4. Acute cholecystitis. Choledocholithiasis noted on MRCP. Surgery following. Underwent robotic cholecystectomy October 10, 2023. Scheduled for ERCP today. 5. Anemia of chronic kidney disease maintained on Aranesp. 6. Mild hyperkalemia secondary to chronic kidney disease and lisinopril. Improved postdialysis. Plan: Hemodialysis tomorrow. Preserved ejection fraction noted on echocardiogram. Avoid morphine due to ESRD status. Okay to use Dilaudid if needed.
--- NOTE | 2023-10-12 10:38 | P.PCN ---
Date of Procedure: 10/12/23 Procedure(s) Performed: Brief history: Patient is a year-old pleasant lady scheduled for an ERCP as part of evaluation of abdominal pain and elevated serum transaminases for the last 2 days' duration. She was noted to have symptomatic gallstones and underwent gallbladder surgery 2 days ago. An MRCP revealed choledocholithiasis. Procedure performed: ERCP with biliary sphincterotomy and balloon stone extraction Preoperative diagnoses: Choledocholithiasis IV sedation per anesthesia: Procedure: After informed consent was obtained from the patient and after the risks benefits and complications including bleeding perforation and pancreatitis explained in detail the patient was brought into the endoscopy unit. The patient was placed in prone position and IV conscious sedation was administered by anesthesia under continuous monitoring. The Olympus side-viewing duodenoscope was then inserted into the mouth and esophagus intubated without any difficulty. The scope was gradually advanced into the stomach and duodenum. The major papilla was identified without any difficulty. Initial cannulation resulted in opacification of the pancreatic duct that appeared slightly, but duct was cannulated and injection of the bite was dilated measuring 1 cm in size. 2 filling defects measuring 8-9 mm in size.. At this time the catheter was exchanged over a guidewire with the biliary sphincterotome and a bili sphincterotomy was performed in the Procedure and was extended to 1 cm. Following this an 11.5 mm balloon was passed over the guidewire into the proximal CBD, gently inflated and withdrawn and 2 stones were extracted without any difficulty. There was significant amount of sludge that was also extracted. Following this a 15 mm balloon was passed over the guidewire into the proximal CBD gently inflated and withdrawn and significant amount of sludge was extracted. Patient tolerated the procedure well. Impression: Normal-appearing pancreatic duct. Dilated common bile measuring 1 cm in size with 2 filling defects measuring 7 and 8 mm in size, status post biliary sphincterotomy and balloon stone extraction as described above Recommendations: The findings of this examination were discussed with the patient . She'll be on a clear liquid diet today. Advance diet as tolerated tomorrow..
--- NOTE | 2023-10-12 11:13 | FL ---
EXAMINATION TYPE: FL guided pain mgmt statistic Intraoperative/procedural fluoroscopic services were provided. Total fluoroscopy time is 1 minute 47 seconds seconds with a total of 9 submitted images to PACS. Please see the operative/procedural note for further details. DAP: 3.86 mGym2
[2023-10-12 11:24] LABS: Glucose,Whole Blood 223 mg/dL (70-110)
[2023-10-12 11:34] LABS: HCT 27.6 % (37.2-46.3); MCH 31.7 pg (27.0-32.0); MCHC 32.6 g/dL (32.0-37.0); MCV 97.2 FL (80.0-97.0); Mean Platelet Volume 10.4 FL (9.5-12.2); NRBC Per 100 WBC 0 X 10*3/uL (0.00-0.01); Platelet Count 154 X 10*3/uL (140-440); RBC 2.84 X 10*6/uL (4.10-5.20); RDW 14.1 % (11.5-14.5)
[2023-10-12 11:55] LABS: ALT 30 U/L (8-44); AST 41 U/L (13-35); Albumin 3.2 g/dL (3.8-4.9); Albumin/Globulin Ratio 1.45 Ratio (1.60-3.17); Alkaline Phosphatase 56 U/L (41-126); BUN/Creat Ratio 6.78 Ratio (12.00-20.00); Blood Urea Nitrogen 21.7 mg/dL (9.0-27.0); Calcium 9.1 mg/dL (8.7-10.3); Carbon Dioxide 26.4 mmol/L (21.6-31.8); Chloride 95 mmol/L (96-109); Globulin 2.2 g/dL (1.6-3.3); Glucose 169 mg/dL (70-110); Sodium 136 mmol/L (135-145); Total Bilirubin 0.4 mg/dL (0.3-1.2); Total Protein 5.4 g/dL (6.2-8.2)
--- NOTE | 2023-10-12 14:02 | PN ---
PROGRESS NOTE SUBJECTIVE: A 78-year-old lady who is admitted to hospital with having cardiac had confusion and we were consulted for preop cardiac evaluation and we are following her because of uncontrolled hypertension. I adjusted her medications. She underwent ERCP today. Blood pressure is still elevated, but she did not get her medications this morning. I will give her, her medications today and hopefully she can be discharged home tomorrow. OBJECTIVE: GENERAL: Comfortable at rest. VITAL SIGNS: Blood pressure is elevated. CHEST: Reveals good air entry bilaterally. HEART: Reveals first and second heart sounds. S4 is heard. ABDOMEN: Soft. EXTREMITIES: Revealed mild edema. ASSESSMENT: Preop cardiac evaluation, uncontrolled hypertension, end-stage renal disease, on hemodialysis, status post cholecystectomy. PLAN: Continue current medications. Adjust antihypertensives if necessary tomorrow. If she continues to be hypertensive in spite of receiving her medication. MMODL / IJN: [id number] /
--- NOTE | 2023-10-12 14:30 | P.PN ---
Subjective Progress Note Date: 10/12/23 CHIEF COMPLAINT: Hypoglycemia HISTORY OF PRESENT ILLNESS: Patient postop day #2 status post robotic assisted laparoscopic cholecystectomy. Patient is status post ERCP this morning. Patient had 2 stones extracted. Patient lying in bed comfortably. Denies any nausea or vomiting. Afebrile. WBC is 2.9 Hgb 9.0 platelets 154 total bilirubin 0.4 AST trending down from 53 to 41 ALT 30 alk phos 56 PHYSICAL EXAM: VITAL SIGNS: Reviewed GENERAL: Well-developed in no acute distress. HEENT: No sclera icterus. Extraocular movements grossly intact. Moist buccal mucosa. Head is atraumatic, normocephalic. Hears conversational speech. No nasal drainage. NECK: Supple without lymphadenopathy. CHEST: Non-labored respirations and equal bilateral excursions. CARDIOVASCULAR: Palpable 2+ radial pulses. ABDOMEN: Soft. Nondistended. Incision sites clean dry and intact MUSCULOSKELETAL: No clubbing or cyanosis. NEUROLOGIC: No focal or lateralizing signs. Cranial nerves II through XII grossly intact. SKIN: Well perfused. Good skin turgor. ASSESSMENT: 1. Acute on chronic cholecystitis 2. Choledocholithiasis status post ERCP 3. Hydropic gallbladder with gallstones, thickened gallbladder wall on ultrasound 4. History of end-stage renal disease on hemodialysis PLAN: -Patient currently on clear liquid diet per GI service. Diet can be advanced from surgical standpoint to low fat when cleared by GI service -Encourage patient to increase activity level -Continue antibiotics -Continue pain management Physician Rate Marker note has been reviewed by physician. Signing provider agrees with the documented findings, assessment, and plan of care. Objective - Vital Signs Vital signs: Vital Signs Temp 98.5 F 10/12/23 10:55 Pulse 70 10/12/23 11:38 Resp 16 10/12/23 11:38 BP 186/64 10/12/23 10:55 Pulse Ox 98 10/12/23 10:55 FiO2 Intake & Output 10/11/23 10/12/23 10/12/23 18:59 06:59 18:59 Intake Total 500 100 200 Output Total 300 525 Balance 200 -425 200 Weight 68.039 kg Intake: IV 200 Intake, IV Titration 100 Amount Piperacillin-Tazobactam 3 100 .375 gm In Sodium Chloride 0.9% 100 ml @ 25 mls/hr IVPB Q12HR [facility] Rx #:[id number] Hemodialysis 500 Output: Urine 200 525 Uretheral (Bansal) 525 Hemodialysis 100 Other: Voiding Method Indwelling Catheter Indwelling Catheter Indwelling Catheter - Labs CBC & Chem 7: 10/12/23 07:10 10/12/23 07:10 Labs: Abnormal Lab Results - Last 24 Hours (Table) 10/11/23 10/12/23 10/12/23 Range/Units 20:13 02:14 06:05 WBC (4.50-10.00) X 10*3/uL RBC (4.10-5.20) X 10*6/uL Hgb (12.0-15.0) g/dL Hct (37.2-46.3) % MCV (80.0-97.0) FL Chloride (96-109) mmol/L Anion Gap (4.00-12.00) mmol/L Creatinine (0.6-1.5) mg/dL Est GFR (CKD-EPI) (>=60) BUN/Creatinine Ratio (12.00-20.00) Ratio Glucose (70-110) mg/dL POC Glucose (mg/dL) 209 H 156 H 173 H (70-110) mg/dL AST (13-35) U/L Total Protein (6.2-8.2) g/dL Albumin (3.8-4.9) g/dL Albumin/Globulin Ratio (1.60-3.17) Ratio 10/12/23 10/12/23 10/12/23 Range/Units 07:10 07:10 11:21 WBC 2.90 L (4.50-10.00) X 10*3/uL RBC 2.84 L (4.10-5.20) X 10*6/uL Hgb 9.0 L (12.0-15.0) g/dL Hct 27.6 L (37.2-46.3) % MCV 97.2 H (80.0-97.0) FL Chloride 95 L (96-109) mmol/L Anion Gap 14.60 H (4.00-12.00) mmol/L Creatinine 3.2 H (0.6-1.5) mg/dL Est GFR (CKD-EPI) 14 L (>=60) BUN/Creatinine Ratio 6.78 L (12.00-20.00) Ratio Glucose 169 H (70-110) mg/dL POC Glucose (mg/dL) 223 H (70-110) mg/dL AST 41 H (13-35) U/L Total Protein 5.4 L (6.2-8.2) g/dL Albumin 3.2 L (3.8-4.9) g/dL Albumin/Globulin Ratio 1.45 L (1.60-3.17) Ratio
[2023-10-12 14:44] VITALS: BMI 25.0
[2023-10-12 16:46] LABS: Glucose,Whole Blood 221 mg/dL (70-110)
[2023-10-13 05:28] LABS: Glucose,Whole Blood 208 mg/dL (70-110)
[2023-10-13 09:50] LABS: HCT 26.6 % (37.2-46.3); HGB 8.7 g/dL (12.0-15.0); MCH 31.3 pg (27.0-32.0); MCHC 32.7 g/dL (32.0-37.0); MCV 95.7 FL (80.0-97.0); Mean Platelet Volume 10.3 FL (9.5-12.2); NRBC Per 100 WBC 0 X 10*3/uL (0.00-0.01); Platelet Count 143 X 10*3/uL (140-440); RBC 2.78 X 10*6/uL (4.10-5.20); RDW 13.9 % (11.5-14.5); WBC 5.61 X 10*3/uL (4.50-10.00)
[2023-10-13 10:43] LABS: ALT 35 U/L (8-44); AST 47 U/L (13-35); Albumin 3.1 g/dL (3.8-4.9); Albumin/Globulin Ratio 1.41 Ratio (1.60-3.17); Alkaline Phosphatase 68 U/L (41-126); BUN/Creat Ratio 7.82 Ratio (12.00-20.00); Blood Urea Nitrogen 35.2 mg/dL (9.0-27.0); Calcium 9.3 mg/dL (8.7-10.3); Carbon Dioxide 25.7 mmol/L (21.6-31.8); Chloride 96 mmol/L (96-109); Globulin 2.2 g/dL (1.6-3.3); Glucose 166 mg/dL (70-110); Potassium 3.7 mmol/L (3.5-5.5); Sodium 137 mmol/L (135-145); Total Bilirubin 0.4 mg/dL (0.3-1.2); Total Protein 5.3 g/dL (6.2-8.2)
--- NOTE | 2023-10-13 11:33 | P.PN ---
Subjective Patient is seen for follow-up for end-stage renal disease. She was readmitted with urine retention and hypoglycemia. Noted to have abdominal pain with elevated liver enzymes and gallstones. Status post laparoscopic cholecystectomy on 10/10/2023 Status post ERCP with biliary sphincterotomy and balloon stone extraction on 10/12/2023 Currently seen on hemodialysis. Tolerating treatment well. Objective - Vital Signs Vital signs: Vital Signs Temp 99.3 F 10/13/23 07:00 Pulse 89 10/13/23 07:00 Resp 18 10/13/23 07:00 BP 183/57 10/13/23 07:00 Pulse Ox 95 10/13/23 07:00 FiO2 Intake & Output 10/12/23 10/13/23 10/13/23 18:59 06:59 18:59 Intake Total 650 Output Total 500 150 Balance 150 -150 Weight 68.039 kg Intake: IV 200 Oral 450 Output: Urine 500 150 Other: Voiding Method Indwelling Catheter Indwelling Catheter Indwelling Catheter # Voids 1 - Exam Patient is awake, comfortable, no acute distress Examination of the heart S1 and S2 Examination of the lungs bilateral breath sounds are heard Abdomen is soft nontender Examination lower extremity shows no edema. RESIDENT BUYER exam grossly intact - Labs CBC & Chem 7: 10/13/23 06:53 10/13/23 06:53 Labs: Abnormal Lab Results - Last 24 Hours (Table) 10/12/23 10/12/23 10/12/23 Range/Units 07:10 07:10 16:43 WBC 2.90 L (4.50-10.00) X 10*3/uL RBC 2.84 L (4.10-5.20) X 10*6/uL Hgb 9.0 L (12.0-15.0) g/dL Hct 27.6 L (37.2-46.3) % MCV 97.2 H (80.0-97.0) FL Chloride 95 L (96-109) mmol/L Anion Gap 14.60 H (4.00-12.00) mmol/L BUN (9.0-27.0) mg/dL Creatinine 3.2 H (0.6-1.5) mg/dL Est GFR (CKD-EPI) 14 L (>=60) BUN/Creatinine Ratio 6.78 L (12.00-20.00) Ratio Glucose 169 H (70-110) mg/dL POC Glucose (mg/dL) 221 H (70-110) mg/dL AST 41 H (13-35) U/L Total Protein 5.4 L (6.2-8.2) g/dL Albumin 3.2 L (3.8-4.9) g/dL Albumin/Globulin Ratio 1.45 L (1.60-3.17) Ratio 10/13/23 10/13/23 10/13/23 Range/Units 05:27 06:53 06:53 WBC (4.50-10.00) X 10*3/uL RBC 2.78 L (4.10-5.20) X 10*6/uL Hgb 8.7 L (12.0-15.0) g/dL Hct 26.6 L (37.2-46.3) % MCV (80.0-97.0) FL Chloride (96-109) mmol/L Anion Gap 15.30 H (4.00-12.00) mmol/L BUN 35.2 H (9.0-27.0) mg/dL Creatinine 4.5 H (0.6-1.5) mg/dL Est GFR (CKD-EPI) 10 L (>=60) BUN/Creatinine Ratio 7.82 L (12.00-20.00) Ratio Glucose 166 H (70-110) mg/dL POC Glucose (mg/dL) 208 H (70-110) mg/dL AST 47 H (13-35) U/L Total Protein 5.3 L (6.2-8.2) g/dL Albumin 3.1 L (3.8-4.9) g/dL Albumin/Globulin Ratio 1.41 L (1.60-3.17) Ratio Assessment and Plan Assessment: 1. End-stage renal disease on hemodialysis on a Sunday schedule 2. Urine retention, status post indwelling Bansal catheter. Bansal catheter was removed but reinserted due to continued urine retention. 3. Acute cholecystitis. Choledocholithiasis noted on MRCP. Surgery following. Underwent robotic cholecystectomy October 10, 2023. Status post ERCP with biliary sphincterotomy and balloon stone extraction on 10/12/2023 4. Status post fall with sacral fracture with conservative management. 5. Hypertension with CKD stage V Plan: Continue with Bansal catheter Hemodialysis on a Sunday schedule.
[2023-10-13 11:56] LABS: Glucose,Whole Blood 148 mg/dL (70-110)
--- NOTE | 2023-10-13 12:02 | P.PN ---
Subjective Is a pleasant 78 years old female who was recently discharged from the hospital few days ago for sacral fracture, at that time evaluated by orthopedic team and physical therapy then plan for her to go to subacute rehab however she was sent back because of altered mental status secondary to hypoglycemia with a glucose was 50, 44 on admission. Also on admission patient had abdominal pain and CT of the abdomen and pelvis was concerning for biliary stone as well as dilated left kidney veins suspicious for renal vein thrombosis. Because of this patient was admitted to the hospital. Most likely patient will require more than 2 nights of hospitalization Nephrology team following closely for hemodialysis for end-stage renal disease. Long-acting insulin Tresiba 22 units was held and continued on short acting insulin 4 units with meal. We adjusted dose to Levemir 5 units daily and NovoLog 3 units with meals, currently her sugars controlled around 180. Her abdominal pain improving but not resolved. We will order ultrasound of the liver to rule out gallbladder disease versus biliary disease as showing 9 mm stone in the distal bile duct with rotation and hydropic gallbladder. Also will consult surgery team. Patient has mild transaminitis as well She has evidence also of dilated left renal veins suspicious for renal vein thrombosis, therefore renal Doppler is ordered on the left side Other than that her mentation is improved back to baseline with improvement of her sugar She denies any other new complaint 10/13/2023 Patient awake and alert lying in bed comfortable with no distress She is complaining from some issues with her bowel movement being uncomfortable but denies abdominal pain or tenderness and her abdomen is soft and she tolerates diet well. She is hemodynamically stable Glucose more than 200 Hemoglobin 8.7 WBC 5.1 Platelet count 143 Creatinine 4.5 and she is getting hemodialysis today Liver enzymes are improving She is continued on Zosyn and insulin Objective - Vital Signs Vital signs: Vital Signs Temp 99.3 F 10/13/23 07:00 Pulse 89 10/13/23 07:00 Resp 18 10/13/23 07:00 BP 183/57 10/13/23 07:00 Pulse Ox 95 10/13/23 07:00 FiO2 Intake & Output 10/12/23 10/13/23 10/13/23 18:59 06:59 18:59 Intake Total 650 Output Total 500 150 Balance 150 -150 Weight 68.039 kg Intake: IV 200 Oral 450 Output: Urine 500 150 Other: Voiding Method Indwelling Catheter Indwelling Catheter Indwelling Catheter # Voids 1 - Exam GENERAL: The patient is alert and oriented x3, not in any acute distress. Well developed, well nourished. HEENT: Pupils are round and equally reacting to light. EOMI. No scleral icterus. No conjunctival pallor. Normocephalic, atraumatic. No pharyngeal erythema. No thyromegaly. CARDIOVASCULAR: S1 and S2 present. No murmurs, rubs, or gallops. PULMONARY: Chest is clear to auscultation, no wheezing , no crackles. ABDOMEN: Soft, nontender, nondistended, normoactive bowel sounds. No palpable organomegaly. MUSCULOSKELETAL: No joint swelling or deformity. EXTREMITIES: No cyanosis, clubbing, or pedal edema. NEUROLOGICAL: Gross neurological examination did not reveal any focal deficits. SKIN: No rashes. no petechiae. - Labs CBC & Chem 7: 10/13/23 06:53 10/13/23 06:53 Labs: Abnormal Lab Results - Last 24 Hours (Table) 10/12/23 10/13/23 10/13/23 Range/Units 16:43 05:27 06:53 RBC 2.78 L (4.10-5.20) X 10*6/uL Hgb 8.7 L (12.0-15.0) g/dL Hct 26.6 L (37.2-46.3) % Anion Gap (4.00-12.00) mmol/L BUN (9.0-27.0) mg/dL Creatinine (0.6-1.5) mg/dL Est GFR (CKD-EPI) (>=60) BUN/Creatinine Ratio (12.00-20.00) Ratio Glucose (70-110) mg/dL POC Glucose (mg/dL) 221 H 208 H (70-110) mg/dL AST (13-35) U/L Total Protein (6.2-8.2) g/dL Albumin (3.8-4.9) g/dL Albumin/Globulin Ratio (1.60-3.17) Ratio 10/13/23 10/13/23 Range/Units 06:53 11:54 RBC (4.10-5.20) X 10*6/uL Hgb (12.0-15.0) g/dL Hct (37.2-46.3) % Anion Gap 15.30 H (4.00-12.00) mmol/L BUN 35.2 H (9.0-27.0) mg/dL Creatinine 4.5 H (0.6-1.5) mg/dL Est GFR (CKD-EPI) 10 L (>=60) BUN/Creatinine Ratio 7.82 L (12.00-20.00) Ratio Glucose 166 H (70-110) mg/dL POC Glucose (mg/dL) 148 H (70-110) mg/dL AST 47 H (13-35) U/L Total Protein 5.3 L (6.2-8.2) g/dL Albumin 3.1 L (3.8-4.9) g/dL Albumin/Globulin Ratio 1.41 L (1.60-3.17) Ratio Assessment and Plan Assessment: Hydropic gallbladder, rule out cholecystitis. Also with 9 mm distal biliary stone with biliary dilatation. Status postcholecystectomy Transaminitis status post ERCP showing normal-appearing pancreatic duct and dilated common bile duct with 2 filling defects measuring 7 and 8 mm s/p biliary sphincterectomy and balloon stone extraction Metabolic encephalopathy secondary to hypoglycemia improved to baseline. improved Diabetes mellitus with hyperglycemia improved Dilated left renal vein, rule out renal vein thrombosis Acute kidney injury on chronic kidney disease stage III, end-stage renal disease on hemodialysis Urinary retention s/p Bansal catheter placement and Flomax added Abnormal lipase, mild, clinically does not behave like pancreatitis Mild cardiomegaly with anasarca most likely secondary to above Recent history of sacral by orthopedic team and recommended conservative management require rehab upon discharge patient agrees to rehab upon discharge Plan: Insulin to Levemir 5 units and NovoLog 3 units with meal Continue with hemodialysis per nephrology on the case Status post ERCP and currently she is on liquid diet being advanced by surgery and GI team who are following closely (no GI service in this facility during this weekend) Labs and medication were reviewed.. Continue same treatment. Continue with symptomatic treatment. Resume home medication. Monitor labs and vitals. DVT and GI prophylaxis. Further recommendations as per clinical course of the patient DVT prophylaxis: Subcutaneous heparin GI Prophylaxis: Pepcid PT/OT: Subacute rehab Prognosis is guarded
--- NOTE | 2023-10-13 12:20 | P.PN ---
Subjective Progress Note Date: 10/13/23 NAEON. No N/V. Pain well controlled. Admits to flatus, no BM. Tolerating CLD without issue. No F/C. No SOB or CP. On HD at time of evaluation. Objective - Vital Signs Vital signs: Vital Signs Temp 99.3 F 10/13/23 07:00 Pulse 89 10/13/23 07:00 Resp 18 10/13/23 07:00 BP 183/57 10/13/23 07:00 Pulse Ox 95 10/13/23 07:00 FiO2 Intake & Output 10/12/23 10/13/23 10/13/23 18:59 06:59 18:59 Intake Total 650 Output Total 500 150 Balance 150 -150 Weight 68.039 kg Intake: IV 200 Oral 450 Output: Urine 500 150 Other: Voiding Method Indwelling Catheter Indwelling Catheter Indwelling Catheter # Voids 1 - Exam Gen: AxO, NAD Pulm: non-labored respirations Abd: Soft, non-distended. Minimally tender around incisions Incisions: C/D/I no erythema or drainage seen Extrem: no edema seen - Labs CBC & Chem 7: 10/13/23 06:53 10/13/23 06:53 Labs: Abnormal Lab Results - Last 24 Hours (Table) 10/12/23 10/13/23 10/13/23 Range/Units 16:43 05:27 06:53 RBC 2.78 L (4.10-5.20) X 10*6/uL Hgb 8.7 L (12.0-15.0) g/dL Hct 26.6 L (37.2-46.3) % Anion Gap (4.00-12.00) mmol/L BUN (9.0-27.0) mg/dL Creatinine (0.6-1.5) mg/dL Est GFR (CKD-EPI) (>=60) BUN/Creatinine Ratio (12.00-20.00) Ratio Glucose (70-110) mg/dL POC Glucose (mg/dL) 221 H 208 H (70-110) mg/dL AST (13-35) U/L Total Protein (6.2-8.2) g/dL Albumin (3.8-4.9) g/dL Albumin/Globulin Ratio (1.60-3.17) Ratio 10/13/23 10/13/23 Range/Units 06:53 11:54 RBC (4.10-5.20) X 10*6/uL Hgb (12.0-15.0) g/dL Hct (37.2-46.3) % Anion Gap 15.30 H (4.00-12.00) mmol/L BUN 35.2 H (9.0-27.0) mg/dL Creatinine 4.5 H (0.6-1.5) mg/dL Est GFR (CKD-EPI) 10 L (>=60) BUN/Creatinine Ratio 7.82 L (12.00-20.00) Ratio Glucose 166 H (70-110) mg/dL POC Glucose (mg/dL) 148 H (70-110) mg/dL AST 47 H (13-35) U/L Total Protein 5.3 L (6.2-8.2) g/dL Albumin 3.1 L (3.8-4.9) g/dL Albumin/Globulin Ratio 1.41 L (1.60-3.17) Ratio Assessment and Plan Assessment: Patient is a 78 year old female who is s/p laparoscopic cholecystectomy as well as ERCP for acute cholecystitis and choledocholithiasis Plan: -Diet as tolerated -PRN pain and nausea control -Encourage ambulation -DVT/GI PPx -Care per primary Lj Molina MD General Surgery
[2023-10-13] MEDS ORDERED: DARBEPOETIN ESRD ONE (12:58)
--- NOTE | 2023-10-13 14:55 | P.PN ---
Subjective Progress Note Date: 10/13/23 Principal diagnosis: HTN The patient is a pleasant 78-year-old female patient with a past medical history significant for diabetes and hypertension and dyslipidemia and end-stage renal disease on dialysis who was admitted to the hospital with abdominal discomfort and she underwent cholecystectomy. She underwent an echo which revealed normal LV systolic function with no significant valvular abnormalities October 13, 2023 The patient was seen and evaluated this morning. She is asymptomatic. The pressure remains elevated. I went to increase the dose of lisinopril from 20 mg p.o. daily to 30 mg p.o. daily. The examination is remarkable for regular rhythm with a systolic murmur at the right and left upper sternal border with a clear breathing sounds bilaterally and mild bilateral lower extremities edema. Assessment Preop cardiac assessment before noncardiac surgery Hypertension not under good control Multiple comorbid conditions End-stage renal disease Plan Continue the current medical regimen Increase the dose of lisinopril Follow-up with the patient Objective - Vital Signs Vital signs: Vital Signs Temp 98.0 F 10/13/23 14:03 Pulse 65 10/13/23 14:03 Resp 17 10/13/23 14:03 BP 118/63 10/13/23 14:03 Pulse Ox 100 10/13/23 14:03 FiO2 Intake & Output 10/12/23 10/13/23 10/13/23 18:59 06:59 18:59 Intake Total 650 400 Output Total 500 150 400 Balance 150 -150 0 Weight 68.039 kg Intake: IV 200 Oral 450 Hemodialysis 400 Output: Urine 500 150 Hemodialysis 400 Other: Voiding Method Indwelling Catheter Indwelling Catheter Indwelling Catheter # Voids 1 - Labs CBC & Chem 7: 10/13/23 06:53 10/13/23 06:53 Labs: Abnormal Lab Results - Last 24 Hours (Table) 10/12/23 10/13/23 10/13/23 Range/Units 16:43 05:27 06:53 RBC 2.78 L (4.10-5.20) X 10*6/uL Hgb 8.7 L (12.0-15.0) g/dL Hct 26.6 L (37.2-46.3) % Anion Gap (4.00-12.00) mmol/L BUN (9.0-27.0) mg/dL Creatinine (0.6-1.5) mg/dL Est GFR (CKD-EPI) (>=60) BUN/Creatinine Ratio (12.00-20.00) Ratio Glucose (70-110) mg/dL POC Glucose (mg/dL) 221 H 208 H (70-110) mg/dL AST (13-35) U/L Total Protein (6.2-8.2) g/dL Albumin (3.8-4.9) g/dL Albumin/Globulin Ratio (1.60-3.17) Ratio 10/13/23 10/13/23 Range/Units 06:53 11:54 RBC (4.10-5.20) X 10*6/uL Hgb (12.0-15.0) g/dL Hct (37.2-46.3) % Anion Gap 15.30 H (4.00-12.00) mmol/L BUN 35.2 H (9.0-27.0) mg/dL Creatinine 4.5 H (0.6-1.5) mg/dL Est GFR (CKD-EPI) 10 L (>=60) BUN/Creatinine Ratio 7.82 L (12.00-20.00) Ratio Glucose 166 H (70-110) mg/dL POC Glucose (mg/dL) 148 H (70-110) mg/dL AST 47 H (13-35) U/L Total Protein 5.3 L (6.2-8.2) g/dL Albumin 3.1 L (3.8-4.9) g/dL Albumin/Globulin Ratio 1.41 L (1.60-3.17) Ratio
--- NOTE | 2023-10-13 15:07 | P.OP ---
Date of Procedure: 10/10/23 Description of Procedure: SURGEON: CINDI HOLLIS MD PREOPERATIVE DIAGNOSES: 1. Acute cholecystitis with choledocholithiasis 2. End-stage renal disease dialysis dependent 3. Elevated liver enzymes 4. Right upper quadrant abdominal pain. 5. Gout 6. Hypertensive heart disease 7. Ischemic cardiomyopathy 8. Diabetes type 2, insulin-dependent 9. Motion sickness 10. Hyperlipidemia POSTOPERATIVE DIAGNOSES: 1. Acute cholecystitis with choledocholithiasis 2. End-stage renal disease dialysis dependent 3. Elevated liver enzymes 4. Right upper quadrant abdominal pain. 5. Gout 6. Hypertensive heart disease 7. Ischemic cardiomyopathy 8. Diabetes type 2, insulin-dependent 9. Motion sickness 10. Hyperlipidemia 11. Pelvic adhesions OPERATION: 1. Robotic-assisted da Rocco Xi laparoscopic lysis of adhesions 2. Robotic-assisted da Rocco Xi laparoscopic cholecystectomy, multiport with FIREFLY ESTIMATED BLOOD LOSS: 10 mL. SPECIMENS REMOVED: (Gallbladder) COMPLICATIONS: None. Condition: stable Disposition: floor OPERATIVE FINDINGS: 1. Gallbladder infundibulum dilated and folded upon itself 2. Common bile duct dilated and undisturbed 3. Lower pelvic midline adhesions undisturbed 4. Right lower quadrant unremarkable INDICATIONS: The patient is a 78-year-old female who presents with acute cholecystitis including MRCP finding of choledocholithiasis. She was optimized for surgery including cardiac risk assessment and dialysis. Surgical intervention with a robotic cholecystectomy was described at length including injury to the biliary tree, bleeding, infection, need for further surgery. Informed consent was obtained. Robotic assisted laparoscopic approach was described. Benefits and risks of the procedure including but not limited to bleeding, infection, injury to the biliary tree was described. Informed consent was obtained. DESCRIPTION OF PROCEDURE: Patient was brought to the operating room, placed in supine position. After general induction, the abdomen had been prepped and draped in standard sterile fashion. The robotic da Rocco XI system was primed. After a timeout protocol was performed, the patient had been prepped and draped in standard sterile fashion. The patient was injected with indocyanine green. The robot was docked along the left lateral abdomen. The patient was repositioned in reverse Trendelenburg position. Please note prior to docking of the robot; however, a 5 mm 0 degrees laparoscopic trocar entry was performed along the left upper quadrant. The abdomen was insufflated to 15 mm Hg pressure which he tolerated well. Diagnostic laparoscopy demonstrated no injury to the small bowel or viscera. Adhesions along the lower midline was found. Next, two 8 mm robotic ports were placed along the right upper abdomen. The camera 8-mm port was maintained along the epigastrium. Another 8 mm port was placed along the left upper abdominal wall after exchanging the 5 mm port. Please note that the ports were placed at least 10 to 15 cm away from the target anatomy of the gallbladder. Using a grasper for arm 3, a grasper for arm 2, including hook cautery for arm 1, the robotic system was docked and primed as described. Instruments were interchanged by the assistant manager retail including hook cautery, Bovie cautery scissors and clip appliers. I had sat at the console. The gallbladder was bulbous with the gallbladder infundibulum folded upon itself adding complexity to the case. Next, adhesions were identified along the infundibulum of the gallbladder and addressed using hook cautery with lysis of adhesions. Dome down technique was performed due to the anomaly. The common bile duct was identified. FIREFLY was used to identify the common bile duct and cystic duct. A dome down technique using was performed from the gallbladder fundus to the infundibulum. PLASTIC clip appliers were used along the cystic duct with 3 clips placed. Hepatic artery was cauterized. The hepatic fossa was completely dry. The hepatic fossa was checked for hemostasis. The robot was undocked. I re-scrubbed into the case. The specimen was removed from the abdominal cavity using an Endo Catch bag and passed off for further pathological analysis. Using a 10 mm Endo Catch bag via the left upper quadrant incision, the specimen was removed from the abdominal cavity. All pneumoperitoneum instruments were evacuated from the abdominal cavity. The incisions were reapproximated using 4-0 Monocryl in an interrupted subcuticular fashion. Fascial defect at the left upper quadrant was closed using 0 Vicryl in [place]. Please note along the trocar sites, local anesthetic was placed as a field block prior to insertion of all instruments. The incisions were cleansed using hydrogen peroxide and normal saline. Exofin glue was applied to the skin. An Optifoam dressing was placed over the drain site and left upper quadrant. At the end of the procedure needle, sponge, and instrument count had been verified correct by the instructor adjunct surgical technician. The patient was transferred to postanesthesia care unit in stable condition.
[2023-10-13 16:38] LABS: Glucose,Whole Blood 265 mg/dL (70-110)
[2023-10-13] MEDS: lisinopriL 10 MG TAB PO STA (16:49)
[2023-10-13 21:26] LABS: Glucose,Whole Blood 247 mg/dL (70-110)
[2023-10-14 05:50] LABS: Glucose,Whole Blood 169 mg/dL (70-110)
[2023-10-14] MEDS: lisinopriL 10 MG TAB PO SCH (09:01)
[2023-10-14 11:44] LABS: Glucose,Whole Blood 142 mg/dL (70-110)
--- NOTE | 2023-10-14 14:37 | P.PN ---
Subjective Patient is seen for follow-up for end-stage renal disease. She was readmitted with urine retention and hypoglycemia. Noted to have abdominal pain with elevated liver enzymes and gallstones. Status post laparoscopic cholecystectomy on 10/10/2023 Status post ERCP with biliary sphincterotomy and balloon stone extraction on 10/12/2023 Status post hemodialysis yesterday with no significant UF. No significant complaints today Objective - Vital Signs Vital signs: Vital Signs Temp 98.8 F 10/14/23 07:48 Pulse 69 10/14/23 07:48 Resp 19 10/14/23 07:48 BP 167/56 10/14/23 07:48 Pulse Ox 97 10/14/23 07:48 FiO2 Intake & Output 10/13/23 10/14/23 10/14/23 18:59 06:59 18:59 Intake Total 400 Output Total 400 200 Balance 0 -200 Intake: Hemodialysis 400 Output: Urine 200 Hemodialysis 400 Other: Voiding Method Indwelling Catheter Indwelling Catheter Indwelling Catheter # Bowel Movements 5 1 - Exam Patient is awake, comfortable, no acute distress Patient appears euvolemic Examination lower extremity shows no edema. MANAGER SEARCH ENGINE exam grossly intact - Labs CBC & Chem 7: 10/13/23 06:53 10/13/23 06:53 Labs: Abnormal Lab Results - Last 24 Hours (Table) 10/13/23 10/13/23 10/14/23 Range/Units 16:36 21:25 05:48 POC Glucose (mg/dL) 265 H 247 H 169 H (70-110) mg/dL 10/14/23 Range/Units 11:43 POC Glucose (mg/dL) 142 H (70-110) mg/dL Assessment and Plan Assessment: 1. End-stage renal disease on hemodialysis on a Sunday schedule 2. Urine retention, status post indwelling Bansal catheter. Bansal catheter was removed but reinserted due to continued urine retention. 3. Acute cholecystitis. Choledocholithiasis noted on MRCP. Surgery following. Underwent robotic cholecystectomy October 10, 2023. Status post ERCP with biliary sphincterotomy and balloon stone extraction on 10/12/2023 4. Status post fall with sacral fracture with conservative management. 5. Hypertension with CKD stage V Plan: Continue with Bansal catheter Hemodialysis on a Sunday schedule.
--- NOTE | 2023-10-14 14:38 | P.PN ---
Subjective Progress Note Date: 10/14/23 Principal diagnosis: HTN The patient is a pleasant 78-year-old female patient with a past medical history significant for diabetes and hypertension and dyslipidemia and end-stage renal disease on dialysis who was admitted to the hospital with abdominal discomfort and she underwent cholecystectomy. She underwent an echo which revealed normal LV systolic function with no significant valvular abnormalities October 13, 2023 The patient was seen and evaluated this morning. She is asymptomatic. The pressure remains elevated. I went to increase the dose of lisinopril from 20 mg p.o. daily to 30 mg p.o. daily. The examination is remarkable for regular rhythm with a systolic murmur at the right and left upper sternal border with a clear breathing sounds bilaterally and mild bilateral lower extremities edema. October 14, 2023 The patient was seen and evaluated this morning. She is stable from a cardiovascular standpoint of view. The pressure appears to be under good contr ol on the current medical regimen. She looks pale on examination and I ordered CBC to be done in the morning and to be followed regarding that by the primary care team but otherwise from a cardiovascular standpoint of view, the patient is stable and will follow-up with the patient on as needed case. The examination is remarkable for regular rhythm with a systolic murmur at the right upper sternal border with clear breathing sounds bilaterally and no edema was noted Assessment Preop cardiac assessment before noncardiac surgery Hypertension not under good control Multiple comorbid conditions End-stage renal disease Plan Continue the current medical regimen CBC in the morning We will follow-up with the patient on as needed case Objective - Vital Signs Vital signs: Vital Signs Temp 98.8 F 10/14/23 07:48 Pulse 69 10/14/23 07:48 Resp 19 10/14/23 07:48 BP 167/56 10/14/23 07:48 Pulse Ox 97 10/14/23 07:48 FiO2 Intake & Output 10/13/23 10/14/23 10/14/23 18:59 06:59 18:59 Intake Total 400 Output Total 400 200 Balance 0 -200 Intake: Hemodialysis 400 Output: Urine 200 Hemodialysis 400 Other: Voiding Method Indwelling Catheter Indwelling Catheter Indwelling Catheter # Bowel Movements 5 1 - Labs CBC & Chem 7: 10/13/23 06:53 10/13/23 06:53 Labs: Abnormal Lab Results - Last 24 Hours (Table) 10/13/23 10/13/2324 Range/Units 16:36 21:25 05:48 POC Glucose (mg/dL) 265 H 247 H 169 H (70-110) mg/dL 10/14/23 Range/Units 11:43 POC Glucose (mg/dL) 142 H (70-110) mg/dL
--- NOTE | 2023-10-14 14:48 | P.PN ---
Subjective Progress Note Date: 10/14/23 CHIEF COMPLAINT: Choledocholithiasis HISTORY OF PRESENT ILLNESS: The patient is a 78-year-old female status post ERCP for choledocholithiasis including cholecystectomy for gallstones. She reports diarrhea which happened after her procedure. She is on dialysis Sunday. She is on clear liquid diet ROS: No reports of nausea and vomiting. No fevers or chills. No new chest pain. No productive sputum PHYSICAL EXAM: VITAL SIGNS: Reviewed CONSTITUTIONAL: Well developed and in no acute distress. EYES: Conjuctivae without sclera icterus. Extraocular movements grossly intact. HEAD, EARS, NOSE, THROAT: Moist buccal mucosa. Head is atraumatic, normocephalic. Hears conversational speech. No nasal drainage. RESPIRATORY: Non-labored respirations and equal bilateral excursions. CARDIOVASCULAR: Palpable 2+ radial pulses. ABDOMEN: No peritonitis. Incisions clean dry intact MUSCULOSKELETAL: No gross deformity of the lower extremities noted. No clubbing. No cyanosis. SKIN: Good skin turgor. Well perfused. NEUROLOGIC: Cranial nerves II through XII grossly intact. No focal or lateralizing signs. PSYCH: Appropriate affect. Alert and oriented to person, place and time. CLINICAL LABS: Reviewed. PATHOLOGY: Acute on chronic cholecystitis with gallstones ASSESSMENT: 1. Choledocholithiasis 2. Acute on chronic cholecystitis due to gallstone 3. End-stage renal disease dialysis dependent Postcholecystectomy diarrhea4. PLAN: 1. She is on clear liquid diet and will advance to low-fat diet which should help with diarrhea 2. Per discussion with nurse, C. difficile was sent. Objective - Vital Signs Vital signs: Vital Signs Temp 98.8 F 10/14/23 07:48 Pulse 69 10/14/23 07:48 Resp 19 10/14/23 07:48 BP 167/56 10/14/23 07:48 Pulse Ox 97 10/14/23 07:48 FiO2 Intake & Output 10/13/23 10/14/23 10/14/23 18:59 06:59 18:59 Intake Total 400 Output Total 400 200 Balance 0 -200 Intake: Hemodialysis 400 Output: Urine 200 Hemodialysis 400 Other: Voiding Method Indwelling Catheter Indwelling Catheter Indwelling Catheter # Bowel Movements 5 1 - Labs CBC & Chem 7: 03/02/24 06:53 10/13/23 06:53 Labs: Abnormal Lab Results - Last 24 Hours (Table) 10/13/23 10/13/23 10/14/23 Range/Units 16:36 21:25 05:48 POC Glucose (mg/dL) 265 H 247 H 169 H (70-110) mg/dL 10/14/23 Range/Units 11:43 POC Glucose (mg/dL) 142 H (70-110) mg/dL
[2023-10-14 16:28] LABS: Glucose,Whole Blood 306 mg/dL (70-110)
[2023-10-14] MEDS: INSULIN ASPART (NovoLOG) 100 UNIT/ML VIAL SQ SCH (17:06)
[2023-10-14] MEDS: INSULIN DETEMIR (LEVEMIR) 100 UNIT/ML SYR SQ STA (18:03)
--- NOTE | 2023-10-14 19:29 | P.PN ---
Subjective Is a pleasant 78 years old female who was recently discharged from the hospital few days ago for sacral fracture, at that time evaluated by orthopedic team and physical therapy then plan for her to go to subacute rehab however she was sent back because of altered mental status secondary to hypoglycemia with a glucose was 50, 44 on admission. Also on admission patient had abdominal pain and CT of the abdomen and pelvis was concerning for biliary stone as well as dilated left kidney veins suspicious for renal vein thrombosis. Because of this patient was admitted to the hospital. Most likely patient will require more than 2 nights of hospitalization Nephrology team following closely for hemodialysis for end-stage renal disease. Long-acting insulin Tresiba 22 units was held and continued on short acting insulin 4 units with meal. We adjusted dose to Levemir 5 units daily and NovoLog 3 units with meals, currently her sugars controlled around 180. Her abdominal pain improving but not resolved. We will order ultrasound of the liver to rule out gallbladder disease versus biliary disease as showing 9 mm stone in the distal bile duct with rotation and hydropic gallbladder. Also will consult surgery team. Patient has mild transaminitis as well She has evidence also of dilated left renal veins suspicious for renal vein thrombosis, therefore renal Doppler is ordered on the left side Other than that her mentation is improved back to baseline with improvement of her sugar She denies any other new complaint 10/13/2023 Patient awake and alert lying in bed comfortable with no distress She is complaining from some issues with her bowel movement being uncomfortable but denies abdominal pain or tenderness and her abdomen is soft and she tolerates diet well. She is hemodynamically stable Glucose more than 200 Hemoglobin 8.7 WBC 5.1 Platelet count 143 Creatinine 4.5 and she is getting hemodialysis today Liver enzymes are improving She is continued on Zosyn and insulin 10/14/2023 Generally doing well, she is awake alert at baseline Patient started eating and advance diet as she was asking to eat more. No abdominal pain. Patient has diarrhea but C. difficile came back negative. Patient tolerates diet and because of this her sugar starts picking up therefore we increase her Levemir 5 units up to 15 units compared to home dose of 22 units. Also increase her NovoLog to 4 units with meals which is her home dose. Objective - Vital Signs Vital signs: Vital Signs Temp 98.8 F 10/14/23 07:48 Pulse 69 10/14/23 07:48 Resp 19 10/14/23 07:48 BP 167/56 10/14/23 07:48 Pulse Ox 97 10/14/23 07:48 FiO2 Intake & Output 10/13/23 10/14/23 10/14/23 18:59 06:59 18:59 Intake Total 400 Output Total 400 200 Balance 0 -200 Intake: Hemodialysis 400 Output: Urine 200 Hemodialysis 400 Other: Voiding Method Indwelling Catheter Indwelling Catheter Indwelling Catheter # Bowel Movements 5 1 - Exam GENERAL: The patient is alert and oriented x3, not in any acute distress. Well developed, well nourished. HEENT: Pupils are round and equally reacting to light. EOMI. No scleral icterus. No conjunctival pallor. Normocephalic, atraumatic. No pharyngeal erythema. No thyromegaly. CARDIOVASCULAR: S1 and S2 present. No murmurs, rubs, or gallops. PULMONARY: Chest is clear to auscultation, no wheezing , no crackles. ABDOMEN: Soft, nontender, nondistended, normoactive bowel sounds. No palpable organomegaly. MUSCULOSKELETAL: No joint swelling or deformity. EXTREMITIES: No cyanosis, clubbing, or pedal edema. NEUROLOGICAL: Gross neurological examination did not reveal any focal deficits. SKIN: No rashes. no petechiae. - Labs CBC & Chem 7: 10/13/23 06:53 10/13/23 06:53 Labs: Abnormal Lab Results - Last 24 Hours (Table) 10/13/23 10/13/23 10/13/23 Range/Units 11:54 16:36 21:25 POC Glucose (mg/dL) 148 H 265 H 247 H (70-110) mg/dL 10/14/23 10/14/23 Range/Units 05:48 11:43 POC Glucose (mg/dL) 169 H 142 H (70-110) mg/dL Assessment and Plan Assessment: Hydropic gallbladder. Also with 9 mm distal biliary stone with biliary dilatation. Status postcholecystectomy, Bx:Acute and chronic cholecystitis with cholelithiasis. Transaminitis status post ERCP showing normal-appearing pancreatic duct and dilated common bile duct with 2 filling defects measuring 7 and 8 mm s/p biliary sphincterectomy and balloon stone extraction Metabolic encephalopathy secondary to hypoglycemia improved to baseline. Diabetes mellitus with hyperglycemia improved Dilated left renal vein, rule out renal vein thrombosis Acute kidney injury on chronic kidney disease stage III, end-stage renal disease on hemodialysis Urinary retention s/p Bansal catheter placement and Flomax added Abnormal lipase, mild, clinically does not behave like pancreatitis Mild cardiomegaly with anasarca most likely secondary to above Recent history of sacral by orthopedic team and recommended conservative management require rehab upon discharge patient agrees to rehab upon discharge Plan: Insulin to Levemir 15 units and NovoLog 4 units with meal Continue with hemodialysis per nephrology on the case Patient on Zosyn Status post ERCP and currently she is on liquid diet being advanced by surgery and GI team who are following closely (no GI service in this facility during this weekend) Labs and medication were reviewed.. Continue same treatment. Continue with symptomatic treatment. Resume home medication. Monitor labs and vitals. DVT and GI prophylaxis. Further recommendations as per clinical course of the patient DVT prophylaxis: Subcutaneous heparin GI Prophylaxis: Pepcid PT/OT: Subacute rehab Prognosis is guarded
[2023-10-14 20:43] LABS: Glucose,Whole Blood 241 mg/dL (70-110)
[2023-10-15 01:56] VITALS: PULSE 62; RESP 20
[2023-10-15 06:20] LABS: Glucose,Whole Blood 58 mg/dL (70-110)
[2023-10-15 06:41] LABS: Glucose,Whole Blood 67 mg/dL (70-110)
[2023-10-15 06:59] LABS: Glucose,Whole Blood 99 mg/dL (70-110)
[2023-10-15] MEDS ORDERED: DEXTROSE 50% SYRINGE 50 ML IVP PRN ×2 (07:22)
[2023-10-15] MEDS: INSULIN ASPART (NovoLOG) 100 UNIT/ML VIAL SQ SCH ×2 (07:54→08:43)
[2023-10-15 08:32] VITALS: TEMP 97.9
--- NOTE | 2023-10-15 08:36 | P.DS ---
Providers Date of admission: 10/05/23 06:46 Attending physician: Eric Coronado Consults: 10/05/23 06:43 Consult Physician Routine Consulting Provider: Augusto Reddy Consult Reason/Comments: ckd Do you want consulting provider notified?: Yes 10/06/23 19:50 Consult Physician Routine Consulting Provider: Nicole Stiles Consult Reason/Comments: hydropic GB, VS Biliary colic Do you want consulting provider notified?: Yes, Notify in am 10/07/23 12:35 Consult Physician Routine Consulting Provider: Yasir Valencia Consult Reason/Comments: Cardiac risk assessment, ESRD, heart murmur Do you want consulting provider notified?: Yes 10/10/23 11:58 Consult Physician Routine Consulting Provider: Cheli Dupree Consult Reason/Comments: Choledocholithiasis, ERCP Do you want consulting provider notified?: Yes Primary care physician: Eric Coronado - Discharge Diagnosis(es) (1) Altered mental status Current Visit: Yes Status: Acute (2) Delirium due to general medical condition Current Visit: Yes Status: Acute (3) Hypoglycemia Current Visit: Yes Status: Acute (4) Weakness Current Visit: Yes Status: Acute (5) End stage renal disease on dialysis Current Visit: No Status: Acute (6) Hyperlipidemia Current Visit: No Status: Acute (7) Sacral fracture Current Visit: No Status: Acute (8) Type 2 diabetes mellitus with diabetic nephropathy Current Visit: No Status: Acute (9) Acute cholecystitis Current Visit: Yes Status: Acute Hospital Course: This is a 78-year-old female who was recently discharged from the hospital for sacral fracture and discharged to [facility]. She came back after 1 night and was admitted with a low blood sugar and urinary retention. Patient also found to have acute cholecystitis, last week underwent robotic cholelcytectomy with Dr. Stiles. Also had a ERCP with Dr. Dupree. Patient is on dialysis Sunday, , Sunday schedule. Blood sugars on the lower side while admitted, she will be discharged on lower dose of Levemir 10 units. She is tolerating diet. Will continue Bansal catheter for now. Patient seen and evaluated by nurse practitioner, physician in agreement with plan. Patient Condition at Discharge: Serious Plan - Discharge Summary New Discharge Prescriptions: New Tamsulosin [Flomax] 0.4 mg PO PC-SUPPER #30 cap Insulin Detemir (Levemir) [Levemir] 10 unit SQ DAILY@0700 each HYDROcodone/APAP 5-325MG [[place] 5-325] 1 tab PO Q6HR 30 Days #120 tab Continue Ascorbic Acid [Vitamin C] 500 mg PO DAILY Multivitamins, Thera [Multivitamin (formulary)] 1 tab PO DAILY Aspirin [Adult Low Dose Aspirin EC] 81 mg PO DAILY Simvastatin [Zocor] 20 mg PO HS Febuxostat [Uloric] 40 mg PO DAILY hydrALAZINE HCL [Apresoline] 100 mg PO TID amLODIPine BESYLATE 10 mg PO DAILY Furosemide [Lasix] 60 mg PO TID@0800,1200,1700 Cholecalciferol [Vitamin D3 (25 Mcg = 1000 Iu)] 25 mcg PO DAILY Insulin Lispro [humaLOG Kwikpen] See Protocol SQ AC-TID Insulin Lispro [humaLOG Kwikpen] 4 units SQ AC-TID lisinopriL [Prinivil] 10 mg PO DAILY L.acidoph,Paracasei, B.lactis [Probiotic] 1 cap PO BID@0800,1700 Acetaminophen Tab [Tylenol] 650 mg PO Q4H PRN PRN Reason: Fever And/ Or Pain bisacodyL [Dulcolax] 10 mg RECTAL DAILY PRN PRN Reason: Constipation Darbepoetin Matthew [Aranesp] 40 mcg SQ TU Magnesium Hydroxide [Milk of Magnesia Concentrate] 7,200 mg PO DAILY PRN PRN Reason: Constipation carvediloL [Coreg] 25 mg PO BID Nephro-Hilary 1 tab PO DAILY Na Phos,M-B/Na Phos,Di-Ba [Fleet Adult] 133 ml RECTAL DAILY PRN PRN Reason: Constipation Discontinued Insulin Degludec [Tresiba] 22 units SQ DAILY HYDROcodone/APAP 10-325MG [D[place]den 10-325] 1 tab PO Q4HR PRN 30 Days #120 tab PRN Reason: Pain Discharge Medication List Ascorbic Acid [Vitamin C] 500 mg PO DAILY 06/30/20 [History] Aspirin [Adult Low Dose Aspirin EC] 81 mg PO DAILY 06/30/20 [History] Febuxostat [Uloric] 40 mg PO DAILY 06/30/20 [History] Multivitamins, Thera [Multivitamin (formulary)] 1 tab PO DAILY 06/30/20 [History] Simvastatin [Zocor] 20 mg PO HS 06/30/20 [History] amLODIPine BESYLATE 10 mg PO DAILY 06/30/20 [History] hydrALAZINE HCL [Apresoline] 100 mg PO TID 06/30/20 [History] Furosemide [Lasix] 60 mg PO TID@0800,1200,1700 09/21/22 [History] Nephro-Hilary 1 tab PO DAILY 09/21/22 [History] carvediloL [Coreg] 25 mg PO BID 09/21/22 [History] Cholecalciferol [Vitamin D3 (25 Mcg = 1000 Iu)] 25 mcg PO DAILY 05/30/23 [History] Insulin Lispro [humaLOG Kwikpen] 4 units SQ AC-TID 05/30/23 [History] Insulin Lispro [humaLOG Kwikpen] See Protocol SQ AC-TID 05/30/23 [History] lisinopriL [Prinivil] 10 mg PO DAILY 05/30/23 [History] Acetaminophen Tab [Tylenol] 650 mg PO Q4H PRN 08/28/23 [History] L.acidoph,Paracasei, B.lactis [Probiotic] 1 cap PO BID@0800,1700 08/28/23 [History] Darbepoetin Matthew [Aranesp] 40 mcg SQ TU 10/05/23 [History] Magnesium Hydroxide [Milk of Magnesia Concentrate] 7,200 mg PO DAILY PRN 10/05/23 [History] Na Phos,M-B/Na Phos,Di-Ba [Fleet Adult] 133 ml RECTAL DAILY PRN 10/05/23 [History] bisacodyL [Dulcolax] 10 mg RECTAL DAILY PRN 10/05/23 [History] HYDROcodone/APAP 5-325MG [D[place] 5-325] 1 tab PO Q6HR 30 Days #120 tab 10/15/23 [Rx] Insulin Detemir (Levemir) [Levemir] 10 unit SQ DAILY@0700 each 10/15/23 [Rx] Tamsulosin [Flomax] 0.4 mg PO PC-SUPPER #30 cap 10/15/23 [Rx] Follow up Appointment(s)/Referral(s): Margaux Jorge MD [STAFF PHYSICIAN] - 1 Week Eric Coronado MD [Primary Care Provider] - 1-2 days Nicole Stiles MD [STAFF PHYSICIAN] - 10/23/23 11:30 am Craig Shankar MD [Medical Doctor] - 2 Weeks (follow up for your sacral fracture ) Patient Instructions/Handouts: Low Fat Diet (DC), Laparoscopic Cholecystectomy (DC) Activity/Diet/Wound Care/Special Instructions: Recommend low-fat diet for the next 2 days. No lifting over 10 pounds in 2 weeks until October 24December shower. No bath tub soaks for two weeks until October 24 Diet as tolerated. Use Tylenol, simethicone and ibuprofen or Aleve scheduled for the next 24-48 hours for best pain relief. Use ice along incisions for today to prevent swelling. Discharge Disposition: TRANSFER TO SNF/ECF
[2023-10-15] MEDS: INSULIN DETEMIR (LEVEMIR) 100 UNIT/ML SYR SQ SCH (08:42)
[2023-10-15 09:43] VITALS: BP 169/73
--- NOTE | 2023-10-15 11:16 | P.PN ---
Subjective Progress Note Date: 10/15/23 CHIEF COMPLAINT: Hypoglycemia HISTORY OF PRESENT ILLNESS: Patient postop day #5 status post robotic assisted laparoscopic cholecystectomy. Patient is status post ERCP with 2 stones extracted. Patient lying in bed comfortably. Patient reports her pain is controlled. She is tolerating diet. She is passing flatus. Denies any nausea or vomiting. Afebrile. She is scheduled for discharge today. PHYSICAL EXAM: VITAL SIGNS: Reviewed GENERAL: Well-developed in no acute distress. HEENT: No sclera icterus. Extraocular movements grossly intact. Moist buccal mucosa. Head is atraumatic, normocephalic. Hears conversational speech. No nasal drainage. NECK: Supple without lymphadenopathy. CHEST: Non-labored respirations and equal bilateral excursions. CARDIOVASCULAR: Palpable 2+ radial pulses. ABDOMEN: Soft. Nondistended. Incision sites clean dry and intact MUSCULOSKELETAL: No clubbing or cyanosis. NEUROLOGIC: No focal or lateralizing signs. Cranial nerves II through XII grossly intact. SKIN: Well perfused. Good skin turgor. ASSESSMENT: 1. Acute on chronic cholecystitis 2. Choledocholithiasis status post ERCP 3. Hydropic gallbladder with gallstones, thickened gallbladder wall on ultrasound 4. History of end-stage renal disease on hemodialysis PLAN: -Patient is stable for discharge from surgical standpoint -Continue low-fat diet Physician Clinical Investigator note has been reviewed by physician. Signing provider agrees with the documented findings, assessment, and plan of care. Objective - Vital Signs Vital signs: Vital Signs Temp 97.9 F 10/15/23 07:23 Pulse 62 10/15/23 07:23 Resp 20 10/15/23 07:23 BP 169/73 10/15/23 09:22 Pulse Ox 98 10/15/23 07:23 FiO2 Intake & Output 10/14/23 10/15/23 10/15/23 18:59 06:59 18:59 Output Total 100 Balance -100 Output: Urine 100 Other: Voiding Method Indwelling Catheter Indwelling Catheter Indwelling Catheter # Bowel Movements 2 2 - Labs CBC & Chem 7: 10/13/23 06:53 10/13/23 06:53 Labs: Abnormal Lab Results - Last 24 Hours (Table) 10/14/23 10/14/23 10/14/23 Range/Units 11:43 16:27 20:38 POC Glucose (mg/dL) 142 H 306 H 241 H (70-110) mg/dL 10/15/23 10/15/23 Range/Units 06:03 06:33 POC Glucose (mg/dL) 58 L 67 L (70-110) mg/dL
[2023-10-15 11:34] LABS: Basophils # (A) 0.03 X 10*3/uL (0.00-0.10); Basophils % (A) 0.8 %; Eosinophils # (A) 0.19 X 10*3/uL (0.04-0.35); Eosinophils % (A) 5.3 %; HCT 26.1 % (37.2-46.3); HGB 8.6 g/dL (12.0-15.0); Lymphocytes # (A) 0.25 X 10*3/uL (0.90-5.00); MCH 32.3 pg (27.0-32.0); MCV 98.1 FL (80.0-97.0); Mean Platelet Volume 11.6 FL (9.5-12.2); Monocytes # (A) 0.49 X 10*3/uL (0.20-1.00); Monocytes % (A) 13.6 %; NRBC Per 100 WBC 0 X 10*3/uL (0.00-0.01); Neutrophils # (A) 2.54 X 10*3/uL (1.80-7.70); Neutrophils % (A) 70.8 %; Platelet Count 115 X 10*3/uL (140-440); RBC 2.66 X 10*6/uL (4.10-5.20); RDW 14.3 % (11.5-14.5); WBC 3.59 X 10*3/uL (4.50-10.00)
[2023-10-15 11:50] LABS: Glucose,Whole Blood 188 mg/dL (70-110)
[2023-10-15 12:02] LABS: BUN/Creat Ratio 8.46 Ratio (12.00-20.00); Blood Urea Nitrogen 34.7 mg/dL (9.0-27.0); Carbon Dioxide 23.8 mmol/L (21.6-31.8); Chloride 98 mmol/L (96-109); Glucose 41 mg/dL (70-110); Sodium 138 mmol/L (135-145)
--- NOTE | 2023-10-15 12:02 | P.PN ---
Subjective Patient is seen for follow-up for end-stage renal disease. She was readmitted with urine retention and hypoglycemia. Noted to have abdominal pain with elevated liver enzymes and gallstones. Status post laparoscopic cholecystectomy on 10/10/2023 Status post ERCP with biliary sphincterotomy and balloon stone extraction on 10/12/2023 Plans for discharge tomorrow today No significant complaints today Objective - Vital Signs Vital signs: Vital Signs Temp 97.9 F 10/15/23 07:23 Pulse 62 10/15/23 07:23 Resp 20 10/15/23 07:23 BP 169/73 10/15/23 09:22 Pulse Ox 98 10/15/23 07:23 FiO2 Intake & Output 10/14/23 10/15/23 10/15/23 18:59 06:59 18:59 Output Total 100 Balance -100 Output: Urine 100 Other: Voiding Method Indwelling Catheter Indwelling Catheter Indwelling Catheter # Bowel Movements 2 2 - Exam Patient is awake, comfortable, no acute distress Patient appears euvolemic Examination lower extremity shows no edema. LIBRARY SPECIALIST exam grossly intact - Labs CBC & Chem 7: 10/15/23 06:23 10/13/23 06:53 Labs: Abnormal Lab Results - Last 24 Hours (Table) 10/14/23 10/14/23 10/15/23 Range/Units 16:27 20:38 06:03 WBC (4.50-10.00) X 10*3/uL RBC (4.10-5.20) X 10*6/uL Hgb (12.0-15.0) g/dL Hct (37.2-46.3) % MCV (80.0-97.0) FL MCH (27.0-32.0) pg Plt Count (140-440) X 10*3/uL Immature Gran # (0.00-0.04) X 10*3/uL Lymphocytes # (0.90-5.00) X 10*3/uL POC Glucose (mg/dL) 306 H 241 H 58 L (70-110) mg/dL 10/15/23 10/15/23 10/15/23 Range/Units 06:23 06:33 11:48 WBC 3.59 L (4.50-10.00) X 10*3/uL RBC 2.66 L (4.10-5.20) X 10*6/uL Hgb 8.6 L (12.0-15.0) g/dL Hct 26.1 L (37.2-46.3) % MCV 98.1 H (80.0-97.0) FL MCH 32.3 H (27.0-32.0) pg Plt Count 115 L (140-440) X 10*3/uL Immature Gran # 0.09 H (0.00-0.04) X 10*3/uL Lymphocytes # 0.25 L (0.90-5.00) X 10*3/uL POC Glucose (mg/dL) 67 L 188 H (70-110) mg/dL Assessment and Plan Assessment: 1. End-stage renal disease on hemodialysis on a Sunday sched [facility] 2. Urine retention, status post indwelling Bansal catheter. Bansal catheter was removed but reinserted due to continued urine retention. 3. Acute cholecystitis. Choledocholithiasis noted on MRCP. Surgery following. Underwent robotic cholecystectomy October 10, 2023. Status post ERCP with b iliary sphincterotomy and balloon stone extraction on 10/12/2023 4. Status post fall with sacral fracture with conservative management. 5. Hypertension with CKD stage V Plan: Continue with Bansal catheter. Try removal at [facility]. Hemodialysis on a Sunday schedule.
[2023-10-16] MEDS ORDERED: INSULIN DETEMIR (LEVEMIR) 100 UNIT/ML SYR SQ SCH (07:00)
== END 2023-10-15 14:25 ==
LOC: EC 05:10 → INTOOBSV 06:46 → 4SSUR 06:46 → UNDODISIN 10-15 14:25
PROVIDERS: ADMIT Family Medicine; ATTEND Family Medicine
DX: K80.12 Calculus of gallbladder with acute and chronic cholecystitis without obstruction (principal); K66.0 Peritoneal adhesions (postprocedural) (postinfection); E11.649 Type 2 diabetes mellitus with hypoglycemia without coma; N39.0 Urinary tract infection, site not specified; R33.9 Retention of urine, unspecified; N17.9 Acute kidney failure, unspecified; I12.0 Hypertensive chronic kidney disease with stage 5 chronic kidney disease or end stage renal disease; N18.6 End stage renal disease; E11.22 Type 2 diabetes mellitus with diabetic chronic kidney disease; F05 Delirium due to known physiological condition; R74.8 Abnormal levels of other serum enzymes; I86.8 Varicose veins of other specified sites; I51.7 Cardiomegaly; R60.1 Generalized edema; D63.1 Anemia in chronic kidney disease; E87.5 Hyperkalemia; K91.5 Postcholecystectomy syndrome; M10.9 Gout, unspecified; E78.5 Hyperlipidemia, unspecified; I25.5 Ischemic cardiomyopathy; R01.1 Cardiac murmur, unspecified; S32.10XD Unspecified fracture of sacrum, subsequent encounter for fracture with routine healing; W19.XXXD Unspecified fall, subsequent encounter; Z99.2 Dependence on renal dialysis; Z79.82 Long term (current) use of aspirin; Z79.899 Other long term (current) drug therapy; Z79.4 Long term (current) use of insulin; Z88.1 Allergy status to other antibiotic agents
CPT/HCPCS: 47562; 96376 ×3; 96361 ×5; 96365; 96366 ×6; 96372 ×8; 96375 ×3; 99291; 51798; 36415; 93005; 93306; 97530 ×2; 97162; 97166; 88304; 80053 ×8; 80048 ×2; 80076; 82150 ×2; 83605; 83690 ×2; 83735 ×2; 84100; 85025 ×5; 85027 ×5; 85610 ×2; 85730; 87324; 83036; 76700; 74176; 74181; 78227; 43264; 43262; G0257 ×4; G0378 ×11; A9537; J2543 ×8; J2250; J0330; J2270 ×5; J1644 ×10; J2405; J2805; J2001 ×2; J3010; J3490; J1170; J2704; Q9967; J0882 ×2; J1920; 90935; 96374

== ENCOUNTER 2023-12-25 12:35 | Emergency (ER) | payer MEDICARE ==
[2023-12-25 13:05] VITALS: RESP 18
--- NOTE | 2023-12-25 13:10 | ED ---
General Adult HPI <Keven Acosta - Last Filed: 12/25/23 15:45> - General Source: EMS, RN notes reviewed, old records reviewed Mode of arrival: EMS Limitations: no limitations <Parveen Diego - Last Filed: 12/28/23 22:31> - General Chief complaint: Abdominal Pain Stated complaint: Abd Pain Time Seen by Provider: 12/25/23 12:51 - History of Present Illness Initial comments: Patient is a 78-year-old female who presents emergency department complaining of abdominal pain during dialysis today. She did not receive a full run of dialysis. Has been dealing with cough, congestion, feeling weak for the last 7 to 10 days. States she had sudden epigastric pain during dialysis and they stop ped the run and sent her here for further evaluation. Has had intermittent nausea and diarrhea. Denies any change in stooling otherwise however she states she has decreased p.o. intake. Still makes some urine. Denies fevers. Denies chest pain. Presents for further evaluation at this time. (Parveen Diego) - Related Data Home Medications Medication Instructions Recorded Confirmed Ascorbic Acid [Vitamin C] 500 mg PO DAILY 06/30/20 10/05/23 Aspirin [Adult Low Dose Aspirin EC] 81 mg PO DAILY 06/30/20 10/05/23 Febuxostat [Uloric] 40 mg PO DAILY 06/30/20 10/05/23 Multivitamins, Thera [Multivitamin 1 tab PO DAILY 06/30/20 10/05/23 (formulary)] Simvastatin [Zocor] 20 mg PO HS 06/30/20 10/05/23 amLODIPine BESYLATE 10 mg PO DAILY 06/30/20 10/05/23 hydrALAZINE HCL [Apresoline] 100 mg PO TID 06/30/20 10/05/23 Furosemide [Lasix] 60 mg PO TID@0800,1200,1700 09/21/22 10/05/23 Nephro-Hilary 1 tab PO DAILY 09/21/22 10/05/23 carvediloL [Coreg] 25 mg PO BID 09/21/22 10/05/23 Cholecalciferol [Vitamin D3 (25 25 mcg PO DAILY 05/30/23 10/05/23 Mcg = 1000 Iu)] Insulin Lispro [humaLOG Kwikpen] 4 units SQ AC-TID 05/30/23 10/05/23 Insulin Lispro [humaLOG Kwikpen] See Protocol SQ AC-TID 05/30/23 10/05/23 lisinopriL [Prinivil] 10 mg PO DAILY 05/30/23 10/05/23 Acetaminophen Tab [Tylenol] 650 mg PO Q4H PRN 08/28/23 10/05/23 L.acidoph,Paracasei, B.lactis 1 cap PO BID@0800,1700 08/28/23 10/05/23 [Probiotic] Darbepoetin Matthew [Aranesp] 40 mcg SQ TU 10/05/23 10/05/23 Magnesium Hydroxide [Milk of 7,200 mg PO DAILY PRN 10/05/23 10/05/23 Magnesia Concentrate] Na Phos,M-B/Na Phos,Di-Ba [Fleet 133 ml RECTAL DAILY PRN 10/05/23 10/05/23 Adult] bisacodyL [Dulcolax] 10 mg RECTAL DAILY PRN 10/05/23 10/05/23 Previous Rx's Medication Instructions Recorded HYDROcodone/APAP 5-325MG [[place] 1 tab PO Q6HR 30 Days #120 tab 10/15/23 5-325] Insulin Detemir (Levemir) [Levemir] 10 unit SQ DAILY@0700 each 10/15/23 Tamsulosin [Flomax] 0.4 mg PO PC-SUPPER #30 cap 10/15/23 Allergies Allergy/AdvReac Type Severity Reaction Status Date / Time adhesive tape Allergy Itching Verified 12/25/23 12:51 levofloxacin [From Levaquin] Allergy Unknown Verified 12/25/23 12:51 Review of Systems ROS Other: All systems not noted in ROS Statement are negative. <Keven Acosta - Last Filed: 12/25/23 15:45> ROS Other: All systems not noted in ROS Statement are negative. <Parveen Diego - Last Filed: 12/28/23 22:31> ROS Statement: Those systems with pertinent positive or pertinent negative responses have been documented in the HPI. Review of Systems: CONST: Denies fever EYES: Denies blurry vision ENT: Endorses cough, nasal congestion C/V: Denies Chest pain RESP: Denies shortness of breath GI: Endorses abdominal pain : Denies dysuria SKIN: Denies rash. MSK: Denies joint pain. 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 gout ,anemia, psoriatic arthrit is,heart murmur History of Any Multi-Drug Resistant Organisms: None Reported Past Surgical History: Orthopedic Surgery, Tubal Ligation Additional Past Surgical History / Comment(s): 1 oophorectomy, 1 partial oophorectomy,fx rt shoulder feng present, cataracts removed jack eyes, fistula left arm Past Anesthesia/Blood Transfusion Reactions: Motion Sickness Past Psychological History: No Psychological Hx Reported Smoking Status: Never smoker Past Alcohol Use History: None Reported Past Drug Use History: None Reported - Past Family History Sister(s) Family Medical History: Cancer Additional Family Medical History / Comment(s): breast cancer <Parveen Diego - Last Filed: 12/28/23 22:31> General Exam Limitations: no limitations <Parveen Diego - Last Filed: 12/28/23 22:31> - General Exam Comments Initial Comments: General: Appears in no acute distress. HEAD: Normal with no signs of head trauma. EYES: PERRLA, EOMI, conjunctiva normal, no discharge. ENT: Hearing grossly intact, normal oropharynx. RESPIRATORY: Clear breath sounds bilaterally. No wheezes, rales, or rhonchi. C/V: Regular rate and rhythm. S1 and S2 auscultated, no edema, peripheral pulses 2+ and intact throughout. Left upper extremity AV fistula has palpable thrill and audible bruit. ABD: Abdomen is soft, nondistended. No focal tenderness to palpation. Discomfort on palpation. Seems to be mostly periumbilically. No guarding. No rebound tenderness. No peritoneal signs. EXT: Normal range of motion, no obvious deformity SKIN: No rashes or lesions observed on exposed skin. NEURO: Alert and oriented x 4. (Parveen Diego) Course Vital Signs 12/25/23 12/25/23 12/25/23 12:48 14:25 14:34 Temperature 97.3 F L Pulse Rate 71 71 77 Respiratory 18 18 18 Rate Blood Pressure 160/62 O2 Sat by Pulse 96 Oximetry 12/25/23 17:12 Temperature 98.2 F Pulse Rate 70 Respiratory 18 Rate Blood Pressure 155/79 O2 Sat by Pulse 97 Oximetry Medical Decision Making - Lab Data Result diagrams: 12/25/23 13:15 12/25/23 13:15 <Keven Acosta - Last Filed: 12/25/23 15:45> - Lab Data Result diagrams: 12/25/23 13:15 12/25/23 13:15 - EKG Data -: EKG Interpreted by Me <Parveen Diego - Last Filed: 12/28/23 22:31> - Medical Decision Making Was pt. sent in by a medical professional or institution (, PA, METER AND REGULATOR SHOP SUPERVISOR, urgent care, hospital, or fci...) When possible be specific @ -Sent from dialysis for evaluation. Patient is a resident at [facility]. Did you speak to anyone other than the patient for history (EMS, parent, family, police, friend...)? What history was obtained from this source @ -No Did you review nursing and triage notes (agree or disagree)? Why? @ -I reviewed and agree with nursing and triage notes Were old charts reviewed (outside hosp., previous admission, EMS record, old EKG, old radiological studies, urgent care reports/EKG's, fci records)? Report findings @ -No old charts were reviewed Differential Diagnosis (chest pain, altered mental status, abdominal pain women, abdominal pain men, vaginal bleeding, weakness, fever, dyspnea, syncope, headache, dizziness, GI bleed, back pain, seizure, CVA, palpatations, mental health, musculoskeletal)? @ -Differential Abdominal Pain Women: Appendicitis, Cholecystitis, diverticulosis, ischemic bowel, pancreatitis, hepatitis, UTI, gastroenteritis, AAA, incarcerated hernia, bowel obstruction, constipation, inflammatory bowel, hepatitis, peptic ulcer disease, splenic infarction, perforated viscus, vulvitis, ovarian torsion, PID, kidney stone, placenta abruption, this is not meant to be an all-inclusive list EKG interpreted by me (3pts min.). @ -As above X-rays interpreted by me (1pt min.). @ -Chest x-ray reveals no obvious acute cardiopulmonary process. CT interpreted by me (1pt min.). @ -Pending U/S interpreted by me (1pt. min.). @ -None done What testing was considered but not performed or refused? (CT, X-rays, U/S, labs)? Why? @ -None What meds were considered but not given or refused? Why? @ -I offered analgesia medications which were declined at this time. Pain is improving. Did you discuss the management of the patient with other professionals (professionals i.e. Dr., PA, MET[employer] AND REGULATOR SHOP SUPERVISOR, lab, RT, psych nurse, social work supervisor, merchandising professor, teacher, grant officer, pillowcase folder)? Give summary @ -No Was smoking cessation discussed for >3mins.? @ -No Was critical care preformed (if so, how long)? @ -No Were there social determinants of health that impacted care today? How? (Homelessness, low income, unemployed, alcoholism, drug addiction, transportation, low edu. Level, literacy, decrease access to med. care, halfway, rehab)? @ -No Was there de-escalation of care discussed even if they declined (Discuss DNR or withdrawal of care, Hospice)? DNR status @ -No What co-morbidities impacted this encounter? (DM, HTN, Smoking, COPD, CAD, Can cer, CVA, ARF, Chemo, Hep., AIDS, mental health diagnosis, sleep apnea, morbid obesity)? @ -ESRD on hemodialysis Was patient admitted / discharged? Hospital course, mention meds given and route, prescriptions, significant lab abnormalities, going to OR and other pertinent info. @ -Based on the patient's presentation and physical exam, presents emergency department complaining of abdominal pain at dialysis with upper respiratory symptoms for multiple days. We will obtain abdominal labs. Screening EKG will be obtained. Vital signs within acceptable limits. Patient be symptomatically treated with a DuoNeb, Zofran, Protonix. Patient declines any analgesia medications. We will obtain CT abdomen pelvis without contrast. She was in agreement this plan. Patient's laboratory studies are unremarkable. EKG shows no signs of acute ischemia. No need for emergent Alysis at this time. CT imaging is still pending. At this time CT imaging is still pending. Signed out to Dr. Acosta pending results of imaging. Undiagnosed new problem with uncertain prognosis? @ -No Drug Therapy requiring intensive monitoring for toxicity (Heparin, Nitro, Insulin, Cardizem)? @ -No Were any procedures done? @ -No (Parveen Diego) - Lab Data Lab Results 12/25/23 12/25/23 12/25/23 Range/Units 13:15 13:15 13:15 WBC 5.6 (3.8-10.6) k/uL RBC 2.73 L (3.80-5.40) m/uL Hgb 9.0 L (11.4-16.0) gm/dL Hct 26.3 L (34.0-46.0) % MCV 96.5 (80.0-100.0) fL MCH 33.0 (25.0-35.0) pg MCHC 34.2 (31.0-37.0) g/dL RDW 16.7 H (11.5-15.5) % Plt Count 176 (150-450) k/uL MPV 9.4 Neutrophils % 74 % Lymphocytes % 8 % Monocytes % 12 % Eosinophils % 2 % Basophils % 1 % Neutrophils # 4.1 (1.3-7.7) k/uL Lymphocytes # 0.4 L (1.0-4.8) k/uL Monocytes # 0.7 (0-1.0) k/uL Eosinophils # 0.1 (0-0.7) k/uL Basophils # 0.0 (0-0.2) k/uL Anisocytosis Slight Macrocytosis Slight PT 10.1 (10.0-12.5) sec INR 0.9 (<1.2) APTT 27.8 (22.0-30.0) sec Sodium 134 L (137-145) mmol/L Potassium 4.9 (3.5-5.1) mmol/L Chloride 99 (98-107) mmol/L Carbon Dioxide 31 H (22-30) mmol/L Anion Gap 4 mmol/L BUN 54 H (7-17) mg/dL Creatinine 3.05 H (0.52-1.04) mg/dL Est GFR (CKD-EPI)AfAm 16 (>60 ml/min/1.73 sqM) Est GFR (CKD-EPI)NonAf 14 (>60 ml/min/1.73 sqM) Glucose 100 H (74-99) mg/dL POC Glucose (mg/dL) (70-110) mg/dL POC Glu Edger Operator ID Calcium 8.8 (8.4-10.2) mg/dL Total Bilirubin 0.7 (0.2-1.3) mg/dL AST 62 H (14-36) U/L ALT 21 (4-34) U/L Alkaline Phosphatase 60 (38-126) U/L Total Protein 5.7 L (6.3-8.2) g/dL Albumin 3.0 L (3.5-5.0) g/dL Amylase 62 (30-110) U/L Lipase 230 (23-300) U/L Influenza Type A (PCR) (Not Detectd) Influenza Type B (PCR) (Not Detectd) RSV (PCR) (Not Detectd) SARS-CoV-2 (PCR) (Not Detectd) 12/25/23 12/25/23 Range/Units 13:15 14:47 WBC (3.8-10.6) k/uL RBC (3.80-5.40) m/uL Hgb (11.4-16.0) gm/dL Hct (34.0-46.0) % MCV (80.0-100.0) fL MCH (25.0-35.0) pg MCHC (31.0-37.0) g/dL RDW (11.5-15.5) % Plt Count (150-450) k/uL MPV Neutrophils % % Lymphocytes % % Monocytes % % Eosinophils % % Basophils % % Neutrophils # (1.3-7.7) k/uL Lymphocytes # (1.0-4.8) k/uL Monocytes # (0-1.0) k/uL Eosinophils # (0-0.7) k/uL Basophils # (0-0.2) k/uL Anisocytosis Macrocytosis PT (10.0-12.5) sec INR (<1.2) APTT (22.0-30.0) sec Sodium (137-145) mmol/L Potassium (3.5-5.1) mmol/L Chloride (98-107) mmol/L Carbon Dioxide (22-30) mmol/L Anion Gap mmol/L BUN (7-17) mg/dL Creatinine (0.52-1.04) mg/dL Est GFR (CKD-EPI)AfAm (>60 ml/min/1.73 sqM) Est GFR (CKD-EPI)NonAf (>60 ml/min/1.73 sqM) Glucose (74-99) mg/dL POC Glucose (mg/dL) 98 (70-110) mg/dL POC Glu Edger Operator ID Jose Armando Sims Calcium (8.4-10.2) mg/dL Total Bilirubin (0.2-1.3) mg/dL AST (14-36) U/L ALT (4-34) U/L Alkaline Phosphatase (38-126) U/L Total Protein (6.3-8.2) g/dL Albumin (3.5-5.0) g/dL Amylase (30-110) U/L Lipase (23-300) U/L Influenza Type A (PCR) Not Detected (Not Detectd) Influenza Type B (PCR) Not Detected (Not Detectd) RSV (PCR) Not Detected (Not Detectd) SARS-CoV-2 (PCR) Not Detected (Not Detectd) - EKG Data EKG Comments: 12-lead Electrocardiogram Interpretation Note EKG was reviewed and interpreted by myself. 12-lead ECG performed at 1256 is interpreted by me as revealing normal sinus rhythm at a rate of 68 beats per minute. [place] is normal. DE interval is 175 ms, QRS duration 79 ms, QTc is 448 ms.. There were no ST or T wave abnormalities to suggest myocardial ischemia or injury. R wave progression across the precordium was satisfactory. By my interpretation this EKG is non-diagnostic for acute ischemia. (Parveen Diego) Disposition Is patient prescribed a controlled substance at d/c from ED?: No <Keven Acosta - Last Filed: 12/25/23 15:45> <Parveen Diego - Last Filed: 12/28/23 22:31> Clinical Impression: Abdominal pain Disposition: HOME SELF-CARE Condition: Good Instructions (If sedation given, give patient instructions): Acute Abdominal Pain (DC) Additional Instructions: On the CT scan today there is a cyst noted at the pancreas and follow-up MRI is recommended. Referrals: Eric Coronado MD [Primary Care Provider] - 1-2 days
[2023-12-25 13:36] LABS: Anisocytosis Slight; Basophils % (A) 1 %; Eosinophils # (A) 0.1 k/uL (0-0.7); Eosinophils % (A) 2 %; HCT 26.3 % (34.0-46.0); Lymphocytes # (A) 0.4 k/uL (1.0-4.8); Lymphocytes % (A) 8 %; MCHC 34.2 g/dL (31.0-37.0); MCV 96.5 fL (80.0-100.0); Macrocytosis Slight; Mean Platelet Volume 9.4; Monocytes # (A) 0.7 k/uL (0-1.0); Monocytes % (A) 12 %; Neutrophils # (A) 4.1 k/uL (1.3-7.7); Neutrophils % (A) 74 %; Platelet Count 176 k/uL (150-450); RBC 2.73 m/uL (3.80-5.40); RDW 16.7 % (11.5-15.5); WBC 5.6 k/uL (3.8-10.6)
[2023-12-25] MEDS: PANTOPRAZOLE 40 MG/10 ML VIAL IVP STA (13:41)
[2023-12-25] MEDS: ONDANSETRON 4 MG/2 ML VIAL IVP STA (13:42)
[2023-12-25 13:50] LABS: ALT 21 U/L (4-34); African American GFR (CKD) 16 (>60 ml/min/1.73 sqM); Amylase 62 U/L (30-110); Anion Gap 4 mmol/L; Blood Urea Nitrogen 54 mg/dL (7-17); Calcium 8.8 mg/dL (8.4-10.2); Carbon Dioxide 31 mmol/L (22-30); Chloride 99 mmol/L (98-107); Glucose 100 mg/dL (74-99); INR 0.9 (<1.2); Lipase 230 U/L (23-300); Non-African American GFR(CKD) 14 (>60 ml/min/1.73 sqM); Partial Thromboplastin Time 27.8 sec (22.0-30.0); Prothrombin Time 10.1 sec (10.0-12.5); Sodium 134 mmol/L (137-145); Total Bilirubin 0.7 mg/dL (0.2-1.3)
--- NOTE | 2023-12-25 14:07 | XR ---
EXAMINATION TYPE: XR chest 2V DATE OF EXAM: 12/25/2023 1:36 PM CLINICAL INDICATION:Female, 78 years old with history of abdominal pain; [facility] COMPARISON: Chest radiographs from 12/25/2023 TECHNIQUE: XR chest 2V Frontal and lateral views of the chest. FINDINGS: Lungs/Pleura: There is no evidence of pleural effusion, focal consolidation, or pneumothorax. Pulmonary vascularity: Unremarkable. Heart/mediastinum: Cardiomediastinal silhouette is enlarged and stable. Musculoskeletal: No acute osseous pathology. Right shoulder arthroplasty appears intact. IMPRESSION: No acute cardiopulmonary disease/process.
[2023-12-25 14:13] LABS: AST 62 U/L (14-36); Alkaline Phosphatase 60 U/L (38-126); Potassium 4.9 mmol/L (3.5-5.1); Total Protein 5.7 g/dL (6.3-8.2)
[2023-12-25] MEDS: IPRATROPIUM-ALBUTEROL 3 ML NEB INHALATION STA (14:25)
[2023-12-25 14:49] LABS: Glucose,Whole Blood 98 mg/dL (70-110)
--- NOTE | 2023-12-25 15:33 | CT ---
EXAMINATION TYPE: CT abdomen pelvis wo con DATE OF EXAM: 12/25/2023 COMPARISON: 10/05/2023 HISTORY: abdominal pain CT DLP: 456.6 mGycm Examination of the solid and hollow viscera is limited given the lack of contrast. FINDINGS: LUNG BASES: No evidence for nodule. No evidence for infiltrate. LIVER/GB: The gallbladder is surgically absent. There is interval change of pneumobilia and cholecyst ectomy. Small cyst near the caudate lobe measures 1 cm. PANCREAS: There is a stable 1.7 cm cystic lesion of the pancreatic neck/proximal body reflect a small stenosis. Pancreatic cystic neoplasm of other etiology are not excluded. MRI correlation recommended . No inflammatory process seen. SPLEEN: No evidence for splenomegaly. No intrasplenic lesions seen. ADRENALS: No adrenal nodules identified. No evidence for thickening. KIDNEYS: No evidence for renal mass. No nephrolithiasis. No hydronephrosis. The urinary bladder is di stended at 13.1 cm craniocaudal dimension. Mild atrophic changes of the bilateral kidneys. BOWEL: Appendix has a normal appearance. No evidence of bowel obstruction. No inflammatory process. Lymph nodes: No evidence for adenopathy greater than 1 cm. Abdominal aorta: Atheromatous changes seen. No evidence for aneurysm. Genital organs: The uterus is atrophic without discrete mass. No ovarian or adnexal masses appreciate d. Other: Severe degenerative changes lower thoracic spine and lower lumbar spine. IMPRESSION: 1. Status post cholecystectomy with interval pneumobilia. 2. Cystic lesion of the pancreatic neck/proximal body is unchanged relative to the prior study and co uld reflect a pseudocyst. Pancreatic cystic neoplasm of other etiology not excluded and MRI correlati on is advised. 3. Mild cerebral atrophic changes. Distention of the urinary bladder.
[2023-12-25 17:28] VITALS: BP 155/79; PULSE 70; TEMP 98.2
== END 2023-12-25 17:17 | disposition home or self-care (01) ==
LOC: EC 12:35
DX: R10.9 Unspecified abdominal pain (principal); E11.22 Type 2 diabetes mellitus with diabetic chronic kidney disease; I12.0 Hypertensive chronic kidney disease with stage 5 chronic kidney disease or end stage renal disease; N18.6 End stage renal disease; Z99.2 Dependence on renal dialysis; Z79.4 Long term (current) use of insulin; Z79.82 Long term (current) use of aspirin; Z79.899 Other long term (current) drug therapy; Z88.1 Allergy status to other antibiotic agents; Z91.09 Other allergy status, other than to drugs and biological substances
CPT/HCPCS: 36415; 94640; 93005; 80053; 82150; 83690; 85025; 85610; 85730; 87636; 71046; 74176; 99285; 96374; 96375; J2405; C9113

== ENCOUNTER 2024-12-15 12:46 | Emergency (ER) | payer MEDICARE ==
[2024-12-15] MEDS: SODIUM CHLORIDE 0.9% 1,000 ML IV ONE (13:55)
[2024-12-15] MEDS: methylPREDNISolone SOD SUCCI 125 MG/2 ML VIAL IV STA (13:58)
[2024-12-15] MEDS: ONDANSETRON 4 MG/2 ML VIAL IVP STA (14:02)
[2024-12-15 14:04] LABS: HCT 28.4 % (37.2-46.3); HGB 9.1 g/dL (12.0-15.0); MCH 30.2 pg (27.0-32.0); MCV 94.4 fL (80.0-97.0); Mean Platelet Volume 9.9 fL (9.5-12.2); Platelet Count 165 10*3/uL (140-440); RBC 3.01 10*6/uL (4.10-5.20); WBC 7.69 10*3/uL (4.50-10.00)
[2024-12-15 14:06] LABS: ALT 13 U/L (4-34); African American GFR (CKD) 14 (>60 ml/min/1.73 sqM); Albumin 3.6 g/dL (3.5-5.0); Amylase 44 U/L (30-110); Anion Gap 12 mmol/L; Blood Urea Nitrogen 49 mg/dL (7-17); Calcium 8.9 mg/dL (8.4-10.2); Carbon Dioxide 24 mmol/L (22-30); Chloride 91 mmol/L (98-107); Glucose 113 mg/dL (74-99); Lipase 39 U/L (23-300); Non-African American GFR(CKD) 12 (>60 ml/min/1.73 sqM); Sodium 127 mmol/L (137-145); Total Bilirubin 0.7 mg/dL (0.2-1.3); Total Protein 6.6 g/dL (6.3-8.2)
[2024-12-15] MEDS: PANTOPRAZOLE 40 MG/10 ML VIAL IVP STA (14:06)
[2024-12-15 14:07] LABS: AST 41 U/L (14-36); Alkaline Phosphatase 70 U/L (38-126); Potassium 5.5 mmol/L (3.5-5.1)
[2024-12-15] MEDS: IPRATROPIUM-ALBUTEROL 3 ML NEB INHALATION STA (14:28)
--- NOTE | 2024-12-15 14:39 | XR ---
EXAMINATION TYPE: XR chest 2V DATE OF EXAM: 12/15/2024 2:26 PM COMPARISON: 12/25/2023 CLINICAL INDICATION: Female, 79 years old with history of abdominal pain, , TECHNIQUE: AP and lateral views FINDINGS: Heart mildly enlarged. Prominent perihilar opacities along with increased left mid and lower lung opa cities. Lateral view suggests small to moderate bilateral pleural effusions. Reverse right shoulder a rthroplasty. IMPRESSION: Correlate for CHF with perihilar pulmonary edema. Small to moderate left greater than right pleural e ffusions with adjacent atelectasis and/or consolidation. [facility], Workstation: [facility], 12/15/2024 2:37 PM
--- NOTE | 2024-12-15 14:46 | XR ---
EXAMINATION TYPE: XR KUB DATE OF EXAM: 12/15/2024 2:26 PM COMPARISON: Correlation CT 12/25/2023 CLINICAL INDICATION: Female, 79 years old with history of abdominal pain; [facility], pain TECHNIQUE: One radiographic view of the abdomen was obtained. FINDINGS: Moderate to large stool burden. No dilated small bowel loops seen. There are linear areas o f air noted along the left midabdomen. Recommend laboratory correlation to exclude bowel wall pneumat osis. Extensive arterial calcifications are present throughout. Marked osteopenia. IMPRESSION: 1. Extensive arterial calcifications throughout possibly due to chronic kidney disease. Clinically co rrelate. 2. Moderate to large stool burden suggesting constipation. 3. Some linear areas of air along the left mid abdomen. Unclear if this represents prominent skin fol ds or bowel wall pneumatosis. Recommend correlation with lactic acid levels to exclude the possibilit y of bowel ischemia. [facility], Workstation: [facility], 12/15/2024 2:44 PM
[2024-12-15 15:42] LABS: Band Neutrophils % 2 %; Eosinophils # (M) 0.08 k/uL (0-0.7); Lymphocytes # (M) 0.46 k/uL (1.0-4.8); Monocytes # (M) 0.31 k/uL (0-1.0); Neutrophils # (M) 6.92 k/uL (1.3-7.7); Neutrophils % (M) 88 %; Nucleated Red Blood Cells 0 /100 WBC (0-0); Total Cells Counted 200
[2024-12-15 15:43] LABS: RBC Morphology Normal
--- NOTE | 2024-12-15 15:56 | CT ---
EXAMINATION TYPE: CT abdomen pelvis wo con DATE OF EXAM: 12/15/2024 3:29 PM COMPARISON: 12/25/2023 CLINICAL INDICATION: Female, 79 years old with history of abd pain, abdominal pain and nausea TECHNIQUE: Axial images were obtained from above the diaphragm to the pubic rami in the axial plane a t 5 mm thick sections. Reconstructed images are reviewed on the computer in the coronal plane. CONTRAST: mL of . Study performed without Oral Contrast DLP: 692.9 mGycm, Automated exposure control for dose reduction was used. FINDINGS: Limited CT sections are obtained the lung bases. Small bilateral pleural effusions are present. Pati cent compressive atelectasis is present.. CT ABDOMEN: Dense calcification is within the aorta and major abdominal arterial structures. Liver: Some pneumobilia is present centrally Spleen: Normal Pancreas: There is a hypodense structure in the body of the pancreas anterior to the superior mesente michelle artery measuring 2.2 cm. Previous measurement 1.7 cm Adrenal glands: The adrenal glands are normal. Gallbladder: Normal Kidneys: Renal cortices are thinned compatible with chronic renal failure. Renal artery calcification is evident. No hydronephrosis is present. No cysts are present. No obvious renal stones evident Aorta: Vascular calcification is within the aorta. Inferior vena cava: Normal. CT PELVIS: Small amount of free fluid may be within the pelvis. Loops of bowel within the abdomen and pelvis are normal. Large fecal bolus is at the rectum. Correla te for fecal impaction or constipation. No obstruction is evident. Some fecal debris is descending co josue. This study is without oral contrast limiting bowel evaluation Appendix: Normal as visualized. Urinary bladder: Normal. Genitourinary structures: Uterus and ovaries are not identified Osseous structures: No suspicious lytic or sclerotic lesions. IMPRESSION: 1. Small bilateral pleural effusions with adjacent atelectasis at the lung bases. 2. Slight enlargement of a cyst within the body of the pancreas currently measuring 2.2 cm. 3. Extensive vascular arterial calcification. 4. Small amount of free fluid within the pelvis. 5. Correlate for fecal impaction at the rectum [facility], Workstation: [facility], 12/15/2024 3:53 PM
--- NOTE | 2024-12-15 16:01 | ED ---
General Adult HPI - General Chief complaint: Nausea/Vomiting/Diarrhea Stated complaint: nausea Time Seen by Provider: 12/15/24 13:20 Source: patient, EMS, RN notes reviewed, old records reviewed Mode of arrival: EMS - History of Present Illness Initial comments: Patient is a 79-year-old female presents emergency department for multiple complaints. States she feels short of breath. States she has abdominal pain with nausea which is chronic. Complains of chronic shortness of breath. Complains of chronic nausea. She tells me symptoms have been ongoing since she was "discharged" however she has not been to our facility since last December. She denies any chest pain. States she has epigastric abdominal discomfort and overall generalized abdominal discomfort. Is a dialysis patient. Does not think she has missed dialysis. Presents for further evaluation at this time with the vague complaints. - Related Data Home Medications Medication Instructions Recorded Confirmed Aspirin [Adult Low Dose Aspirin EC] 81 mg PO DAILY 06/30/20 12/15/24 Febuxostat [Uloric] 40 mg PO DAILY 06/30/20 12/15/24 Multivitamins, Thera [Multivitamin 1 tab PO DAILY 06/30/20 12/15/24 (formulary)] Simvastatin [Zocor] 20 mg PO HS 06/30/20 12/15/24 amLODIPine BESYLATE 10 mg PO DAILY 06/30/20 12/15/24 hydrALAZINE HCL [Apresoline] 100 mg PO TID 06/30/20 12/15/24 Furosemide [Lasix] 20 mg PO BID 09/21/22 12/15/24 carvediloL [Coreg] 25 mg PO BID 09/21/22 12/15/24 Insulin Lispro [humaLOG Kwikpen] See Protocol SQ AC-TID 05/30/23 12/15/24 Albuterol Inhaler [Ventolin Hfa 1 - 2 puff INHALATION RT-QID PRN 12/15/24 Inhaler] Cranberry Fruit Extract [Cranberry] 500 mg PO DAILY 12/15/24 12/15/24 Ferrous Sulfate [Feosol] 325 mg PO DAILY 12/15/24 12/15/24 Folic Acid 1 mg PO DAILY 12/15/24 12/15/24 Insulin Degludec [Tresiba 22 units SQ DAILY 12/15/24 12/15/24 Flextouch U-100 Pen] Losartan [Cozaar] 50 mg PO DAILY 12/15/24 12/15/24 Pantoprazole Sodium [Protonix] 40 mg PO DAILY 12/15/24 12/15/24 Sevelamer [Renvela] 800 mg PO AC-TID 12/15/24 12/15/24 cloNIDine HCL [Catapres] 0.3 mg PO BID 12/15/24 12/15/24 ondansetron HCL [Zofran] 8 mg PO Q12HR 12/15/24 12/15/24 predniSONE See Taper PO DAILY 12/15/24 12/15/24 Previous Rx's Medication Instructions Recorded HYDROcodone/APAP 5-325MG [[place] 1 tab PO Q6HR 30 Days #120 tab 10/15/23 5-325] Meclizine HCl 25 mg PO TID 5 Days #15 tab 12/15/24 Allergies Allergy/AdvReac Type Severity Reaction Status Date / Time adhesive tape Allergy Itching Verified 12/15/24 16:07 levofloxacin [From Levaquin] Allergy Unknown Verified 12/15/24 16:07 sulfamethoxazole Allergy Per PCP Verified 12/15/24 16:07 [From Bactrim] records trimethoprim [From Bactrim] Allergy Per PCP Verified 12/15/24 16:07 records Review of Systems ROS Statement: Those systems with pertinent positive or pertinent negative responses have been documented in the HPI. Review of Systems: CONST: Denies fever EYES: Denies blurry vision ENT: Denies nasal congestion C/V: Denies Chest pain RESP: Denies shortness of breath GI: Endorses abdominal pain, nausea : Denies dysuria SKIN: Denies rash. MSK: Denies joint pain. NEURO: Denies headache ROS Other: All systems not noted in ROS Statement are negative. 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 gout ,anemia, psoriatic arthritis,heart murmur History of Any Multi-Drug Resistant Organisms: None Reported Past Surgical History: Orthopedic Surgery, Tubal Ligation Additional Past Surgical History / Comment(s): 1 oophorectomy, 1 partial oophorectomy,fx rt shoulder feng present, cataracts removed jack eyes, fistula left arm Past Anesthesia/Blood Transfusion Reactions: Motion Sickness Past Psychological History: No Psychological Hx Reported Smoking Status: Never smoker Past Alcohol Use History: None Reported Past Drug Use History: None Reported - Past Family History Sister(s) Family Medical History: Cancer Additional Family Medical History / Comment(s): breast cancer General Exam - General Exam Comments Initial Comments: General: Appears in no acute distress. HEAD: Normal with no signs of head trauma. EYES: PERRLA, EOMI, conjunctiva normal, no discharge. ENT: Hearing grossly intact, normal oropharynx. RESPIRATORY: Clear breath sounds bilaterally. No wheezes, rales, or rhonchi. Chronic hypoxia on nasal cannula oxygen at home. C/V: Regular rate and rhythm. S1 and S2 auscultated, no lower extremity edema., peripheral pulses 2+ and intact throughout ABD: Abdomen soft, with generalized tenderness on palpation. No guarding or rebound tenderness. No peritoneal signs. EXT: Normal range of motion, no obvious deformity SKIN: No rashes or lesions observed on exposed skin. NEURO: Alert and oriented x 4. Course Vital Signs 12/15/24 12/15/24 12/15/24 12:48 14:28 14:39 Temperature 97.8 F Pulse Rate 56 L 51 L 57 L Respiratory 18 18 Rate Blood Pressure 159/60 156/55 O2 Sat by Pulse 100 100 Oximetry 12/15/24 12/15/24 14:40 16:00 Temperature Pulse Rate 54 L 53 L Respiratory 17 Rate Blood Pressure 156/66 O2 Sat by Pulse 100 Oximetry Medical Decision Making - Medical Decision Making Was pt. sent in by a medical professional or institution (, PA, [employer] [facility], urgent care, hospital, or snf...) When possible be specific @ -No Did you speak to anyone other than the patient for history (EMS, parent, family, police, friend...)? What history was obtained from this source @ -No Did you review nursing and triage notes (agree or disagree)? Why? @ -I reviewed and agree with nursing and triage notes Were old charts reviewed (outside hosp., previous admission, EMS record, old EKG, old radiological studies, urgent care reports/EKG's, snf records)? Report findings @ -Old charts reviewed confirming patient's history of ESRD. Differential Diagnosis (chest pain, altered mental status, abdominal pain women, abdominal pain men, vaginal bleeding, weakness, fever, dyspnea, syncope, headache, dizziness, GI bleed, back pain, seizure, CVA, palpatations, mental health, musculoskeletal)? @ -Differential Abdominal Pain Women: Appendicitis, Cholecystitis, diverticulosis, ischemic bowel, pancreatitis, hep atitis, UTI, gastroenteritis, AAA, incarcerated hernia, bowel obstruction, constipation, inflammatory bowel, hepatitis, peptic ulcer disease, splenic infarction, perforated viscus, vulvitis, ovarian torsion, PID, kidney stone, placenta abruption, this is not meant to be an all-inclusive list EKG interpreted by me (3pts min.). @ -As above X-rays interpreted by me (1pt min.). @ -Chest x-ray shows mild pulmonary vascular congestion as well as pleural effusions. KUB shows nonspecific findings. Constipation. Skin folds. CT interpreted by me (1pt min.). @ -CT abdomen pelvis concerning for rectal stool ball but no other obvious findings. U/S interpreted by me (1pt. min.). @ -None done What testing was considered but not performed or refused? (CT, X-rays, U/S, labs)? Why? @ -None What meds were considered but not given or refused? Why? @ -None Did you discuss the management of the patient with other professionals (professionals i.e. , PA, [employer] [facility], lab, RT, psych nurse, psychotherapist social worker, airline operations agent, teacher, accounting officer, porter sample case)? Give summary @ -Discussed the patient with Dr. Coronado who states she is in the hospital constantly for mild complaints. As nothing was found on workup today, he is in agreement with discharge home. I will perform a rectal disimpaction prior to discharge. Patient can follow-up with him in clinic. Was smoking cessation discussed for >3mins.? @ -No Was critical care preformed (if so, how long)? @ -No Were there social determinants of health that impacted care today? How? (Homelessness, low income, unemployed, alcoholism, drug addiction, transpo rtation, low edu. Level, literacy, decrease access to med. care, longterm, rehab)? @ -No Was there de-escalation of care discussed even if they declined (Discuss DNR or withdrawal of care, Hospice)? DNR status @ -No What co-morbidities impacted this encounter? (DM, HTN, Smoking, COPD, CAD, Cancer, CVA, ARF, Chemo, Hep., AIDS, mental health diagnosis, sleep apnea, morbid obesity)? @ -ESRD on hemodialysis, chronic debility, diabetes, hypertension, hyperlipidemia Was patient admitted / discharged? Hospital course, mention meds given and route, prescriptions, significant lab abnormalities, going to OR and other pertinent info. @ -Presents emergency department for multiple complaints. Primary complaint is abdominal pain with nausea. Also states she is having some shortness of breath with no cough. Unknown chronicity for these complaints as they do seem to be somewhat chronic for her. Vitals are within acceptable limits. We will obtain general workup. She was in agreement this plan. Given the extremely small fluid bolus as well as nausea meds. Also given a dose of steroids and breathing treatment. Laboratory studies are remarkable for elevated BUN and creatinine in the setting of ESRD on hemodialysis. Mildly hyponatremic to 127 and hypo-chloremic to 91. Chronic anemia at baseline currently 9.1 for hemoglobin. Chest x-ray shows pulmonary vas congestion that is mild with pleural effusions as well as KUB x- ray showing nonspecific findings including constipation. Discussed the patient with Dr. Coronado who states she is in the hospital constantly for mild complaints. As nothing was found on workup today, he is in agreement with discharge home. I will perform a rectal disimpaction prior to discharge. Patient can follow-up with him in clinic. Patient will also be sta rted on meclizine at home. Has chronic vertigo. States she began experiencing it after CT imaging. Rectal stool collection seen on CT. Patient changed her mind and does not want disimpaction. She does have enemas and suppositories and stool softeners at home. Patient will be discharged back home to her 24-hour nursing care.Patient to be discharged home at this time. On reevaluation, she has no significant complaints. Vitals have been stable, and labs are within acceptable limits. She has dialysis tomorrow. I instructed the patient to follow up with their PCP in the next 1-3 days. I explained that the patient should return to the emergency department if they experience any worsening symptoms. Strict return precautions were discussed with the patient. The patient expressed understanding of these instructions. I answered all questions that the patient had. The patient was discharged home in [good] condition with their prescriptions and follow up information. Undiagnosed new problem with uncertain prognosis? @ -No Drug Therapy requiring intensive monitoring for toxicity (Heparin, Nitro, Insulin, Cardizem)? @ -No Were any procedures done? @ -No Diagnosis/symptom? @ -Constipation, Chronic nausea Acute, or Chronic, or Acute on Chronic? @ -Acute Uncomplicated (without systemic symptoms) or Complicated (systemic symptoms)? @ -Uncomplicated Side effects of treatment? @ -None Exacerbation, Progression, or Severe Exacerbation] @ -No Poses a threat to life or bodily function? @ -Unlikely at this time - Lab Data Result diagrams: 12/15/24 13:55 12/15/24 15:35 Lab Results 12/15/24 12/15/24 12/15/24 Range/Units 13:37 13:37 13:55 WBC 7.69 (4.50-10.00) 10*3/uL RBC 3.01 L (4.10-5.20) 10*6/uL Hgb 9.1 L (12.0-15.0) g/dL Hct 28.4 L (37.2-46.3) % MCV 94.4 (80.0-97.0) fL MCH 30.2 (27.0-32.0) pg MCHC 32.0 (32.0-37.0) g/dL Plt Count 165 (140-440) 10*3/uL MPV 9.9 (9.5-12.2) fL Immature Gran % (Auto) 5.5 % Neutrophils % (Manual) 88 % Band Neuts % (Manual) 2 % Lymphocytes % (Manual) 6 % Monocytes % (Manual) 4 % Eosinophils % (Manual) 1 % Immature Gran # 0.42 H (0.00-0.04) 10*3/uL Neutrophils # (Manual) 6.92 (1.3-7.7) k/uL Lymphocytes # (Manual) 0.46 L (1.0-4.8) k/uL Monocytes # (Manual) 0.31 (0-1.0) k/uL Eosinophils # (Manual) 0.08 (0-0.7) k/uL Nucleated RBCs 0 (0-0) /100 WBC Manual Slide Review Performed RBC Morphology Normal APTT (22.0-30.0) sec Sodium 127 L (137-145) mmol/L Potassium 5.5 H (3.5-5.1) mmol/L Chloride 91 L (98-107) mmol/L Carbon Dioxide 24 (22-30) mmol/L Anion Gap 12 mmol/L BUN 49 H (7-17) mg/dL Creatinine 3.43 H (0.52-1.04) mg/dL Est GFR (CKD-EPI)AfAm 14 (>60 ml/min/1.73 sqM) Est GFR (CKD-EPI)NonAf 12 (>60 ml/min/1.73 sqM) Glucose 113 H (74-99) mg/dL Plasma Lactic Acid [place] 0.7 (0.7-2.0) mmol/L Calcium 8.9 (8.4-10.2) mg/dL Total Bilirubin 0.7 (0.2-1.3) mg/dL AST 41 H (14-36) U/L ALT 13 (4-34) U/L Alkaline Phosphatase 70 (38-126) U/L Total Protein 6.6 (6.3-8.2) g/dL Albumin 3.6 (3.5-5.0) g/dL Amylase 44 (30-110) U/L Lipase 39 (23-300) U/L 12/15/24 12/15/24 Range/Units 13:55 15:35 WBC (4.50-10.00) 10*3/uL RBC (4.10-5.20) 10*6/uL Hgb (12.0-15.0) g/dL Hct (37.2-46.3) % MCV (80.0-97.0) fL MCH (27.0-32.0) pg MCHC (32.0-37.0) g/dL Plt Count (140-440) 10*3/uL MPV (9.5-12.2) fL Immature Gran % (Auto) % Neutrophils % (Manual) % Band Neuts % (Manual) % Lymphocytes % (Manual) % Monocytes % (Manual) % Eosinophils % (Manual) % Immature Gran # (0.00-0.04) 10*3/uL Neutrophils # (Manual) (1.3-7.7) k/uL Lymphocytes # (Manual) (1.0-4.8) k/uL Monocytes # (Manual) (0-1.0) k/uL Eosinophils # (Manual) (0-0.7) k/uL Nucleated RBCs (0-0) /100 WBC Manual Slide Review RBC Morphology APTT 23.6 (22.0-30.0) sec Sodium (137-145) mmol/L Potassium 4.9 (3.5-5.1) mmol/L Chloride (98-107) mmol/L Carbon Dioxide (22-30) mmol/L Anion Gap mmol/L BUN (7-17) mg/dL Creatinine (0.52-1.04) mg/dL Est GFR (CKD-EPI)AfAm (>60 ml/min/1.73 sqM) Est GFR (CKD-EPI)NonAf (>60 ml/min/1.73 sqM) Glucose (74-99) mg/dL Plasma Lactic Acid [place] (0.7-2.0) mmol/L Calcium (8.4-10.2) mg/dL Total Bilirubin (0.2-1.3) mg/dL AST (14-36) U/L ALT (4-34) U/L Alkaline Phosphatase (38-126) U/L Total Protein (6.3-8.2) g/dL Albumin (3.5-5.0) g/dL Amylase (30-110) U/L Lipase (23-300) U/L - EKG Data -: EKG Interpreted by Me EKG Comments: 12-lead Electrocardiogram Interpretation Note EKG was reviewed and interpreted by myself. 12-lead ECG performed at 13 54 is interpreted by me as revealing sinus bradycardia at a rate of 55 beats per minute. Four States is normal. NE interval is 197 ms, QRS duration is 97 ms, QTc is 487 ms.. There were no ST or T wave abnormalities to suggest myocardial ischemia or injury. R wave progression across the precordium was satisfactory. By my interpretation this EKG is non-diagnostic for acute ischemia. Disposition Clinical Impression: Constipation, Chronic nausea Disposition: HOME SELF-CARE Condition: Good Instructions (If sedation given, give patient instructions): Constipation (ED) Prescriptions: Meclizine HCl 25 mg PO TID 5 Days #15 tab Is patient prescribed a controlled substance at d/c from ED?: No Referrals: Eric Coronado MD [Primary Care Provider] - 1-2 days Time of Disposition: 16:40
[2024-12-15] MEDS: MECLIZINE 12.5 MG TAB PO STA (16:20)
[2024-12-15] MEDS: MORPHINE SULFATE 4 MG/ML SYRINGE IVP STA (16:21)
[2024-12-15 17:35] VITALS: RESP 15; TEMP 97.9
[2024-12-15 21:45] VITALS: BP 154/59; PULSE 53
== END 2024-12-15 21:58 | disposition home or self-care (01) ==
LOC: EC 12:46
DX: K59.00 Constipation, unspecified (principal); R11.0 Nausea; I10 Essential (primary) hypertension; E78.5 Hyperlipidemia, unspecified; E11.9 Type 2 diabetes mellitus without complications; Z99.2 Dependence on renal dialysis; Z88.1 Allergy status to other antibiotic agents; Z88.2 Allergy status to sulfonamides; Z91.09 Other allergy status, other than to drugs and biological substances
CPT/HCPCS: 94640; 93005; 80053; 82150; 83605; 83690; 84132; 85025; 85730; 71046; 74018; 74176; 99285; 96374; 96375; 96361; J2270; J2405; J2919; J2470; 36415

== ENCOUNTER 2024-12-16 02:20 | Emergency (ER) | payer MEDICARE ==
[2024-12-16 02:31] VITALS: TEMP 96.8
--- NOTE | 2024-12-16 02:32 | ED ---
Recheck HPI - General Chief Complaint: Abdominal Pain Stated Complaint: Nausea Time Seen by Provider: 12/16/24 02:23 Source: EMS, RN notes reviewed, old records reviewed Mode of arrival: EMS Limitations: no limitations - History of Present Illness Initial Comments: This is a 79-year-old female who is known to this ER for recent ER visit earlier today found to have rectal impaction, patient refused disimpaction earlier and presents to the ER with no resolution in symptoms MD Complaint: other (Persistent constipation) -: days(s) Returns Today for: persistent/worsening pain related to initial visit Symptoms Since Prior Visit: worsening pain Associated Symptoms: none Treatments Prior to Arrival: other - Related Data Home Medications Medication Instructions Recorded Confirmed Aspirin [Adult Low Dose Aspirin EC] 81 mg PO DAILY 06/30/20 12/15/24 Febuxostat [Uloric] 40 mg PO DAILY 06/30/20 12/15/24 Multivitamins, Thera [Multivitamin 1 tab PO DAILY 06/30/20 12/15/24 (formulary)] Simvastatin [Zocor] 20 mg PO HS 06/30/20 12/15/24 amLODIPine BESYLATE 10 mg PO DAILY 06/30/20 12/15/24 hydrALAZINE HCL [Apresoline] 100 mg PO TID 06/30/20 12/15/24 Furosemide [Lasix] 20 mg PO BID 09/21/22 12/15/24 carvediloL [Coreg] 25 mg PO BID 09/21/22 12/15/24 Insulin Lispro [humaLOG Kwikpen] See Protocol SQ AC-TID 05/30/23 12/15/24 Albuterol Inhaler [Ventolin Hfa 1 - 2 puff INHALATION RT-QID PRN 12/15/24 12/15/24 Inhaler] Cranberry Fruit Extract [Cranberry] 500 mg PO DAILY 12/15/24 12/15/24 Ferrous Sulfate [Feosol] 325 mg PO DAILY 12/15/24 12/15/24 Folic Acid 1 mg PO DAILY 12/15/24 12/15/24 Insulin Degludec [Tresiba 22 units SQ DAILY 12/15/24 12/15/24 Flextouch U-100 Pen] Losartan [Cozaar] 50 mg PO DAILY 12/15/24 12/15/24 Pantoprazole Sodium [Protonix] 40 mg PO DAILY 12/15/24 12/15/24 Sevelamer [Renvela] 800 mg PO AC-TID 12/15/24 12/15/24 cloNIDine HCL [Catapres] 0.3 mg PO BID 12/15/24 12/15/24 ondansetron HCL [Zofran] 8 mg PO Q12HR 12/15/24 12/15/24 predniSONE See Taper PO DAILY 12/15/24 12/15/24 Previous Rx's Medication Instructions Recorded HYDROcodone/APAP 5-325MG [[place] 1 tab PO Q6HR 30 Days #120 tab 10/15/23 5-325] Meclizine HCl 25 mg PO TID 5 Days #15 tab 12/15/24 Allergies Allergy/AdvReac Type Severity Reaction Status Date / Time adhesive tape Allergy Itching Verified 12/15/24 16:07 levofloxacin [From Levaquin] Allergy Unknown Verified 12/15/24 16:07 sulfamethoxazole Allergy Per PCP Verified 12/15/24 16:07 [From Bactrim] records trimethoprim [From Bactrim] Allergy Per PCP Verified 12/15/24 16:07 records Review of Systems ROS Statement: Those systems with pertinent positive or pertinent negative responses have been documented in the HPI. ROS Other: All systems not noted in ROS Statement are negative. 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 gout ,anemia, psoriatic arthritis,heart murmur History of Any Multi-Drug Resistant Organisms: None Reported Past Surgical History: Orthopedic Surgery, Tubal Ligation Additional Past Surgical History / Comment(s): 1 oophorectomy, 1 partial oophorectomy,fx rt shoulder feng present, cataracts removed jack eyes, fistula left arm Past Anesthesia/Blood Transfusion Reactions: Motion Sickness Past Psychological History: No Psychological Hx Reported Smoking Status: Never smoker Past Alcohol Use History: None Reported Past Drug Use History: None Reported - Past Family History Sister(s) Family Medical History: Cancer Additional Family Medical History / Comment(s): breast cancer General Exam General appearance: alert, in no apparent distress Head exam: Present: atraumatic, normocephalic, normal inspection Eye exam: Present: normal appearance, PERRL, EOMI. Absent: scleral icterus, conjunctival injection, periorbital swelling ENT exam: Present: normal exam, mucous membranes moist Neck exam: Present: normal inspection. Absent: tenderness, meningismus, lymphadenopathy Respiratory exam: Present: normal lung sounds bilaterally. Absent: respiratory distress, wheezes, rales, rhonchi, stridor Cardiovascular Exam: Present: regular rate, normal rhythm, normal heart sounds. Absent: systolic murmur, diastolic murmur, rubs, gallop, clicks GI/Abdominal exam: Present: soft, normal bowel sounds. Absent: distended, tenderness, guarding, rebound, rigid Extremities exam: Present: normal inspection, full ROM, normal capillary refill. Absent: tenderness, pedal edema, joint swelling, calf tenderness Back exam: Present: normal inspection Neurological exam: Present: alert, oriented X3, CN II-XII intact Psychiatric exam: Present: normal affect, normal mood Skin exam: Present: warm, dry, intact, normal color. Absent: rash Course Vital Signs 12/16/24 12/16/24 02:26 04:09 Temperature 96.8 F L Pulse Rate 61 61 Respiratory 18 18 Rate Blood Pressure 143/70 146/76 O2 Sat by Pulse 98 100 Oximetry - Reevaluation(s) Reevaluation #1: 12/16/24 02:59 Medical records reviewed Reevaluation #2: 12/16/24 02:59 Patient has successful enemas here in the ER Reevaluation #3: 12/16/24 02:59 Patient informed of results and questions answered Reevaluation #4: Was pt. sent in by a medical professional or institution (, PA, OFFSET PROOF PRESS OPERATOR, urgent care, hospital, or skilled nursing...) When possible be specific @ -no Did you speak to anyone other than the patient for history (EMS, parent, family, police, friend...)? What history was obtained from this source @ -no Did you review nursing and triage notes (agree or disagree)? Why? @ -agree Are old charts reviewed (outside hosp., previous admission, EMS record, old EKG, old radiological studies, urgent care reports/EKG's, skilled nursing records)? Report findings @ -yes Differential Diagnosis (chest pain, altered mental status, abdominal pain women, abdominal pain men, vaginal bleeding, weakness, fever, dyspnea, syncope, headache, dizziness, GI bleed, back pain, seizure, CVA, palpatations, mental health, musculoskeletal)? @ -prior EKG interpreted by me (3pts min.). @ -yes X-rays interpreted by me (1pt min.). @ -yes negative for acute disease CT interpreted by me (1pt min.). @ -no U/S interpreted by me (1pt. min.). @ -no What testing was considered but not performed or refused? (CT, X-rays, U/S, labs)? Why? @ -none What meds were considered but not given or refused? Why? @ -none Did you discuss the management of the patient with other professionals (professionals i.e. , PA, OFFSET PROOF PRESS OPERATOR, lab, RT, psych nurse, psychotherapist social worker, flow floor attendant, teacher, eeo officer, home health care case manager)? Give summary @ -no Was smoking cessation discussed for >3mins.? @ -no Was critical care preformed (if so, how long)? @ -no Were there social determinants of health that impacted care today? How? (Homelessness, low income, unemployed, alcoholism, drug addiction, transportati on, low edu. Level, literacy, decrease access to med. care, penitentiary, rehab)? @ -none Was there de-escalation of care discussed even if they declined (Discuss DNR or withdrawal of care, Hospice)? DNR status @ -no What co-morbidities impacted this encounter? (DM, HTN, Smoking, COPD, CAD, Cancer, CVA, ARF, Chemo, Hep., AIDS, mental health diagnosis, sleep apnea, morbid obesity)? @ -none Was patient admitted / discharged? Hospital course, mention meds given and route, prescriptions, significant lab abnormalities, going to OR and other pertinent info. @ - Undiagnosed new problem with uncertain prognosis? @ -no Drug Therapy requiring intensive monitoring for toxicity (Heparin, Nitro, Insulin, Cardizem)? @ -no Were any procedures done? @ -no Diagnosis/symptom? @ - Acute, or Chronic, or Acute on Chronic? @ -Acute Uncomplicated (without systemic symptoms) or Complicated (systemic symptoms)? @ -Complicated Side effects of treatment? @ -no Exacerbation, Progression, or Severe Exacerbation? @ -exacerbation Poses a threat to life or bodily function? How? (Chest pain, USA, NV, pneumonia, PE, COPD, DKA, ARF, appy, cholecystitis, CVA, Diverticulitis, Homicidal, Suicidal, threat to staff... and all critical care pts) @ -yes Reevaluation #5: Differential Abdominal Pain Women: Appendicitis, Cholecystitis, diverticulosis, ischemic bowel, pancreatitis, hepatitis, UTI, gastroenteritis, AAA, incarcerated hernia, bowel obstruction, constipation, inflammatory bowel, hepatitis, peptic ulcer disease, splenic infarction, perforated viscus, vulvitis, ovarian torsion, PID, kidney stone, placenta abruption, this is not meant to be an all-inclusive list Medical Decision Making - Medical Decision Making 79 female to ER with persistent symptoms of constipation and impaction though symptoms are improved here in the ER will continue at home enemas and bowel regiment, patient can be discharged Disposition Clinical Impression: Weakness, Abdominal pain, Constipation Disposition: HOME SELF-CARE Condition: Fair Instructions (If sedation given, give patient instructions): Constipation (ED) Is patient prescribed a controlled substance at d/c from ED?: No Referrals: Eric Coronado MD [Primary Care Provider] - 1-2 days Time of Disposition: 04:00
[2024-12-16] MEDS: ONDANSETRON 4 MG/2 ML VIAL IVP STA (03:04)
[2024-12-16] MEDS: SODIUM CHLORIDE 0.9% 1,000 ML IV ONE (03:04)
[2024-12-16] MEDS: SENNOSIDES-DOCUSATE SODIUM 1 EACH TAB PO STA (04:07)
[2024-12-16 06:23] VITALS: BP 154/63; PULSE 59; RESP 16
== END 2024-12-16 06:36 | disposition home or self-care (01) ==
LOC: EC 02:20
DX: R10.9 Unspecified abdominal pain (principal); R53.1 Weakness; K59.00 Constipation, unspecified; Z88.1 Allergy status to other antibiotic agents; Z88.2 Allergy status to sulfonamides; Z91.09 Other allergy status, other than to drugs and biological substances
CPT/HCPCS: 99284

== ENCOUNTER 2024-12-16 11:45 | Inpatient (IN) | payer MEDICARE ==
--- NOTE | 2024-12-16 12:01 | ED ---
General Adult HPI - General Stated complaint: petition Time Seen by Provider: 12/16/24 11:46 Source: patient, EMS, RN notes reviewed, old records reviewed Mode of arrival: EMS Limitations: no limitations - History of Present Illness Initial comments: 79-year-old female presents emergency department via EMS from home for evaluation. Patient had multiple recent visits for generalized weakness, nausea and not feeling well. EMS reports patient is living in very poor condition in which APS, police and animal control were called due to her multiple animals in the home. Patient states that she did receive dialysis recently but she states it was here but per records it was not completed. Patient states she feels nauseated she feels short of breath she denies any chest pain currently. - Related Data Home Medications Medication Instructions Recorded Confirmed Aspirin [Adult Low Dose Aspirin EC] 81 mg PO DAILY 06/30/20 12/15/24 Febuxostat [Uloric] 40 mg PO DAILY 06/30/20 12/15/24 Multivitamins, Thera [Multivitamin 1 tab PO DAILY 06/30/20 12/15/24 (formulary)] Simvastatin [Zocor] 20 mg PO HS 06/30/20 12/15/24 amLODIPine BESYLATE 10 mg PO DAILY 06/30/20 12/15/24 hydrALAZINE HCL [Apresoline] 100 mg PO TID 06/30/20 12/15/24 Furosemide [Lasix] 20 mg PO BID 09/21/22 12/15/24 carvediloL [Coreg] 25 mg PO BID 09/21/22 12/15/24 Insulin Lispro [humaLOG Kwikpen] See Protocol SQ AC-TID 05/30/23 12/15/24 Albuterol Inhaler [Ventolin Hfa 1 - 2 puff INHALATION RT-QID PRN 12/15/24 12/15/24 Inhaler] Cranberry Fruit Extract [Cranberry] 500 mg PO DAILY 12/15/24 12/15/24 Ferrous Sulfate [Feosol] 325 mg PO DAILY 12/15/24 12/15/24 Folic Acid 1 mg PO DAILY 12/15/24 12/15/24 Insulin Degludec [Tresiba 22 units SQ DAILY 12/15/24 12/15/24 Flextouch U-100 Pen] Losartan [Cozaar] 50 mg PO DAILY 12/15/24 12/15/24 Pantoprazole Sodium [Protonix] 40 mg PO DAILY 12/15/24 12/15/24 Sevelamer [Renvela] 800 mg PO AC-TID 12/15/24 12/15/24 cloNIDine HCL [Catapres] 0.3 mg PO BID 12/15/24 12/15/24 ondansetron HCL [Zofran] 8 mg PO Q12HR 12/15/24 12/15/24 predniSONE See Taper PO DAILY 12/15/24 12/15/24 Previous Rx's Medication Instructions Recorded HYDROcodone/APAP 5-325MG [[place] 1 tab PO Q6HR 30 Days #120 tab 10/15/23 5-325] Meclizine HCl 25 mg PO TID 5 Days #15 tab 12/15/24 Allergies Allergy/AdvReac Type Severity Reaction Status Date / Time adhesive tape Allergy Itching Verified 12/16/24 12:09 levofloxacin [From Levaquin] Allergy Unknown Verified 12/16/24 12:09 sulfamethoxazole Allergy Per PCP Verified 12/16/24 12:09 [From Bactrim] records trimethoprim [From Bactrim] Allergy Per PCP Verified 12/16/24 12:09 records Review of Systems ROS Statement: Those systems with pertinent positive or pertinent negative responses have been documented in the HPI. ROS Other: All systems not noted in ROS Statement are negative. 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 gout ,anemia, psoriatic arthritis,heart murmur History of Any Multi-Drug Resistant Organisms: None Reported Past Surgical History: Orthopedic Surgery, Tubal Ligation Additional Past Surgical History / Comment(s): 1 oophorectomy, 1 partial oophorectomy,fx rt shoulder feng present, cataracts removed jack eyes, fistula lef t arm Past Anesthesia/Blood Transfusion Reactions: Motion Sickness Past Psychological History: No Psychological Hx Reported Smoking Status: Never smoker Past Alcohol Use History: None Reported Past Drug Use History: None Reported - Past Family History Sister(s) Family Medical History: Cancer Additional Family Medical History / Comment(s): breast cancer General Exam Limitations: no limitations General appearance: alert, in no apparent distress Head exam: Present: atraumatic, normocephalic, normal inspection Eye exam: Present: normal appearance, PERRL, EOMI. Absent: scleral icterus, conjunctival injection, periorbital swelling ENT exam: Present: normal exam, mucous membranes moist Neck exam: Present: normal inspection, full ROM. Absent: tenderness, meningismus, lymphadenopathy Respiratory exam: Present: normal lung sounds bilaterally. Absent: respiratory distress, wheezes, rales, rhonchi, stridor Cardiovascular Exam: Present: regular rate, normal rhythm, normal heart sounds. Absent: systolic murmur, diastolic murmur, rubs, gallop, clicks GI/Abdominal exam: Present: soft, normal bowel sounds. Absent: distended, tenderness, guarding, rebound, rigid Neurological exam: Present: alert, oriented X3, CN II-XII intact Course Vital Signs 12/16/24 12/16/24 12/16/24 11:59 13:00 14:00 Temperature 97.3 F L Pulse Rate 64 62 61 Respiratory 22 14 14 Rate Blood Pressure 170/65 167/77 162/61 O2 Sat by Pulse 99 98 98 Oximetry EKG Findings - EKG Comments: EKG Findings:: EKG performed at 12: 17 rate of 63 VT 190 QRS 100 QT/QTc 472/478 sinus rhythm - EKG Results: EKG: interpreted by [facility] Medical Decision Making - Medical Decision Making Was pt. sent in by a medical professional or institution (, PA, A AND P MECHANIC, urgent care, hospital, or retirement...) When possible be specific @ -No Did you speak to anyone other than the patient for history (EMS, parent, family, police, friend...)? What history was obtained from this source @ -No Did you review nursing and triage notes (agree or disagree)? Why? @ -I reviewed and agree with nursing and triage notes Were old charts reviewed (outside hosp., previous admission, EMS record, old EKG, old radiological studies, urgent care reports/EKG's, retirement records)? Report findings @ -No old charts were reviewed Differential Diagnosis (chest pain, altered mental status, abdominal pain women, abdominal pain men, vaginal bleeding, weakness, fever, dyspnea, syncope, headache, dizziness, GI bleed, back pain, seizure, CVA, palpatations, mental health, musculoskeletal)? @ -Differential Weakness: Hypoglycemia, shock, sepsis, hyponatremia, anemia, infection, NV, ETOH, adverse medicine reaction, overdose, stroke, this is not meant to be an all-inclusive list. EKG interpreted by me (3pts min.). @ -As above X-rays interpreted by me (1pt min.). @ -Chest x-ray shows pulmonary edema CT interpreted by me (1pt min.). @ -None done U/S interpreted by me (1pt. min.). @ -None done What testing was considered but not performed or refused? (CT, X-rays, U/S, labs)? Why? @ -None What meds were considered but not given or refused? Why? @ -None Did you discuss the management of the patient with other professionals (professionals i.e. , PA, A AND P MECHANIC, lab, RT, psych nurse, manager social, inseminator, teacher, special technical operations officer, transplant case manager)? Give summary @Dr. Coronado for admission Was smoking cessation discussed for >3mins.? @ -No Was critical care preformed (if so, how long)? @ -No Were there social determinants of health that impacted care today? How? (Homelessness, low income, unemployed, alcoholism, drug addiction, transportation, low edu. Level, literacy, decrease access to med. care, senior care, rehab)? @ -No Was there de-escalation of care discussed even if they declined (Discuss DNR or withdrawal of care, Hospice)? DNR status @ -No What co-morbidities impacted this encounter? (DM, HTN, Smoking, COPD, CAD, Cancer, CVA, ARF, Chemo, Hep., AIDS, mental health diagnosis, sleep apnea, morbid obesity)? @ -[ESRD on dialysis Was patient admitted / discharged? Hospital course, mention meds given and route, prescriptions, significant lab abnormalities, going to OR and other pertinent info. @ -Admit the patient presented for increased nausea, weakness, generalized not feeling well. Patient petitioned by police for generalized depression and not wanting to live any further. Patient had a EPS contacted secondary to her living situation. Patient is found to have evidence of UTI started on IV antibiotics will be admitted for nephrology and dialysis pending psychiatric evaluation and placement Undiagnosed new problem with uncertain prognosis? @ -No Drug Therapy requiring intensive monitoring for toxicity (Heparin, Nitro, Insulin, Cardizem)? @ -No Were any procedures done? @ -No Diagnosis/symptom? @ -Pulmonary edema, dialysis noncompliant, ESRD on dialysis, depression, UTI Acute, or Chronic, or Acute on Chronic? @ -Acute Uncomplicated (without systemic symptoms) or Complicated (systemic symptoms)? @ -Complicated Side effects of treatment? @ -No Exacerbation, Progression, or Severe Exacerbation? @ -No Poses a threat to life or bodily function? How? (Chest pain, USA, NV, pneumonia, PE, COPD, DKA, ARF, appy, cholecystitis, CVA, Diverticulitis, Homicidal, Suicidal, threat to staff... and all critical care pts) @ -[Yes renal failure causing risk of pulmonary cardiac function - Lab Data Result diagrams: 12/16/24 13:26 12/16/24 13:26 Lab Results 12/16/24 12/16/24 12/16/24 Range/Units 12:59 12:59 13:26 WBC 5.12 (4.50-10.00) 10*3/uL RBC 2.97 L (4.10-5.20) 10*6/uL Hgb 9.1 L (12.0-15.0) g/dL Hct 27.9 L (37.2-46.3) % MCV 93.9 (80.0-97.0) fL MCH 30.6 (27.0-32.0) pg MCHC 32.6 (32.0-37.0) g/dL Plt Count 153 (140-440) 10*3/uL MPV 10.0 (9.5-12.2) fL Immature Gran % (Auto) 4.9 % Neutrophils % 90.2 % Lymphocytes % 2.0 % Monocytes % 2.7 % Eosinophils % 0.0 % Basophils % 0.2 % Immature Gran # 0.25 H (0.00-0.04) 10*3/uL Neutrophils # 4.62 (1.80-7.70) 10*3/uL Lymphocytes # 0.10 L (0.90-5.00) 10*3/uL Monocytes # 0.14 L (0.20-1.00) 10*3/uL Eosinophils # 0.00 L (0.04-0.35) 10*3/uL Basophils # 0.01 (0.00-0.10) 10*3/uL PT (10.0-12.5) sec INR (<1.2) APTT (22.0-30.0) sec Sodium (137-145) mmol/L Potassium (3.5-5.1) mmol/L Chloride (98-107) mmol/L Carbon Dioxide (22-30) mmol/L Anion Gap mmol/L BUN (7-17) mg/dL Creatinine (0.52-1.04) mg/dL Est GFR (CKD-EPI)AfAm (>60 ml/min/1.73 sqM) Est GFR (CKD-EPI)NonAf (>60 ml/min/1.73 sqM) Glucose (74-99) mg/dL Plasma Lactic Acid [place] (0.7-2.0) mmol/L Calcium (8.4-10.2) mg/dL Phosphorus (2.5-4.5) mg/dL Magnesium (1.6-2.3) mg/dL Total Bilirubin (0.2-1.3) mg/dL AST (14-36) U/L ALT (4-34) U/L Alkaline Phosphatase (38-126) U/L Total Protein (6.3-8.2) g/dL Albumin (3.5-5.0) g/dL Urine Color Light Red Urine Appearance Turbid H (Clear) Urine pH 7.0 (5.0-8.0) Ur Specific [place] 1.012 (1.001-1.035) Urine Protein 2+ H (Negative) Urine Glucose (UA) Negative (Negative) Urine Ketones Negative (Negative) Urine Blood Moderate H (Negative) Urine Nitrite Negative (Negative) Urine Bilirubin Negative (Negative) Urine Urobilinogen <2.0 (<2.0) mg/dL Ur Leukocyte Esterase Large H (Negative) Urine RBC 39 H (0-5) /hpf Urine WBC >182 H (0-5) /hpf Urine WBC Clumps Many H (None) /hpf Urine Bacteria Many H (None) /hpf Urine Mucus Few H (None) /hpf Urine Opiates Screen Detected H (NotDetected) Ur Oxycodone Screen Not Detected (NotDetected) Urine Methadone Screen Not Detected (NotDetected) Ur Barbiturates Screen Not Detected (NotDetected) U Tricyclic Antidepress Not Detected (NotDetected) Ur Phencyclidine Scrn Not Detected (NotDetected) Ur Amphetamines Screen Not Detected (NotDetected) U Methamphetamines Scrn Not Detected (NotDetected) U Benzodiazepines Scrn Not Detected (NotDetected) Urine Cocaine Screen Not Detected (NotDetected) U Marijuana (THC) Screen Not Detected (NotDetected) Serum Alcohol mg/dL 12/16/24 12/16/24 12/16/24 Range/Units 13:26 13:26 13:26 WBC (4.50-10.00) 10*3/uL RBC (4.10-5.20) 10*6/uL Hgb (12.0-15.0) g/dL Hct (37.2-46.3) % MCV (80.0-97.0) fL MCH (27.0-32.0) pg MCHC (32.0-37.0) g/dL Plt Count (140-440) 10*3/uL MPV (9.5-12.2) fL Immature Gran % (Auto) % Neutrophils % % Lymphocytes % % Monocytes % % Eosinophils % % Basophils % % Immature Gran # (0.00-0.04) 10*3/uL Neutrophils # (1.80-7.70) 10*3/uL Lymphocytes # (0.90-5.00) 10*3/uL Monocytes # (0.20-1.00) 10*3/uL Eosinophils # (0.04-0.35) 10*3/uL Basophils # (0.00-0.10) 10*3/uL PT 10.9 (10.0-12.5) sec INR 1.0 (<1.2) APTT 23.5 (22.0-30.0) sec Sodium 128 L (137-145) mmol/L Potassium 5.3 H (3.5-5.1) mmol/L Chloride 95 L (98-107) mmol/L Carbon Dioxide 22 (22-30) mmol/L Anion Gap 11 mmol/L BUN 54 H (7-17) mg/dL Creatinine 4.02 H (0.52-1.04) mg/dL Est GFR (CKD-EPI)AfAm 12 (>60 ml/min/1.73 sqM) Est GFR (CKD-EPI)NonAf 10 (>60 ml/min/1.73 sqM) Glucose 126 H (74-99) mg/dL Plasma Lactic Acid [place] 0.6 L (0.7-2.0) mmol/L Calcium 8.5 (8.4-10.2) mg/dL Phosphorus 7.3 H (2.5-4.5) mg/dL Magnesium 2.2 (1.6-2.3) mg/dL Total Bilirubin 0.6 (0.2-1.3) mg/dL AST 31 (14-36) U/L ALT 16 (4-34) U/L Alkaline Phosphatase 78 (38-126) U/L Total Protein 5.9 L (6.3-8.2) g/dL Albumin 3.2 L (3.5-5.0) g/dL Urine Color Urine Appearance (Clear) Urine pH (5.0-8.0) Ur Specific [place] (1.001-1.035) Urine Protein (Negative) Urine Glucose (UA) (Negative) Urine Ketones (Negative) Urine Blood (Negative) Urine Nitrite (Negative) Urine Bilirubin (Negative) Urine Urobilinogen (<2.0) mg/dL Ur Leukocyte Esterase (Negative) Urine RBC (0-5) /hpf Urine WBC (0-5) /hpf Urine WBC Clumps (None) /hpf Urine Bacteria (None) /hpf Urine Mucus (None) /hpf Urine Opiates Screen (NotDetected) Ur Oxycodone Screen (NotDetected) Urine Methadone Screen (NotDetected) Ur Barbiturates Screen (NotDetected) U Tricyclic Antidepress (NotDetected) Ur Phencyclidine Scrn (NotDetected) Ur Amphetamines Screen (NotDetected) U Methamphetamines Scrn (NotDetected) U Benzodiazepines Scrn (NotDetected) Urine Cocaine Screen (NotDetected) U Marijuana (THC) Screen (NotDetected) Serum Alcohol <10 mg/dL Disposition Clinical Impression: Weakness, UTI (urinary tract infection), End stage renal disease on dialysis, Pulmonary edema, Hyperkalemia, Depression Disposition: ADMITTED IP TO THIS [facility] Condition: Poor Referrals: Eric Coronado MD [Primary Care Provider] - 1-2 days Time of Disposition: 15:23
--- NOTE | 2024-12-16 13:05 | XR ---
EXAMINATION TYPE: XR chest 2V DATE OF EXAM: 12/16/2024 12:41 PM COMPARISON: 12/15/2024 CLINICAL INDICATION: Female, 79 years old with history of Weakness, , TECHNIQUE: AP and lateral views FINDINGS: Partially visualized reverse right total shoulder arthroplasty. The heart remains mild to moderately enlarged. Extensive perihilar and bilateral airspace opacity. Suggestion of small to moderate bilater al pleural effusions on the lateral view. IMPRESSION: Perihilar and additional bilateral airspace disease. Small to moderate bilateral pleural effusions pe rsist, best seen on the lateral view. Consider CHF with pulmonary edema. [facility], Workstation: [email or web address], 12/16/2024 1:03 PM
[2024-12-16 13:32] LABS: Amphetamine Screen,Urine Not Detected (NotDetected); Barbiturate Screen,Urine Not Detected (NotDetected); Benzodiazepines Screen,Urine Not Detected (NotDetected); Cocaine Screen,Urine Not Detected (NotDetected); Methadone Screen, Urine Not Detected (NotDetected); Opiate Screen,Urine Detected (NotDetected); Oxycodone Screen, Urine Not Detected (NotDetected); Phencyclidine Screen,Urine Not Detected (NotDetected); Tricyclic Antidepressant,Urine Not Detected (NotDetected); Urn Cannabinoid Scrn Not Detected (NotDetected)
[2024-12-16 13:36] LABS: Basophils # (A) 0.01 10*3/uL (0.00-0.10); Basophils % (A) 0.2 %; HCT 27.9 % (37.2-46.3); HGB 9.1 g/dL (12.0-15.0); MCH 30.6 pg (27.0-32.0); MCHC 32.6 g/dL (32.0-37.0); MCV 93.9 fL (80.0-97.0); Monocytes # (A) 0.14 10*3/uL (0.20-1.00); Monocytes % (A) 2.7 %; Neutrophils # (A) 4.62 10*3/uL (1.80-7.70); Neutrophils % (A) 90.2 %; Platelet Count 153 10*3/uL (140-440); RBC 2.97 10*6/uL (4.10-5.20); RDW 15.9 % (11.5-14.5); WBC 5.12 10*3/uL (4.50-10.00)
[2024-12-16 13:51] LABS: ALT 16 U/L (4-34); AST 31 U/L (14-36); African American GFR (CKD) 12 (>60 ml/min/1.73 sqM); Albumin 3.2 g/dL (3.5-5.0); Alcohol <10 mg/dL; Alkaline Phosphatase 78 U/L (38-126); Anion Gap 11 mmol/L; Blood Urea Nitrogen 54 mg/dL (7-17); Calcium 8.5 mg/dL (8.4-10.2); Carbon Dioxide 22 mmol/L (22-30); Chloride 95 mmol/L (98-107); Glucose 126 mg/dL (74-99); Magnesium 2.2 mg/dL (1.6-2.3); Non-African American GFR(CKD) 10 (>60 ml/min/1.73 sqM); Phosphorus 7.3 mg/dL (2.5-4.5); Potassium 5.3 mmol/L (3.5-5.1); Sodium 128 mmol/L (137-145); Total Bilirubin 0.6 mg/dL (0.2-1.3); Total Protein 5.9 g/dL (6.3-8.2)
[2024-12-16 13:57] LABS: Partial Thromboplastin Time 23.5 sec (22.0-30.0); Prothrombin Time 10.9 sec (10.0-12.5)
[2024-12-16 14:06] LABS: Appearance,Urine Turbid (Clear); Bacteria,Urine Many /hpf; Bilirubin,Urine Negative (Negative); Blood,Urine Moderate (Negative); Color,Urine Light Red; Glucose,Urine (UA) Negative (Negative); Ketones,Urine Negative (Negative); Leukocyte Esterase,Urine Large (Negative); Mucus,Urine Few /hpf; Nitrite,Urine Negative (Negative); Protein,Urine 2+ (Negative); RBC,Urine 39 /hpf (0-5); Urobilinogen,Urine <2.0 mg/dL (<2.0); WBC,Urine >182 /hpf (0-5)
[2024-12-16 14:26] LABS: Specific Gravity,Urine 1.012 (1.001-1.035)
[2024-12-16] MEDS ORDERED: ACETAMINOPHEN TAB 325 MG TAB PO PRN (15:23)
[2024-12-16] MEDS ORDERED: NALOXONE 0.4 MG/ML 1 ML VIAL IV PRN (15:23)
[2024-12-16] MEDS: ONDANSETRON 4 MG/2 ML VIAL IVP PRN (22:33)
[2024-12-17 00:24] LABS: Glucose,Whole Blood 90 mg/dL (70-110)
[2024-12-17] MEDS: cloNIDine HCL 0.1 MG TAB PO SCH (01:07)
[2024-12-17] MEDS: carvediloL 12.5 MG TAB PO SCH (01:07)
[2024-12-17] MEDS: hydrALAZINE HCL 50 MG TAB PO SCH (01:07)
[2024-12-17 07:34] LABS: Glucose,Whole Blood 92 mg/dL (70-110)
--- NOTE | 2024-12-17 08:11 | P.CN ---
Psychiatric Consult - . Consult date: 12/17/24 Consult:: 12/17/24 07:59 IDENTIFYING DATA: This patient is a 79-year-old female currently retired lives by herself REASON FOR REFERRAL: Psychiatry was consulted for depression HISTORY OF PRESENT ILLNESS: The patient presented to the hospital generalized weakness, nausea and not feeling well. Allegedly in the ER she had voiced that she did not want to live anymore. When asking the patient if she felt depressed she noted that she was not. She does note that she is not "happy" due to her current health problems. When asking her to rate her depression and anxiety she stated 0/10 with 10 being worst. She notes that she is sleeping well but has trouble with energy due to her medical problems and has not been eating recently. She notes that she is able to concentrate. She denies feeling helpless, hopeless or worthless. She denies any bouts of crying and notes that "I cannot cry". She denies any guilt or shame. She denies any suicidal or homicidal ideations. She denies any access to guns. When asking her if she could change one thing in her life tomorrow she notes to "have her health back". Review of psychiatric systems was negative for bipolar disorder, OCD, PTSD, anxiety disorders or psychosis. The patient notes that she was unable to provide a source for collateral information. PAST PSYCHIATRIC HISTORY: Patient does not have a history of mental health. Patient denies being on any psychiatric medications. Patient denies any previous psychiatric hospitalizations. Patient denies any psychiatric outpatient follow-up. Patient denies any history of suicide attempts in the past. PAST MEDICAL HISTORY: As per EMR. ALLERGIES: as per EMR. CHEMICAL DEPENDENCY HISTORY: as per HPI. FAMILY PSYCHIATRIC/SUBSTANCE USE HISTORY: Denies SOCIAL HISTORY: Patient was born and raised in [place] and notes that her c basiliodhlakshmi was "good". 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 She notes that she was for 46 years but does not have any biological children but 5 stepchildren. Currently she lives by herself. She notes that she is jehovah's witness. She denies any service. MENTAL STATUS EXAM: General Appearance: Patient appears to be stated age is alert, pleasant, and cooperative. Patient appears to have fair hygiene and grooming wearing hospital gown with poor eye contact. Behavior: Patient is calmly lying in bed without any agitated behavior. Patient appeared to be somewhat irritable and guarded at times. Speech: Patient's speech is fluent and nonpressured. Mood/Affect: Patient reports their mood is "depressed", affect is congruent Suicidality/Homicidality: Patient denies having any suicidal or homicidal ideation intent or plan. Perceptions: Patient denies any visual hallucinations and denies any auditory hallucinations Though content/process: There is no evidence of any delusional thought content and thought process is linear and goal-directed. Memory and concentration: AOX3, grossly intact for the purposes of this session. Can spell "WORLD" backwards Judgment and insight: Fair Diagnosis: Adjustment disorder with depressed mood Assessment: 79-year-old female presenting to the hospital with multiple medical conditions that have caused her to be less active. She does appear to be depressed but denies this and states that she is only blue some of the times. However she does state that she is not happy. She is fitting criteria for Adjustment disorder with depressed mood. Safety evaluation was done in which the patient denied any suicidal or access to guns. She has no prior history of substance abuse. She has no prior history of mental health problems. Is felt that she is currently safe and not suicidal. Patient was offered medication management but deferred at this point. When asking the patient if she would like me to return just to talk tomorrow she deferred. PLAN: -At this time patient DOES NOT meet criteria for inpatient psychiatric admission. -Delirium precautions recommended with patient including - avoiding use of narcotics and K 9 HANDLER/ DEPUTY sedatives, limit anticholinergic medications when possible, frequent re-orientation, minimize use of restraints, open window shades during the day and close them at night -Would recommend the following medication changes/additions: Antidepressants were deferred -Can discontinue 1:1 sitter at this time as patient is not currently an imminent threat to themselves -greenhouse worker to provide patient with outpatient mental health/psychiatry resources for appropriate follow up upon discharge -Communicated plan to patient's nurse -Psychiatry will sign off at this time -Please contact with any questions. 12/17/24 08:00
[2024-12-17] MEDS: INSULIN LISPRO (HumaLOG) 100 UNIT/ML 10 mL VL SQ SCH (08:56)
[2024-12-17] MEDS ORDERED: NON FORMULARY DRUG (Cranberry Fruit Extract [Cranberry] 500 MG Tablet) PO SCH (09:00)
--- NOTE | 2024-12-17 09:01 | P.HPIM ---
History of Present Illness H&P Date: 12/17/24 Chief Complaint: End-stage renal disease. Unkempt Home The patient is a 79-year-old white female with known history of diabetes end- stage renal disease dialysis dependency with recent history of recurrent C. difficile. The patient usually goes to [facility] but has been into the ER 3 consecutive days. Due to the fact that she kept on returning APS and the police were involved and found to have the house fairly unkempt and having cat in the home. She has a tendency to help stray cats. However physically she is becoming more weak. She is dialysis dependent and is sometimes noncompliant with this. Due to the APS and the police being involved she is petition to the hospital. In the past she has refused continue rehab. There has been dialysis noncompliance in the past. Consult nephrology. Will reconcile medications. Appreciate psychiatric input. 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 gout ,anemia, psoriatic arthritis,heart murmur, anemia History of Any Multi-Drug Resistant Organisms: None Reported Past Surgical History: Orthopedic Surgery, Tubal Ligation Additional Past Surgical History / Comment(s): 1 oophorectomy, 1 partial oophorectomy,fx rt shoulder feng present, cataracts removed jack eyes, fistula left arm Past Anesthesia/Blood Transfusion Reactions: No Reported Reaction, Motion Sickness Past Psychological History: Anxiety Smoking Status: Never smoker Past Alcohol Use History: None Reported Past Drug Use History: None Reported - Past Family History Sister(s) Family Medical History: Cancer Additional Family Medical History / Comment(s): breast cancer Mother Family Medical History: Diabetes Mellitus Father Family Medical History: Congestive Heart Failure (CHF), Myocardial Infarction (PR) Medications and Allergies Home Medications Medication Instructions Recorded Confirmed Type Aspirin [Adult Low Dose Aspirin EC] 81 mg PO DAILY 06/30/20 12/16/24 History Febuxostat [Uloric] 40 mg PO DAILY 06/30/20 12/16/24 History Multivitamins, Thera [Multivitamin 1 tab PO DAILY 06/30/20 12/16/24 History (formulary)] Simvastatin [Zocor] 20 mg PO HS 06/30/20 12/16/24 History amLODIPine BESYLATE 10 mg PO DAILY 06/30/20 12/16/24 History hydrALAZINE HCL [Apresoline] 100 mg PO TID 06/30/20 12/16/24 History Furosemide [Lasix] 20 mg PO BID 09/21/22 12/16/24 History carvediloL [Coreg] 25 mg PO BID 09/21/22 12/16/24 History Insulin Lispro [humaLOG Kwikpen] See Protocol SQ AC-TID 05/30/23 12/16/24 History HYDROcodone/APAP 5-325MG [[place] 1 tab PO Q6HR 30 Days #120 tab 10/15/23 12/16/24 Rx 5-325] Albuterol Inhaler [Ventolin Hfa 1 - 2 puff INHALATION RT-QID PRN 12/15/24 12/16/24 History Inhaler] Cranberry Fruit Extract [Cranberry] 500 mg PO DAILY 12/15/24 12/16/24 History Ferrous Sulfate [Feosol] 325 mg PO DAILY 12/15/24 12/16/24 History Folic Acid 1 mg PO DAILY 12/15/24 12/16/24 History Insulin Degludec [Tresiba 22 units SQ DAILY 12/15/24 12/16/24 History Flextouch U-100 Pen] Losartan [Cozaar] 50 mg PO DAILY 12/15/24 12/16/24 History Meclizine HCl 25 mg PO TID 5 Days #15 tab 12/15/24 12/16/24 Rx Pantoprazole Sodium [Protonix] 40 mg PO DAILY 12/15/24 12/16/24 History Sevelamer [Renvela] 800 mg PO AC-TID 12/15/24 12/16/24 History cloNIDine HCL [Catapres] 0.3 mg PO BID 12/15/24 12/16/24 History ondansetron HCL [Zofran] 8 mg PO Q12HR 12/15/24 12/16/24 History predniSONE See Taper PO DAILY 12/15/24 12/16/24 History Allergies Allergy/AdvReac Type Severity Reaction Status Date / Time adhesive tape Allergy Itching Verified 12/16/24 15:28 levofloxacin [From Levaquin] Allergy Unknown Verified 12/16/24 15:28 sulfamethoxazole Allergy Per PCP Verified 12/16/24 15:28 [From Bactrim] records trimethoprim [From Bactrim] Allergy Per PCP Verified 12/16/24 15:28 records Physical Exam Vitals: Vital Signs Temp Pulse Pulse Resp BP BP Pulse Ox 12/17/24 07:28 97.3 F L 61 18 168/61 98 12/17/24 04:57 97.5 F L 56 L 18 151/58 98 12/17/24 00:08 97.4 F L 63 20 182/61 100 12/16/24 22:50 97.5 F L 12/16/24 22:15 61 18 180/67 99 12/16/24 18:00 60 12 162/97 99 12/16/24 17:00 59 L 14 160/62 99 12/16/24 16:00 63 14 175/70 100 12/16/24 15:00 63 16 165/68 99 12/16/24 14:00 61 14 162/61 98 12/16/24 13:00 62 14 167/77 98 12/16/24 11:59 97.3 F L 64 22 170/65 99 Intake and Output 12/16/24 12/17/24 12/17/24 22:59 06:59 14:59 Other: Voiding Method Diaper Weight 53.977 kg - Constitutional General appearance: cooperative, no acute distress - EENT Eyes: EOMI - Neck Neck: no lymphadenopathy - Respiratory Respiratory: bilateral: diminished - Cardiovascular Rhythm: regular Heart sounds: normal: S1, S2 Abnormal Heart Sounds: no S3 Gallop - Gastrointestinal General gastrointestinal: soft, no tenderness - Psychiatric Psychiatric: A&O x's 3, appropriate affect Results CBC & Chem 7: 12/16/24 13:26 12/16/24 13:26 Labs: Abnormal Lab Results - Last 24 Hours (Table) 12/16/24 12/16/24 12/16/24 Range/Units 12:59 12:59 13:26 RBC 2.97 L (4.10-5.20) 10*6/uL Hgb 9.1 L (12.0-15.0) g/dL Hct 27.9 L (37.2-46.3) % Immature Gran # 0.25 H (0.00-0.04) 10*3/uL Lymphocytes # 0.10 L (0.90-5.00) 10*3/uL Monocytes # 0.14 L (0.20-1.00) 10*3/uL Eosinophils # 0.00 L (0.04-0.35) 10*3/uL Sodium (137-145) mmol/L Potassium (3.5-5.1) mmol/L Chloride (98-107) mmol/L BUN (7-17) mg/dL Creatinine (0.52-1.04) mg/dL Glucose (74-99) mg/dL Plasma Lactic Acid [place] (0.7-2.0) mmol/L Phosphorus (2.5-4.5) mg/dL Total Protein (6.3-8.2) g/dL Albumin (3.5-5.0) g/dL Urine Appearance Turbid H (Clear) Urine Protein 2+ H (Negative) Urine Blood Moderate H (Negative) Ur Leukocyte Esterase Large H (Negative) Urine RBC 39 H (0-5) /hpf Urine WBC >182 H (0-5) /hpf Urine WBC Clumps Many H (None) /hpf Urine Bacteria Many H (None) /hpf Urine Mucus Few H (None) /hpf Urine Opiates Screen Detected H (NotDetected) 12/16/24 12/16/24 Range/Units 13:26 13:26 RBC (4.10-5.20) 10*6/uL Hgb (12.0-15.0) g/dL Hct (37.2-46.3) % Immature Gran # (0.00-0.04) 10*3/uL Lymphocytes # (0.90-5.00) 10*3/uL Monocytes # (0.20-1.00) 10*3/uL Eosinophils # (0.04-0.35) 10*3/uL Sodium 128 L (137-145) mmol/L Potassium 5.3 H (3.5-5.1) mmol/L Chloride 95 L (98-107) mmol/L BUN 54 H (7-17) mg/dL Creatinine 4.02 H (0.52-1.04) mg/dL Glucose 126 H (74-99) mg/dL Plasma Lactic Acid [place] 0.6 L (0.7-2.0) mmol/L Phosphorus 7.3 H (2.5-4.5) mg/dL Total Protein 5.9 L (6.3-8.2) g/dL Albumin 3.2 L (3.5-5.0) g/dL Urine Appearance (Clear) Urine Protein (Negative) Urine Blood (Negative) Ur Leukocyte Esterase (Negative) Urine RBC (0-5) /hpf Urine WBC (0-5) /hpf Urine WBC Clumps (None) /hpf Urine Bacteria (None) /hpf Urine Mucus (None) /hpf Urine Opiates Screen (NotDetected) Thrombosis Risk Factor Assmnt - Choose All That Apply Any of the Below Risk Factors Present?: Yes Each Risk Factor Represents 3 Points: Age 75 years or older Other congenital or acquired thrombophilia - If yes, enter type in comment: No Thrombosis Risk Factor Assessment Total Risk Factor Score: 3 Thrombosis Risk Factor Assessment Level: Moderate Risk Assessment and Plan (1) Depression Current Visit: Yes Status: Acute Code(s): F32.A - DEPRESSION, UNSPECIFIED SNOMED Code(s): 97364132 (2) End stage renal disease on dialysis Current Visit: Yes Status: Acute Code(s): N18.6 - END STAGE RENAL DISEASE; Z99.2 - DEPENDENCE ON RENAL DIALYSIS SNOMED Code(s): 109386572 (3) UTI (urinary tract infection) Current Visit: Yes Status: Acute Code(s): N39.0 - URINARY TRACT INFECTION, SITE NOT SPECIFIED SNOMED Code(s): 92881772 (4) Chronic nausea Current Visit: No Status: Acute Code(s): R11.0 - NAUSEA SNOMED Code(s): 110719772 (5) Difficulty in walking Current Visit: No Status: Acute Code(s): R26.2 - DIFFICULTY IN WALKING, NOT ELSEWHERE CLASSIFIED SNOMED Code(s): 223164316 (6) Hyperlipidemia Current Visit: No Status: Acute Code(s): E78.5 - HYPERLIPIDEMIA, UNSPECIFIED SNOMED Code(s): 25024055 Plan: Reconcile home medications. Pain control. Consult nephrology. health services director for placement. I am not comfortable sending her home given the overall situation. Start PT/OT. Prognosis is guarded secondary to multiple comorbidities. Time with Patient: Greater than 30
[2024-12-17] MEDS: INSULIN GLARGINE (LANTUS) 100 UNIT/ML SYR SQ SCH (09:07)
[2024-12-17] MEDS: MECLIZINE 25 MG TAB PO SCH (09:08)
[2024-12-17] MEDS: FOLIC ACID 1 MG TAB PO SCH (09:08)
[2024-12-17] MEDS: FERROUS SULFATE 325 MG TAB PO SCH (09:08)
[2024-12-17] MEDS: ASPIRIN 81 MG PO SCH (09:08)
[2024-12-17] MEDS: MULTIVITAMINS, THERA 1 EACH TAB PO SCH (09:08)
[2024-12-17] MEDS: ONDANSETRON ODT 4 MG TAB PO SCH (09:08)
[2024-12-17] MEDS: allopurinoL 100 MG TAB PO SCH (09:08)
[2024-12-17] MEDS: FUROSEMIDE 20 MG TAB PO SCH (09:08)
[2024-12-17] MEDS: PANTOPRAZOLE 40 MG TABLET PO SCH (09:08)
[2024-12-17] MEDS: amLODIPine 10 MG TAB PO SCH (09:08)
[2024-12-17] MEDS: LOSARTAN 50 MG TAB PO SCH (09:08)
[2024-12-17] MEDS: HYDROcodone/APAP 5-325MG 1 EACH TAB PO SCH (09:09)
--- NOTE | 2024-12-17 10:31 | P.NPCON ---
History of Present Illness - Reason for Consult end stage renal disease - History of Present Illness Reason for consultation: End-stage renal disease History of present illness: Patient is a 79-year-old female seen in renal consultation for end-stage renal disease. She is maintained on hemodialysis on Sunday schedule. Patient states she missed Sunday's dialysis treatment as she did not have a ride to get there. Patient came to the hospital due to generalized weakness and nausea. Patient states she has not eaten in about 5 days. She was found in extremely poor living conditions with multiple animals found in her home. Patient said recent hospitalizations for UTI and C. difficile. Patient has progressively gotten much more weaker and debilitated over the last few months. She currently denies any diarrhea. No chest pain. Does get dyspneic with exertion. Pleural effusions noted on chest x-ray. Vital signs are stable. General: No acute distress. HEENT: Head exam is unremarkable. On nasal cannula. LUNGS: No audible rhonchi or wheezes. HEART: Rate and Rhythm are regular. ABDOMEN: Nontender. EXTREMITITES: 1+ edema. 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 gout ,anemia, psoriatic arthritis,heart murmur, anemia History of Any Multi-Drug Resistant Organisms: None Reported Past Surgical History: Orthopedic Surgery, Tubal Ligation Additional Past Surgical History / Comment(s): 1 oophorectomy, 1 partial oophorectomy,fx rt shoulder feng present, cataracts removed jack eyes, fistula left arm Past Anesthesia/Blood Transfusion Reactions: No Reported Reaction, Motion Sick ness Past Psychological History: Anxiety Smoking Status: Never smoker Past Alcohol Use History: None Reported Past Drug Use History: None Reported - Past Family History Sister(s) Family Medical History: Cancer Additional Family Medical History / Comment(s): breast cancer Mother Family Medical History: Diabetes Mellitus Father Family Medical History: Congestive Heart Failure (CHF), Myocardial Infarction (OK) Medications and Allergies Home Medications Medication Instructions Recorded Confirmed Type Aspirin [Adult Low Dose Aspirin EC] 81 mg PO DAILY 06/30/20 12/16/24 History Febuxostat [Uloric] 40 mg PO DAILY 06/30/20 12/16/24 History Multivitamins, Thera [Multivitamin 1 tab PO DAILY 06/30/20 12/16/24 History (formulary)] Simvastatin [Zocor] 20 mg PO HS 06/30/20 12/16/24 History amLODIPine BESYLATE 10 mg PO DAILY 06/30/20 12/16/24 History hydrALAZINE HCL [Apresoline] 100 mg PO TID 06/30/20 12/16/24 History Furosemide [Lasix] 20 mg PO BID 09/21/22 12/16/24 History carvediloL [Coreg] 25 mg PO BID 09/21/22 12/16/24 History Insulin Lispro [humaLOG Kwikpen] See Protocol SQ AC-TID 05/30/23 12/16/24 History HYDROcodone/APAP 5-325MG [[place] 1 tab PO Q6HR 30 Days #120 tab 10/15/23 12/16/24 Rx 5-325] Albuterol Inhaler [Ventolin Hfa 1 - 2 puff INHALATION RT-QID PRN 12/15/24 12/16/24 History Inhaler] Cranberry Fruit Extract [Cranberry] 500 mg PO DAILY 12/15/24 12/16/24 History Ferrous Sulfate [Feosol] 325 mg PO DAILY 12/15/24 12/16/24 History Folic Acid 1 mg PO DAILY 12/15/24 12/16/24 History Insulin Degludec [Tresiba 22 units SQ DAILY 12/15/24 12/16/24 History Flextouch U-100 Pen] Losartan [Cozaar] 50 mg PO DAILY 12/15/24 12/16/24 History Meclizine HCl 25 mg PO TID 5 Days #15 tab 12/15/24 12/16/24 Rx Pantoprazole Sodium [Protonix] 40 mg PO DAILY 12/15/24 12/16/24 History Sevelamer [Renvela] 800 mg PO AC-TID 12/15/24 12/16/24 History cloNIDine HCL [Catapres] 0.3 mg PO BID 12/15/24 12/16/24 History ondansetron HCL [Zofran] 8 mg PO Q12HR 12/15/24 12/16/24 History predniSONE See Taper PO DAILY 12/15/24 12/16/24 History Allergies Allergy/AdvReac Type Severity Reaction Status Date / Time adhesive tape Allergy Itching Verified 12/16/24 15:28 levofloxacin [From Levaquin] Allergy Unknown Verified 12/16/24 15:28 sulfamethoxazole Allergy Per PCP Verified 12/16/24 15:28 [From Bactrim] records trimethoprim [From Bactrim] Allergy Per PCP Verified 12/16/24 15:28 records Physical Exam Vitals: Vital Signs Temp Pulse Pulse Resp BP BP Pulse Ox 12/17/24 07:28 97.3 F L 61 18 168/61 98 12/17/24 04:57 97.5 F L 56 L 18 151/58 98 12/17/24 00:08 97.4 F L 63 20 182/61 100 12/16/24 22:50 97.5 F L 12/16/24 22:15 61 18 180/67 99 12/16/24 18:00 60 12 162/97 99 12/16/24 17:00 59 L 14 160/62 99 12/16/24 16:00 63 14 175/70 100 12/16/24 15:00 63 16 165/68 99 12/16/24 14:00 61 14 162/61 98 12/16/24 13:00 62 14 167/77 98 12/16/24 11:59 97.3 F L 64 22 170/65 99 Intake and Output 12/16/24 12/17/24 12/17/24 22:59 06:59 14:59 Other: Voiding Method Diaper Weight 53.977 kg Results - Lab Results Most recent lab results Calcium 8.5 mg/dL (8.4-10.2) 12/16/24 13:26 Phosphorus 7.3 mg/dL (2.5-4.5) H 12/16/24 13:26 Magnesium 2.2 mg/dL (1.6-2.3) 12/16/24 13:26 12/16/24 13:26 12/16/24 13:26 Assessment and Plan Plan: Assessment: 1. End-stage renal disease maintained on hemodialysis on Sunday schedule. 2. Generalized debility. 3. Volume overload. 4. Hypervolemic hyponatremia. 5. Hypertension with chronic kidney disease with history of orthostatic hypotension. 6. Diabetes mellitus. 7. Chronic kidney disease mineral bone disease maintained on Renvela. 8. Anemia of chronic kidney disease. Rule out iron deficiency. Plan: Hemodialysis today. Check iron studies. It will be best for her to go to a rehab facility. Thank you for the consultation. I will continue to follow the patient with you during her hospital stay.
[2024-12-17 12:14] LABS: Glucose,Whole Blood 110 mg/dL (70-110)
[2024-12-17] MEDS: SEVELAMER 800 MG TAB PO SCH (13:05)
[2024-12-17 15:40] LABS: % Iron Saturation 28.42 (12.00-45.00)
[2024-12-17 17:19] LABS: Glucose,Whole Blood 105 mg/dL (70-110)
[2024-12-17 20:50] LABS: Glucose,Whole Blood 126 mg/dL (70-110)
[2024-12-17] MEDS: ATORVASTATIN 10 MG TAB PO SCH (22:41)
[2024-12-18] MEDS: HYDROcodone/APAP 5-325MG 1 EACH TAB PO SCH (00:25)
[2024-12-18 06:10] LABS: Glucose,Whole Blood 109 mg/dL (70-110)
[2024-12-18 07:14] LABS: Glucose,Whole Blood 107 mg/dL (70-110)
--- NOTE | 2024-12-18 08:35 | P.PN ---
Subjective Progress Note Date: 12/18/24 This is a 79-year-old female with a history of end-stage renal disease who presented to the emergency department after APS and police found patient was living in an unknown safe environment. Patient reportedly had cats in her home. Patient also has 05/03 home care. Patient seen this morning sitting up in bed about to work with physical therapy. Patient refused to work with physical therapy yesterday. Working with social work and discharge planning for appropriate discharge plan. Patient has been seen and evaluated by nephrology and psychiatry. Objective - Vital Signs Vital signs: Vital Signs Temp 97.9 F 12/18/24 01:11 Pulse 66 12/18/24 01:11 Resp 16 12/18/24 01:11 BP 174/70 12/18/24 01:11 Pulse Ox 99 12/18/24 01:11 FiO2 Intake & Output 12/17/24 12/18/24 12/18/24 18:59 06:59 18:59 Intake Total 400 Output Total 4800 Balance -4400 Weight 53.977 kg Intake: Hemodialysis 400 Output: Hemodialysis 2600 Hemodialysis Net Amount 2200 Other: Voiding Method Diaper Diaper # Voids 0 0 - Constitutional General appearance: Present: cooperative, no acute distress - EENT Eyes: Present: PERRLA - Neck Neck: Present: normal ROM. Absent: lymphadenopathy, rigidity - Respiratory Respiratory: bilateral: diminished - Cardiovascular Rhythm: regular Heart sounds: normal: S1, S2 - Gastrointestinal General gastrointestinal: Present: soft. Absent: tenderness - Musculoskeletal Musculoskeletal: Present: generalized weakness - Psychiatric Psychiatric: Present: A&O x's 3 - Labs CBC & Chem 7: 12/16/24 13:26 12/16/24 13:26 Labs: Abnormal Lab Results - Last 24 Hours (Table) 12/16/24 12/17/24 Range/Units 13:26 20:49 POC Glucose (mg/dL) 126 H (70-110) mg/dL TIBC 183 L (228-460) UG/DL Transferrin 131.0 L (204.0-354.0) mg/dL Ferritin 1049.0 H (10.0-291.0) ng/mL Microbiology - Last 24 Hours (Table) 12/16/24 16:12 Blood Culture - Preliminary Blood 12/16/24 12:59 Urine Culture - Preliminary Urine,Voided Gram Neg Bacilli Assessment and Plan (1) Depression Current Visit: Yes Status: Acute Code(s): F32.A - DEPRESSION, UNSPECIFIED SNOMED Code(s): 69782131 (2) End stage renal disease on dialysis Current Visit: Yes Status: Acute Code(s): N18.6 - END STAGE RENAL DISEASE; Z99.2 - DEPENDENCE ON RENAL DIALYSIS SNOMED Code(s): 369987026 (3) UTI (urinary tract infection) Current Visit: Yes Status: Acute Code(s): N39.0 - URINARY TRACT INFECTION, SITE NOT SPECIFIED SNOMED Code(s): 90428225 (4) Weakness Current Visit: Yes Status: Acute Code(s): R53.1 - WEAKNESS SNOMED Code(s): 21670927 (5) Hyperlipidemia Current Visit: No Status: Acute Code(s): E78.5 - HYPERLIPIDEMIA, UNSPECIFIED SNOMED Code(s): 96928535 (6) Hypertension Current Visit: No Status: Acute Code(s): I10 - ESSENTIAL (PRIMARY) HYPERTENSION SNOMED Code(s): 14571622 (7) Difficulty in walking Current Visit: No Status: Acute Code(s): R26.2 - DIFFICULTY IN WALKING, NOT ELSEWHERE CLASSIFIED SNOMED Code(s): 454585983 Plan: Check CBC and CMP in the morning. Patient was encouraged to work with physical therapy. Await PT and OT evaluation for discharge planning. Appreciate multiple consultants and social work's help with discharge planning. Patient seen and evaluated by nurse practitioner, physician in agreement with plan.
[2024-12-18 10:34] LABS: HCT 28.5 % (37.2-46.3); HGB 8.8 g/dL (12.0-15.0); MCH 29.9 pg (27.0-32.0); MCHC 30.9 g/dL (32.0-37.0); MCV 96.9 FL (80.0-97.0); Mean Platelet Volume 11.1 FL (9.5-12.2); NRBC Per 100 WBC 0 X 10*3/uL (0.00-0.01); Platelet Count 149 X 10*3/uL (140-440); RBC 2.94 X 10*6/uL (4.10-5.20); RDW 15.9 % (11.5-14.5); WBC 5.84 X 10*3/uL (4.50-10.00)
--- NOTE | 2024-12-18 10:38 | P.PN ---
Subjective Patient is seen in follow-up for end-stage renal disease. She is maintained on hemodialysis on Sunday schedule. Tolerated 2.2 L u ltrafiltration yesterday. No active complaints. Vital signs are stable. General: No acute distress. HEENT: Head exam is unremarkable. On nasal cannula. LUNGS: No audible rhonchi or wheezes. HEART: Rate and Rhythm are regular. Kartha ABDOMEN: Nontender. EXTREMITITES: Trace edema. Objective - Vital Signs Vital signs: Vital Signs Temp 97.8 F 12/18/24 08:00 Pulse 61 12/18/24 08:00 Resp 14 12/18/24 08:00 BP 152/59 12/18/24 08:00 Pulse Ox 100 12/18/24 08:00 FiO2 Intake & Output 12/17/24 12/18/24 12/18/24 18:59 06:59 18:59 Intake Total 400 Output Total 4800 Balance -4400 Weight 53.977 kg Intake: Hemodialysis 400 Output: Hemodialysis 2600 Hemodialysis Net Amount 2200 Other: Voiding Method Diaper Diaper Diaper # Voids 0 0 - Labs CBC & Chem 7: 12/16/24 13:26 12/16/24 13:26 Labs: Abnormal Lab Results - Last 24 Hours (Table) 12/16/24 12/17/24 Range/Units 13:26 20:49 POC Glucose (mg/dL) 126 H (70-110) mg/dL TIBC 183 L (228-460) UG/DL Transferrin 131.0 L (204.0-354.0) mg/dL Ferritin 1049.0 H (10.0-291.0) ng/mL Microbiology - Last 24 Hours (Table) 12/16/24 16:12 Blood Culture - Preliminary Blood 12/16/24 12:59 Urine Culture - Preliminary Urine,Voided Gram Neg Bacilli Assessment and Plan Plan: Assessment: 1. End-stage renal disease maintained on hemodialysis on Sunday schedule. 2. Generalized debility. 3. Volume overload. 4. Hypervolemic hyponatremia. 5. Hypertension with chronic kidney disease with history of orthostatic hypotension. 6. Diabetes mellitus. 7. Chronic kidney disease mineral bone disease maintained on Renvela. 8. Anemia of chronic kidney disease. Iron replete. 9. Gram-negative UTI. Plan: Hemodialysis tomorrow. Add Aranesp. Add doxycycline It will be best for her to go to a rehab facility.
[2024-12-18 10:52] LABS: ALT 13 U/L (8-44); AST 31 U/L (13-35); Albumin 2.9 g/dL (3.8-4.9); Albumin/Globulin Ratio 1.32 Ratio (1.60-3.17); Alkaline Phosphatase 70 U/L (41-126); BUN/Creat Ratio 9.03 Ratio (12.00-20.00); Blood Urea Nitrogen 27.1 mg/dL (9.0-27.0); Calcium 7.7 mg/dL (8.7-10.3); Carbon Dioxide 25.9 mmol/L (21.6-31.8); Chloride 91 mmol/L (96-109); Globulin 2.2 g/dL (1.6-3.3); Glucose 105 mg/dL (70-110); Potassium 4.6 mmol/L (3.5-5.5); Sodium 128 mmol/L (135-145); Total Bilirubin 0.3 mg/dL (0.3-1.2); Total Protein 5.1 g/dL (6.2-8.2)
[2024-12-18] MEDS: DARBEPOETIN ALFA 40 MCG/0.4 ML SYRINGE SQ SCH (12:14)
[2024-12-18] MEDS: DOXYCYCLINE 100 MG TABLET PO SCH (12:14)
[2024-12-18 12:22] LABS: Glucose,Whole Blood 204 mg/dL (70-110)
[2024-12-18 17:10] LABS: Glucose,Whole Blood 198 mg/dL (70-110)
[2024-12-18 20:47] LABS: Glucose,Whole Blood 209 mg/dL (70-110)
[2024-12-19] MEDS: ALBUTEROL NEBULIZED 2.5 MG/3 ML INHALATION PRN (03:44)
[2024-12-19 07:03] LABS: Glucose,Whole Blood 206 mg/dL (70-110)
--- NOTE | 2024-12-19 08:16 | XR ---
EXAMINATION TYPE: XR chest 2V DATE OF EXAM: 12/19/2024 CLINICAL INDICATION: Female, 79 years old with history of chest pain, TECHNIQUE: Frontal and lateral views of the chest are obtained. COMPARISON: Chest x-ray 3 days ago. FINDINGS: Persistent cardiomegaly with atherosclerotic aorta and bilateral central opacities and smal l to moderate sized bilateral pleural effusions. Osseous structures are demineralized. Surgical jj es right shoulder is partially imaged. IMPRESSION: Findings are consistent with continued CHF exacerbation. No significant change from most recent study. [facility], , 12/19/2024 8:13 AM
[2024-12-19 08:21] LABS: HCT 28.8 % (37.2-46.3); HGB 8.7 g/dL (12.0-15.0); MCH 28.8 pg (27.0-32.0); MCHC 30.2 g/dL (32.0-37.0); MCV 95.4 FL (80.0-97.0); Mean Platelet Volume 10.8 FL (9.5-12.2); NRBC Per 100 WBC 0 X 10*3/uL (0.00-0.01); Platelet Count 136 X 10*3/uL (140-440); RBC 3.02 X 10*6/uL (4.10-5.20); RDW 15.6 % (11.5-14.5); WBC 8.27 X 10*3/uL (4.50-10.00)
[2024-12-19 09:05] LABS: ALT 10 U/L (8-44); AST 19 U/L (13-35); Albumin/Globulin Ratio 1.36 Ratio (1.60-3.17); Alkaline Phosphatase 73 U/L (41-126); Blood Urea Nitrogen 38.1 mg/dL (9.0-27.0); Calcium 8.2 mg/dL (8.7-10.3); Carbon Dioxide 24.4 mmol/L (21.6-31.8); Globulin 2.2 g/dL (1.6-3.3); Glucose 194 mg/dL (70-110); Potassium 4.9 mmol/L (3.5-5.5); Total Bilirubin 0.3 mg/dL (0.3-1.2); Total Protein 5.2 g/dL (6.2-8.2)
[2024-12-19 09:18] LABS: Glucose,Whole Blood 195 mg/dL (70-110)
--- NOTE | 2024-12-19 10:37 | P.PN ---
Subjective Patient is seen in follow-up for end-stage renal disease. She is maintained on hemodialysis on Sunday schedule. Tolerated 2.2 L u ltrafiltration yesterday. No active complaints. Vital signs are stable. General: No acute distress. HEENT: Head exam is unremarkable. On nasal cannula. LUNGS: No audible rhonchi or wheezes. HEART: Rate and Rhythm are regular. ABDOMEN: Nontender. EXTREMITITES: Trace edema. Objective - Vital Signs Vital signs: Vital Signs Temp 98.2 F 12/19/24 08:00 Pulse 63 12/19/24 08:00 Resp 18 12/19/24 08:00 BP 145/55 12/19/24 08:00 Pulse Ox 100 12/19/24 08:00 FiO2 Intake & Output 12/18/24 12/19/24 12/19/24 18:59 06:59 18:59 Intake Total 150 Balance 150 Intake: Oral 150 Other: Voiding Method Diaper Diaper - Labs CBC & Chem 7: 12/19/24 05:12/19/24 05:25 Labs: Abnormal Lab Results - Last 24 Hours (Table) 12/18/24 12/18/24 12/18/24 Range/Units 06:19 06:19 12:21 RBC 2.94 L (4.10-5.20) X 10*6/uL Hgb 8.8 L (12.0-15.0) g/dL Hct 28.5 L (37.2-46.3) % MCHC 30.9 L (32.0-37.0) g/dL RDW 15.9 H (11.5-14.5) % Plt Count (140-440) X 10*3/uL D-Dimer (<0.60) mg/L FEU Sodium 128 L (135-145) mmol/L Chloride 91 L (96-109) mmol/L BUN 27.1 H (9.0-27.0) mg/dL Creatinine 3.0 H (0.6-1.5) mg/dL Est GFR (CKD-EPI) 16 L (>=60) BUN/Creatinine Ratio 9.03 L (12.00-20.00) Ratio Glucose (70-110) mg/dL POC Glucose (mg/dL) 204 H (70-110) mg/dL Calcium 7.7 L (8.7-10.3) mg/dL Troponin I (0.000-0.034) ng/mL Total Protein 5.1 L (6.2-8.2) g/dL Albumin 2.9 L (3.8-4.9) g/dL Albumin/Globulin Ratio 1.32 L (1.60-3.17) Ratio 12/18/24 12/18/24 12/19/24 Range/Units 17:08 20:45 05:25 RBC 3.02 L (4.10-5.20) X 10*6/uL Hgb 8.7 L (12.0-15.0) g/dL Hct 28.8 L (37.2-46.3) % MCHC 30.2 L (32.0-37.0) g/dL RDW 15.6 H (11.5-14.5) % Plt Count 136 L (140-440) X 10*3/uL D-Dimer (<0.60) mg/L FEU Sodium (135-145) mmol/L Chloride (96-109) mmol/L BUN (9.0-27.0) mg/dL Creatinine (0.6-1.5) mg/dL Est GFR (CKD-EPI) (>=60) BUN/Creatinine Ratio (12.00-20.00) Ratio Glucose (70-110) mg/dL POC Glucose (mg/dL) 198 H 209 H (70-110) mg/dL Calcium (8.7-10.3) mg/dL Troponin I (0.000-0.034) ng/mL Total Protein (6.2-8.2) g/dL Albumin (3.8-4.9) g/dL Albumin/Globulin Ratio (1.60-3.17) Ratio 12/19/24 12/19/24 12/19/24 Range/Units 05:25 06:56 07:00 RBC (4.10-5.20) X 10*6/uL Hgb (12.0-15.0) g/dL Hct (37.2-46.3) % MCHC (32.0-37.0) g/dL RDW (11.5-14.5) % Plt Count (140-440) X 10*3/uL D-Dimer (<0.60) mg/L FEU Sodium (135-145) mmol/L Chloride (96-109) mmol/L BUN 38.1 H (9.0-27.0) mg/dL Creatinine 3.7 H (0.6-1.5) mg/dL Est GFR (CKD-EPI) 12 L (>=60) BUN/Creatinine Ratio 10.30 L (12.00-20.00) Ratio Glucose 194 H (70-110) mg/dL POC Glucose (mg/dL) 206 H (70-110) mg/dL Calcium 8.2 L (8.7-10.3) mg/dL Troponin I 0.087 H* (0.000-0.034) ng/mL Total Protein 5.2 L (6.2-8.2) g/dL Albumin 3.0 L (3.8-4.9) g/dL Albumin/Globulin Ratio 1.36 L (1.60-3.17) Ratio 12/19/24 12/19/24 Range/Units 07:02 09:16 RBC (4.10-5.20) X 10*6/uL Hgb (12.0-15.0) g/dL Hct (37.2-46.3) % MCHC (32.0-37.0) g/dL RDW (11.5-14.5) % Plt Count (140-440) X 10*3/uL D-Dimer 2.00 H (<0.60) mg/L FEU Sodium (135-145) mmol/L Chloride (96-109) mmol/L BUN (9.0-27.0) mg/dL Creatinine (0.6-1.5) mg/dL Est GFR (CKD-EPI) (>=60) BUN/Creatinine Ratio (12.00-20.00) Ratio Glucose (70-110) mg/dL POC Glucose (mg/dL) 195 H (70-110) mg/dL Calcium (8.7-10.3) mg/dL Troponin I (0.000-0.034) ng/mL Total Protein (6.2-8.2) g/dL Albumin (3.8-4.9) g/dL Albumin/Globulin Ratio (1.60-3.17) Ratio Microbiology - Last 24 Hours (Table) 12/16/24 16:12 Blood Culture - Preliminary Blood 12/16/24 12:59 Urine Culture - Final Urine,Voided Escherichia coli ESBL Assessment and Plan Plan: Assessment: 1. End-stage renal disease maintained on hemodialysis on Sunday schedule. 2. Generalized debility. 3. Volume overload. Tolerated 2.2 L ultrafiltration yesterday. 4. Hypervolemic hyponatremia. 5. Hypertension with chronic kidney disease with history of orthostatic hypotension. 6. Diabetes mellitus. 7. Chronic kidney disease mineral bone disease maintained on Renvela. 8. Anemia of chronic kidney disease. Iron replete. On Aranesp. 9. ESBL UTI. Plan: Hemodialysis today. Consult ID due to ESBL UTI. It will be best for her to go to a rehab facility.
--- NOTE | 2024-12-19 10:50 | P.CRDCN ---
History of Present Illness History of present illness: HISTORY OF PRESENT ILLNESS: This is a 79-year-old female with a past medical history significant for diabetes, hypertension, hyperlipidemia, dialysis, and anxiety. Patient follows in the office with Dr. Live but has not been seen in the office since January 2023. We have been asked to see the patient in consultation for chest pain. Patient examined at the bedside. Patient had an episode of shortness of breath and chest discomfort this morning. Labs were obtained with D-dimer of 2.0 and troponin of 0.087. Patient is currently undergoing hemodialysis with a goal of 2.5 to 3 L. Patient currently denies chest pain or pressure. DIAGNOSTICS: - EKG reveals sinus mechanism with no signs of acute ischemia. - Chest xray perihilar and additional bilateral airspace disease. Small to moderate bilateral pleural effusions persist but seen on lateral view. Consider CHF with pulmonary edema. - Laboratory data: WBC 5.84. Hemoglobin 8.8. Platelet count 149. Sodium 128. Potassium 4.6. BUN 27. Creatinine 3.0. Troponin 0.087. - Current home cardiac medications include aspirin 81 mg daily, Lasix 20 mg twice a day, losartan 50 mg daily, simvastatin 20 mg at night, amlodipine 10 mg daily, carvedilol 25 mg twice a day, Catapres 0.3 mg twice daily, hydralazine 100 mg 3 times daily. - Most recent echocardiogram obtained in September 2023 revealed ejection fraction 65 to 70%, no obvious regional wall motion abnormalities, trace MR, mild MS - Cardiac catheterization history: 2008 revealing normal coronary arteries REVIEW OF SYSTEMS: At the time of my exam: CONSTITUTIONAL: Denies fever or chills. HEENT: Denies blurred vision, vision changes, or eye pain. Denies hemoptysis CARDIOVASCULAR: Denies chest pain. Denies orthopnea. Denies PND. Denies palpitations RESPIRATORY: Denies shortness of breath. GASTROINTESTINAL: Denies abdominal pain. Denies nausea or vomiting. HEMATOLOGIC: Denies bleeding disorders. GENITOURINARY: Denies any blood in urine. SKIN: Denies pruitis. Denies rash. PHYSICAL EXAM: VITAL SIGNS: Reviewed. GENERAL: Well-developed in no acute distress. HEENT: Head is normocephalic. Pupils are equal, round. Sclerae anicteric. Mucous membranes of the mouth are moist. Neck supple. No JVD or thyromegaly LUNGS: Respirations even and unlabored. Lungs essentially clear to auscultation bilaterally. HEART: Regular rate and rhythm. S1 and S2 heard. ABDOMEN: Soft. Nondistended. Nontender. EXTREMITIES: Normal range of motion. No clubbing or cyanosis. Peripheral pulses intact. No lower extremity edema NEUROLOGIC: Awake and alert. Oriented x 3. ASSESSMENT: Chest pain Elevated troponin likely secondary to end-stage renal disease, no evidence of acute coronary syndrome Elevated D-dimer, rule out PE End-stage renal disease on hemodialysis Moderate mitral regurgitation Moderate mitral stenosis Moderate tricuspid regurgitation Moderate pulm hypertension Hypertension Hyperlipidemia Diabetes PLAN: Records obtained from [facility]. Patient underwent an echocardiogram in September 2024 revealing ejection fraction 55 to 60%, moderate MR, moderate mitral stenosis, moderate tricuspid regurgitation, moderate pulmonary hypertension with RVSP 52 mmHg. Additionally patient underwent nuclear Lexiscan stress test which was negative for ischemia. Obtain additional troponin No need to repeat echocardiogram as this was performed in September 2024 at [facility] Patient with elevated D-dimer. CTA ordered. Discussed with Dr. Reddy, nephrology, who is okay with CTA Further recommendations pending patient course Nurse practitioner note has been reviewed by physician. Signing provider agrees with the documented findings, assessment, and plan of care documented by [employer] as a scribe. 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 gout ,anemia, psoriatic arthritis,heart murmur, anemia History of Any Multi-Drug Resistant Organisms: None Reported Past Surgical History: Orthopedic Surgery, Tubal Ligation Additional Past Surgical History / Comment(s): 1 oophorectomy, 1 partial oophorectomy,fx rt shoulder feng present, cataracts removed jack eyes, fistula left arm Past Anesthesia/Blood Transfusion Reactions: No Reported Reaction, Motion Sickness Past Psychological History: Anxiety Smoking Status: Never smoker Past Alcohol Use History: None Reported Past Drug Use History: None Reported - Past Family History Sister(s) Family Medical History: Cancer Additional Family Medical History / Comment(s): breast cancer Mother Family Medical History: Diabetes Mellitus Father Family Medical History: Congestive Heart Failure (CHF), Myocardial Infarction ([place]) Medications and Allergies Home Medications Medication Instructions Recorded Confirmed Type Aspirin [Adult Low Dose Aspirin EC] 81 mg PO DAILY 06/30/20 12/16/24 History Febuxostat [Uloric] 40 mg PO DAILY 06/30/20 12/16/24 History Multivitamins, Thera [Multivitamin 1 tab PO DAILY 06/30/20 12/16/24 History (formulary)] Simvastatin [Zocor] 20 mg PO HS 06/30/20 12/16/24 History amLODIPine BESYLATE 10 mg PO DAILY 06/30/20 12/16/24 History hydrALAZINE HCL [Apresoline] 100 mg PO TID 06/30/20 12/16/24 History Furosemide [Lasix] 20 mg PO BID 09/21/22 12/16/24 History carvediloL [Coreg] 25 mg PO BID 09/21/22 12/16/24 History Insulin Lispro [humaLOG Kwikpen] See Protocol SQ AC-TID 05/30/23 12/16/24 History HYDROcodone/APAP 5-325MG [[place] 1 tab PO Q6HR 30 Days #120 tab 10/15/23 12/16/24 Rx 5-325] Albuterol Inhaler [Ventolin Hfa 1 - 2 puff INHALATION RT-QID PRN 12/15/24 12/16/24 History Inhaler] Cranberry Fruit Extract [Cranberry] 500 mg PO DAILY 12/15/24 12/16/24 History Ferrous Sulfate [Feosol] 325 mg PO DAILY 12/15/24 12/16/24 History Folic Acid 1 mg PO DAILY 12/15/24 12/16/24 History Insulin Degludec [Tresiba 22 units SQ DAILY 12/15/24 12/16/24 History Flextouch U-100 Pen] Losartan [Cozaar] 50 mg PO DAILY 12/15/24 12/16/24 History Meclizine HCl 25 mg PO TID 5 Days #15 tab 12/15/24 12/16/24 Rx Pantoprazole Sodium [Protonix] 40 mg PO DAILY 12/15/24 12/16/24 History Sevelamer [Renvela] 800 mg PO AC-TID 12/15/24 12/16/24 History cloNIDine HCL [Catapres] 0.3 mg PO BID 12/15/24 12/16/24 History ondansetron HCL [Zofran] 8 mg PO Q12HR 12/15/24 12/16/24 History predniSONE See Taper PO DAILY 12/15/24 12/16/24 History Allergies Allergy/AdvReac Type Severity Reaction Status Date / Time adhesive tape Allergy Itching Verified 12/16/24 15:28 levofloxacin [From Levaquin] Allergy Unknown Verified 12/16/24 15:28 sulfamethoxazole Allergy Per PCP Verified 12/16/24 15:28 [From Bactrim] records trimethoprim [From Bactrim] Allergy Per PCP Verified 12/16/24 15:28 records Physical Exam Vitals: Vital Signs Temp Pulse Pulse Pulse Resp BP Pulse Ox 12/19/24 07:09 98 12/19/24 07:04 18 93 L 12/19/24 06:58 87 L 12/19/24 06:53 90 L 12/19/24 06:33 70 16 171/63 92 L 12/19/24 03:55 84 12/19/24 03:44 70 12/19/24 03:15 100 12/19/24 01:51 98.7 F 68 16 167/57 100 12/18/24 21:12 69 20 164/55 99 12/18/24 20:00 98.3 F 68 16 131/51 100 12/18/24 14:00 98.3 F 65 14 146/71 100 12/18/24 08:00 97.8 F 61 14 152/59 100 Intake and Output 12/18/24 12/19/24 12/19/24 22:59 06:59 14:59 Intake Total 150 Balance 150 Intake: Oral 150 Other: Voiding Method Diaper Results 12/19/24 05:25 12/19/24 05:25 Cardiac Enzymes 12/18/24 12/19/24 Range/Units 06:19 06:56 AST 31 (13-35) U/L Troponin I 0.087 H* (0.000-0.034) ng/mL CBC 12/18/24 Range/Units 06:19 WBC 5.84 (4.50-10.00) X 10*3/uL RBC 2.94 L (4.10-5.20) X 10*6/uL Hgb 8.8 L (12.0-15.0) g/dL Hct 28.5 L (37.2-46.3) % Plt Count 149 (140-440) X 10*3/uL Comprehensive Metabolic Panel 12/18/24 Range/Units 06:19 Sodium 128 L (135-145) mmol/L Potassium 4.6 (3.5-5.5) mmol/L Chloride 91 L (96-109) mmol/L Carbon Dioxide 25.9 (21.6-31.8) mmol/L BUN 27.1 H (9.0-27.0) mg/dL Creatinine 3.0 H (0.6-1.5) mg/dL Glucose 105 (70-110) mg/dL Calcium 7.7 L (8.7-10.3) mg/dL AST 31 (13-35) U/L ALT 13 (8-44) U/L Alkaline Phosphatase 70 (41-126) U/L Total Protein 5.1 L (6.2-8.2) g/dL Albumin 2.9 L (3.8-4.9) g/dL Current Medications Generic Name Dose Route Start Last Admin Trade Name Freq PRN Reason Stop Dose Admin Acetaminophen 650 mg 12/16/24 15:23 Acetaminophen Tab 325 Mg Tab PO Q6HR PRN Mild Pain or Fever > 100.5 Hydrocodone Bitart/Acetaminophen 1 each 12/18/24 00:00 12/19/24 06:27 Hydrocodone/Apap 5-325mg 1 Each Tab PO Not Given Q6H SIM Albuterol Sulfate 2.5 mg 12/17/24 08:06 12/19/24 03:44 Albuterol Nebulized 2.5 Mg/3 Ml INHALATION 2.5 mg RT-QID PRN Administration Shortness Of Breath Allopurinol 200 mg 12/17/24 09:00 12/18/24 08:43 Allopurinol 100 Mg Tab PO 200 mg DAILY SIM Administration Amlodipine Besylate 10 mg 12/17/24 09:00 12/18/24 08:42 Amlodipine 10 Mg Tab PO 10 mg DAILY SIM Administration Aspirin 81 mg 12/17/24 09:00 12/18/24 08:43 Aspirin 81 Mg PO 81 mg DAILY SIM Administration Atorvastatin Calcium 10 mg 12/17/24 21:00 12/18/24 21:32 Atorvastatin 10 Mg Tab PO 10 mg HS ISM Administration Carvedilol 25 mg 12/17/24 00:30 12/18/24 21:32 Carvedilol 12.5 Mg Tab PO 25 mg BID SIM Administration Clonidine 0.3 mg 12/17/24 00:30 12/18/24 21:32 Clonidine Hcl 0.1 Mg Tab PO 0.3 mg BID SIM Administration Darbepoetin Matthew 40 mcg 12/18/24 11:00 12/18/24 12:14 Darbepoetin Matthew 40 Mcg/0.4 Ml Syringe SQ 40 mcg Q7D SIM Administration Doxycycline Hyclate 100 mg 12/18/24 10:45 12/18/24 22:05 Doxycycline 100 Mg Tablet PO 12/21/24 10:44 100 mg BID SIM Administration Protocol Ferrous Sulfate 325 mg 12/17/24 09:00 12/18/24 08:43 Ferrous Sulfate 325 Mg Tab PO 325 mg DAILY SIM Administration Folic Acid 1 mg 12/17/24 09:00 12/18/24 08:43 Folic Acid 1 Mg Tab PO 1 mg DAILY SIM Administration Furosemide 20 mg 12/17/24 09:00 12/18/24 21:32 Furosemide 20 Mg Tab PO 20 mg BID SIM Administration Hydralazine HCl 100 mg 12/17/24 00:30 12/18/24 21:32 Hydralazine Hcl 50 Mg Tab PO 100 mg TID SIM Administration Insulin Glargine 10 unit 12/17/24 09:00 12/18/24 07:46 Insulin Glargine (Lantus) 100 Unit/Ml Syr SQ Not Given DAILY@0700 [facility] Insulin Human Lispro 0 unit 12/17/24 07:30 12/18/24 21:32 Insulin Lispro (Humalog) 100 Unit/Ml 10 Ml Vl SQ 2 unit ACHS SIM Administration Protocol Losartan Potassium 50 mg 12/17/24 09:00 12/18/24 08:43 Losartan 50 Mg Tab PO 50 mg DAILY SIM Administration Meclizine HCl 25 mg 12/17/24 09:00 12/18/24 21:32 Meclizine 25 Mg Tab PO 25 mg TID SIM Administration Multivitamins 1 each 12/17/24 09:00 12/18/24 08:43 Multivitamins, Thera 1 Each Tab PO 1 each DAILY SIM Administration Naloxone HCl 0.2 mg 12/16/24 15:23 Naloxone 0.4 Mg/Ml 1 Ml Vial IV Q2M PRN Opioid Reversal Ondansetron HCl 4 mg 12/16/24 15:23 12/16/24 22:33 Ondansetron 4 Mg/2 Ml Vial IVP 4 mg Q8HR PRN Administration Nausea And Vomiting Ondansetron HCl 8 mg 12/17/24 09:00 12/18/24 21:32 Ondansetron Odt 4 Mg Tab PO 8 mg Q12HR SIM Administration Pantoprazole Sodium 40 mg 12/17/24 09:00 12/18/24 08:43 Pantoprazole 40 Mg Tablet PO 40 mg DAILY SIM Administration Sevelamer Carbonate 800 mg 12/17/24 12:30 12/18/24 16:54 Sevelamer 800 Mg Tab PO 800 mg AC-TID SIM Administration Intake and Output 12/18/24 12/19/24 12/19/24 22:59 06:59 14:59 Intake Total 150 Balance 150 Intake: Oral 150 Other: Voiding Method Diaper 12/18/24 06:19 12/18/24 06:19
[2024-12-19 11:56] LABS: Chloride 92 mmol/L (96-109); Sodium 129 mmol/L (135-145)
[2024-12-19 12:17] LABS: Glucose,Whole Blood 137 mg/dL (70-110)
[2024-12-19] MEDS: ERTAPENEM 0.5 GM in SODIUM CHLORIDE 0.9% 50 ML IVPB SCH (13:55)
--- NOTE | 2024-12-19 14:55 | CT ---
EXAMINATION TYPE: CT angio chest DATE OF EXAM: 12/19/2024 2:27 PM COMPARISON: None. CLINICAL INDICATION: Female, 79 years old with history of elevated d-dimer, r/o PE, ESRD on HD, eleva prince D-Dimer. R/o PE, TECHNIQUE: CT of the chest is performed on a spiral scan at 2 mm thick sections. Study is performed with intravenous contrast timed for evaluation for pulmonary embolism. This will limit additional po rtions of the evaluation. 10mm MIP images reconstructed by the technologist are reviewed on the comp uter in the coronal and sagittal planes. Contrast used:50ml mL of Isovue 370 with IV Contrast, (none if empty) Oral contrast used: (none if empty) CT DLP: 595 mGycm, Automated exposure control for dose reduction was used. FINDINGS: No persistent filling defects are evident to suggest an acute pulmonary embolism. No mediastinal or hilar adenopathy enlarged by CT criteria is evident. The ascending aorta diameter at the level of the main pulmonary artery is 2.8 cm. The main pulmonary artery diameter at the bifurcation is 2.9 cm. Moderate bilateral pleural effusions are present. Compressive atelectasis at the dependent lung bases bilaterally. Moderate coronary artery calcifications present. There is a 1.9 cm cyst in the medial right lobe liver. IMPRESSION: 1. No acute pulmonary embolism.. 2. Moderate bilateral pleural effusions with adjacent compressive atelectasis. [facility], , 12/19/2024 2:53 PM
[2024-12-19] MEDS: HEPARIN SODIUM,PORCINE 5,000 UNIT/ML 1 ML VIAL SQ SCH (16:59)
[2024-12-19 17:10] LABS: Glucose,Whole Blood 102 mg/dL (70-110)
[2024-12-19 20:14] LABS: Glucose,Whole Blood 204 mg/dL (70-110)
--- NOTE | 2024-12-19 21:51 | P.CONS ---
History of Present Illness - Reason for Consult Consult date: 12/19/24 ESBL UTI Requesting physician: Augusto Reddy - Chief Complaint Burning urine, weakness x days - History of Present Illness Patient is a 79-year-old female with a past medical history significant for hypertension hyperlipidemia diabetes end-stage renal disease on dialysis through the left arm graft presenting to the hospital 3 days ago for evaluation of generalized weakness nausea not feeling well patient noticed to have a poor living condition at home parent did have multiple animals in the house patient on presentation to the hospital patient was afebrile and no fever have been recorded subsequently patient was not tachycardic or hypotensive or she has been hypoxic quiring 4 L nasal cannula oxygen patient did have a white count of 8.37 with a left shift of BMP creatinine has been elevated liver enzymes are normal urine has been positive patient still makes urine and again complaining of burning of urination with associated suprapubic discomfort and nausea but no flank pain urinary symptoms also positive for opiates urine cultures came positive for ESBL E. 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 gout ,anemia, psoriatic arthritis,heart murmur, anemia History of Any Multi-Drug Resistant Organisms: None Reported Year Discovered:: 12/16/24 MDRO Source:: urine Past Surgical History: Orthopedic Surgery, Tubal Ligation Additional Past Surgical History / Comment(s): 1 oophorectomy, 1 partial oophorectomy,fx rt shoulder feng present, cataracts removed jack eyes, fistula left arm Past Anesthesia/Blood Transfusion Reactions: No Reported Reaction, Motion Sickness Past Psychological History: Anxiety Smoking Status: Never smoker Past Alcohol Use History: None Reported Past Drug Use History: None Reported - Past Family History Sister(s) Family Medical History: Cancer Additional Family Medical History / Comment(s): breast cancer Mother Family Medical History: Diabetes Mellitus Father Family Medical History: Congestive Heart Failure (CHF), Myocardial Infarction ([place]) Medications and Allergies Home Medications Medication Instructions Recorded Confirmed Type Aspirin [Adult Low Dose Aspirin EC] 81 mg PO DAILY 06/30/20 12/16/24 History Febuxostat [Uloric] 40 mg PO DAILY 06/30/20 12/16/24 History Multivitamins, Thera [Multivitamin 1 tab PO DAILY 06/30/20 12/16/24 History (formulary)] Simvastatin [Zocor] 20 mg PO HS 06/30/20 12/16/24 History amLODIPine BESYLATE 10 mg PO DAILY 06/30/20 12/16/24 History hydrALAZINE HCL [Apresoline] 100 mg PO TID 06/30/20 12/16/24 History Furosemide [Lasix] 20 mg PO BID 09/21/22 12/16/24 History carvediloL [Coreg] 25 mg PO BID 09/21/22 12/16/24 History Insulin Lispro [humaLOG Kwikpen] See Protocol SQ AC-TID 05/30/23 12/16/24 History HYDROcodone/APAP 5-325MG [[place] 1 tab PO Q6HR 30 Days #120 tab 10/15/23 12/16/24 Rx 5-325] Albuterol Inhaler [Ventolin Hfa 1 - 2 puff INHALATION RT-QID PRN 12/15/24 12/16/24 History Inhaler] Cranberry Fruit Extract [Cranberry] 500 mg PO DAILY 12/15/24 12/16/24 History Ferrous Sulfate [Feosol] 325 mg PO DAILY 12/15/24 12/16/24 History Folic Acid 1 mg PO DAILY 12/15/24 12/16/24 History Insulin Degludec [Tresiba 22 units SQ DAILY 12/15/24 12/16/24 History Flextouch U-100 Pen] Losartan [Cozaar] 50 mg PO DAILY 12/15/24 12/16/24 History Meclizine HCl 25 mg PO TID 5 Days #15 tab 12/15/24 12/16/24 Rx Pantoprazole Sodium [Protonix] 40 mg PO DAILY 12/15/24 12/16/24 History Sevelamer [Renvela] 800 mg PO AC-TID 12/15/24 12/16/24 History cloNIDine HCL [Catapres] 0.3 mg PO BID 12/15/24 12/16/24 History ondansetron HCL [Zofran] 8 mg PO Q12HR 12/15/24 12/16/24 History predniSONE See Taper PO DAILY 12/15/24 12/16/24 History Allergies Allergy/AdvReac Type Severity Reaction Status Date / Time adhesive tape Allergy Itching Verified 12/16/24 15:28 levofloxacin [From Levaquin] Allergy Unknown Verified 12/16/24 15:28 sulfamethoxazole Allergy Per PCP Verified 12/16/24 15:28 [From Bactrim] records trimethoprim [From Bactrim] Allergy Per PCP Verified 12/16/24 15:28 records Physical Exam Vitals: Vital Signs Temp Pulse Pulse Pulse Resp BP Pulse Ox 12/19/24 08:00 98.2 F 63 18 145/55 100 12/19/24 07:09 98 12/19/24 07:04 18 93 L 12/19/24 06:58 87 L 12/19/24 06:53 90 L 12/19/24 06:33 70 16 171/63 92 L 12/19/24 03:55 84 12/19/24 03:44 70 12/19/24 03:15 100 12/19/24 01:51 98.7 F 68 16 167/57 100 12/18/24 21:12 69 20 164/55 99 12/18/24 20:00 98.3 F 68 16 131/51 100 12/18/24 14:00 98.3 F 65 14 146/71 100 Intake and Output 12/18/24 12/19/24 12/19/24 22:59 06:59 14:59 Intake Total 150 Balance 150 Intake: Oral 150 Other: Voiding Method Diaper GENERAL DESCRIPTION: Elderly female lying in bed, no distress. No tachypnea or accessory muscle of respiration use. HEENT: Shows Pallor , no scleral icterus. Oral mucous membrane is dry. NECK: Trachea central, no thyromegaly. LUNGS: Unlabored breathing. Clear to auscultation anteriorly. No wheeze or crackle. HEART: S1, S2, regular rate and rhythm. No loud murmur ABDOMEN: Soft, no tenderness , EXTREMITIES: No edema of feet. SKIN: No rash, no masses palpable. NEUROLOGICAL: The patient is awake, mood and affect normal. Results CBC & Chem 7: 12/20/24 07:05 12/20/24 07:05 Labs: Abnormal Lab Results - Last 24 Hours (Table) 12/18/24 12/18/24 12/18/24 Range/Units 12:21 17:08 20:45 RBC (4.10-5.20) X 10*6/uL Hgb (12.0-15.0) g/dL Hct (37.2-46.3) % MCHC (32.0-37.0) g/dL RDW (11.5-14.5) % Plt Count (140-440) X 10*3/uL D-Dimer (<0.60) mg/L FEU BUN (9.0-27.0) mg/dL Creatinine (0.6-1.5) mg/dL Est GFR (CKD-EPI) (>=60) BUN/Creatinine Ratio (12.00-20.00) Ratio Glucose (70-110) mg/dL POC Glucose (mg/dL) 204 H 198 H 209 H (70-110) mg/dL Calcium (8.7-10.3) mg/dL Troponin I (0.000-0.034) ng/mL Total Protein (6.2-8.2) g/dL Albumin (3.8-4.9) g/dL Albumin/Globulin Ratio (1.60-3.17) Ratio 12/19/24 12/19/24 12/19/24 Range/Units 05:25 05:25 06:56 RBC 3.02 L (4.10-5.20) X 10*6/uL Hgb 8.7 L (12.0-15.0) g/dL Hct 28.8 L (37.2-46.3) % MCHC 30.2 L (32.0-37.0) g/dL RDW 15.6 H (11.5-14.5) % Plt Count 136 L (140-440) X 10*3/uL D-Dimer (<0.60) mg/L FEU BUN 38.1 H (9.0-27.0) mg/dL Creatinine 3.7 H (0.6-1.5) mg/dL Est GFR (CKD-EPI) 12 L (>=60) BUN/Creatinine Ratio 10.30 L (12.00-20.00) Ratio Glucose 194 H (70-110) mg/dL POC Glucose (mg/dL) (70-110) mg/dL Calcium 8.2 L (8.7-10.3) mg/dL Troponin I 0.087 H* (0.000-0.034) ng/mL Total Protein 5.2 L (6.2-8.2) g/dL Albumin 3.0 L (3.8-4.9) g/dL Albumin/Globulin Ratio 1.36 L (1.60-3.17) Ratio 12/19/24 12/19/24 12/19/24 Range/Units 07:00 07:02 09:16 RBC (4.10-5.20) X 10*6/uL Hgb (12.0-15.0) g/dL Hct (37.2-46.3) % MCHC (32.0-37.0) g/dL RDW (11.5-14.5) % Plt Count (140-440) X 10*3/uL D-Dimer 2.00 H (<0.60) mg/L FEU BUN (9.0-27.0) mg/dL Creatinine (0.6-1.5) mg/dL Est GFR (CKD-EPI) (>=60) BUN/Creatinine Ratio (12.00-20.00) Ratio Glucose (70-110) mg/dL POC Glucose (mg/dL) 206 H 195 H (70-110) mg/dL Calcium (8.7-10.3) mg/dL Troponin I (0.000-0.034) ng/mL Total Protein (6.2-8.2) g/dL Albumin (3.8-4.9) g/dL Albumin/Globulin Ratio (1.60-3.17) Ratio 12/19/24 Range/Units 10:02 RBC (4.10-5.20) X 10*6/uL Hgb (12.0-15.0) g/dL Hct (37.2-46.3) % MCHC (32.0-37.0) g/dL RDW (11.5-14.5) % Plt Count (140-440) X 10*3/uL D-Dimer (<0.60) mg/L FEU BUN (9.0-27.0) mg/dL Creatinine (0.6-1.5) mg/dL Est GFR (CKD-EPI) (>=60) BUN/Creatinine Ratio (12.00-20.00) Ratio Glucose (70-110) mg/dL POC Glucose (mg/dL) (70-110) mg/dL Calcium (8.7-10.3) mg/dL Troponin I 0.077 H* (0.000-0.034) ng/mL Total Protein (6.2-8.2) g/dL Albumin (3.8-4.9) g/dL Albumin/Globulin Ratio (1.60-3.17) Ratio Microbiology - Last 24 Hours (Table) 12/16/24 16:12 Blood Culture - Preliminary Blood 12/16/24 12:59 Urine Culture - Final Urine,Voided Escherichia coli ESBL Assessment and Plan (1) UTI due to extended-spectrum beta lactamase (ESBL) producing Escherichia coli Current Visit: Yes Status: Acute Code(s): N39.0 - URINARY TRACT INFECTION, SITE NOT SPECIFIED; B96.29 - OTH ESCHERICHIA COLI THE CAUSE OF DISEASES CLASSD ELSWHR; Z16.12 - EXTENDED SPECTRUM BETA LACTAMASE (ESBL) RESISTANCE SNOMED Code(s): 209222759 (2) Allergy to multiple antibiotics Current Visit: Yes Status: Acute Code(s): Z88.1 - ALLERGY STATUS TO OTHER ANTIBIOTIC AGENTS SNOMED Code(s): 898436074 Plan: 1patient presented hospitalized weakness and nausea and this patient did have a history of end-stage disease still makes urine has been complaining of voiding urine as well as suprapubic discomfort with urine now growing ESBL E. coli concerning for cystitis not behaving as a deep infection such as pyelonephritis. 2patient with multiple antibiotic ALLERGIES that would limit the number of antibiotic safe to use 3discontinue doxycycline. 4we will start the patient on Invanz 500 mg daily and then 3-5day course should be enough for the cystitis depending upon her clinical response We will follow on clinical condition and cultures to further adjust medication if needed Thank you for this consultation we will follow the patient along with you Dictation was produced using ELIKE dictation software. please excuse any grammatical, word or spelling errors. Time with Patient: Greater than 30
--- NOTE | 2024-12-19 23:12 | P.PN ---
Subjective Progress Note Date: 12/19/24 This is a 79-year-old female with a history of end-stage renal disease who presented to the emergency department after APS and police found patient was living in an unknown safe environment. Patient reportedly had cats in her home. Patient also has 05/03 home care. Patient seen this morning sitting up in bed about to work with physical therapy. Patient refused to work with physical therapy yesterday. Working with social work and discharge planning for appropriate discharge plan. Patient has been seen and evaluated by nephrology and psychiatry. 12/19/2024 Patient is seen in follow-up today and covering for Dr. Coronado. Patient was reporting significant chest pain overnight and cardiology was consulted and pending. Per Dr. Coronado and nursing documentation, patient did have a workup recently at [facility] with cardiology evaluation. Troponin was ordered which was noted to be 0.087 and unsure if patient did have catheterization recently and will need to obtain some records from [facility]. D-dimer is elevated this morning at 2 although patient is end-stage renal and creatinine is 3.7. May obtain VQ scan if patient can tolerate. Patient is maintained on subcutaneous heparin and will continue for now. Infectious disease was also consulted for E. coli with ESBL in the urine. Review of systems: Constitutional: No reports of fatigue, fever, or chills Cardiovascular: reports of intermittent chest pain Respiratory: reports of continued shortness of breath GI: No reports of nausea, vomiting, or diarrhea : No reports of dysuria or retention Neurovascular: reports of generalized weakness All medications have been reviewed Physical exam: Gen: This is a 79-year-old female who is awake, alert and oriented x 1-2, well- developed, elderly appearing, thin built, ill-appearing, currently maintained on hemodialysis HEENT: Head is atraumatic, normocephalic. Pupils equal, round. Sclerae is anicteric. NECK: Supple. No JVD. No lymphadenopathy. No thyromegaly. LUNGS: Clear to auscultation. No wheezes or rhonchi. No intercostal retractions. HEART: Regular rate and rhythm. No murmur. ABDOMEN: Soft. Bowel sounds are present. No masses. No tenderness. EXTREMITIES: No pedal edema. No calf tenderness. NEUROLOGICAL: Patient is awake, alert and oriented x 12. Cranial nerves 2 through 12 are grossly intact. Diffusely weak, lethargic Assessment: Acute urinary tract infection, present on admission with E. coli and ESBL Generalized weakness and difficulty in ambulation, recommend PT/OT therapy evaluation. Apparently patient has 24/7 care although will consult social work who is working on the need for ECF and/or possible increased services in the home. APS is being involved and working on obtaining guardianship. Elevated D-dimer troponin elevation of 0.087, cardiology consulted and pending Chest pain, rule out ACS History of diabetes, uncontrolled with hyperglycemia Hyperlipidemia Hypertension End-stage renal disease, maintained on hemodialysis Sunday//Sunday History of depression History of anxiety History of anemia, likely chronic secondary to kidney disease GI prophylaxis DVT prophylaxis Full code Plan: Patient awaiting PT/OT therapy for evaluation with social work following as APS has been involved and currently working on obtaining guardianship as patient is not deemed capable of caring for herself or making decisions for herself. Patient does also have 24/7 care in the home which will need to be further investigated Urine culture finalized as E. coli with ESBL and infectious disease consulted for further antibiotic recommendations. Taking into consideration patient is a dialysis patient. Nephrology consulted as patient is maintained on dialysis and will resume Patient reporting chest pain and underwent chest x-ray this morning showing consistent with continued CHF exacerbation with no significant change from most recent study Recommend to monitor Accu-Cheks AC and at bedtime and will adjust insulins accordingly Patient was reporting episodes of chest pain this morning per nursing staff and troponin was obtained with findings of 0.087 and cardiology consulted. Chest x- ray shows volume overload with CHF D-dimer was elevated and patient is maintained on subcu heparin will assess patient to evaluate for possible VQ scan as patient will be unable to obtain CT due to kidney functions Patient with history of chronic anemia and hemoglobin is stable today at 8.7 with no active bleeding noted, will continue Aranesp Psychiatry was also evaluating the patient with concerns of delirium recommending to avoid narcotic and HIGH WORKER agents and frequent reorientation Patient will likely be here throughout the weekend as APS is working on possible guardianship and social work is involved assisting with this. Awaiting cardiology evaluation The impression and plan of care has been dictated by Hui Rice, Nurse Practitioner as directed. Dr. Alvraado MD I have performed a history and examination and MDM of this patient, discussed the same with the dictator, and agree with the dictator's assessment and plan as written ,documented as a scribe. Based on total visit time, I have performed more than 50% of the visit. Objective - Vital Signs Vital signs: Vital Signs Temp 98.2 F 12/19/24 08:00 Pulse 63 12/19/24 08:00 Resp 18 12/19/24 08:00 BP 145/55 12/19/24 08:00 Pulse Ox 100 12/19/24 08:00 FiO2 Intake & Output 12/18/24 12/19/24 12/19/24 18:59 06:59 18:59 Intake Total 150 Balance 150 Intake: Oral 150 Other: Voiding Method Diaper Diaper - Labs CBC & Chem 7: 12/19/24:12/19/24 05: Labs: Abnormal Lab Results - Last 24 Hours (Table) 12/18/24 12/18/24 12/18/24 Range/Units 06:19 06:19 12:21 RBC 2.94 L (4.10-5.20) X 10*6/uL Hgb 8.8 L (12.0-15.0) g/dL Hct 28.5 L (37.2-46.3) % MCHC 30.9 L (32.0-37.0) g/dL RDW 15.9 H (11.5-14.5) % Plt Count (140-440) X 10*3/uL D-Dimer (<0.60) mg/L FEU Sodium 128 L (135-145) mmol/L Chloride 91 L (96-109) mmol/L BUN 27.1 H (9.0-27.0) mg/dL Creatinine 3.0 H (0.6-1.5) mg/dL Est GFR (CKD-EPI) 16 L (>=60) BUN/Creatinine Ratio 9.03 L (12.00-20.00) Ratio Glucose (70-110) mg/dL POC Glucose (mg/dL) 204 H (70-110) mg/dL Calcium 7.7 L (8.7-10.3) mg/dL Troponin I (0.000-0.034) ng/mL Total Protein 5.1 L (6.2-8.2) g/dL Albumin 2.9 L (3.8-4.9) g/dL Albumin/Globulin Ratio 1.32 L (1.60-3.17) Ratio 12/18/24 12/18/24 12/19/24 Range/Units 17:08 20:45 05: RBC 3.02 L (4.10-5.20) X 10*6/uL Hgb 8.7 L (12.0-15.0) g/dL Hct 28.8 L (37.2-46.3) % MCHC 30.2 L (32.0-37.0) g/dL RDW 15.6 H (11.5-14.5) % Plt Count 136 L (140-440) X 10*3/uL D-Dimer (<0.60) mg/L FEU Sodium (135-145) mmol/L Chloride (96-109) mmol/L BUN (9.0-27.0) mg/dL Creatinine (0.6-1.5) mg/dL Est GFR (CKD-EPI) (>=60) BUN/Creatinine Ratio (12.00-20.00) Ratio Glucose (70-110) mg/dL POC Glucose (mg/dL) 198 H 209 H (70-110) mg/dL Calcium (8.7-10.3) mg/dL Troponin I (0.000-0.034) ng/mL Total Protein (6.2-8.2) g/dL Albumin (3.8-4.9) g/dL Albumin/Globulin Ratio (1.60-3.17) Ratio 12/19/24 12/19/24 12/19/24 Range/Units 05:25 06:56 07:00 RBC (4.10-5.20) X 10*6/uL Hgb (12.0-15.0) g/dL Hct (37.2-46.3) % MCHC (32.0-37.0) g/dL RDW (11.5-14.5) % Plt Count (140-440) X 10*3/uL D-Dimer (<0.60) mg/L FEU Sodium (135-145) mmol/L Chloride (96-109) mmol/L BUN 38.1 H (9.0-27.0) mg/dL Creatinine 3.7 H (0.6-1.5) mg/dL Est GFR (CKD-EPI) 12 L (>=60) BUN/Creatinine Ratio 10.30 L (12.00-20.00) Ratio Glucose 194 H (70-110) mg/dL POC Glucose (mg/dL) 206 H (70-110) mg/dL Calcium 8.2 L (8.7-10.3) mg/dL Troponin I 0.087 H* (0.000-0.034) ng/mL Total Protein 5.2 L (6.2-8.2) g/dL Albumin 3.0 L (3.8-4.9) g/dL Albumin/Globulin Ratio 1.36 L (1.60-3.17) Ratio 12/19/24 12/19/24 Range/Units 07:02 09:16 RBC (4.10-5.20) X 10*6/uL Hgb (12.0-15.0) g/dL Hct (37.2-46.3) % MCHC (32.0-37.0) g/dL RDW (11.5-14.5) % Plt Count (140-440) X 10*3/uL D-Dimer 2.00 H (<0.60) mg/L FEU Sodium (135-145) mmol/L Chloride (96-109) mmol/L BUN (9.0-27.0) mg/dL Creatinine (0.6-1.5) mg/dL Est GFR (CKD-EPI) (>=60) BUN/Creatinine Ratio (12.00-20.00) Ratio Glucose (70-110) mg/dL POC Glucose (mg/dL) 195 H (70-110) mg/dL Calcium (8.7-10.3) mg/dL Troponin I (0.000-0.034) ng/mL Total Protein (6.2-8.2) g/dL Albumin (3.8-4.9) g/dL Albumin/Globulin Ratio (1.60-3.17) Ratio Microbiology - Last 24 Hours (Table) 12/16/24 16:12 Blood Culture - Preliminary Blood 12/16/24 12:59 Urine Culture - Final Urine,Voided Escherichia coli ESBL
[2024-12-20 07:02] LABS: Glucose,Whole Blood 92 mg/dL (70-110)
[2024-12-20 12:31] LABS: Glucose,Whole Blood 276 mg/dL (70-110)
[2024-12-20] MEDS: ISOSORBIDE MONONITRATE ER 15 MG TAB PO SCH (12:40)
--- NOTE | 2024-12-20 13:21 | P.PN ---
Subjective Patient is seen for follow-up for end-stage renal disease. Maintained on Sunday schedule Currently being treated for UTI No significant complaints today. Objective - Vital Signs Vital signs: Vital Signs Temp 98.0 F 12/20/24 13:02 Pulse 71 12/20/24 13:02 Resp 16 12/20/24 13:02 BP 155/65 12/20/24 13:02 Pulse Ox 100 12/20/24 13:02 FiO2 Intake & Output 12/19/24 12/20/24 12/20/24 18:59 06:59 18:59 Intake Total 500 590 720 Output Total 6000 Balance -5500 590 720 Weight 63 kg Intake: Intake, IV Titration 100 Amount Ertapenem 0.5 gm In 100 Sodium Chloride 0.9% 50 ml @ 100 mls/hr IVPB DAILY@1200 SIM Rx#: [id number] Oral 590 720 Hemodialysis 400 Output: Hemodialysis 3200 Hemodialysis Net Amount 2800 Other: Voiding Method Diaper Diaper Diaper # Voids 2 - Exam Patient is awake, comfortable, no acute distress Examination of the heart S1 and S2 Examination of the lungs bilateral breath sounds are heard Abdomen is soft nontender Examination of lower extremities shows no significant edema. KILNMAN exam grossly intact - Labs CBC & Chem 7: 12/19/24 05:25 12/19/24 05:25 Labs: Abnormal Lab Results - Last 24 Hours (Table) 12/19/24 12/20/24 Range/Units 20:13 12:29 POC Glucose (mg/dL) 204 H 276 H (70-110) mg/dL Microbiology - Last 24 Hours (Table) 12/16/24 16:12 Blood Culture - Preliminary Blood Assessment and Plan Assessment: 1. End-stage renal disease maintained on hemodialysis on Sunday schedule. 2. Generalized debility. 3. Volume overload. Improved. 4. Hypervolemic hyponatremia. 5. Hypertension with chronic kidney disease with history of orthostatic hypotension. 6. Diabetes mellitus. 7. Chronic kidney disease mineral bone disease maintained on Renvela. 8. Anemia of chronic kidney disease. Iron replete. On Aranesp. 9. ESBL UTI. Plan: Antibiotics as per ID Hemodialysis on Sunday schedule.
--- NOTE | 2024-12-20 13:26 | P.PN ---
Subjective Progress Note Date: 12/20/24 HISTORY OF PRESENT ILLNESS: This is a 79-year-old female with a past medical history significant for di abetes, hypertension, hyperlipidemia, dialysis, and anxiety. Patient follows in the office with Dr. Live but has not been seen in the office since January 2023. We have been asked to see the patient in consultation for chest pain. Patient examined at the bedside. Patient had an episode of shortness of breath and chest discomfort this morning. Labs were obtained with D-dimer of 2.0 and troponin of 0.087. Patient is currently undergoing hemodialysis with a goal of 2.5 to 3 L. Patient currently denies chest pain or pressure. DIAGNOSTICS: - EKG reveals sinus mechanism with no signs of acute ischemia. - Chest xray perihilar and additional bilateral airspace disease. Small to moderate bilateral pleural effusions persist but seen on lateral view. Consider CHF with pulmonary edema. - Laboratory data: WBC 5.84. Hemoglobin 8.8. Platelet count 149. Sodium 128. Potassium 4.6. BUN 27. Creatinine 3.0. Troponin 0.087. - Current home cardiac medications include aspirin 81 mg daily, Lasix 20 mg twice a day, losartan 50 mg daily, simvastatin 20 mg at night, amlodipine 10 mg daily, carvedilol 25 mg twice a day, Catapres 0.3 mg twice daily, hydralazine 100 mg 3 times daily. - Most recent echocardiogram obtained in September 2023 revealed ejection fraction 65 to 70%, no obvious regional wall motion abnormalities, trace MR, mild MS - Cardiac catheterization history: 2008 revealing normal coronary arteries Progress note 12/20/2024 Patient is seen and examined at bedside this a.m. She is comfortable denies any chest pain chest pressure CT chest did not show any evidence of PE PHYSICAL EXAM: VITAL SIGNS: Reviewed. GENERAL: Well-developed in no acute distress. HEENT: Head is normocephalic. Pupils are equal, round. Sclerae anicteric. Mucous membranes of the mouth are moist. Neck supple. No JVD or thyromegaly LUNGS: Respirations even and unlabored. Lungs essentially clear to auscultation bilaterally. HEART: Regular rate and rhythm. S1 and S2 heard. ABDOMEN: Soft. Nondistended. Nontender. EXTREMITIES: Normal range of motion. No clubbing or cyanosis. Peripheral pulses intact. No lower extremity edema NEUROLOGIC: Awake and alert. Oriented x 3. ASSESSMENT: Chest pain Elevated troponin likely secondary to end-stage renal disease, no evidence of acute coronary syndrome End-stage renal disease on hemodialysis Moderate mitral regurgitation Moderate mitral stenosis Moderate tricuspid regurgitation Moderate pulm hypertension Hypertension Hyperlipidemia Diabetes PLAN: Records obtained from [facility]. Patient underwent an echocardiogram in September 2024 revealing ejection fraction 55 to 60%, moderate MR, moderate mitral stenosis, moderate tricuspid regurgitation, moderate pulmonary hypertension with RVSP 52 mmHg. Additionally patient underwent nucl ear Lexiscan stress test which was negative for ischemia. At this time patient is stable from cardiovascular standpoint Continue current medications Will add Imdur 15 mg daily Cardiology team will sign off. Please reconsult us in case of any questions Objective - Vital Signs Vital signs: Vital Signs Temp 98.0 F 12/20/24 13:02 Pulse 71 12/20/24 13:02 Resp 16 12/20/24 13:02 BP 155/65 12/20/24 13:02 Pulse Ox 100 12/20/24 13:02 FiO2 Intake & Output 12/19/24 12/20/24 12/20/24 18:59 06:59 18:59 Intake Total 233 296 8577 Output Total 6000 Balance -5500 590 2280 Weight 63 kg Intake: Intake, IV Titration 100 Amount Ertapenem 0.5 gm In 100 Sodium Chloride 0.9% 50 ml @ 100 mls/hr IVPB DAILY@1200 SIM Rx#: [id number] Oral 590 2280 Hemodialysis 400 Output: Hemodialysis 3200 Hemodialysis Net Amount 2800 Other: Voiding Method Diaper Diaper Diaper # Voids 2 3 - Labs CBC & Chem 7: 12/19/24 05:25 12/19/24 05:25 Labs: Abnormal Lab Results - Last 24 Hours (Table) 12/19/24 12/20/24 Range/Units 20:13 12:29 POC Glucose (mg/dL) 204 H 276 H (70-110) mg/dL Microbiology - Last 24 Hours (Table) 12/16/24 16:12 Blood Culture - Preliminary Blood
[2024-12-20 15:11] LABS: Magnesium 1.8 mg/dL (1.5-2.4)
--- NOTE | 2024-12-20 15:15 | P.PN ---
Subjective Progress Note Date: 12/20/24 This is a 79-year-old female with a history of end-stage renal disease who presented to the emergency department after APS and police found patient was living in an unknown safe environment. Patient reportedly had cats in her home. Patient also has 24/ home care. Patient seen this morning sitting up in bed about to work with physical therapy. Patient refused to work with physical therapy yesterday. Working with social work and discharge planning for appropriate discharge plan. Patient has been seen and evaluated by nephrology and psychiatry. 12/19/2024 Patient is seen in follow-up today and covering for Dr. Coronado. Patient was reporting significant chest pain overnight and cardiology was consulted and pending. Per Dr. Coronado and nursing documentation, patient did have a workup recently at [facility] with cardiology evaluation. Troponin was ordered which was noted to be 0.087 and unsure if patient did have catheterization recently and will need to obtain some records from [facility]. D-dimer is elevated this morning at 2 although patient is end-stage renal and creatinine is 3.7. May obtain VQ scan if patient can tolerate. Patient is maintained on subcutaneous heparin and will continue for now. Infectious disease was also consulted for E. coli with ESBL in the urine. 12/20/2024 Was evaluated in follow-up in the medical floor. She is currently on IV Invanz for an ESBL UTI. She is currently pending placement social work is looking at [facility]. APS is on and following this patient. CT reveals no acute pulmonary embolism, there is moderate bilateral pleural effusion with adjacent compressive atelectasis. Cardiology did evaluate the patient for the troponin elevation with no further recommendations and have signed off at this time. Patient is continued on subcutaneous heparin. Review of systems: Constitutional: No reports of fatigue, fever, or chills Cardiovascular: reports of intermittent chest pain Respiratory: reports of continued shortness of breath GI: No reports of nausea, vomiting, or diarrhea : No reports of dysuria or retention Neurovascular: reports of generalized weakness All medications have been reviewed Physical exam: Gen: This is a 79-year-old female who is awake, alert and oriented x 1-2, well- developed, elderly appearing, thin built, ill-appearing, currently maintained on hemodialysis HEENT: Head is atraumatic, normocephalic. Pupils equal, round. Sclerae is anicteric. NECK: Supple. No JVD. No lymphadenopathy. No thyromegaly. LUNGS: Clear to auscultation. No wheezes or rhonchi. No intercostal retractions. HEART: Regular rate and rhythm. No murmur. ABDOMEN: Soft. Bowel sounds are present. No masses. No tenderness. EXTREMITIES: No pedal edema. No calf tenderness. NEUROLOGICAL: Patient is awake, alert and oriented x 12. Cranial nerves 2 through 12 are grossly intact. Diffusely weak, lethargic Assessment: Acute urinary tract infection, present on admission with E. coli and ESBL Generalized weakness and difficulty in ambulation, recommend PT/OT therapy evaluation. Apparently patient has 24/7 care although will consult social work who is working on the need for ECF and/or possible increased services in the home. APS is being involved and working on obtaining guardianship. Elevated D-dimer troponin elevation of 0.087 from renal disease Chest pain, rule out ACS History of diabetes, uncontrolled with hyperglycemia Hyperlipidemia Hypertension End-stage renal disease, maintained on hemodialysis Sunday//Sunday History of depression History of anxiety History of anemia, likely chronic secondary to kidney disease GI prophylaxis DVT prophylaxis Full code Plan: Patient awaiting PT/OT therapy for evaluation with social work following as APS has been involved and currently working on obtaining guardianship as patient is not deemed capable of caring for herself or making decisions for herself. Patient does also have 24/7 care in the home which will need to be further investigated Urine culture finalized as E. coli with ESBL and infectious disease consulted for further antibiotic recommendations. Taking into consideration patient is a dialysis patient. She remains on IV Invanz with recommendations for 3 to 5 days while in the hospital. Nephrology consulted as patient is maintained on dialysis and will resume Patient reporting chest pain and underwent chest x-ray this morning showing consistent with continued CHF exacerbation with no significant change from most recent study Recommend to monitor Accu-Cheks AC and at bedtime and will adjust insulins accordingly Patient was reporting episodes of chest pain this morning per nursing staff and troponin was obtained with findings of 0.087 and cardiology consulted. Chest x- ray shows volume overload with CHF Per cardiology the troponin elevation is because of the renal disease no evidence for ischemia and recent Lexiscan stress test was negative for ischemia. Patient with history of chronic anemia and hemoglobin is stable today at 8.7 with no active bleeding noted, will continue Aranesp Psychiatry was also evaluating the patient with concerns of delirium recommending to avoid narcotic and [employer] agents and frequent reorientation Patient will likely be here throughout the weekend as APS is working on possible guardianship and social work is involved assisting with this. Awaiting cardiology evaluation The impression and plan of care has been dictated by Mariela Her, Nurse Practitioner as directed. Dr. Alvarado MD I have performed a history and physical examination and medical decision making of this patient, discussed the same with the dictator, and agree with the dictators assessment and plan as written, documented as a scribe. Based on total visit time, I have performed more than 50% of this visit. Objective - Vital Signs Vital signs: Vital Signs Temp 98.8 F 12/20/24 07:00 Pulse 78 12/20/24 07:00 Resp 16 12/20/24 07:00 BP 169/71 12/20/24 07:00 Pulse Ox 99 12/20/24 07:00 FiO2 Intake & Output 12/19/24 12/20/24 12/20/24 18:59 06:59 18:59 Intake Total 500 590 720 Output Total 6000 Balance -5500 590 720 Weight 63 kg Intake: Intake, IV Titration 100 Amount Ertapenem 0.5 gm In 100 Sodium Chloride 0.9% 50 ml @ 100 mls/hr IVPB DAILY@1200 SIM Rx#: [id number] Oral 590 720 Hemodialysis 400 Output: Hemodialysis 3200 Hemodialysis Net Amount 2800 Other: Voiding Method Diaper Diaper Diaper # Voids 2 - Labs CBC & Chem 7: 12/19/24 05:25 12/19/24 05:25 Labs: Abnormal Lab Results - Last 24 Hours (Table) 12/19/24 12/20/24 Range/Units 20:13 12:29 POC Glucose (mg/dL) 204 H 276 H (70-110) mg/dL Microbiology - Last 24 Hours (Table) 12/16/24 16:12 Blood Culture - Preliminary Blood Assessment and Plan Time with Patient: Less than 30
[2024-12-20 15:26] LABS: ALT 8 U/L (8-44); AST 17 U/L (13-35); Albumin 2.8 g/dL (3.8-4.9); Albumin/Globulin Ratio 1.33 Ratio (1.60-3.17); Alkaline Phosphatase 65 U/L (41-126); BUN/Creat Ratio 8.58 Ratio (12.00-20.00); Blood Urea Nitrogen 20.6 mg/dL (9.0-27.0); Calcium 8.2 mg/dL (8.7-10.3); Carbon Dioxide 26.1 mmol/L (21.6-31.8); Chloride 94 mmol/L (96-109); Globulin 2.1 g/dL (1.6-3.3); Glucose 82 mg/dL (70-110); Potassium 4.1 mmol/L (3.5-5.5); Sodium 131 mmol/L (135-145); Total Bilirubin 0.3 mg/dL (0.3-1.2); Total Protein 4.9 g/dL (6.2-8.2)
[2024-12-20 17:05] LABS: Glucose,Whole Blood 226 mg/dL (70-110)
[2024-12-20 17:53] LABS: Basophils # (M) 0 X 10*3/uL (0.00-0.10); Elliptocytes 2+ (None Seen); Eosinophils # (M) 0 X 10*3/uL (0.04-0.35); HCT 28.7 % (37.2-46.3); HGB 8.9 g/dL (12.0-15.0); Lymphocytes # (M) 0.21 X 10*3/uL (0.90-5.00); MCH 29.4 pg (27.0-32.0); MCV 94.7 FL (80.0-97.0); Mean Platelet Volume 11.2 FL (9.5-12.2); Metamyelocytes % 2 % (0-0); Monocytes # (M) 0.63 X 10*3/uL (0.20-1.00); Myelocytes % 1 % (0-0); NRBC Per 100 WBC 0 X 10*3/uL (0.00-0.01); Neutrophils # (M) 4.27 X 10*3/uL (1.80-7.70); Neutrophils % (M) 81 %; Platelet Count 93 X 10*3/uL (140-440); RBC 3.03 X 10*6/uL (4.10-5.20); RDW 15.2 % (11.5-14.5); Rouleaux Present (Absent); WBC 5.27 X 10*3/uL (4.50-10.00)
[2024-12-20 20:34] LABS: Glucose,Whole Blood 199 mg/dL (70-110)
[2024-12-21 06:43] LABS: Glucose,Whole Blood 209 mg/dL (70-110)
--- NOTE | 2024-12-21 10:42 | P.PN ---
Subjective Patient is seen for follow-up for end-stage renal disease. Maintained on Sunday schedule Currently being treated for UTI No significant complaints today. Objective - Vital Signs Vital signs: Vital Signs Temp 98.5 F 12/21/24 06:43 Pulse 72 12/21/24 06:43 Resp 16 12/21/24 06:43 BP 160/55 12/21/24 06:43 Pulse Ox 92 L 12/21/24 07:58 FiO2 Intake & Output 12/20/24 12/21/24 12/21/24 18:59 06:59 18:59 Intake Total 2520 830 480 Balance 2520 830 480 Weight 95.5 kg Intake: Oral 2520 830 480 Other: Voiding Method Diaper Diaper Diaper # Voids 3 2 - Exam Patient is awake, comfortable, no acute distress Examination of the heart S1 and S2 Examination of the lungs bilateral breath sounds are heard Abdomen is soft nontender Examination of lower extremities shows no significant edema. [employer] exam grossly intact - Labs CBC & Chem 7: 12/20/24 07:05 12/20/24 07:05 Labs: Abnormal Lab Results - Last 24 Hours (Table) 12/20/24 12/20/24 12/20/24 Range/Units 07:05 07:05 12:29 RBC 3.03 L (4.10-5.20) X 10*6/uL Hgb 8.9 L (12.0-15.0) g/dL Hct 28.7 L (37.2-46.3) % MCHC 31.0 L (32.0-37.0) g/dL RDW 15.2 H (11.5-14.5) % Plt Count 93 L (140-440) X 10*3/uL Lymphocytes # (Manual) 0.21 L (0.90-5.00) X 10*3/uL Eosinophils # (Manual) 0 L (0.04-0.35) X 10*3/uL Elliptocytes 2+ A (None Seen) Rouleaux Present A (Absent) Sodium 131 L (135-145) mmol/L Chloride 94 L (96-109) mmol/L Creatinine 2.4 H (0.6-1.5) mg/dL Est GFR (CKD-EPI) 20 L (>=60) BUN/Creatinine Ratio 8.58 L (12.00-20.00) Ratio POC Glucose (mg/dL) 276 H (70-110) mg/dL Calcium 8.2 L (8.7-10.3) mg/dL Total Protein 4.9 L (6.2-8.2) g/dL Albumin 2.8 L (3.8-4.9) g/dL Albumin/Globulin Ratio 1.33 L (1.60-3.17) Ratio 12/20/24 12/20/24 12/21/24 Range/Units 17:03 20:33 06:42 RBC (4.10-5.20) X 10*6/uL Hgb (12.0-15.0) g/dL Hct (37.2-46.3) % MCHC (32.0-37.0) g/dL RDW (11.5-14.5) % Plt Count (140-440) X 10*3/uL Lymphocytes # (Manual) (0.90-5.00) X 10*3/uL Eosinophils # (Manual) (0.04-0.35) X 10*3/uL Elliptocytes (None Seen) Rouleaux (Absent) Sodium (135-145) mmol/L Chloride (96-109) mmol/L Creatinine (0.6-1.5) mg/dL Est GFR (CKD-EPI) (>=60) BUN/Creatinine Ratio (12.00-20.00) Ratio POC Glucose (mg/dL) 226 H 199 H 209 H (70-110) mg/dL Calcium (8.7-10.3) mg/dL Total Protein (6.2-8.2) g/dL Albumin (3.8-4.9) g/dL Albumin/Globulin Ratio (1.60-3.17) Ratio Assessment and Plan Assessment: 1. End-stage renal disease maintained on hemodialysis on Sunday schedule. 2. Generalized debility. 3. Volume overload. Improved. 4. Hypervolemic hyponatremia. 5. Hypertension with chronic kidney disease with history of orthostatic hypotension. 6. Diabetes mellitus. 7. Chronic kidney disease mineral bone disease maintained on Renvela. 8. Anemia of chronic kidney disease. Iron replete. On . 9. ESBL UTI. Plan: Antibiotics as per ID Hemodialysis on Sunday schedule.
[2024-12-21 12:25] LABS: Glucose,Whole Blood 286 mg/dL (70-110)
--- NOTE | 2024-12-21 12:48 | P.PN ---
Subjective Progress Note Date: 12/20/24 Principal diagnosis: Reason for follow-up is ESBL E. coli UTI Patient is a 79-year-old female with a past medical history significant for hypertension hyperlipidemia diabetes end-stage renal disease on dialysis through the left arm graft presenting to the hospital for evaluation of generalized weakness nausea not feeling well patient still makes urine did have urinary symptoms positive UA concerning for UTI urine cultures came back with ESBL E. coli prompting this consultation On today's evaluation that is 12/20/2024, Patient is afebrile this morning patient denies having any chest pain shortness of breath or cough, the patient is currently on room air, patient did have improvement in her symptoms. Patient white count is 5.27 creatinine is 2.4 Objective - Vital Signs Vital signs: Vital Signs Temp 98.6 F 12/20/24 19:57 Pulse 77 12/20/24 19:57 Resp 16 12/20/24 19:57 BP 160/51 12/20/24 19:57 Pulse Ox 100 12/20/24 19:57 FiO2 Intake & Output 12/20/24 12/20/24 12/21/24 06:59 18:59 06:59 Intake Total 590 2520 Balance 590 2520 Weight 63 kg Intake: Oral 590 2520 Other: Voiding Method Diaper Diaper # Voids 2 3 - Exam GENERAL DESCRIPTION: An elderly female lying in bed in no distress RESPIRATORY SYSTEM: Unlabored breathing , decreased breath sounds at bases HEART: S1 S2 regular rate and rhythm , ABDOMEN: Soft , no tenderness EXTREMITIES: No edema feet - Labs CBC & Chem 7: 12/20/24 07:05 12/20/24 07:05 Labs: Abnormal Lab Results - Last 24 Hours (Table) 12/20/24 12/20/24 12/20/24 Range/Units 07:05 07:05 12:29 RBC 3.03 L (4.10-5.20) X 10*6/uL Hgb 8.9 L (12.0-15.0) g/dL Hct 28.7 L (37.2-46.3) % MCHC 31.0 L (32.0-37.0) g/dL RDW 15.2 H (11.5-14.5) % Plt Count 93 L (140-440) X 10*3/uL Lymphocytes # (Manual) 0.21 L (0.90-5.00) X 10*3/uL Eosinophils # (Manual) 0 L (0.04-0.35) X 10*3/uL Elliptocytes 2+ A (None Seen) Rouleaux Present A (Absent) Sodium 131 L (135-145) mmol/L Chloride 94 L (96-109) mmol/L Creatinine 2.4 H (0.6-1.5) mg/dL Est GFR (CKD-EPI) 20 L (>=60) BUN/Creatinine Ratio 8.58 L (12.00-20.00) Ratio POC Glucose (mg/dL) 276 H (70-110) mg/dL Calcium 8.2 L (8.7-10.3) mg/dL Total Protein 4.9 L (6.2-8.2) g/dL Albumin 2.8 L (3.8-4.9) g/dL Albumin/Globulin Ratio 1.33 L (1.60-3.17) Ratio 12/20/24 12/20/24 Range/Units 17:03 20:33 RBC (4.10-5.20) X 10*6/uL Hgb (12.0-15.0) g/dL Hct (37.2-46.3) % MCHC (32.0-37.0) g/dL RDW (11.5-14.5) % Plt Count (140-440) X 10*3/uL Lymphocytes # (Manual) (0.90-5.00) X 10*3/uL Eosinophils # (Manual) (0.04-0.35) X 10*3/uL Elliptocytes (None Seen) Rouleaux (Absent) Sodium (135-145) mmol/L Chloride (96-109) mmol/L Creatinine (0.6-1.5) mg/dL Est GFR (CKD-EPI) (>=60) BUN/Creatinine Ratio (12.00-20.00) Ratio POC Glucose (mg/dL) 226 H 199 H (70-110) mg/dL Calcium (8.7-10.3) mg/dL Total Protein (6.2-8.2) g/dL Albumin (3.8-4.9) g/dL Albumin/Globulin Ratio (1.60-3.17) Ratio Microbiology - Last 24 Hours (Table) 05/06/25 16:12 Blood Culture - Preliminary Blood Assessment and Plan (1) UTI due to extended-spectrum beta lactamase (ESBL) producing Escherichia coli Current Visit: Yes Status: Acute Code(s): N39.0 - URINARY TRACT INFECTION, SITE NOT SPECIFIED; B96.29 - OTH ESCHERICHIA COLI THE CAUSE OF DISEASES CLASSD ELSWHR; Z16.12 - EXTENDED SPECTRUM BETA LACTAMASE (ESBL) RESISTANCE SNOMED Code(s): 408315154 (2) Allergy to multiple antibiotics Current Visit: Yes Status: Acute Code(s): Z88.1 - ALLERGY STATUS TO OTHER ANTIBIOTIC AGENTS SNOMED Code(s): 919466253 Plan: 1patient presented hospitalized weakness and nausea and this patient did have a history of end-stage disease still makes urine has been complaining of voiding urine as well as suprapubic discomfort with urine now growing ESBL E. coli concerning for cystitis not behaving as a deep infection such as pyelonephritis. 2patient with multiple antibiotic ALLERGIES that would limit the number of antibiotic safe to use 3patient currently being treated Invanz 500 mg daily seem to have shown some clinical improvement and monitor clinical course closely Dictation was produced using [employer] software. please excuse any grammatical, word or spelling errors.
[2024-12-21 17:13] LABS: Glucose,Whole Blood 197 mg/dL (70-110)
[2024-12-21 20:27] LABS: Glucose,Whole Blood 182 mg/dL (70-110)
[2024-12-22 07:16] LABS: Glucose,Whole Blood 177 mg/dL (70-110)
--- NOTE | 2024-12-22 08:08 | P.PN ---
Subjective Progress Note Date: 12/21/24 Principal diagnosis: Reason for follow-up is ESBL E. coli UTI Patient is a 79-year-old female with a past medical history significant for hypertension hyperlipidemia diabetes end-stage renal disease on dialysis through the left arm graft presenting to the hospital for evaluation of generalized weakness nausea not feeling well patient still makes urine did have urinary symptoms positive UA concerning for UTI urine cultures came back with ESBL E. coli prompting this consultation On today's evaluation that is 12/21/2024,the patient denies any fever or any chills, patient is breathing comfortably on room air, the patient denies chest pain shortness of breath and no significant cough, patient denies abdominal pain, no nausea vomiting or diarrhea. No new lab has been obtained today Objective - Vital Signs Vital signs: Vital Signs Temp 98.2 F 12/21/24 11:55 Pulse 68 12/21/24 11:55 Resp 16 12/21/24 11:55 BP 141/62 12/21/24 11:55 Pulse Ox 100 12/21/24 11:55 FiO2 Intake & Output 12/20/24 12/21/24 12/21/24 18:59 06:59 18:59 Intake Total 2520 830 960 Balance 2520 830 960 Weight 95.5 kg Intake: Oral 2520 830 960 Other: Voiding Method Diaper Diaper Diaper # Voids 3 2 2 # Bowel Movements 1 - Exam GENERAL DESCRIPTION: An elderly female lying in bed in no distress RESPIRATORY SYSTEM: Unlabored breathing , decreased breath sounds at bases HEART: S1 S2 regular rate and rhythm , ABDOMEN: Soft , no tenderness EXTREMITIES: No edema feet - Labs CBC & Chem 7: 12/20/24 07:05 12/20/24 07:05 Labs: Abnormal Lab Results - Last 24 Hours (Table) 12/20/24 12/20/24 12/20/24 Range/Units 07:05 07:05 17:03 RBC 3.03 L (4.10-5.20) X 10*6/uL Hgb 8.9 L (12.0-15.0) g/dL Hct 28.7 L (37.2-46.3) % MCHC 31.0 L (32.0-37.0) g/dL RDW 15.2 H (11.5-14.5) % Plt Count 93 L (140-440) X 10*3/uL Lymphocytes # (Manual) 0.21 L (0.90-5.00) X 10*3/uL Eosinophils # (Manual) 0 L (0.04-0.35) X 10*3/uL Elliptocytes 2+ A (None Seen) Rouleaux Present A (Absent) Sodium 131 L (135-145) mmol/L Chloride 94 L (96-109) mmol/L Creatinine 2.4 H (0.6-1.5) mg/dL Est GFR (CKD-EPI) 20 L (>=60) BUN/Creatinine Ratio 8.58 L (12.00-20.00) Ratio POC Glucose (mg/dL) 226 H (70-110) mg/dL Calcium 8.2 L (8.7-10.3) mg/dL Total Protein 4.9 L (6.2-8.2) g/dL Albumin 2.8 L (3.8-4.9) g/dL Albumin/Globulin Ratio 1.33 L (1.60-3.17) Ratio 12/20/24 12/21/24 12/21/24 Range/Units 20:33 06:42 12:24 RBC (4.10-5.20) X 10*6/uL Hgb (12.0-15.0) g/dL Hct (37.2-46.3) % MCHC (32.0-37.0) g/dL RDW (11.5-14.5) % Plt Count (140-440) X 10*3/uL Lymphocytes # (Manual) (0.90-5.00) X 10*3/uL Eosinophils # (Manual) (0.04-0.35) X 10*3/uL Elliptocytes (None Seen) Rouleaux (Absent) Sodium (135-145) mmol/L Chloride (96-109) mmol/L Creatinine (0.6-1.5) mg/dL Est GFR (CKD-EPI) (>=60) BUN/Creatinine Ratio (12.00-20.00) Ratio POC Glucose (mg/dL) 199 H 209 H 286 H (70-110) mg/dL Calcium (8.7-10.3) mg/dL Total Protein (6.2-8.2) g/dL Albumin (3.8-4.9) g/dL Albumin/Globulin Ratio (1.60-3.17) Ratio Assessment and Plan (1) UTI due to extended-spectrum beta lactamase (ESBL) producing Escherichia coli Current Visit: Yes Status: Acute Code(s): N39.0 - URINARY TRACT INFECTION, SITE NOT SPECIFIED; B96.29 - OTH ESCHERICHIA COLI THE CAUSE OF DISEASES CLASSD ELSWHR; Z16.12 - EXTENDED SPECTRUM BETA LACTAMASE (ESBL) RESISTANCE SNOMED Code(s): 765429998 (2) Allergy to multiple antibiotics Current Visit: Yes Status: Acute Code(s): Z88.1 - ALLERGY STATUS TO OTHER ANTIBIOTIC AGENTS SNOMED Code(s): 346679787 Plan: 1patient presented hospitalized weakness and nausea and this patient did have a history of end-stage disease still makes urine has been complaining of voiding urine as well as suprapubic discomfort with urine now growing ESBL E. coli concerning for cystitis not behaving as a deep infection such as pyelonephritis. 2patient with multiple antibiotic ALLERGIES that would limit the number of antibiotic safe to use 3patient seem to have shown some clinical improvement we will continue Invanz 500 mg daily while inpatient and monitor clinical course closely Dictation was produced using [employer] dictation software. please excuse any grammatical, word or spelling errors. Time with Patient: Less than 30
--- NOTE | 2024-12-22 09:16 | P.PN ---
Subjective Progress Note Date: 12/21/24 This is a 79-year-old female with a history of end-stage renal disease who presented to the emergency department after APS and police found patient was living in an unknown safe environment. Patient reportedly had cats in her home. Patient also has 24/ home care. Patient seen this morning sitting up in bed about to work with physical therapy. Patient refused to work with physical therapy yesterday. Working with social work and discharge planning for appropriate discharge plan. Patient has been seen and evaluated by nephrology and psychiatry. 12/19/2024 Patient is seen in follow-up today and covering for Dr. Coronado. Patient was reporting significant chest pain overnight and cardiology was consulted and pending. Per Dr. Coronado and nursing documentation, patient did have a workup recently at [facility] with cardiology evaluation. Troponin was ordered which was noted to be 0.087 and unsure if patient did have catheterization recently and will need to obtain some records from [facility]. D-dimer is elevated this morning at 2 although patient is end-stage renal and creatinine is 3.7. May obtain VQ scan if patient can tolerate. Patient is maintained on subcutaneous heparin and will continue for now. Infectious disease was also consulted for E. coli with ESBL in the urine. 12/20/2024 Was evaluated in follow-up in the medical floor. She is currently on IV Invanz for an ESBL UTI. She is currently pending placement social work is looking at [facility]. APS is on and following this patient. CT reveals no acute pulmonary embolism, there is moderate bilateral pleural effusion with adjacent compressive atelectasis. Cardiology did evaluate the patient for the troponin elevation with no further recommendations and have signed off at this time. Patient is continued on subcutaneous heparin. 12/21/2024 Patient evaluated in follow up on the medical floor. Remains on IV invanz for the ESBL UTI, ID following. APS following and working on guardianship. Patient has been denied at [facility] and may need to return home with homecare and social work to follow up on Sunday for this. No new complaints today. Review of systems: Constitutional: No reports of fatigue, fever, or chills Cardiovascular: reports of intermittent chest pain Respiratory: reports of continued shortness of breath GI: No reports of nausea, vomiting, or diarrhea : No reports of dysuria or retention Neurovascular: reports of generalized weakness All medications have been reviewed Physical exam: Gen: This is a 79-year-old female who is awake, alert and oriented x 1-2, well- developed, elderly appearing, thin built, ill-appearing, currently maintained on hemodialysis HEENT: Head is atraumatic, normocephalic. Pupils equal, round. Sclerae is anicteric. NECK: Supple. No JVD. No lymphadenopathy. No thyromegaly. LUNGS: Clear to auscultation. No wheezes or rhonchi. No intercostal retract ions. HEART: Regular rate and rhythm. No murmur. ABDOMEN: Soft. Bowel sounds are present. No masses. No tenderness. EXTREMITIES: No pedal edema. No calf tenderness. NEUROLOGICAL: Patient is awake, alert and oriented x 12. Cranial nerves 2 through 12 are grossly intact. Diffusely weak, lethargic Assessment: Acute urinary tract infection, present on admission with E. coli and ESBL Generalized weakness and difficulty in ambulation, recommend PT/OT therapy evaluation. Apparently patient has 24/7 care although will consult social work who is working on the need for ECF and/or possible increased services in the home. APS is being involved and working on obtaining guardianship. Elevated D-dimer troponin elevation of 0.087 from renal disease Chest pain, rule out ACS History of diabetes, uncontrolled with hyperglycemia Hyperlipidemia Hypertension End-stage renal disease, maintained on hemodialysis Sunday//Sunday History of depression History of anxiety History of anemia, likely chronic secondary to kidney disease GI prophylaxis DVT prophylaxis Full code Plan: Patient awaiting PT/OT therapy for evaluation with social work following as APS has been involved and currently working on obtaining guardianship as patient is not deemed capable of caring for herself or making decisions for herself. Patient does also have 24/7 care in the home which will need to be further investigated Urine culture finalized as E. coli with ESBL and infectious disease consulted for further antibiotic recommendations. Taking into consideration patient is a dialysis patient. She remains on IV Invanz with recommendations for 3 to 5 days while in the hospital. Nephrology consulted as patient is maintained on dialysis and will resume Patient reporting chest pain and underwent chest x-ray this morning showing consistent with continued CHF exacerbation with no significant change from most recent study Recommend to monitor Accu-Cheks AC and at bedtime and will adjust insulins accordingly Patient was reporting episodes of chest pain this morning per nursing staff and troponin was obtained with findings of 0.087 and cardiology consulted. Chest x- ray shows volume overload with CHF Per cardiology the troponin elevation is because of the renal disease no evidence for ischemia and recent Lexiscan stress test was negative for ischemia. Patient with history of chronic anemia and hemoglobin is stable today at 8.7 with no active bleeding noted, will continue [facility] Psychiatry was also evaluating the patient with concerns of delirium recommending to avoid narcotic and [employer] agents and frequent reorientation Patient will likely be here throughout the weekend as APS is working on possible guardianship and social work is involved assisting with this. The impression and plan of care has been dictated by Mariela Her Nurse Practitioner as directed. Dr. Alvarado MD I have performed a history and physical examination and medical decision making of this patient, discussed the same with the dictator, and agree with the dictators assessment and plan as written, documented as a scribe. Based on total visit time, I have performed more than 50% of this visit. Objective - Vital Signs Vital signs: Vital Signs Temp 98.2 F 12/21/24 19:22 Pulse 74 12/21/24 19:22 Resp 16 12/21/24 19:22 BP 137/53 12/21/24 19:22 Pulse Ox 100 12/21/24 19:22 FiO2 Intake & Output 12/21/24 12/21/24 12/22/24 06:59 18:59 06:59 Intake Total 830 1200 Balance 830 1200 Weight 95.5 kg 65 kg Intake: Oral 830 1200 Other: Voiding Method Diaper Diaper Diaper # Voids 2 2 1 # Bowel Movements 2 1 - Labs CBC & Chem 7: 12/20/24 07:05 12/20/24 07:05 Labs: Abnormal Lab Results - Last 24 Hours (Table) 12/21/24 12/21/24 12/21/24 Range/Units 06:42 12:24 17:08 POC Glucose (mg/dL) 209 H 286 H 197 H (70-110) mg/dL 12/21/24 Range/Units 20:25 POC Glucose (mg/dL) 182 H (70-110) mg/dL Microbiology - Last 24 Hours (Table) 12/16/24 16:12 Blood Culture - Final Blood Assessment and Plan Time with Patient: Less than 30
[2024-12-22 10:09] LABS: African American GFR (CKD) 14 (>60 ml/min/1.73 sqM); Anion Gap 8 mmol/L; Blood Urea Nitrogen 51 mg/dL (7-17); Calcium 8.8 mg/dL (8.4-10.2); Carbon Dioxide 27 mmol/L (22-30); Chloride 93 mmol/L (98-107); Glucose 163 mg/dL (74-99); Non-African American GFR(CKD) 12 (>60 ml/min/1.73 sqM); Potassium 4.5 mmol/L (3.5-5.1); Sodium 128 mmol/L (137-145)
[2024-12-22 10:59] VITALS: BMI 25.4
[2024-12-22 12:39] LABS: Glucose,Whole Blood 190 mg/dL (70-110)
[2024-12-22 12:55] VITALS: TEMP 97.6
--- NOTE | 2024-12-22 12:57 | P.PN ---
Subjective Patient is seen for follow-up for end-stage renal disease. Maintained on Sunday schedule Seen on hemodialysis. Tolerating treatment well. No significant complaints today. Objective - Vital Signs Vital signs: Vital Signs Temp 97.6 F 12/22/24 12:37 Pulse 79 12/22/24 12:37 Resp 20 12/22/24 12:37 BP 160/62 12/22/24 12:37 Pulse Ox 91 L 12/22/24 12:37 FiO2 Intake & Output 12/21/24 12/22/24 12/22/24 18:59 06:59 18:59 Intake Total 1200 Balance 1200 Weight 65 kg 65 kg Intake: Oral 1200 Other: Voiding Method Diaper Diaper Diaper # Voids 2 1 # Bowel Movements 2 1 - Exam Patient is awake, comfortable, no acute distress Examination of lower extremities shows no significant edema. SYSTEMATIC THEOLOGY PROFESSOR exam grossly intact - Labs CBC & Chem 7: 12/20/24 07:05 12/22/24 09:31 Labs: Abnormal Lab Results - Last 24 Hours (Table) 12/21/24 12/21/24 12/22/24 Range/Units 17:08 20:25 07:14 Sodium (137-145) mmol/L Chloride (98-107) mmol/L BUN (7-17) mg/dL Creatinine (0.52-1.04) mg/dL Glucose (74-99) mg/dL POC Glucose (mg/dL) 197 H 182 H 177 H (70-110) mg/dL 12/22/24 12/22/24 Range/Units 09:31 12:37 Sodium 128 L (137-145) mmol/L Chloride 93 L (98-107) mmol/L BUN 51 H (7-17) mg/dL Creatinine 3.52 H (0.52-1.04) mg/dL Glucose 163 H (74-99) mg/dL POC Glucose (mg/dL) 190 H (70-110) mg/dL Microbiology - Last 24 Hours (Table) 12/16/24 16:12 Blood Culture - Final Blood Assessment and Plan Assessment: 1. End-stage renal disease maintained on hemodialysis on Sunday schedule. 2. Generalized debility. 3. Volume overload. Improved. 4. Hypervolemic hyponatremia. 5. Hypertension with chronic kidney disease with history of orthostatic hypotension. 6. Diabetes mellitus. 7. Chronic kidney disease mineral bone disease maintained on Renvela. 8. Anemia of chronic kidney disease. Iron replete. On Aranesp. 9. ESBL UTI. Plan: Antibiotics as per ID Hemodialysis on Sunday schedule.
[2024-12-22 14:46] VITALS: BP 165/68; PULSE 80; RESP 18
--- NOTE | 2024-12-23 13:53 | P.PN ---
Subjective Progress Note Date: 12/22/24 Principal diagnosis: Reason for follow-up is ESBL E. coli UTI Patient is a 79-year-old female with a past medical history significant for hypertension hyperlipidemia diabetes end-stage renal disease on dialysis through the left arm graft presenting to the hospital for evaluation of generalized weakness nausea not feeling well patient still makes urine did have urinary symptoms positive UA concerning for UTI urine cultures came back with ESBL E. coli prompting this consultation On today's evaluation that is 12/22/2024,the patient remains to be afebrile, patient is on 2 L nasal cannula supplemental oxygen and denies any shortness of breath no chest pain or cough.Patient denies having any nausea or vomiting, no abdominal pain and no diarrhea has been reported. Patient did have a creatinine of 3.52 Objective - Vital Signs Vital signs: Vital Signs Temp 97.8 F 12/22/24 07:12 Pulse 74 12/22/24 07:12 Resp 20 12/22/24 07:12 BP 149/53 12/22/24 07:12 Pulse Ox 100 12/22/24 07:12 FiO2 Intake & Output 12/21/24 12/22/24 12/22/24 18:59 06:59 18:59 Intake Total 1200 Balance 1200 Weight 65 kg Intake: Oral 1200 Other: Voiding Method Diaper Diaper # Voids 2 1 # Bowel Movements 2 1 - Exam GENERAL DESCRIPTION: An elderly female lying in bed in no distress RESPIRATORY SYSTEM: Unlabored breathing , decreased breath sounds at bases HEART: S1 S2 regular rate and rhythm , ABDOMEN: Soft , no tenderness EXTREMITIES: No edema feet - Labs CBC & Chem 7: 12/20/24 07:05 12/22/24 09:31 Labs: Abnormal Lab Results - Last 24 Hours (Table) 12/21/24 12/21/24 12/21/24 Range/Units 12:24 17:08 20:25 POC Glucose (mg/dL) 286 H 197 H 182 H (70-110) mg/dL 12/22/24 Range/Units 07:14 POC Glucose (mg/dL) 177 H (70-110) mg/dL Microbiology - Last 24 Hours (Table) 12/16/24 16:12 Blood Culture - Final Blood Assessment and Plan (1) UTI due to extended-spectrum beta lactamase (ESBL) producing Escherichia coli Status: Acute Code(s): N39.0 - URINARY TRACT INFECTION, SITE NOT SPECIFIED; B96.29 - OTH ESCHERICHIA COLI THE CAUSE OF DISEASES CLASSD ELSWHR; Z16.12 - EXTENDED SPECTRUM BETA LACTAMASE (ESBL) RESISTANCE SNOMED Code(s): 931470931 (2) Allergy to multiple antibiotics Status: Acute Code(s): Z88.1 - ALLERGY STATUS TO OTHER ANTIBIOTIC AGENTS SNOMED Code(s): 914148734 Plan: 1patient presented hospitalized weakness and nausea and this patient did have a history of end-stage disease still makes urine has been complaining of voiding urine as well as suprapubic discomfort with urine now growing ESBL E. coli concerning for cystitis not behaving as a deep infection such as pyelonephritis. 2patient with multiple antibiotic ALLERGIES that would limit the number of antibiotic safe to use 3patient has shown clinical improvement has received adequate doses of IV Invanz should be enough for cystitis no need for antibiotic on discharge discussed with UNIVERSITY REGISTRAR for admitting team Dictation was produced using [employer] dictation software. please excuse any grammatical, word or spelling errors. Time with Patient: Less than 30
--- NOTE | 2024-12-24 12:59 | CDI ---
Documentation Clarification Form Date: From: Yessy Montanez Phone: Admit Date: 12/16/2024 03:14:00 PM Patient Name: Belgica Velásquez Visit Number: [id number] Discharge Date: 12/22/2024 03:07:00 PM ATTENTION: The Clinical Documentation Specialists (CDI) and [facility] Coding Staff appreciate your assistance in clarifying documentation. Please respond to the clarification below the line at the bottom and electronically sign. The CDI & [facility] Coding staff will review the response and follow-up if needed. Please note: Queries are made part of the Legal Health Record. If you have any questions, please contact the author of this message via ITS. Doctor/Provider: Augusto Reddy There is documentation of CKD mineral bone disorder. Additional clarification is requested. History/Risk Factors: 79yo F, ESBLE. coli UTI, IDDMII whyperglycemia & ESRD on HD, HLD, HTN. depression, anxiety, CKD anemia, hypervolemichyponatremia Clinical Indicators: ESRD Treatment: maintained on Renvela Is there a more specific diagnosis that is clinically appropriate for this patient? [ ] Renal osteodystrophy [ x ] CKD mineral bone disorder, NOS [ ] Other, please specify [ ] Unable to determine (Template Last Revised: October 2024) MTDD
--- NOTE | 2024-12-24 18:48 | P.DS ---
Providers Date of admission: 12/16/24 15:14 Attending physician: Eric Coronado Consults: 12/16/24 15:23 Consult Physician Routine Consulting Provider: Psychiatry - [facility] Psychiatry Consult Reason/Comments: depression, petition Do you want consulting provider notified?: Yes Consult Physician Urgent Consulting Provider: Augusto Reddy Consult Reason/Comments: Dialysis Do you want consulting provider notified?: Yes 12/19/24 10:37 Consult Physician Routine Consulting Provider: Margarita Guzman Consult Reason/Comments: esbl uti Do you want consulting provider notified?: Yes Primary care physician: Eric Coronado Hospital Course: Final Diagnosis Acute urinary tract infection, present on admission with E. coli and ESBL Generalized weakness and difficulty in ambulation, recommend PT/OT therapy evaluation. Apparently patient has 24/7 care although will consult social work who is working on the need for ECF and/or possible increased services in the home. APS is being involved and working on obtaining guardianship. Elevated D-dimer troponin elevation of 0.087 from renal disease Chest pain, rule out ACS History of diabetes, uncontrolled with hyperglycemia Hyperlipidemia Hypertension End-stage renal disease, maintained on hemodialysis Sunday//Sunday History of depression History of anxiety History of anemia, likely chronic secondary to kidney disease Discharge Disposition Patient is stable for return home. Overall guarded prognosis and APS case has been opened. Cardiology has added imdur. Hospital Course This is a 79-year-old female with a history of end-stage renal disease who presented to the emergency department after APS and police found patient was living in an unknown safe environment. Patient reportedly had cats in her home. Patient also has 24/7 home care. Patient seen this morning sitting up in bed about to work with physical therapy. Working with social work and discharge planning for appropriate discharge plan. Patient has been seen and evaluated by nephrology and psychiatry. Patient was reporting significant chest pain overnight and cardiology was consulted. CT reveals no acute pulmonary embolism, there is moderate bilateral pleural effusion with adjacent compressive atelectasis. FCardiology did evaluate the patient for the troponin elevation with no further recommendations and have signed off at this time. ID was consulted as patient found to have ESBL in the urine. She has completed a course of invanz while in the hospital with no antibiotics required on discharge. [facility] did not accept the patient and she will be discharged home with 24/7 care provided by [facility]. APS to follow along. Please see medication reconciliation for a list of current medications. Thank you for allowing us to participate in the care of this patient. The impression and plan of care has been dictated by Mariela Her, Nurse Practitioner as directed. Dr. Alvarado MD I have performed a history and physical examination and medical decision making of this patient, discussed the same with the dictator, and agree with the dictators assessment and plan as written, documented as a scribe. Based on total visit time, I have performed more than 50% of this visit. Patient Condition at Discharge: Fair Plan - Discharge Summary Discharge Rx Participant: No New Discharge Prescriptions: New Isosorbide Mononitrate ER [Imdur] 15 mg PO DAILY #30 tab Continue Multivitamins, Thera [Multivitamin (formulary)] 1 tab PO DAILY Aspirin [Adult Low Dose Aspirin EC] 81 mg PO DAILY Simvastatin [Zocor] 20 mg PO HS Febuxostat [Uloric] 40 mg PO DAILY hydrALAZINE HCL [Apresoline] 100 mg PO TID amLODIPine BESYLATE 10 mg PO DAILY Furosemide [Lasix] 20 mg PO BID Insulin Lispro [humaLOG Kwikpen] See Protocol SQ AC-TID ondansetron HCL [Zofran] 8 mg PO Q12HR Ferrous Sulfate [Iron (65 MG Elemental)] 325 mg PO DAILY Folic Acid 1 mg PO DAILY Cranberry Fruit Extract [Cranberry] 500 mg PO DAILY cloNIDine HCL [Catapres] 0.3 mg PO BID Pantoprazole Sodium [Protonix] 40 mg PO DAILY Sevelamer [Renvela] 800 mg PO AC-TID carvediloL [Coreg] 25 mg PO BID HYDROcodone/APAP 5-325MG [Victoria 5-325] 1 tab PO Q6HR 30 Days #120 tab Losartan [Cozaar] 50 mg PO DAILY Albuterol Inhaler [Ventolin Hfa Inhaler] 1 - 2 puff INHALATION RT-QID PRN PRN Reason: Shortness Of Breath Insulin Degludec [Tresiba Flextouch U-100 Pen] 22 units SQ DAILY Meclizine HCl 25 mg PO TID 5 Days #15 tab Discontinued predniSONE See Taper PO DAILY Discharge Medication List Aspirin [Adult Low Dose Aspirin EC] 81 mg PO DAILY 06/30/20 [History] Febuxostat [Uloric] 40 mg PO DAILY 06/30/20 [History] Multivitamins, Thera [Multivitamin (formulary)] 1 tab PO DAILY 06/30/20 [History] Simvastatin [Zocor] 20 mg PO HS 06/30/20 [History] amLODIPine BESYLATE 10 mg PO DAILY 06/30/20 [History] hydrALAZINE HCL [Apresoline] 100 mg PO TID 06/30/20 [History] Furosemide [Lasix] 20 mg PO BID 09/21/22 [History] carvediloL [Coreg] 25 mg PO BID 09/21/22 [History] Insulin Lispro [humaLOG Kwikpen] See Protocol SQ AC-TID 05/30/23 [History] HYDROcodone/APAP 5-325MG [Victoria 5-325] 1 tab PO Q6HR 30 Days #120 tab 10/15/23 [Rx] Albuterol Inhaler [Ventolin Hfa Inhaler] 1 - 2 puff INHALATION RT-QID PRN 12/15/24 [History] Cranberry Fruit Extract [Cranberry] 500 mg PO DAILY 12/15/24 [History] Ferrous Sulfate [Iron (65 MG Elemental)] 325 mg PO DAILY 12/15/24 [History] Folic Acid 1 mg PO DAILY 12/15/24 [History] Insulin Degludec [Tresiba Flextouch U-100 Pen] 22 units SQ DAILY 12/15/24 [History] Losartan [Cozaar] 50 mg PO DAILY 12/15/24 [History] Meclizine HCl 25 mg PO TID 5 Days #15 tab 12/15/24 [Rx] Pantoprazole Sodium [Protonix] 40 mg PO DAILY 12/15/24 [History] Sevelamer [Renvela] 800 mg PO AC-TID 12/15/24 [History] cloNIDine HCL [Catapres] 0.3 mg PO BID 12/15/24 [History] ondansetron HCL [Zofran] 8 mg PO Q12HR 12/15/24 [History] Isosorbide Mononitrate ER [Imdur] 15 mg PO DAILY #30 tab 12/22/24 [Rx] Follow up Appointment(s)/Referral(s): Eric Coronado MD [Primary Care Provider] - 1-2 days Margaux Jorge MD [STAFF PHYSICIAN] - 1 Week Margarita Guzman MD [STAFF PHYSICIAN] - 1 Week Patient Instructions/Handouts: Isosorbide Mononitrate (By mouth), Urinary Tract Infection in Women (DC), Weakness (DC) Discharge Disposition: HOME SELF-CARE
== END 2024-12-22 15:07 | disposition home or self-care (01) | DRG 640 ==
LOC: EC 11:45 → 5NMEDONC 15:14
PROVIDERS: ADMIT Family Medicine; ATTEND Family Medicine
PROC: 5A1D70Z Performance of Urinary Filtration, Intermittent, Less than 6 Hours Per Day (ICD-10-PCS; principal; 2024-12-16)
DX: E87.70 Fluid overload, unspecified (principal); N18.6 End stage renal disease; I12.0 Hypertensive chronic kidney disease with stage 5 chronic kidney disease or end stage renal disease; I27.22 Pulmonary hypertension due to left heart disease; D63.1 Anemia in chronic kidney disease; E87.1 Hypo-osmolality and hyponatremia; E11.22 Type 2 diabetes mellitus with diabetic chronic kidney disease; B96.20 Unspecified Escherichia coli [E. coli] as the cause of diseases classified elsewhere; Z99.2 Dependence on renal dialysis; I08.1 Rheumatic disorders of both mitral and tricuspid valves; Z16.12 Extended spectrum beta lactamase (ESBL) resistance; E11.65 Type 2 diabetes mellitus with hyperglycemia; Z79.4 Long term (current) use of insulin; N30.90 Cystitis, unspecified without hematuria; E78.5 Hyperlipidemia, unspecified; E87.5 Hyperkalemia; R26.2 Difficulty in walking, not elsewhere classified; R11.0 Nausea; R79.89 Other specified abnormal findings of blood chemistry; M89.8X9 Other specified disorders of bone, unspecified site; F41.9 Anxiety disorder, unspecified; F43.21 Adjustment disorder with depressed mood; R53.81 Other malaise; I95.1 Orthostatic hypotension; Z91.158 Patient's noncompliance with renal dialysis for other reason; Z79.82 Long term (current) use of aspirin; Z79.899 Other long term (current) drug therapy; Z86.19 Personal history of other infectious and parasitic diseases; Z88.1 Allergy status to other antibiotic agents
CPT/HCPCS: 36415; 71046; 71275; 80048; 80053; 80306; 80320; 81001; 82728; 83540; 83550; 83605; 83735; 84100; 84484; 85025; 85027; 85379; 85610; 85730; 87040; 87077; 87086; 87186; 90935; 93005; 94640; 94760